=== PATIENT | female | born 1945 | race Caucasian/White ===

== ENCOUNTER → 2017-09-04 15:05 | Outpatient (CLI) | payer OTHER, SELFPAY ==
--- NOTE | 2017-09-04 | DI.RAD.S_ITS ---
PROCEDURE: XR HAND RT MIN 3V INDICATIONS: POLYARTHROPATHY, ERYTHEMA BILATERAL HANDS. TECHNIQUE: 3 views of the hand(s) acquired. COMPARISON: [facility], , HAND 3V RIGHT, 01/29/2017, 14:14. FINDINGS: Bones: No fractures or dislocations. Carpal bones are normally aligned. No suspicious bony lesions. Joint degeneration redemonstrated at the first MCP, PIP and DIP joints of the index finger and PIP joint of the middle finger which is similar to prior examination. Subluxation and ulnar deviation again present at the PIP joints of the index and middle fingers similar to prior examination. Small possible marginal erosions are present involving the second PIP and DIP joints also similar prior examination. There is central erosive appearance at the PIP joint of the right index finger. Generalized osteopenia redemonstrated. Soft tissues: No suspicious soft tissue calcifications. There are faint ill-defined reticular calcifications about the PIP joint of the middle finger as before IMPRESSION: Advanced diffuse joint degeneration, redemonstrated with several small possible marginal erosions which may indicate inflammatory arthritis. Central appearance of some of these erosions raise the possibility of erosive osteoarthritis. Overall, no interval change since 01/29/17. Recommend clinical correlation and if needed further assessment with contrast-enhanced hand MRI could be performed. Dictated by: Yosi GUNTER Interpreted: Chava Man MD on 09/04/2017 at 16:04 Approved by: Gurjit Campbell M.D. on 09/07/2017 at 10:27
--- NOTE | 2017-09-04 | DI.RAD.S_ITS ---
PROCEDURE: XR HAND LT MIN 3V INDICATIONS: POLYARTHROPATHY ERYTHEMA BILATERAL HANDS. TECHNIQUE: 3 views of the hand(s) acquired. COMPARISON: [facility], CR, HAND 3V RIGHT, 01/29/2017, 14:14. [facility], CR, XR HAND RT MIN 3V, 09/04/2017, 15:43. [facility], CR, HAND 3V LEFT, 01/29/2017, 14:14. FINDINGS: Bones: No fractures or dislocations. Carpal bones are normally aligned. No suspicious bony lesions. Prior resection of the trapezium. Joint degeneration at the first CMC Mild joint narrowing with periarticular osteophyte formation. Appearing similar to prior examination with mild subluxation. Fixed flexion deformity involves the index finger PIP joint. There is moderate diffuse joint narrowing of the interphalangeal joints also similar to prior exam. Subtle 2 mm marginal lucencies at the base of the middle finger at the MCP joint, unchanged. Soft tissues: Chondrocalcinosis present. IMPRESSION: 1. Joint degeneration similar to prior examination diffuse osteopenia. 2. Chondrocalcinosis. Differential diagnosis includes but is not limited to hemochromatosis, hyperparathyroidism and CPPD. Dictated by: Yosi GUNTER Interpreted: Chava Man MD on 09/04/2017 at 16:07 Approved by: Gurjit Campbell M.D. on 09/07/2017 at 10:32
[2017-09-04 16:08] LABS: Hematocrit 32.6 % (36-46); Hemoglobin 10.9 g/dL (12.0-16.0)
[2017-09-04 16:33] LABS: Creatinine Urine Random 72.8 mg/dL; Protein (Total) Urine Random 77 mg/dL (0-12); Protein Creatinine Ratio Urine 1.05 GRAM/24H
[2017-09-04 18:22] LABS: Erythrocyte Sedimentation Rate 31 MM/HR (0-20)
[2017-09-04 20:27] LABS: HEMOLYSIS < 15 (0-50)
[2017-09-04 20:28] LABS: BUN Creatinine Ratio 19.4 (6-22); Blood Urea Nitrogen 31 mg/dL (7-17); C-Reactive Protein Quant 0.5 mg/dL (<1.0); Calcium 9.8 mg/dL (8.4-10.2); Carbon Dioxide 28 mmol/L (22-32); Chloride 92 mmol/L (98-107); Estimated Glomerular Filt Rate 31.7 mL/min (>60); Glucose 114 mg/dL (80-110); Potassium 5.1 mmol/L (3.4-5.1); Rheumatoid Factor < 8.6 IU/mL (<12.0); Sodium 133 mmol/L (137-145)
[2017-09-08 12:38] LABS: ANA Screen, IFA Positive (Negative)
[2017-09-08 15:59] LABS: Parathyroid Hormone Int 38 pg/mL (14-64)
== END ==
PROVIDERS: Family Provider Anesthesiology Pain Medicine; PCP Physician Assistant; Visit Provider Student in an Organized Health Care Education/Training Program
DX: M54.5 Low back pain (principal); N05.9 Unspecified nephritic syndrome with unspecified morphologic changes; D64.9 Anemia, unspecified; N25.81 Secondary hyperparathyroidism of renal origin; R80.9 Proteinuria, unspecified; M13.0 Polyarthritis, unspecified; L53.9 Erythematous condition, unspecified
CPT/HCPCS: 36415; 73130; 80048; 82570; 83970; 84156; 85014; 85018; 85651; 86038; 86140; 86305; 86430

== ENCOUNTER 2017-10-06 13:22 | Emergency (ER) | payer OTHER, SELFPAY ==
[2017-10-06] VITALS (7 sets, daily range): BP systolic 173–192; BP diastolic 62–90; PULSE 65–74; RESP 14–25; TEMP 35.9; O2SAT 97–100
[2017-10-06 13:57] LABS: Add Manual Diff / Slide Review NO; Basophils Percent Auto 0.6 % (0-2); Eosinophils Percent Auto 0.5 % (2-4); Hematocrit 32.9 % (36-46); Hemoglobin 11.1 g/dL (12.0-16.0); Lymphocytes Percent Auto 12.9 % (25-40); Mean Corpuscular HGB Conc 33.9 % (30-36); Mean Corpuscular Hemoglobin 31.3 PG (26-34); Mean Corpuscular Volume 92.2 fL (80-100); Monocytes Percent Auto 6.6 % (3-14); Neutrophils Absolute Auto 6200 /uL (3000-5900); Neutrophils Percent Auto 79.4 % (50-75); Platelet Count 331 X10^3/uL (150-400); Red Blood Cell Count 3.56 X10^6/uL (4.0-5.2); Red Cell Distribution Width 13.9 % (11.6-14.8); White Blood Cell Count 7.8 X10^3/uL (4.5-11.0)
[2017-10-06 14:08] LABS: Alanine Aminotransferase 24 IU/L (9-52); Albumin 4.2 g/dL (3.5-5.0); Albumin Globulin Ratio 1.4 (1.0-2.8); Alkaline Phosphatase 112 U/L (38-126); Aspartate Aminotransferase 26 IU/L (14-36); BUN Creatinine Ratio 12.1 (6-22); Bilirubin Total 0.6 mg/dL (0.2-1.3); Blood Urea Nitrogen 17 mg/dL (7-17); Calcium 8.8 mg/dL (8.4-10.2); Carbon Dioxide 26 mmol/L (22-32); Chloride 85 mmol/L (98-107); Globulin 3.1 g/dL (1.7-4.1); Glucose 111 mg/dL (80-110); HEMOLYSIS < 15 (0-50); Lactate Dehydrogenase 400 U/L (313-618); Lipase 12 U/L (23-300); Potassium 4.4 mmol/L (3.4-5.1); Sodium 121 mmol/L (137-145); Total Protein 7.3 g/dL (6.3-8.2)
--- NOTE | 2017-10-06 14:08 | PC.NURSE ---
pt reports nausea with vomiting and diarrhea for one week, sipping wine with relief with spasm, denies fever, denies foreign travel, denies recent antibiotic treatment. denies blood.
--- NOTE | 2017-10-06 14:36 | ED.ABDPAIN ---
HPI - Abdominal Pain General Chief Complaint: Abdominal Pain Stated Complaint: SICK TO STOMACH FOR SEVERAL DAYS Time Seen by Provider: 10/06/17 14:26 Source: patient Mode of arrival: ambulatory Limitations: no limitations History of Present Illness HPI narrative: Patient is a 72-year-old female presents with abdominal pain. She has been nauseous all dry heaving for about a week. No real abdominal pain but does have epigastric pain which she calls as spasm. the pain comes and goes. She is passing gas noted. No constipation. She denies any chest pain or shortness of breath. She has not had any fevers. MD complaint: abdominal pain Onset (ago): week(s) (1) Related Data Home Medications Medication Instructions Recorded Confirmed FLAXSEED (FLAXSEED OIL) 1 cap PO DAILY #0 11/16/11 10/06/17 Fish Oil (Fish Oil 500 MG Softgel) 500 mg PO QDAY #0 11/16/11 10/06/17 aspirin 81 mg PO QDAY #0 11/16/11 10/06/17 gabapentin [Neurontin] 900 mg PO HS #0 11/16/11 10/06/17 nadolol 160 mg PO HS #0 11/16/11 10/06/17 cyclobenzaprine 10 mg PO TIDP PRN #0 tab 12/28/12 10/06/17 cyclosporine [Restasis] 0.05 % OPHTH BID #0 12/28/12 10/06/17 paroxetine HCl [Paxil] 40 mg PO HS #0 tab 12/28/12 10/06/17 fluticasone [Flonase Allergy 1 spray INTRANASAL BIDP PRN #0 10/10/16 10/06/17 Relief] triamcinolone acetonide 1 kiya TOPICAL TID PRN #0 10/10/16 10/06/17 ascorbic acid (vitamin C) 500 mg PO QDAY #0 10/11/16 10/06/17 thiamine HCl (vitamin B1) [Vitamin 100 mcg PO DAILY #0 10/20/16 10/06/17 B-1] hydrocodone-acetaminophen 1 tab PO Q4HP PRN #0 01/21/17 10/06/17 calcitriol 2 cap PO EVERY OTHER DAY 10/06/17 10/06/17 isosorbide mononitrate 1 tab PO DAILY 10/06/17 10/06/17 lisinopril 5 mg PO DAILY 10/06/17 10/06/17 nifedipine 1 tab PO BID 10/06/17 10/06/17 pantoprazole 40 mg PO DAILY 10/06/17 10/06/17 Previous Rx's Medication Instructions Recorded ondansetron 4 mg PO Q6HR PRN #10 tab 10/06/17 promethazine 25 mg PO Q6H PRN #10 tab 10/06/17 Allergies Allergy/AdvReac Type Severity Reaction Status Date / Time hydromorphone [HYDROMORPHONE] Allergy Intermediate HIVES Unverified 07/15/17 12:14 Penicillins [PENICILLINS] Allergy Mild RASH Unverified 07/15/17 12:14 metoprolol [METOPROLOL] Allergy Unknown Unverified 07/15/17 12:14 phenytoin [PHENYTOIN] Allergy Unknown Unverified 07/15/17 12:14 morphine [MORPHINE] AdvReac Severe Confusion, Unverified 07/15/17 12:14 mental status changes, somnolence seasonal allergies Allergy Unknown Uncoded 07/15/17 12:14 Review of Systems Constitutional Denies chills, Denies fever(s), Denies lethargy and Denies weakness Cardiovascular Denies chest pain, Denies irregular heart rhythm, Denies lightheadedness, Denies palpitations, Denies dyspnea, Denies dyspnea on exertion and Denies orthopnea Respiratory Denies cough, Denies dyspnea, Denies dyspnea on exertion and Denies wheezing Gastrointestinal Gastrointestinal: Reports as per HPI and Reports system reviewed and no additional complaints, except as docu Musculoskeletal Denies back pain, Denies muscle weakness, Denies numbness and Denies tingling Neurologic Denies numbness, Denies tingling and Denies weakness Endocrine Denies palpitations Allergic/Immunologic Denies wheezing PFSH Social History Smoking Status: Never smoker Exam Initial Vital Signs Initial Vital Signs: Vital Signs Temperature 96.6 F L 10/06/17 13:25 Pulse Rate 65 10/06/17 13:25 Respiratory Rate 16 10/06/17 13:25 Blood Pressure 177/73 H 10/06/17 13:25 Pulse Oximetry 100 10/06/17 13:25 GENERAL: Well-appearing, well-nourished and in no acute distress. HEENT: Head atraumatic,EOMI, pupils reactive, CARDIOVASCULAR: Regular rate and rhythm without murmurs, rubs or gallops. RESPIRATORY: Breath sounds equal bilaterally, no wheezes rales or rhonchi. ABDOMEN: Soft, tender in epigastric area no guarding or rebound EXTREMITIES: Normal range of motion, no clubbing or edema. Neurovascularly intact NEUROLOGICAL: Alert and oriented x4.Normal gait and speech. SKIN: Warm, dry, no laceration, no petechiae, no rashes or lesions. Course Orders Ordered: ED Orders 10/06/17 13:45 Complete Blood Count AUTO DIFF Stat Comprehensive Metabolic Panel Stat Lactate Dehydrogenase Stat Lipase Stat 10/06/17 15:29 XR acute abdomen series Stat 10/06/17 15:53 Lactate (Lactic Acid) Stat Discontinued Medications Sodium Chloride (Normal Saline 0.9%) 1,000 mls @ 1,000 mls/hr IV BOLUS ONE Stop: 10/06/17 15:38 Last Infusion: 10/06/17 17:23 Dose: 0 mls/hr Admin: 10/06/17 15:04 Dose: 1,000 mls/hr Ketorolac Tromethamine (Toradol) 15 mg IV NOW ONE Stop: 10/06/17 14:40 Last Admin: 10/06/17 15:04 Dose: 15 mg Ondansetron HCl (Zofran) 4 mg IV NOW ONE Stop: 10/06/17 15:12 Last Admin: 10/06/17 15:12 Dose: 4 mg Pantoprazole Sodium (Protonix) 40 mg IV NOW ONE Stop: 10/06/17 15:30 Last Admin: 10/06/17 15:52 Dose: 40 mg Vital Signs - 8 hr 10/06/17 13:25 10/06/17 14:15 10/06/17 14:36 Temperature 96.6 F L Pulse Rate 65 68 68 Respiratory Rate 16 15 14 Blood Pressure 177/73 H Blood Pressure [Right Arm] 183/90 H 192/62 H Pulse Oximetry 100 97 100 10/06/17 15:11 10/06/17 16:07 10/06/17 17:00 Temperature Pulse Rate 67 68 74 Respiratory Rate 18 19 25 H Blood Pressure Blood Pressure [Right Arm] 183/75 H 173/68 H 181/67 H Pulse Oximetry 98 97 100 10/06/17 17:24 Temperature Pulse Rate 72 Respiratory Rate 20 Blood Pressure 181/67 H Blood Pressure [Right Arm] Pulse Oximetry 97 MDM - Abdominal Pain Lab Data Attestation: I reviewed the patient's lab results. Result diagrams: 10/06/17 13:45 10/06/17 13:45 Lab Results 10/06/17 10/06/17 10/06/17 Range/Units 13:45 13:45 15:53 WBC 7.8 (4.5-11.0) X10^3/uL RBC 3.56 L (4.0-5.2) X10^6/uL Hgb 11.1 L (12.0-16.0) g/dL Hct 32.9 L (36-46) % MCV 92.2 (80-100) fL MCH 31.3 (26-34) PG MCHC 33.9 (30-36) % RDW 13.9 (11.6-14.8) % Plt Count 331 (150-400) X10^3/uL Neut % (Auto) 79.4 H (50-75) % Lymph % (Auto) 12.9 L (25-40) % [place] % (Auto) 6.6 (3-14) % Eos % (Auto) 0.5 L (2-4) % Baso % (Auto) 0.6 (0-2) % Neut # (Auto) 6200 H (5298-2147) /uL Sodium 121 L (137-145) mmol/L Potassium 4.4 (3.4-5.1) mmol/L Chloride 85 L (98-107) mmol/L Carbon Dioxide 26 (22-32) mmol/L BUN 17 (7-17) mg/dL Creatinine 1.40 H (0.52-1.04) mg/dL Estimated GFR 37.0 L (>60) mL/min BUN/Creatinine Ratio 12.1 (6-22) Glucose 111 H (80-110) mg/dL Lactate 0.6 L (0.7-2.1) mmol/L Calcium 8.8 (8.4-10.2) mg/dL Total Bilirubin 0.6 (0.2-1.3) mg/dL AST 26 (14-36) IU/L ALT 24 (9-52) IU/L Alkaline Phosphatase 112 (38-126) U/L Lactate Dehydrogenase 400 (313-618) U/L Total Protein 7.3 (6.3-8.2) g/dL Albumin 4.2 (3.5-5.0) g/dL Globulin 3.1 (1.7-4.1) g/dL Albumin/Globulin Ratio 1.4 (1.0-2.8) Lipase 12 L (23-300) U/L Point of care testing: Urine Dip Bedside Urine Glucose Negative Bedside Urine Bilirubin - Negative Bedside Urine Ketone - Negative Urine Specific [place] 1.015 Bedside Urine Occult Blood - Negative Bedside Urine pH 8.0 Bedside Urine Protein + 30 Bedside Urine Urobilinogen - Negative Bedside Urine Nitrite - Negative Bedside Urine Leukocytes - Negative Esterase Imaging Data Abdominal x-ray: Radiologist's impression: PROCEDURE: XR ACUTE ABDOMEN SERIES INDICATIONS: pain with history of bowel obstruction TECHNIQUE: One view chest and two views of the abdomen were acquired. COMPARISON: [facility], CR, ABDOMEN ACUTE SERIES, 01/20/2017, 19:43. [facility], CT, ABDOMEN/PELVIS WITH CONTRAST, 10/11/2016, 19:22. FINDINGS: Surgical changes and devices: Postoperative changes within the region of the epigastrium are noted. Chest: There is questionable airspace disease at the left lung base. The pulmonary vasculature appears to be increased. No large effusion or definite pneumothorax is appreciated. However, there do appear to be trace bilateral pleural effusions. There is aortic atherosclerosis. Heart size is normal. No pleural effusions. No pneumoperitoneum. Abdomen: No air-filled distended small bowel loops are identified. No obvious air-fluid levels are evident. No definite free air is identified. No suspicious calcifications. Visualized solid organ contours appear normal. Bones: No suspicious bony lesions. Prominent S-shaped curvature of the thoracolumbar spine is noted. IMPRESSION: 1. No convincing findings of bowel obstruction. There is continued clinical concern, please consider either followup conventional radiographic imaging or CT. 2. Probable basilar atelectasis and trace effusions. 3. Mild pulmonary vascular congestion. Dictated by: Kurtis Drew M.D. on 10/06/2017 at 15:48 MDM Narrative Medical decision making narrative: Abdomen is reexamined and remains cough. She is feeling much better and tolerating oral fluids. At this time no further imaging indicated. She had no chest pain or shortness of breath is been ongoing for a week or more. I do not believe it to be acute coronary syndrome or cardiac related. I discussed all findings with the patient. Education has been performed regarding treatment plan, diagnosis, warning signs and symptoms and all concerns have been addressed. Verbally agree with and understood all of the above. Discharge Plan Departure Patient Disposition: Home, Self-Care Clinical Impression: Epigastric abdominal pain Discharge Date/Time: 10/06/17 17:27 Interventions: ED Discharge Assessment Last Done: 10/06/17 17:24 Activity Restrictions/Additional Instructions: 1) You have been diagnosed with abdominal pain with vomiting 2) What to do: Drink frequent but small amounts of fluids. I recommend Gatorade or a Gatorade-like product, as it has small amounts of sugar and salts that improve fluid retention. 3) Take medications as directed-Zofran has been electronically transmitted to [facility] in [place] 4) Follow up with your primary care provider in 2-3 days 5) Return to ER if you should have any new or worsening symptoms such as, unable to hold down fluids despite use of anti-nausea medications and the small volume oral rehydration strategy. Prescriptions: New ondansetron 4 mg tablet,disintegrating 4 mg PO Q6HR PRN (Reason: nausea and vomiting) Qty: 10 RF: 0 promethazine 25 mg tablet 25 mg PO Q6H PRN (Reason: nausea and vomiting) Qty: 10 RF: 0 No Action aspirin 81 MG tablet,delayed release (DR/EC) 81 mg PO QDAY Qty: 0 RF: 0 gabapentin [Neurontin] 300 MG capsule 900 mg PO HS Qty: 0 RF: 0 nadolol 40 MG tablet 160 mg PO HS Qty: 0 RF: 0 FLAXSEED (FLAXSEED OIL) 1 cap PO DAILY Qty: 0 RF: 0 Fish Oil (Fish Oil 500 MG Softgel) 500 mg PO QDAY Qty: 0 RF: 0 cyclobenzaprine 10 MG tablet 10 mg PO TIDP PRN (Reason: Spasms) Qty: 0 RF: 0 paroxetine HCl [Paxil] 40 MG tablet 40 mg PO HS Qty: 0 RF: 0 cyclosporine [Restasis] 1 EACH dropperette 0.05 % OPHTH BID Qty: 0 RF: 0 fluticasone [Flonase Allergy Relief] 9.9 ML spray,suspension 1 spray Intranasal BIDP PRN (Reason: Allergy Symptoms) Qty: 0 RF: 0 triamcinolone acetonide 0.1 % cream 1 kiya Topical TID PRN (Reason: skin condition) Qty: 0 RF: 0 ascorbic acid (vitamin C) 500 MG tablet 500 mg PO QDAY Qty: 0 RF: 0 thiamine HCl (vitamin B1) [Vitamin B-1] 50 MG tablet 100 mcg PO DAILY Qty: 0 RF: 0 hydrocodone-acetaminophen 5 MG/325 MG tablet 1 tab PO Q4HP PRN (Reason: Pain, Moderate) Qty: 0 RF: 0 isosorbide mononitrate 60 mg tablet extended release 24 hr 1 tab PO DAILY RF: 0 pantoprazole 40 mg tablet,delayed release (DR/EC) 40 mg PO DAILY RF: 0 calcitriol 0.5 mcg capsule 2 cap PO EVERY OTHER DAY RF: 0 lisinopril 5 mg tablet 5 mg PO DAILY RF: 0 nifedipine 60 mg tablet extended release 1 tab PO BID RF: 0 Referrals: Lachelle Ruggiero PA-C [Primary Care Provider] -
[2017-10-06] MEDS: SODIUM CHLORIDE 0.9% 1,000 ML 1000 ML IV (15:04)
[2017-10-06] MEDS: KETOROLAC 60 MG/2 ML VIAL 15 MG IV (15:04)
[2017-10-06] MEDS: ONDANSETRON 4 MG/2 ML INJ IV (15:12)
--- NOTE | 2017-10-06 15:29 | DI.RAD.S_ITS ---
PROCEDURE: XR ACUTE ABDOMEN SERIES INDICATIONS: pain with history of bowel obstruction TECHNIQUE: One view chest and two views of the abdomen were acquired. COMPARISON: [facility], CR, ABDOMEN ACUTE SERIES, 01/20/2017, 19:43. [facility], CT, ABDOMEN/PELVIS WITH CONTRAST, 10/11/2016, 19:22. FINDINGS: Surgical changes and devices: Postoperative changes within the region of the epigastrium are noted. Chest: There is questionable airspace disease at the left lung base. The pulmonary vasculature appears to be increased. No large effusion or definite pneumothorax is appreciated. However, there do appear to be trace bilateral pleural effusions. There is aortic atherosclerosis. Heart size is normal. No pleural effusions. No pneumoperitoneum. Abdomen: No air-filled distended small bowel loops are identified. No obvious air-fluid levels are evident. No definite free air is identified. No suspicious calcifications. Visualized solid organ contours appear normal. Bones: No suspicious bony lesions. Prominent S-shaped curvature of the thoracolumbar spine is noted. IMPRESSION: 1. No convincing findings of bowel obstruction. There is continued clinical concern, please consider either followup conventional radiographic imaging or CT. 2. Probable basilar atelectasis and trace effusions. 3. Mild pulmonary vascular congestion. Dictated by: Kurtis Drew M.D. on 10/06/2017 at 15:48 Approved by: Kurtis Drew M.D. on 10/06/2017 at 15:50
[2017-10-06] MEDS: PANTOPRAZOLE 40 MG VIAL IV (15:52)
[2017-10-06 16:19] LABS: Lactate (Lactic Acid) 0.6 mmol/L (0.7-2.1)
== END 2017-10-06 17:27 | disposition home or self-care (01) ==
PROVIDERS: Emergency Provider Emergency Medicine; Family Provider Anesthesiology Pain Medicine; PCP Physician Assistant
DX: R10.13 Epigastric pain (principal)
CPT/HCPCS: 36591; 74022; 80053; 81003; 83605; 83615; 83690; 85025; 96361; 96374; 96375; 99283; 99284; C9113; J1885; J2405

== ENCOUNTER 2017-10-14 23:01 | Inpatient (IN) | payer OTHER, SELFPAY ==
[2017-10-14] MEDS: SODIUM CHLORIDE 0.9% 1,000 ML 1000 ML IV (23:00)
--- NOTE | 2017-10-14 23:02 | ED.SOB ---
HPI - SOB/Dyspnea General Chief Complaint: Shortness of Breath/Dyspnea Stated Complaint: respiratory failure Time Seen by Provider: 10/14/17 23:02 Source: family and EMS Mode of arrival: EMS Limitations: physical limitation History of Present Illness 72-year-old female presents to the emergency department by EMS for evaluation of acute respiratory failure. Patient had been intubated prior to arrival. Patient has been having chronic abdominal pain was seen in the ER about a week ago with essentially normal evaluation. Over the course of the day she has been doing well actually had been he without difficulty and then started complaining of some pain and rapidly progressed to a state significant breathing difficulty. On arrival EMS found her with a pulse ox in the 50s and mental status change. She was intubated with first-time success using etomidate and succinylcholine. MD Complaint: shortness of breath Onset (ago): minute(s) Context: recent illness Severity: severe Consistency/Duration: progressively worsening Relieving factors: nothing Exacerbating factors: nothing Treatment prior to arrival: intubation Related Data Home Medications Medication Instructions Recorded Confirmed FLAXSEED (FLAXSEED OIL) 1 cap PO DAILY #0 11/16/11 10/06/17 Fish Oil (Fish Oil 500 MG Softgel) 500 mg PO QDAY #0 11/16/11 10/06/17 aspirin 81 mg PO QDAY #0 11/16/11 10/06/17 gabapentin [Neurontin] 900 mg PO HS #0 11/16/11 10/06/17 nadolol 160 mg PO HS #0 11/16/11 10/06/17 cyclobenzaprine 10 mg PO TIDP PRN #0 tab 12/28/12 10/06/17 cyclosporine [Restasis] 0.05 % OPHTH BID #0 12/28/12 10/06/17 paroxetine HCl [Paxil] 40 mg PO HS #0 tab 12/28/12 10/06/17 fluticasone [Flonase Allergy 1 spray INTRANASAL BIDP PRN #0 10/10/16 10/06/17 Relief] triamcinolone acetonide 1 kiya TOPICAL TID PRN #0 10/10/16 10/06/17 ascorbic acid (vitamin C) 500 mg PO QDAY #0 10/11/16 10/06/17 thiamine HCl (vitamin B1) [Vitamin 100 mcg PO DAILY #0 10/20/16 10/06/17 B-1] hydrocodone-acetaminophen 1 tab PO Q4HP PRN #0 01/21/17 10/06/17 calcitriol 2 cap PO EVERY OTHER DAY 10/06/17 10/06/17 isosorbide mononitrate 1 tab PO DAILY 10/06/17 10/06/17 lisinopril 5 mg PO DAILY 10/06/17 10/06/17 nifedipine 1 tab PO BID 10/06/17 10/06/17 pantoprazole 40 mg PO DAILY 10/06/17 10/06/17 Previous Rx's Medication Instructions Recorded ondansetron 4 mg PO Q6HR PRN #10 tab 10/06/17 promethazine 25 mg PO Q6H PRN #10 tab 10/06/17 Allergies Allergy/AdvReac Type Severity Reaction Status Date / Time hydromorphone [HYDROMORPHONE] Allergy Intermediate HIVES Unverified 10/15/17 00:00 Penicillins [PENICILLINS] Allergy Mild RASH Unverified 10/15/17 00:00 metoprolol [METOPROLOL] Allergy Unknown Unverified 10/15/17 00:00 phenytoin [PHENYTOIN] Allergy Unknown Unverified 10/15/17 00:00 morphine [MORPHINE] AdvReac Severe Confusion, Unverified 10/15/17 00:00 mental status changes, somnolence seasonal allergies Allergy Unknown Uncoded 10/15/17 00:00 Review of Systems Review of Systems due to endotracheal tube [facility] Social History household members: children Smoking Status: Never smoker Exam Narrative Exam Narrative: 72-year-old female sedated and intubated Initial Vital Signs Initial Vital Signs: Vital Signs Pulse Rate 58 L 10/14/17 23:45 Respiratory Rate 14 10/14/17 23:45 Blood Pressure 113/50 L 10/14/17 23:45 Pulse Oximetry 99 10/14/17 23:45 Const General: patient mechanically ventilated HENKS Head: normal to inspection Ears: hearing grossly normal bilaterally Nose: external nose normal Face and sinus: normal facial exam Eyes General: appearance normal, both eyes and all related structures Eyelids: eyelids normal Neck Neck: normal visual inspection Chest Chest: normal inspection of the chest Resp Auscultation: crackles, diminished lung sounds bilaterally and rhonchi Cardio Rate: regular rate Rhythm: regular rhythm Heart Sounds: no click, no gallops, no murmurs and no rubs Pulses: normal peripheral pulses GI Inspection: non-distended Palpation: soft, no hepatosplenomegaly, No guarding, No pulsatile mass and No tender Auscultation: normal bowel sounds Skin General: no rashes or lesions noted Neuro General: unable to assess gait Other: unable to assess secondary to mechanical ventilation and sedation Extrem General: normal to inspection Course Orders Ordered: ED Orders 10/14/17 23:04 XR chest 1V Stat Lactate (Lactic Acid) Stat 10/14/17 23:25 Basic Metabolic Panel Stat Bilirubin Total Stat Complete Blood Count AUTO DIFF Stat Procalcitonin Stat 10/14/17 23:43 CT chest abd pel w con Stat 10/14/17 23:51 Arterial Blood Gas Stat 10/15/17 01:09 Urinalysis and Microscopic Stat Urine Culture Stat Urine Drug Screen, Rapid Stat 10/15/17 01:13 B Type Natriuretic Peptide Stat Troponin & CK Cardiac Panel Stat 10/15/17 02:39 MRSA PCR Stat Sodium Chloride (Normal Saline 0.9%) 1,000 mls @ 100 mls/hr IV CONT STORM Last Infusion: 10/15/17 02:34 Dose: 100 mls/hr Admin: 10/15/17 01:38 Dose: 100 mls/hr Propofol (Propofol) 1,000 mg in 100 mls @ 1.65 mls/hr IV TITRATE STORM; Protocol Discontinued Medications Fentanyl (Sublimaze) 100 mcg IV NOW ONE Stop: 10/15/17 01:25 Last Admin: 10/15/17 01:39 Dose: 100 mcg Fentanyl (Sublimaze) 100 mcg IV NOW ONE Stop: 10/15/17 01:27 Last Admin: 10/15/17 01:39 Dose: 100 mcg Fentanyl (Sublimaze) 100 mcg IV NOW ONE Stop: 10/15/17 01:33 Last Admin: 10/15/17 01:39 Dose: 100 mcg Furosemide (Lasix) 40 mg IV NOW ONE Stop: 10/15/17 01:14 Last Admin: 10/15/17 01:38 Dose: 40 mg Propofol (Propofol) 1,000 mg in 100 mls @ 2 mls/hr IV TITRATE SOTRM; Protocol Last Admin: 10/14/17 23:10 Dose: 2 mls/hr Sodium Chloride (Normal Saline 0.9%) 1,000 mls @ 1,000 mls/hr IV BOLUS ONE Stop: 10/15/17 02:40 Last Infusion: 10/15/17 00:30 Dose: 0 mls/hr Admin: 10/14/17 23:00 Dose: 1,000 mls/hr Sodium Chloride (Normal Saline 0.9%) 1,000 mls @ 1,000 mls/hr IV BOLUS ONE Stop: 10/15/17 02:41 Last Infusion: 10/15/17 01:30 Dose: 0 mls/hr Admin: 10/15/17 00:30 Dose: 1,000 mls/hr Reevaluation(s) Reevaluation #1: patient continues to be stable on vent. Family at bedside. They state she had a pretty good day. They say she was eating more than normal and certainly was not complaining of difficulty breathing. They deny any complaint of chest pain or any neurologic findings right up until the respiratory episode. She was only complaining of her ongoing belly pain. Also they state there is no chance she had too much of her pain medicine. Furthermore she had no facial weakness, slurring of speech, or extremity weakness. Consultations Consultation #1: Dr. Woodruff happy to accept patient into the ICU. She asks for IVF at 100mL/hr and labs for the morning Vital Signs - 8 hr 10/14/17 23:45 10/14/17 23:51 10/15/17 00:00 Temperature Pulse Rate 58 L 55 L 54 L Respiratory Rate 14 16 14 Blood Pressure 154/106 H Blood Pressure [Left Arm] 113/50 L 108/50 L Pulse Oximetry 99 87 L 99 10/15/17 00:10 10/15/17 00:16 10/15/17 00:22 Temperature Pulse Rate 55 L 62 60 Respiratory Rate 14 14 14 Blood Pressure Blood Pressure [Left Arm] 132/60 H 155/73 H 157/88 H Pulse Oximetry 98 98 98 10/15/17 00:30 10/15/17 00:40 10/15/17 00:50 Temperature Pulse Rate 56 L 58 L 55 L Respiratory Rate 14 14 14 Blood Pressure Blood Pressure [Left Arm] 142/57 H 136/55 H 132/53 H Pulse Oximetry 98 99 99 10/15/17 00:55 10/15/17 01:00 10/15/17 01:01 Temperature Pulse Rate 55 L 54 L 65 Respiratory Rate 14 14 14 Blood Pressure Blood Pressure [Left Arm] 138/55 H 142/57 H Pulse Oximetry 99 99 10/15/17 01:08 10/15/17 01:30 10/15/17 02:30 Temperature Pulse Rate 55 L 50 L 50 L Respiratory Rate 14 14 14 Blood Pressure 118/64 Blood Pressure [Left Arm] 150/55 H 126/70 H Pulse Oximetry 99 99 99 10/15/17 02:35 10/15/17 03:32 Temperature 96.7 F L Pulse Rate 51 L 53 L Respiratory Rate 14 18 Blood Pressure 156/62 H 161/52 H Blood Pressure [Left Arm] Pulse Oximetry 97 99 MDM - SOB/Dyspnea Lab Data Result diagrams: 10/14/17 23:25 10/14/17 23:25 Lab Results 10/14/17 10/14/17 10/14/17 Range/Units 23:21 23:21 23:25 WBC 9.6 (4.5-11.0) X10^3/uL RBC 3.25 L (4.0-5.2) X10^6/uL Hgb 10.1 L (12.0-16.0) g/dL Hct 30.3 L (36-46) % MCV 93.4 (80-100) fL MCH 31.2 (26-34) PG MCHC 33.4 (30-36) % RDW 14.5 (11.6-14.8) % Plt Count 398 (150-400) X10^3/uL Neut % (Auto) 87.3 H (50-75) % Lymph % (Auto) 6.7 L (25-40) % [place] % (Auto) 4.8 (3-14) % Eos % (Auto) 0.6 L (2-4) % Baso % (Auto) 0.6 (0-2) % Neut # (Auto) 8400 H (4905-3036) /uL ABG pH (7.35-7.45) ABG pCO2 (35-45) mmHg ABG pO2 (80-105) mmHg ABG HCO3 (23-27) mmol/L ABG Total CO2 (23-27) mmol/L ABG O2 Saturation (95-100) % ABG Base Excess (-2-3) mmol/L FiO2 Sodium (137-145) mmol/L Potassium (3.4-5.1) mmol/L Chloride (98-107) mmol/L Carbon Dioxide (22-32) mmol/L BUN (7-17) mg/dL Creatinine (0.52-1.04) mg/dL Estimated GFR (>60) mL/min BUN/Creatinine Ratio (6-22) Glucose (80-110) mg/dL Lactate (0.7-2.1) mmol/L Calcium (8.4-10.2) mg/dL Total Bilirubin (0.2-1.3) mg/dL Total Creatine Kinase 63 (30-135) U/L Troponin I < 0.012 (0.01-0.034) ng/mL B-Natriuretic Peptide 1080.0 H (<100) Procalcitonin (<0.5) ng/mL Urine Color Urine Appearance Urine pH (4.5-8.0) Ur Specific [place] (1.000-1.035) Urine Protein (Negative) Urine Glucose (UA) (Normal) g/dL Urine Ketones (NEGATIVE) Urine Occult Blood (Negative) Urine Nitrate (Negative) Urine Bilirubin (NEGATIVE) Urine Urobilinogen (0.2) E.U./dL Ur Leukocyte Esterase (NEGATIVE) Urine RBC (0-5/HPF) Urine WBC (0-5/HPF) Ur Squamous Epith Cells Urine Bacteria (None) Ur Culture Indicated? Micro UA Comment Urine Opiates Screen (Negative) Ur Oxycodone Screen (Negative) Urine Methadone Screen (Negative) Ur Barbiturates Screen (Negative) U Tricyclic Antidepress (Negative) Ur Phencyclidine Scrn (Negative) Ur Amphetamines Screen (Negative) U Methamphetamines Scrn (Negative) Ur MDMA Scrn (Ecstasy) (Negative) U Benzodiazepines Scrn (Negative) Urine Cocaine Screen (Negative) U Marijuana (THC) Screen (Negative) 10/14/17 10/14/17 10/14/17 Range/Units 23:25 23:25 23:51 WBC (4.5-11.0) X10^3/uL RBC (4.0-5.2) X10^6/uL Hgb (12.0-16.0) g/dL Hct (36-46) % MCV (80-100) fL MCH (26-34) PG MCHC (30-36) % RDW (11.6-14.8) % Plt Count (150-400) X10^3/uL Neut % (Auto) (50-75) % Lymph % (Auto) (25-40) % [place] % (Auto) (3-14) % Eos % (Auto) (2-4) % Baso % (Auto) (0-2) % Neut # (Auto) (2231-1826) /uL ABG pH 7.43 (7.35-7.45) ABG pCO2 40.8 (35-45) mmHg ABG pO2 293 H* (80-105) mmHg ABG HCO3 27 (23-27) mmol/L ABG Total CO2 29 H (23-27) mmol/L ABG O2 Saturation 100 (95-100) % ABG Base Excess 3.0 (-2-3) mmol/L FiO2 100 Sodium 116 L* (137-145) mmol/L Potassium 5.2 H (3.4-5.1) mmol/L Chloride 85 L (98-107) mmol/L Carbon Dioxide 24 (22-32) mmol/L BUN 17 (7-17) mg/dL Creatinine 1.20 H (0.52-1.04) mg/dL Estimated GFR 44.2 L (>60) mL/min BUN/Creatinine Ratio 14.2 (6-22) Glucose 165 H (80-110) mg/dL Lactate (0.7-2.1) mmol/L Calcium 8.0 L (8.4-10.2) mg/dL Total Bilirubin 0.6 (0.2-1.3) mg/dL Total Creatine Kinase (30-135) U/L Troponin I (0.01-0.034) ng/mL B-Natriuretic Peptide (<100) Procalcitonin 13.99 H (<0.5) ng/mL Urine Color Urine Appearance Urine pH (4.5-8.0) Ur Specific [place] (1.000-1.035) Urine Protein (Negative) Urine Glucose (UA) (Normal) g/dL Urine Ketones (NEGATIVE) Urine Occult Blood (Negative) Urine Nitrate (Negative) Urine Bilirubin (NEGATIVE) Urine Urobilinogen (0.2) E.U./dL Ur Leukocyte Esterase (NEGATIVE) Urine RBC (0-5/HPF) Urine WBC (0-5/HPF) Ur Squamous Epith Cells Urine Bacteria (None) Ur Culture Indicated? Micro UA Comment Urine Opiates Screen (Negative) Ur Oxycodone Screen (Negative) Urine Methadone Screen (Negative) Ur Barbiturates Screen (Negative) U Tricyclic Antidepress (Negative) Ur Phencyclidine Scrn (Negative) Ur Amphetamines Screen (Negative) U Methamphetamines Scrn (Negative) Ur MDMA Scrn (Ecstasy) (Negative) U Benzodiazepines Scrn (Negative) Urine Cocaine Screen (Negative) U Marijuana (THC) Screen (Negative) 10/15/17 10/15/17 10/15/17 Range/Units 01:09 01:09 01:20 WBC (4.5-11.0) X10^3/uL RBC (4.0-5.2) X10^6/uL Hgb (12.0-16.0) g/dL Hct (36-46) % MCV (80-100) fL MCH (26-34) PG MCHC (30-36) % RDW (11.6-14.8) % Plt Count (150-400) X10^3/uL Neut % (Auto) (50-75) % Lymph % (Auto) (25-40) % [place] % (Auto) (3-14) % Eos % (Auto) (2-4) % Baso % (Auto) (0-2) % Neut # (Auto) (6932-8747) /uL ABG pH (7.35-7.45) ABG pCO2 (35-45) mmHg ABG pO2 (80-105) mmHg ABG HCO3 (23-27) mmol/L ABG Total CO2 (23-27) mmol/L ABG O2 Saturation (95-100) % ABG Base Excess (-2-3) mmol/L FiO2 Sodium (137-145) mmol/L Potassium (3.4-5.1) mmol/L Chloride (98-107) mmol/L Carbon Dioxide (22-32) mmol/L BUN (7-17) mg/dL Creatinine (0.52-1.04) mg/dL Estimated GFR (>60) mL/min BUN/Creatinine Ratio (6-22) Glucose (80-110) mg/dL Lactate 0.8 (0.7-2.1) mmol/L Calcium (8.4-10.2) mg/dL Total Bilirubin (0.2-1.3) mg/dL Total Creatine Kinase (30-135) U/L Troponin I (0.01-0.034) ng/mL B-Natriuretic Peptide (<100) Procalcitonin (<0.5) ng/mL Urine Color Yellow Urine Appearance Clear Urine pH 7.0 (4.5-8.0) Ur Specific [place] 1.010 (1.000-1.035) Urine Protein Trace H (Negative) Urine Glucose (UA) Negative (Normal) g/dL Urine Ketones Negative (NEGATIVE) Urine Occult Blood Negative (Negative) Urine Nitrate Negative (Negative) Urine Bilirubin Negative (NEGATIVE) Urine Urobilinogen 0.2 (0.2) E.U./dL Ur Leukocyte Esterase Trace H (NEGATIVE) Urine RBC None seen (0-5/HPF) Urine WBC 0-1/hpf (0-5/HPF) Ur Squamous Epith Cells 0-1 /hpf Urine Bacteria None seen (None) Ur Culture Indicated? Specimen cultured Micro UA Comment Not Reportable Urine Opiates Screen Positive H (Negative) Ur Oxycodone Screen Negative (Negative) Urine Methadone Screen Negative (Negative) Ur Barbiturates Screen Negative (Negative) U Tricyclic Antidepress Negative (Negative) Ur Phencyclidine Scrn Negative (Negative) Ur Amphetamines Screen Negative (Negative) U Methamphetamines Scrn Negative (Negative) Ur MDMA Scrn (Ecstasy) Negative (Negative) U Benzodiazepines Scrn Negative (Negative) Urine Cocaine Screen Negative (Negative) U Marijuana (THC) Screen Positive H (Negative) Critical Care Time Critical Care Time: Yes Total Critical Care Time: 45 Attestation: Critical care time is separate from other billable procedures. This critical care time includes consultation with family and other consulting doctors, review of records, and interpretation of data from labs, EKGs, imaging, etc. Discharge Plan Departure Patient Disposition: Admitted As Inpatient Clinical Impression: Acute respiratory failure with hypoxia, Acute hyponatremia Discharge Date/Time: 10/15/17 02:30 Interventions: ED Discharge Assessment Last Done: 10/15/17 02:30 Admit Date/Time: 10/15/17 01:13 Admit Provider: Amara Woodruff
--- NOTE | 2017-10-14 23:04 | DI.RAD.S_ITS ---
PROCEDURE: XR CHEST 1V INDICATIONS: intubated TECHNIQUE: One view of the chest was acquired. COMPARISON: [facility], , CHEST 1 VIEW, 10/20/2016, 18:20. [facility], , CHEST FOR PICC PLACEMENT, 10/22/2016, 15:11. FINDINGS: Surgical changes and devices: The endotracheal tube tip is 2.5 cm above ramesh.. Lungs and pleura: Bilateral patchy airspace infiltrates and small bilateral pleural effusions. No pleural effusions or pneumothorax. Lungs are clear. Mediastinum: Mediastinal contours appear normal. Heart size is mildly increased. Bones and chest wall: No suspicious bony lesions. Overlying soft tissues appear unremarkable. IMPRESSION: 1. Endotracheal tube 2.5 cm above ramesh. 2. Bilateral patchy airspace infiltrates and small pleural effusions suspicious for pulmonary edema or bilateral pneumonia. 3. Mild cardiomegaly. Dictated by: Rex Crocker M.D. on 10/15/2017 at 8:28 Approved by: Rex Crocker M.D. on 10/15/2017 at 8:29
[2017-10-14 23:05] VITALS: BP 152/72; RESP 16; O2SAT 100
[2017-10-14] MEDS: PROPOFOL 1,000 MG/10 ML VIAL 2 MG IV (23:10)
[2017-10-14 23:32] LABS: Add Manual Diff / Slide Review NO; Basophils Percent Auto 0.6 % (0-2); Eosinophils Percent Auto 0.6 % (2-4); Hematocrit 30.3 % (36-46); Hemoglobin 10.1 g/dL (12.0-16.0); Lymphocytes Percent Auto 6.7 % (25-40); Mean Corpuscular HGB Conc 33.4 % (30-36); Mean Corpuscular Hemoglobin 31.2 PG (26-34); Mean Corpuscular Volume 93.4 fL (80-100); Monocytes Percent Auto 4.8 % (3-14); Neutrophils Absolute Auto 8400 /uL (3000-5900); Neutrophils Percent Auto 87.3 % (50-75); Platelet Count 398 X10^3/uL (150-400); Red Blood Cell Count 3.25 X10^6/uL (4.0-5.2); Red Cell Distribution Width 14.5 % (11.6-14.8); White Blood Cell Count 9.6 X10^3/uL (4.5-11.0)
[2017-10-14 23:40] LABS: BUN Creatinine Ratio 14.2 (6-22); Bilirubin Total 0.6 mg/dL (0.2-1.3); Blood Urea Nitrogen 17 mg/dL (7-17); Carbon Dioxide 24 mmol/L (22-32); Chloride 85 mmol/L (98-107); Estimated Glomerular Filt Rate 44.2 mL/min (>60); Glucose 165 mg/dL (80-110); HEMOLYSIS 41 (0-50); Potassium 5.2 mmol/L (3.4-5.1)
--- NOTE | 2017-10-14 23:43 | DI.CT.S_ITS ---
PROCEDURE: CT CHEST ABD PEL W CON INDICATIONS: 72 year old woman with abdominal pain, shortness of breath, intubated TECHNIQUE: After the administration of intravenous contrast, 5 mm thick sections acquired from the lung apices to the symphysis. 2.5 mm thick coronal and sagittal reformats were acquired. Additional 7 mm thick coronal maximum intensity projection (MIP) reformats acquired through the lungs. Optional 10-minute delayed imaging may be performed from the kidneys to the bladder. For radiation dose reduction, the following was used: automated exposure control, adjustment of mA and/or kV according to patient size. COMPARISON: [facility], US, ABDOMEN COMPLETE, 10/10/2016, 17:20. [facility], CT, ABDOMEN WITH CONTRAST, 09/19/2014, 12:49. [facility], US, ABDOMEN LIMITED, 01/04/2013, 10:56. [facility], CT, ABDOMEN/PELVIS WITH CONTRAST, 10/11/2016, 19:22. [facility], CR, XR CHEST 1V, 10/14/2017, 23:08. FINDINGS: Image quality: Excellent. CHEST: Lungs: [id number] pleural effusions bilaterally. Bilateral patchy infiltrates in upper lobes and bibasilar consolidations/atelectasis. Central and peripheral airways appear patent and normal in caliber. Mediastinum: There is endotracheal intubation. No mediastinal or hilar lymphadenopathy. Heart size is mildly increased. No pericardial effusion. Thoracic aorta and pulmonary arteries demonstrate normal size and enhancement. No mediastinal or hilar adenopathy. Esophagus is normal in caliber. Chest wall: No rib fractures. No subcutaneous emphysema. No axillary or supraclavicular adenopathy. Thyroid gland is normal. ABDOMEN: Solid organs: Liver is normal in size and enhancement. Spleen is small. Gallbladder is distended and may contain a gallstone. Biliary system is non-dilated. Pancreas enhances normally, without transection. Spleen is normal in size and enhancement, without lacerations. No adrenal hematomas. Both kidneys demonstrate lobulated contour. The right kidney is atrophic. No renal stone hydronephrosis. Peritoneum and bowel: Surgical clips at the gastroesophageal junction. Unenhanced bowel loops demonstrate normal and caliber. There is diffuse increased mucosal enhancement and small intestines which is filled fluid. Possible mild diffuse cortical thickening involving the distal transverse colon descending and sigmoid colon. Nodes and vessels: No retroperitoneal or mesenteric adenopathy. Aorta and inferior vena cava are normal in size and enhancement. Miscellaneous: No ventral hernias. PELVIS: Genitourinary: Bladder is contracted. There is a Colon catheter.. Miscellaneous: No inguinal hernias or adenopathy. Bones: No fracture. Moderate scoliosis. Degenerative changes noted in lumbar spine. IMPRESSION: 1. Bilateral pleural effusions. There are patchy air space infiltrates suspicious for pulmonary edema or bilateral pneumonia. Bibasilar opacities may be consolidation or atelectasis. 2. Small bowel loops are fluid-filled and demonstrate increased mucosal enhancement. The findings are nonspecific and may be secondary to enteritis. There is possible mild diffuse colonic wall thickening involving the distal transverse colon, descending and sigmoid colon suggesting mild colitis. In the absence of oral contrast, the finding is less specific. Recommend clinical correlation. 3. Lobulated contour of kidneys. The right kidney is atrophic. 4. Mild cardiomegaly. 5. Distended gallbladder. A possible gallstone is noted. 6. Postsurgical changes at the gastroesophageal junction. The result was discussed with Dr. Carolina on 10/15/2017 at 0845 hours. Dictated by: Rex Crocker M.D. on 10/15/2017 at 7:46 Transcribed by: MATT on 10/15/2017 at 8:02 Approved by: Rex Crocker M.D. on 10/15/2017 at 8:48
[2017-10-14 23:45] VITALS: BP 113/50; PULSE 58; RESP 14; O2SAT 99
[2017-10-14 23:49] LABS: Sodium 116 mmol/L (137-145)
[2017-10-14 23:50] VITALS: O2SAT 100
[2017-10-14 23:51] VITALS: BP 154/106; PULSE 55; RESP 16; O2SAT 87
[2017-10-14 23:56] LABS: Procalcitonin 13.99 ng/mL (<0.5)
[2017-10-15] VITALS (37 sets, daily range): BP systolic 108–187; BP diastolic 44–88; PULSE 50–78; RESP 14–29; TEMP 35.7–37.5; O2SAT 91–100; BMI 23.8
--- NOTE | 2017-10-15 | DI.US.S_ITS ---
PROCEDURE: US ABDOMEN COMPLETE INDICATIONS: PAIN TECHNIQUE: Real-time scanning was performed of the abdominal and retroperitoneal organs, with image documentation. COMPARISON: [facility], CT, ABDOMEN/PELVIS WITH CONTRAST, 10/11/2016, 19:22. [facility], US, ABDOMEN COMPLETE, 10/10/2016, 17:20. FINDINGS: Liver: Liver is normal in size and homogeneous in echotexture. Gallbladder: Gallbladder again shows dependent sludge and small stones. No pericholecystic free fluid. Negative Gleason's sign reported. Biliary ducts: Intrahepatic bile ducts are non-dilated. Extrahepatic bile duct caliber measures 3.6 mm. Normal is 6-7 mm or less in diameter, or 10 mm or less post-cholecystectomy. Pancreas: Pancreas is obscured by bowel gas. Spleen: Spleen is normal in size and homogeneous in echotexture. Kidneys: Kidneys are normal in size and echotexture. Right kidney measures 7.1 cm long; left kidney measures 8.5 cm long. No hydronephrosis or nephrolithiasis. No solid masses. Aorta: Visualized aorta is normal in caliber at less than 3 cm. distal aorta is obscured by gas Iliacs: Iliac vessels are obscured by bowel gas IVC: Intrahepatic inferior vena cava is patent. Miscellaneous: No free abdominal fluid. Bilateral pleural effusions. IMPRESSION: 1. Minimal gallbladder sludge/gravel. Normal wall thickness without evidence of cholecystitis. Normal common bile duct. 2. Pancreas is obscured by bowel gas. Correlate with pancreatic enzymes. Distal aorta and iliac vessels are also obscured. 3. Bilateral pleural effusions. No ascites. Dictated by: Juan Man M.D. on 10/15/2017 at 11:20 Approved by: Juan Man M.D. on 10/15/2017 at 11:24
--- NOTE | 2017-10-15 | DI.ECHO.S_ITS ---
[facility]---------+ [facility] +---------+ : : [address] : : : : [id number] : : : : Phone: [phone] Echocardiogram Report + + :Name: HAO WINN Study Date: 10/15/2017 Height: 62 in : :[facility] Weight: 122 lb : : Gender: Female BSA: 1.5 m2 : :: 1945 Age: 72 yrs BP: 153/53 mmHg: :Reason For Study: Cardiomegaly : : Performed By: Rosario Guardado : :Referring: ALFREDO INFANTE : + + Interpretation Summary The left ventricle is normal in size, wall thickness, and systolic function without any focal wall motion abnormalities with the ejection fraction visually estimated to be 60-65%. Assessment of diastolic parameters indicates a relaxation abnormality of the left ventricle, consistent with normal filling pressures, likely lower compared to the previous study. Otherwise, there is been no significant change since the previous study. The right ventricle is normal in size and function, and is unchanged compared to the previous study. The right ventricular systolic pressure is estimated at 53 mmHg assuming a right atrial pressure of 3 mm Hg, and is likely mildly higher compared to the previous study. The left atrium is severely dilated and the right atrium is borderline dilated. The right atrium has mildly increased in size since the prior echo exam. There is mild to moderate mitral regurgitation, mild tricuspid regurgitation, and moderate aortic regurgitation that are all unchanged compared to the previous study. The ascending aorta is mildly enlarged but is unchanged compared to the previous study. There are moderate-sized bilateral pleural effusions noted that are new compared to the previous study. Procedure: A two-dimensional transthoracic echocardiogram with color flow and Doppler was performed. The study quality was technically adequate. Comparison is made with the echocardiogram of 01-27-14. The patient was in normal sinus rhythm during the exam. Left Ventricle: The left ventricle is normal in size, wall thickness, and systolic function without any focal wall motion abnormalities. The ejection fraction is estimated to be 60-65%. Assessment of diastolic parameters indicates a relaxation abnormality of the left ventricle, consistent with normal filling pressures. This is likely lower compared to the previous study. Right Ventricle: The right ventricle is normal in size and function. This is unchanged compared to the previous study. Atria: The left atrium is severely dilated. The right atrium is borderline dilated. The right atrium has mildly increased in size since the prior echo exam. The interatrial septum is intact with no evidence for an atrial septal defect. Mitral Valve: The mitral valve leaflets appear mildly thickened, but open well. There is mild to moderate mitral regurgitation. This is unchanged compared to the previous study. Aortic Valve: The aortic valve is trileaflet. The aortic valve is slightly calcified. The aortic valve opens well. There is moderate aortic regurgitation. There is no holodiastolic flow reversal in the descending thoracic aorta. This is unchanged compared to the previous study. Tricuspid Valve: The tricuspid valve leaflets are thin and pliable. There is mild tricuspid regurgitation. This is unchanged compared to the previous study. The right ventricular systolic pressure is estimated at 53 mmHg assuming a right atrial pressure of 3 mm Hg. This is likely mildly higher compared to the previous study. Pulmonic Valve: The pulmonic valve is not well seen, but is grossly normal. There is no pulmonic valvular regurgitation. Great Vessels: The aortic root is normal size. The ascending aorta is mildly enlarged. This is unchanged compared to the previous study. The IVC is of normal diameter and collapses greater than 50% with a sniff. This suggests a low right atrial pressure of 3 mm Hg. Pericardium/ Pleura There is no pericardial effusion. There are moderate- sized bilateral pleural effusions noted. This is new compared to the previous study. MMode/2D Measurements & Calculations LVIDd: 4.9 cm Ao root diam: 3.5 cm LVIDs: 3.2 cm Aortic Jxn: 2.9 cm FS: 35.8 % asc Aorta Diam: 3.6 cm EPSS: 0.65 cm Ao Arch Diam (Prox Trans): 2.8 cm IVSd: 0.79 cm LVPWd: 0.76 cm LV taylor. diameter/BSA (cm/m^2): 3.2 LV sys. diameter/BSA (cm/m^2): 2.0 LA dimension: 3.8 cm RA long axis: 4.8 cm LA A2 area: 25.6 cm2 RA area: 16.3 cm2 LA A4 area: 18.8 cm2 RA vol: 47.2 ml LA length (vol): 5.0 cm RA : 30.5 ml/m2 LA vol: 81.7 ml RVDd major: 5.9 cm LA vol index: 52.7 ml/m2 RVD1 (basal): 3.6 cm RVD2 (mid): 3.0 cm Doppler Measurements & Calculations AI P1/2t: 439.9 msec MV E max jared: 61.8 cm/sec AI dec slope: 304.1 cm/sec2 MV A max jared: 81.2 cm/sec MV E/A: 0.76 Med Peak E' Jared: 3.9 cm/sec E/E' med: 15.9 Lat Peak E' Jared: 6.2 cm/sec E/E' lat: 10.0 E/e' average: 12.9 MV dec time: 0.24 sec MV P1/2t: 69.7 msec TR max jared: 354.5 cm/sec MV P1/2t max jared: 62.3 cm/sec TR max P.3 mmHg MVA(P1/2t): 3.2 cm2 PA V2 max: 89.2 cm/sec PA V2 mean: 56.3 cm/sec PA mean P.5 mmHg PA Accel Time: 0.13 sec Reading Physician:PM
--- NOTE | 2017-10-15 | PC.NURSE ---
2301: Pt arrives intubated. Per EMS intubated with 100mg succ, 20mg etomidate, 5mg versed. 7.0 tube 21cm at teeth.Immeadiately on arrival given 100mcg Fentanyl and started on a Propofol drip at 5mcg/kg/min. Placed on ventilator.Pt visibly moving and trying to pull tube. Propofol drip increased to 15mcg/kg/min. BP 156/104 HR 58. Vent-TV 350 PEEP 5 RR 14 on fiO2 100%. XR obtained for placement. Covered with warm blankets, family on their way, 2nd IV placed, barry placed draining yellow urine, IVF infusing, CO2 monitoring, ABG obtained, EKG sinus billie, no ectopy on store stock help. 2330: additional 100 mcg fentanyl given for pain control. Propofol increased to 25mcg/kg/min (9ml/hr) for RASS -3 (moderate sedation, movement/eye opening, no eye contact). 1L NS completed. Per Dr Tafoya, start 2nd liter for low Na+. FiO2 decreased to 50%. Family in room. Reports pt has not been eating the past 3 weeks, getting weak, tonight helped OOB to BR and felt very SOB, had to lay on floor. Daughter reports pt agreed to ambulance and then went unconscious and unresponsive shortly thereafter yet breathing was shallow. 0000: Pt to CT with Isabella FAIRBANKS, this RN, and Scot GUIDO. Pt tolerated well. Vitals maintained throughout transfer 151/76 HR 62 96% on 50%. 0034: Back from CT. Transfer tolerated well. Propofol remains unchanged. BP 157/88 HR 60 98% on 50%.
[2017-10-15 00:03] LABS: HCO3 ABG 27 mmol/L (23-27); PCO2 ABG 40.8 mmHg (35-45); PO2 ABG 293 mmHg (80-105); TCO2 ABG 29 mmol/L (23-27); pH ABG 7.43 (7.35-7.45)
[2017-10-15 00:04] LABS: Fractionated Inspired Oxygen 100; Oxygen Saturation ABG 100 % (95-100)
[2017-10-15] MEDS: SODIUM CHLORIDE 0.9% 1,000 ML 1000 ML IV (00:30)
[2017-10-15 01:28] LABS: Creatine Kinase 63 U/L (30-135)
[2017-10-15] MEDS: FUROSEMIDE 40 MG/4 ML VIAL IV ×3 (01:38→16:25)
[2017-10-15] MEDS: SODIUM CHLORIDE 0.9% 1,000 ML 100 ML IV (01:38)
[2017-10-15] MEDS: fentaNYL 100 MCG/2 ML INJ IV ×3 (01:39)
[2017-10-15 01:42] LABS: Troponin I < 0.012 ng/mL (0.01-0.034)
[2017-10-15 01:53] LABS: Lactate (Lactic Acid) 0.8 mmol/L (0.7-2.1)
--- NOTE | 2017-10-15 02:05 | PC.NURSE ---
Unable to verify Propofol drip order as well as an order for a saline bolus. Both meds were given.
[2017-10-15 02:24] LABS: Bacteria Urine None Seen; RBC Urine None Seen (0-5/HPF)
[2017-10-15 02:26] LABS: Appearance Urine UA CLEAR; Bilirubin Urine UA NEGATIVE (NEGATIVE); Color Urine UA YELLOW; Glucose Urine UA NEGATIVE (Normal); Ketones Urine UA NEGATIVE (NEGATIVE); Leukocyte Esterase Urine UA TRACE (NEGATIVE); Nitrite Urine UA Negative (Negative); Occult Blood Urine UA NEGATIVE (Negative); Protein Urine UA TRACE (Negative); Urobilinogen Urine UA 0.2 E.U./dL (0.2)
[2017-10-15 02:31] LABS: Urine Amphetamines Negative (Negative); Urine Barbiturates Negative (Negative); Urine Benzodiazepines Negative (Negative); Urine Cocaine Negative (Negative); Urine MDMA Negative (Negative); Urine Methadone Negative (Negative); Urine Methamphetamines Negative (Negative); Urine Morphine/Opi cutoff 2000 Positive (Negative); Urine Phencyclidine Negative (Negative); Urine Tetrahydrocannabinol Positive (Negative); Urine Tricyclic Antidepressant Negative (Negative)
[2017-10-15 02:32] LABS: Urine Oxycodone Negative (Negative)
[2017-10-15 02:40] LABS: Culture Indicated Urine Specimen Cultured; Squamous Epithelial Cell Urine 0-1 /HPF; WBC Urine 0-1/HPF (0-5/HPF)
[2017-10-15] MEDS: PROPOFOL 1,000 MG/10 ML VIAL 1.65 MG IV (06:27)
--- NOTE | 2017-10-15 06:46 | PC.NURSE ---
Admit Note: Pt admitted from ED for resp. arrest in field, intubated per EMS. Pt vented, sedated on propofol gtt. Pt opens eyes intermittently not sustained, restless, agitated does not follow verbal commands, currently titrating propofol to affect. SB 50 to 60 on tele, VSS. Stable sats on 50% FIO2, wean per RT. IVF's, barry. No family available on admit to unit, home meds confirmed from pill bottles brought to ED w/patient. Soft restraints placed for safety while vented, current order rec'c per Dr. Tafoya. Admitted ICU status.
[2017-10-15] MEDS: PROPOFOL 1,000 MG/100 ML VIAL 1.65 MG IV (07:25)
--- NOTE | 2017-10-15 08:16 | PM.HP.1 ---
History of Present Illness Date Patient Seen: 10/15/17 Time Patient Seen: 08:00 Chief complaint: respiratory failure Narrative: 72-year-old woman under the primary care of Dr. Lachelle Ruggiero in [place]. The patient arrived intubated by paramedics in the ED overnight, and history is obtained this morning from her daughter Jovita by phone. She reports that her mother has reported several weeks of stomach upset, with nausea and dry heaving and describing her stomach tied up in knots, able only to tolerate liquids for the past 3 weeks, and a couple of days ago reported finding it hard to breathe. She has been drinking Gatorade, water and salty broths. She was seen in the emergency department on 10/06 where she was found to have a benign abdominal exam with a sodium of 121, creatinine of 1.4, with x-ray showing no evidence of bowel obstruction, and was administered normal saline, subsequently able to tolerate oral fluids and discharged home with prescriptions for ondansetron and promethazine. She has continued to feel poorly. Her daughter feels she has been malnourished recently due to her problem. A couple of times in the past two days she stated she had difficulty breathing, and last night had decreased consciousness with very limited respiratory efforts. Her sister was there and called 911 and was told to start CPR as she was turning ashen and her lips were turning blue. No seizure activity was noted. She was intubated by paramedics and brought to the emergency department for further evaluation, where she was found to have a sodium of 116. She has been administered normal saline for the past few hours and remains intubated, sedated on propofol due to intermittent agitation, presently calm, comfortable with normal vital signs. Her daughter knows of no history of heart disease, blood clots, congestive heart failure or cancer. Patient History Medical History Depression (Acute) GERD (gastroesophageal reflux disease) (Acute) History of seizure (Acute) Hypertension (Acute) Rheumatoid arthritis (Acute) Family & Social History Family History: Reviewed 10/15/17 by Fabio Carolina MD Social History: household members children Prior Living Arrangements House Safety & Behavioral: Feels Safe in Current Unwilling to Answer Environment Been Physically Hurt or Unwilling to Answer Threatened By a Person Tobacco & Substance use: Smoking Status Never smoker alcohol intake frequency 0-2 drinks per day Substance Use Type does not use Meds Home Medications Medication Instructions Recorded Confirmed Type FLAXSEED (FLAXSEED OIL) 1 cap PO DAILY #0 11/16/11 10/06/17 History Fish Oil (Fish Oil 500 MG Softgel) 500 mg PO QDAY #0 11/16/11 10/06/17 History aspirin 81 mg PO QDAY #0 11/16/11 10/06/17 History gabapentin [Neurontin] 900 mg PO HS #0 11/16/11 10/06/17 History nadolol 160 mg PO HS #0 11/16/11 10/15/17 History cyclobenzaprine 10 mg PO TIDP PRN #0 tab 12/28/12 10/06/17 History cyclosporine [Restasis] 0.05 % OPHTH BID #0 12/28/12 10/06/17 History paroxetine HCl [Paxil] 40 mg PO HS #0 tab 12/28/12 10/15/17 History fluticasone [Flonase Allergy 1 spray INTRANASAL BIDP PRN #0 10/10/16 10/06/17 History Relief] triamcinolone acetonide 1 kiya TOPICAL TID PRN #0 10/10/16 10/06/17 History ascorbic acid (vitamin C) 500 mg PO QDAY #0 10/11/16 10/06/17 History thiamine HCl (vitamin B1) [Vitamin 100 mcg PO DAILY #0 10/20/16 10/06/17 History B-1] hydrocodone-acetaminophen 1 tab PO Q4HP PRN #0 MDD 6 01/21/17 10/15/17 History calcitriol 2 cap PO EVERY OTHER DAY 10/06/17 10/15/17 History isosorbide mononitrate 1 tab PO DAILY 10/06/17 10/15/17 History lisinopril 5 mg PO DAILY 10/06/17 10/15/17 History nifedipine 1 tab PO DAILY 10/06/17 10/15/17 History ondansetron 4 mg PO Q6HR PRN #10 tab 10/06/17 Rx pantoprazole 40 mg PO DAILY 10/06/17 10/15/17 History promethazine 25 mg PO Q6H PRN #10 tab 10/06/17 Rx Allergies Allergy/AdvReac Type Severity Reaction Status Date / Time hydromorphone [HYDROMORPHONE] Allergy Intermediate HIVES Unverified 10/15/17 00:00 Penicillins [PENICILLINS] Allergy Mild RASH Unverified 10/15/17 00:00 metoprolol [METOPROLOL] Allergy Unknown Unverified 10/15/17 00:00 phenytoin [PHENYTOIN] Allergy Unknown Unverified 10/15/17 00:00 morphine [MORPHINE] AdvReac Severe Confusion, Unverified 10/15/17 00:00 mental status changes, somnolence seasonal allergies Allergy Unknown Uncoded 10/15/17 00:00 Review of Systems Review of Systems unobtainable due to mental status Exam Vital Signs (past 8 hours): - 10/15/17 00:22 10/15/17 00:30 10/15/17 00:40 Temperature Pulse Rate 60 56 L 58 L Respiratory Rate 14 14 14 Blood Pressure Blood Pressure [Left Arm] 157/88 H 142/57 H 136/55 H Pulse Oximetry 98 98 99 10/15/17 00:50 10/15/17 00:55 10/15/17 01:00 Temperature Pulse Rate 55 L 55 L 54 L Respiratory Rate 14 14 14 Blood Pressure Blood Pressure [Left Arm] 132/53 H 138/55 H 142/57 H Pulse Oximetry 99 99 99 10/15/17 01:01 10/15/17 01:08 10/15/17 01:30 Temperature Pulse Rate 65 55 L 50 L Respiratory Rate 14 14 14 Blood Pressure Blood Pressure [Left Arm] 150/55 H 126/70 H Pulse Oximetry 99 99 10/15/17 02:30 10/15/17 02:35 10/15/17 03:32 Temperature 96.7 F L Pulse Rate 50 L 51 L 53 L Respiratory Rate 14 14 18 Blood Pressure 118/64 156/62 H 161/52 H Blood Pressure [Left Arm] Pulse Oximetry 99 97 99 10/15/17 03:47 10/15/17 03:57 10/15/17 04:57 Temperature 96.2 F L Pulse Rate 52 L 53 L Respiratory Rate 17 15 Blood Pressure 160/44 H 156/57 H Blood Pressure [Left Arm] Pulse Oximetry 100 97 98 10/15/17 05:00 10/15/17 05:54 10/15/17 06:00 Temperature 98.5 F Pulse Rate 54 L 73 Respiratory Rate 15 14 Blood Pressure 163/58 H 152/50 H Blood Pressure [Left Arm] Pulse Oximetry 99 97 98 10/15/17 07:30 Temperature 98.3 F Pulse Rate 60 Respiratory Rate 29 H Blood Pressure 187/70 H Blood Pressure [Left Arm] Pulse Oximetry 98 Oxygen Delivery Method Mechanical Ventilation Oxygen Flow Rate 40 Narrative Exam Narrative: General: Unresponsive sedated female, orally intubated, orogastric and oral tracheal tubes in place HEENT: Resists opening eyes, ocular exam not feasible, mucous membranes pink and moist Neck: No masses Lungs: Diminished breath sounds posterior bases, no rhonchi, wheezes or crackles Cardiac: Regular rate and rhythm without appreciable murmur Abdomen: Soft, no apparent distention or tenderness : Colon catheter in place Extremities: Thin, without edema, no calf swelling Dermatologic: She has small Band-Aid on her left lateral foot and a Band-Aid on her right 2nd toe. On the left lateral foot there is a small superficial callus under the Band-Aid and no discernible lesion under the right 2nd toe Band-Aid, and otherwise no rashes or skin lesions Neurologic: Sedated, unresponsive, no focal deficits or posturing noted Objective Imaging Chest x-ray: Radiologist's impression: 1. Endotracheal tube 2.5 cm above ramesh. 2. Bilateral patchy airspace infiltrates and small pleural effusions suspicious for pulmonary edema or bilateral pneumonia. 3. Mild cardiomegaly. ECG: Sinus rhythm at 53 beats per minute, as needed herbal 226 milliseconds consistent with first-degree AV block CT [id number] with contrast: Radiologist's impression: 1. Small bowel loops are fluid-filled and demonstrate increased mucosal enhancement. The findings may be secondary to gastroenteritis. Recommend clinical correlation. 2. Lobulated contour of kidneys. The right kidney is moderately atrophic. 3. Bilateral pleural effusions. 4. Cardiomegaly. 5. Distended gallbladder may contain a gallstone. CT reviewed with Dr. Crocker who states there is no evidence of pulmonary embolism. Labs Result Diagrams: 10/14/17 23:25 10/14/17 23:25 Labs: Laboratory Results - last 24 hr 10/14/17 10/14/17 10/14/17 23:21 23:21 23:25 WBC 9.6 RBC 3.25 L Hgb 10.1 L Hct 30.3 L MCV 93.4 MCH 31.2 MCHC 33.4 RDW 14.5 Plt Count 398 Neut % (Auto) 87.3 H Lymph % (Auto) 6.7 L Burnett % (Auto) 4.8 Eos % (Auto) 0.6 L Baso % (Auto) 0.6 Neut # (Auto) 8400 H ABG pH ABG pCO2 ABG pO2 ABG HCO3 ABG Total CO2 ABG O2 Saturation ABG Base Excess FiO2 Sodium Potassium Chloride Carbon Dioxide BUN Creatinine Estimated GFR BUN/Creatinine Ratio Glucose Lactate Calcium Total Bilirubin Total Creatine Kinase 63 Troponin I < 0.012 B-Natriuretic Peptide 1080.0 H Procalcitonin Urine Color Urine Appearance Urine pH Ur Specific Stanley Urine Protein Urine Glucose (UA) Urine Ketones Urine Occult Blood Urine Nitrate Urine Bilirubin Urine Urobilinogen Ur Leukocyte Esterase Urine RBC Urine WBC Ur Squamous Epith Cells Urine Bacteria Ur Culture Indicated? Micro UA Comment Nasal Screen MRSA (PCR) Urine Opiates Screen Ur Oxycodone Screen Urine Methadone Screen Ur Barbiturates Screen U Tricyclic Antidepress Ur Phencyclidine Scrn Ur Amphetamines Screen U Methamphetamines Scrn Ur MDMA Scrn (Ecstasy) U Benzodiazepines Scrn Urine Cocaine Screen U Marijuana (THC) Screen 10/14/17 10/14/17 10/14/17 23:25 23:25 23:51 WBC RBC Hgb Hct MCV MCH MCHC RDW Plt Count Neut % (Auto) Lymph % (Auto) Burnett % (Auto) Eos % (Auto) Baso % (Auto) Neut # (Auto) ABG pH 7.43 ABG pCO2 40.8 ABG pO2 293 H* ABG HCO3 27 ABG Total CO2 29 H ABG O2 Saturation 100 ABG Base Excess 3.0 FiO2 100 Sodium 116 L* Potassium 5.2 H Chloride 85 L Carbon Dioxide 24 BUN 17 Creatinine 1.20 H Estimated GFR 44.2 L BUN/Creatinine Ratio 14.2 Glucose 165 H Lactate Calcium 8.0 L Total Bilirubin 0.6 Total Creatine Kinase Troponin I B-Natriuretic Peptide Procalcitonin 13.99 H Urine Color Urine Appearance Urine pH Ur Specific Stanley Urine Protein Urine Glucose (UA) Urine Ketones Urine Occult Blood Urine Nitrate Urine Bilirubin Urine Urobilinogen Ur Leukocyte Esterase Urine RBC Urine WBC Ur Squamous Epith Cells Urine Bacteria Ur Culture Indicated? Micro UA Comment Nasal Screen MRSA (PCR) Urine Opiates Screen Ur Oxycodone Screen Urine Methadone Screen Ur Barbiturates Screen U Tricyclic Antidepress Ur Phencyclidine Scrn Ur Amphetamines Screen U Methamphetamines Scrn Ur MDMA Scrn (Ecstasy) U Benzodiazepines Scrn Urine Cocaine Screen U Marijuana (THC) Screen 10/15/17 10/15/17 10/15/17 01:09 01:09 01:20 WBC RBC Hgb Hct MCV MCH MCHC RDW Plt Count Neut % (Auto) Lymph % (Auto) Burnett % (Auto) Eos % (Auto) Baso % (Auto) Neut # (Auto) ABG pH ABG pCO2 ABG pO2 ABG HCO3 ABG Total CO2 ABG O2 Saturation ABG Base Excess FiO2 Sodium Potassium Chloride Carbon Dioxide BUN Creatinine Estimated GFR BUN/Creatinine Ratio Glucose Lactate 0.8 Calcium Total Bilirubin Total Creatine Kinase Troponin I B-Natriuretic Peptide Procalcitonin Urine Color Yellow Urine Appearance Clear Urine pH 7.0 Ur Specific Stanley 1.010 Urine Protein Trace H Urine Glucose (UA) Negative Urine Ketones Negative Urine Occult Blood Negative Urine Nitrate Negative Urine Bilirubin Negative Urine Urobilinogen 0.2 Ur Leukocyte Esterase Trace H Urine RBC None seen Urine WBC 0-1/hpf Ur Squamous Epith Cells 0-1 /hpf Urine Bacteria None seen Ur Culture Indicated? Specimen cultured Micro UA Comment Not Reportable Nasal Screen MRSA (PCR) Urine Opiates Screen Positive H Ur Oxycodone Screen Negative Urine Methadone Screen Negative Ur Barbiturates Screen Negative U Tricyclic Antidepress Negative Ur Phencyclidine Scrn Negative Ur Amphetamines Screen Negative U Methamphetamines Scrn Negative Ur MDMA Scrn (Ecstasy) Negative U Benzodiazepines Scrn Negative Urine Cocaine Screen Negative U Marijuana (THC) Screen Positive H 10/15/17 02:39 WBC RBC Hgb Hct MCV MCH MCHC RDW Plt Count Neut % (Auto) Lymph % (Auto) Burnett % (Auto) Eos % (Auto) Baso % (Auto) Neut # (Auto) ABG pH ABG pCO2 ABG pO2 ABG HCO3 ABG Total CO2 ABG O2 Saturation ABG Base Excess FiO2 Sodium Potassium Chloride Carbon Dioxide BUN Creatinine Estimated GFR BUN/Creatinine Ratio Glucose Lactate Calcium Total Bilirubin Total Creatine Kinase Troponin I B-Natriuretic Peptide Procalcitonin Urine Color Urine Appearance Urine pH Ur Specific Stanley Urine Protein Urine Glucose (UA) Urine Ketones Urine Occult Blood Urine Nitrate Urine Bilirubin Urine Urobilinogen Ur Leukocyte Esterase Urine RBC Urine WBC Ur Squamous Epith Cells Urine Bacteria Ur Culture Indicated? Micro UA Comment Nasal Screen MRSA (PCR) Negative for mrsa Urine Opiates Screen Ur Oxycodone Screen Urine Methadone Screen Ur Barbiturates Screen U Tricyclic Antidepress Ur Phencyclidine Scrn Ur Amphetamines Screen U Methamphetamines Scrn Ur MDMA Scrn (Ecstasy) U Benzodiazepines Scrn Urine Cocaine Screen U Marijuana (THC) Screen Assessment & Plan Plan: Assessment/Plan Narrative: 1. Acute respiratory failure, etiology unclear. Possibly due to profound hyponatremia and associated neurologic depression. Correct hyponatremia and monitor respiratory status. Lighten sedation and consider extubation when hyponatremia improved over 120. 2. Profound hyponatremia, possibly due to recent gastrointestinal distress, congestive heart failure. Obtain serum osmolarity. Follow closely with treatment. If persistently low on repeat testing, consider hypertonic saline. 3. Acute congestive heart failure, with elevated BNP, cardiomegaly and bilateral pleural effusions. Obtain echocardiogram. Check TSH. Advance furosemide 40 mg IV every 8 hr and monitor sodium and electrolytes closely. 4. Bilateral pulmonary infiltrates, elevated procalcitonin, consider possible community-acquired pneumonia versus aspiration. Treat with IV Levaquin 750 mg daily and follow blood cultures and clinical response. 5. Normocytic anemia. Etiology unclear. Check iron studies, B12, folate, reticulocytes, LDH. 6. Nausea, vomiting, abdominal pain. Etiology unclear. Consider possible congestive hepatopathy, symptomatic cholelithiasis versus primary gastrointestinal process. Obtain abdominal ultrasound to rule out symptomatic cholelithiasis or cholecystitis. 7. Metabolic encephalopathy, possibly due to profound hyponatremia, infection. 8. Hypertension. Hold routine medications at this point pending evaluation and review of history. Clarify indication for isosorbide mononitrate given lack of reported heart disease. 9. Arthritis, possibly rheumatoid arthritis. Clarify medical history. 10. Gastroesophageal reflux disease. Continue proton pump inhibitor intravenously until able to take orals. 11. Sedation. Continue on propofol at this point until extubated. 12. DVT prophylaxis: Treat with low-dose Lovenox. 13. Code status: Full code. 14. Disposition: The patient has been living at home with care from her daughters. Further history will be obtained after the daughter's arrive to discuss recent events, and after outside medical records have been received. They had been seeking home health services prior to admission. 60 min of critical care time spent so far today per Quality VTE Deep Vein Thrombosis/Pulmonary Embolism Present on Admission: No
[2017-10-15 08:42] LABS: Add Manual Diff / Slide Review NO; Basophils Percent Auto 0.3 % (0-2); Eosinophils Percent Auto 0.4 % (2-4); Hematocrit 29.4 % (36-46); Lymphocytes Percent Auto 10.2 % (25-40); Mean Corpuscular Hemoglobin 31.5 PG (26-34); Mean Corpuscular Volume 92.5 fL (80-100); Neutrophils Absolute Auto 5800 /uL (3000-5900); Neutrophils Percent Auto 85.1 % (50-75); Platelet Count 382 X10^3/uL (150-400); Red Blood Cell Count 3.18 X10^6/uL (4.0-5.2); White Blood Cell Count 6.8 X10^3/uL (4.5-11.0)
[2017-10-15 08:50] LABS: BUN Creatinine Ratio 13.6 (6-22); Blood Urea Nitrogen 15 mg/dL (7-17); Calcium 7.7 mg/dL (8.4-10.2); Carbon Dioxide 27 mmol/L (22-32); Chloride 89 mmol/L (98-107); Estimated Glomerular Filt Rate 48.8 mL/min (>60); Glucose 89 mg/dL (80-110); HEMOLYSIS < 15 (0-50); Potassium 3.8 mmol/L (3.4-5.1); Sodium 123 mmol/L (137-145)
[2017-10-15] MEDS: ENOXAPARIN 40 MG/0.4 ML SYRINGE SUBCUT (09:22)
[2017-10-15] MEDS: levoFLOXacin 750 MG/150 ML PIGGYBACK 100 MG IV (09:22)
[2017-10-15] MEDS: PANTOPRAZOLE 40 MG VIAL IV (09:22)
[2017-10-15 09:38] LABS: HEMOLYSIS 27 (0-50); Iron 39 ug/dL (37-170); Lactate Dehydrogenase 385 U/L (313-618)
[2017-10-15 09:43] LABS: Reticulocyte Count, Percent 3.2 % (1.06-2.63)
[2017-10-15 09:49] LABS: Percent Iron Saturation 23 % (15-50); Total Iron Binding Capacity 166 ug/dL (265-497); Transferrin 121 mg/dL (206-381)
[2017-10-15 10:44] LABS: Folate 6.2 ng/mL (2.76-20.0); Vitamin B12 478 pg/mL (239-931)
[2017-10-15] MEDS: SODIUM CHLORIDE 0.9% 1,000 ML 50 ML IV (13:11)
--- NOTE | 2017-10-15 13:23 | CM.DANOTE ---
Discharge Planning/Care Management DCP: assessment: case received, EMR reviewed and met with pt's family (Pt was lying in bed, eyes closed, has recently been extubated. Met in conference room in ICU with family. Introduced self and role to pt's daughter Karla/[place] and daughter and son in law Jovita and Saul/[place]. Jovita is identified as primary family contact: cell: [phone]. Pt is a 72 year old female who admitted early this morning to care of hospitalist team. PCP: Fitz Darling. Payer: [facility]. All say that pt will benefit from some rehab/recovery at [facility] and then ideally she will come to live with Jovita and Saul. Pt has been at [facility] in past and they do not think she will resist this (will plan to talk with her as she is more aware and alert). Choice list snf: given Decision: [facility]. Is a [facility] facility; will need authorization and will start this process when more is known re POC (anticipate OT/PT involvement when pt is stable for same.) Referral to [place] who will review for acceptance. P: likely snf but still very much in process CM Discharge Assessment Start: 10/15/17 13:16 Freq: Status: Active Protocol: Document 10/15/17 13:17 ITV (Rec: 10/15/17 13:23 ITV [id number]) Discharge Planning Assessment History Provided By Family Member Medical Record Has Patient been admitted in last 30 No days? Is this patient on Medicare? No Prior Living Arrangements House Comment pt lives alone in [place]. Has family in [place] and [place] Caregiver for Another No Comment Family report pt does not do well living alone but has been very resistant to suggestion of change. They would like her to move in with daughter and son in law Jovita and Saul in [place] Patient Discharge Plan Description Care Home Facility Referrals Initiated Care Home Comment Daughters are hopeful that pt will go to [facility] for rehab/ recovery and then either home with or directly to home of Jovita and Saul. Comment Referral is into [facility] who will review. [facility] snf auth will be needed. If patient plan is SNF: Has PASSR been not yet, will be done when d/c completed? dispo is more defined Review Status In Process Next Review Type Continued Stay Review
[2017-10-15] MEDS: LORazepam 2 MG/ML SYRINGE 0.5 MG IV ×2 (13:37→21:19)
[2017-10-15 13:40] LABS: HEMOLYSIS < 15 (0-50); Potassium 3.4 mmol/L (3.4-5.1)
[2017-10-15 13:41] LABS: BUN Creatinine Ratio 13.6 (6-22); Blood Urea Nitrogen 15 mg/dL (7-17); Calcium 7.6 mg/dL (8.4-10.2); Carbon Dioxide 27 mmol/L (22-32); Chloride 90 mmol/L (98-107); Estimated Glomerular Filt Rate 48.8 mL/min (>60); Glucose 79 mg/dL (80-110); Sodium 124 mmol/L (137-145)
--- NOTE | 2017-10-15 13:57 | PC.NURSE ---
Day Shift Note Patient vented and sedated at start of shift, pulling at lines when repositioning. Coarse crackles bilaterally, oxygen sats 100% on 35% FiO2. Propofol gtt increased to 60 mcg/kg/min. Sedation turned off at 0910 and CPAP trial started at 0915. Extubated at [address] Carolina's assessment. Placed on 1L NC with sats 97%. Opening eyes, answering questions, and following commands. Encouraged to cough and deep breathe, coarse cough noted. Voice hoarse/weak. Oral hygiene done. Daughters at bedside and updated. At about 1330 pt reported increasing shortness of breath, RR in the 18-22 bpm but with increased work of breathing. RT at bedside, attempted to place on HFNC but pt did not tolerate. Dr. Carolina notified and order for Ativan received and given. Pt now resting calmly, breathing appears nonlabored, and oxygen sats 100% on 1L NC. Call light within reach. Bed alarm on.
[2017-10-15] MEDS: ISOSORBIDE MONONITRATE ER 30 MG TABLET 60 MG PO (14:28)
[2017-10-15] MEDS: LISINOPRIL 20 MG TABLET PO (14:28)
[2017-10-15] MEDS: NIFEdipine 30 MG TAB ER 60 MG PO (14:28)
[2017-10-15] MEDS: PANTOPRAZOLE 40 MG TABLET PO (14:28)
[2017-10-15 15:38] LABS: Sodium 125 mmol/L (137-145)
[2017-10-15] MEDS: PARoxetine 20 MG TABLET 40 MG PO (21:14)
[2017-10-15] MEDS: NADOLOL 40 MG TABLET 160 MG PO (21:14)
[2017-10-15] MEDS: SODIUM CHLORIDE 0.9% FLUSH 10 ML IV (21:15)
--- NOTE | 2017-10-15 23:06 | PC.NURSE ---
2300- Patient having frequent pauses up to 3.5 seconds. Tolerating well bp 144/63 patient is sleeping. MD notified order to DC Nadolol. Will monitor.
[2017-10-16] VITALS (12 sets, daily range): BP systolic 125–182; BP diastolic 58–69; PULSE 60–82; RESP 14–23; TEMP 36.3–37.3; O2SAT 0–97; BMI 23.2
[2017-10-16] MEDS: POTASSIUM CHLORIDE IN WATER 10 MEQ/100 ML PIGGYBACK 100 MEQ IV ×4 (02:01→05:18)
[2017-10-16 02:16] LABS: Alanine Aminotransferase 27 IU/L (9-52); Albumin 2.9 g/dL (3.5-5.0); Albumin Globulin Ratio 1.2 (1.0-2.8); Alkaline Phosphatase 125 U/L (38-126); Aspartate Aminotransferase 22 IU/L (14-36); BUN Creatinine Ratio 11.7 (6-22); Bilirubin Total 0.4 mg/dL (0.2-1.3); Blood Urea Nitrogen 14 mg/dL (7-17); Calcium 7.5 mg/dL (8.4-10.2); Carbon Dioxide 30 mmol/L (22-32); Chloride 88 mmol/L (98-107); Estimated Glomerular Filt Rate 44.2 mL/min (>60); Globulin 2.5 g/dL (1.7-4.1); Glucose 81 mg/dL (80-110); HEMOLYSIS < 15 (0-50); Magnesium 1.4 mg/dL (1.6-2.3); Sodium 126 mmol/L (137-145); Total Protein 5.4 g/dL (6.3-8.2)
[2017-10-16 02:19] LABS: Potassium 2.6 mmol/L (3.4-5.1)
[2017-10-16 02:21] LABS: White Blood Cell Count 6.8 X10^3/uL (4.5-11.0)
[2017-10-16 02:22] LABS: Add Manual Diff / Slide Review NO; Basophils Percent Auto 0.4 % (0-2); Eosinophils Percent Auto 0.2 % (2-4); Hemoglobin 9.5 g/dL (12.0-16.0); Lymphocytes Percent Auto 13.5 % (25-40); Mean Corpuscular HGB Conc 33.7 % (30-36); Mean Corpuscular Hemoglobin 31.1 PG (26-34); Mean Corpuscular Volume 92.1 fL (80-100); Monocytes Percent Auto 7.3 % (3-14); Neutrophils Absolute Auto 5300 /uL (3000-5900); Neutrophils Percent Auto 78.6 % (50-75); Platelet Count 354 X10^3/uL (150-400); Red Blood Cell Count 3.05 X10^6/uL (4.0-5.2); Red Cell Distribution Width 14.9 % (11.6-14.8)
--- NOTE | 2017-10-16 02:29 | PC.NURSE ---
Dr. Carolina notified of increasing arrhythmias, the amount diuresed yesterday and lasix that has not been given in addition to current labs. Orders received, am labs drawn now with orders to treat when results came back. First of 4 K-Riders of 10meq running, lab result of K+ 2.6 called by lab, Magnesium 2gms to be infusing for magnesium of 1.4, sodium at this time is 126 so per orders will infuse 500ml of DrW over 1 hour.
[2017-10-16] MEDS: MAGNESIUM SULFATE 2 GM/50 ML PIGGYBACK IV (02:39)
[2017-10-16] MEDS: DEXTROSE 5% WATER 500 ML IV (02:45)
[2017-10-16] MEDS: POTASSIUM CHLORIDE 20 MEQ TAB 40 MEQ PO (03:22)
--- NOTE | 2017-10-16 04:33 | PC.NURSE ---
By 0400 500ml of D5W infused along with 2gms Magnesium and 20meq of IV Potassium along with 40meq of PO Potassium. Rhythm has stabilized to SR with first degree. Awaiting 419 lab draw results.
[2017-10-16 04:51] LABS: Carbon Dioxide 30 mmol/L (22-32); Chloride 85 mmol/L (98-107); HEMOLYSIS 21 (0-50); Potassium 3.1 mmol/L (3.4-5.1); Sodium 122 mmol/L (137-145)
[2017-10-16] MEDS: LEVOTHYROXINE 50 MCG TABLET PO (06:00)
[2017-10-16] MEDS: SODIUM CHLORIDE 0.9% FLUSH 10 ML IV ×3 (06:28→20:35)
--- NOTE | 2017-10-16 08:20 | P.PN_ITS ---
Subjective Date Patient Seen: 10/16/17 Time Patient Seen: 07:40 Interval history: The patient experienced a 4 L diuresis yesterday, and with that her potassium fell to 2.6. Over night she had a rhythm is with sinus bradycardia into the 30s and pauses up to 3.5 sec, all improved with correction of her potassium to 3.1 with 40 mEq of K riders. The she also had a magnesium of 1.4 which was corrected with 2 g of IV magnesium sulfate. Her sodium increased to 126, and given concern of over rapid correction of hyponatremia ( 10 mEq increase from admission), she was given 500 mL of 5% dextrose with water pain, with subsequent sodium 122. She has continued to have significant diuresis overnight of an additional 1250 mL. She states she is feeling much better. Exam Vital Signs (past 8 hours): - 10/16/17 00:16 10/16/17 04:00 10/16/17 04:03 Temperature 98.0 F 97.4 F L Pulse Rate 60 82 Respiratory Rate 14 23 Blood Pressure 155/58 H 182/69 H Pulse Oximetry 95 93 95 10/16/17 04:31 Temperature Pulse Rate 82 Respiratory Rate 15 Blood Pressure 163/66 H Pulse Oximetry Fraction of Inspired Oxygen 0.40 Oxygen Delivery Method Nasal Cannula Oxygen Flow Rate 1 Narrative Exam Narrative: General: Alert, pleasant female, appears comfortable , fatigue HEENT: Pupils equal round reactive, extraocular movements intact, mucous membranes pink and moist Neck: Supple Lungs: Zhen basilar crackles, diminished breath sounds, no rhonchi or wheeze Cardiac: Regular rate and rhythm without appreciable murmur Abdomen: Soft, nontender Extremities: Without edema, no calf tenderness Dermatologic: No rash or skin lesions Neurologic: Alert, oriented, normal speech, no focal motor or sensory deficits evident Objective Labs Result Diagrams: 10/16/17 01:35 10/16/17 04:25 Labs: Laboratory Results - last 24 hr 10/15/17 10/15/17 10/15/17 08:25 08:25 08:25 WBC 6.8 RBC 3.18 L Hgb 10.0 L Hct 29.4 L MCV 92.5 MCH 31.5 MCHC 34.0 RDW 15.0 H Plt Count 382 Neut % (Auto) 85.1 H Lymph % (Auto) 10.2 L [place] % (Auto) 4.0 Eos % (Auto) 0.4 L Baso % (Auto) 0.3 Neut # (Auto) 5800 Percent Retic Sodium 123 L Potassium 3.8 D Chloride 89 L Carbon Dioxide 27 BUN 15 Creatinine 1.10 H Estimated GFR 48.8 L BUN/Creatinine Ratio 13.6 Glucose 89 Calcium 7.7 L Magnesium Iron TIBC % Saturation Transferrin Ferritin Total Bilirubin AST ALT Alkaline Phosphatase Lactate Dehydrogenase Total Protein Albumin Globulin Albumin/Globulin Ratio Vitamin B12 Folate TSH 6.80 H 10/15/17 10/15/17 10/15/17 08:25 08:25 08:25 WBC RBC Hgb Hct MCV MCH MCHC RDW Plt Count Neut % (Auto) Lymph % (Auto) [place] % (Auto) Eos % (Auto) Baso % (Auto) Neut # (Auto) Percent Retic 3.2 H Sodium Potassium Chloride Carbon Dioxide BUN Creatinine Estimated GFR BUN/Creatinine Ratio Glucose Calcium Magnesium Iron 39 TIBC 166 L % Saturation 23 Transferrin 121 L Ferritin 128.0 Total Bilirubin AST ALT Alkaline Phosphatase Lactate Dehydrogenase 385 Total Protein Albumin Globulin Albumin/Globulin Ratio Vitamin B12 478 Folate 6.2 TSH 10/15/17 10/15/17 10/16/17 13:20 15:15 01:35 WBC RBC Hgb Hct MCV MCH MCHC RDW Plt Count Neut % (Auto) Lymph % (Auto) [place] % (Auto) Eos % (Auto) Baso % (Auto) Neut # (Auto) Percent Retic Sodium 124 L 125 L 126 L Potassium 3.4 2.6 L* Chloride 90 L 88 L Carbon Dioxide 27 30 BUN 15 14 Creatinine 1.10 H 1.20 H Estimated GFR 48.8 L 44.2 L BUN/Creatinine Ratio 13.6 11.7 Glucose 79 L 81 Calcium 7.6 L 7.5 L Magnesium 1.4 L Iron TIBC % Saturation Transferrin Ferritin Total Bilirubin 0.4 AST 22 ALT 27 Alkaline Phosphatase 125 Lactate Dehydrogenase Total Protein 5.4 L Albumin 2.9 L Globulin 2.5 Albumin/Globulin Ratio 1.2 Vitamin B12 Folate TSH 10/16/17 10/16/17 01:35 04:25 WBC 6.8 RBC 3.05 L Hgb 9.5 L Hct 28.0 L MCV 92.1 MCH 31.1 MCHC 33.7 RDW 14.9 H Plt Count 354 Neut % (Auto) 78.6 H Lymph % (Auto) 13.5 L [place] % (Auto) 7.3 Eos % (Auto) 0.2 L Baso % (Auto) 0.4 Neut # (Auto) 5300 Percent Retic Sodium 122 L Potassium 3.1 L Chloride 85 L Carbon Dioxide 30 BUN Creatinine Estimated GFR BUN/Creatinine Ratio Glucose Calcium Magnesium Iron TIBC % Saturation Transferrin Ferritin Total Bilirubin AST ALT Alkaline Phosphatase Lactate Dehydrogenase Total Protein Albumin Globulin Albumin/Globulin Ratio Vitamin B12 Folate TSH Assessment & Plan Plan: Assessment/Plan Narrative: 1. Acute respiratory failure, etiology unclear, resolved. The patient was intubated in the field and extubated several hours later on the morning of admission. Possibly due to profound hyponatremia and associated neurologic depression. Correct hyponatremia gradually, avoiding overly rapid correction with frequent monitoring and desmopressin if needed to suppress over diuresis, and continue to monitor respiratory status. 2. Profound hyponatremia, possibly due to recent gastrointestinal distress, congestive heart failure. Follow closely with treatment as above. 3. Acute diastolic congestive heart failure, with elevated BNP, cardiomegaly and bilateral pleural effusions. Echocardiogram shows preserved ejection fraction and normal valves. TSH mildly elevated but not likely thyroid cardiomyopathy. Hold further diuresis at this point given concern of overly rapid correction of hyponatremia, and consider further diuresis later today if needed. 4. Bilateral pulmonary infiltrates, elevated procalcitonin, consider possible community-acquired pneumonia versus aspiration. Continue IV Levaquin 750 mg daily started 10/15/2017 and follow blood cultures and clinical response. 5. Normocytic anemia. Etiology unclear with normal iron studies, B12, folate, reticulocytes, LDH. 6. Nausea, vomiting, abdominal pain. Appears improved. Advance diet. Etiology unclear. Consider possible congestive hepatopathy versus primary gastrointestinal process. Normal abdominal ultrasound noted essentially ruling out symptomatic cholelithiasis or cholecystitis. Continue to monitor. She has a low albumin on presentation likely due to hyponatremia and hemodilution, noting normal recent albumin on 10/06/2017. 7. Metabolic encephalopathy, possibly due to profound hyponatremia, infection, resolving. 8. Hypokalemia and hypomagnesemia. Replete and monitor. 9. Elevated TSH. Check thyroid function test. Possibly sick euthyroid syndrome. 10. Hypertension. Hold routine medications at this point pending evaluation and review of history. Clarify indication for isosorbide mononitrate given lack of reported heart disease. 11. Arthritis, likely osteoarthritis with chronic pain. Clarify medical history. 12. Gastroesophageal reflux disease. Continue proton pump inhibitor intravenously until able to take orals. 13. DVT prophylaxis: Treat with low-dose Lovenox. 14. Code status: Full code. 15. Disposition: The patient has been living at home with care from her daughters. Her daughters Tari and Trista were updated yesterday and will update again today. Quality VTE Deep Vein Thrombosis/Pulmonary Embolism Present on Admission: No
[2017-10-16] MEDS: FUROSEMIDE 40 MG/4 ML VIAL IV (09:00)
[2017-10-16] MEDS: LISINOPRIL 20 MG TABLET PO (09:01)
[2017-10-16] MEDS: ASPIRIN EC 81 MG TABLET PO (09:01)
[2017-10-16] MEDS: PANTOPRAZOLE 40 MG TABLET PO (09:01)
[2017-10-16] MEDS: ENOXAPARIN 40 MG/0.4 ML SYRINGE SUBCUT (09:02)
[2017-10-16] MEDS: CALCITRIOL 0.25 MCG CAPSULE 0.5 MCG PO (09:02)
[2017-10-16] MEDS: FLUTICASONE 120 SPRAY/16 GM SPRAY.SUSP NASAL (09:05)
[2017-10-16] MEDS: NIFEdipine 30 MG TAB ER 60 MG PO (09:06)
[2017-10-16] MEDS: ISOSORBIDE MONONITRATE ER 30 MG TABLET 60 MG PO (09:07)
[2017-10-16] MEDS: levoFLOXacin 750 MG/150 ML PIGGYBACK 100 MG IV (09:19)
[2017-10-16 09:26] LABS: BUN Creatinine Ratio 11.8 (6-22); Blood Urea Nitrogen 13 mg/dL (7-17); Calcium 7.9 mg/dL (8.4-10.2); Carbon Dioxide 30 mmol/L (22-32); Chloride 87 mmol/L (98-107); Estimated Glomerular Filt Rate 48.8 mL/min (>60); Glucose 87 mg/dL (80-110); HEMOLYSIS < 15 (0-50); Magnesium 1.9 mg/dL (1.6-2.3); Potassium 3.7 mmol/L (3.4-5.1); Sodium 124 mmol/L (137-145)
[2017-10-16] MEDS: POLYVINYL ALCOHOL DROPS 1 DROPS EYE-BOTH (11:10)
[2017-10-16] MEDS: LORazepam 2 MG/ML SYRINGE 0.5 MG IV ×2 (11:12→20:40)
[2017-10-16 13:18] LABS: BUN Creatinine Ratio 11.8 (6-22); Blood Urea Nitrogen 13 mg/dL (7-17); Calcium 7.8 mg/dL (8.4-10.2); Carbon Dioxide 31 mmol/L (22-32); Chloride 85 mmol/L (98-107); Estimated Glomerular Filt Rate 48.8 mL/min (>60); Glucose 88 mg/dL (80-110); HEMOLYSIS < 15 (0-50); Potassium 3.6 mmol/L (3.4-5.1); Sodium 122 mmol/L (137-145)
[2017-10-16 13:36] LABS: Free T4, Direct Thyroxine 1.91 ng/dL (0.78-2.19); T4 Total Thyroxine 6.07 ug/dL (5.5-11.0)
--- NOTE | 2017-10-16 15:32 | PT.IPTN ---
Current Diagnoses Acute respiratory failure with hypoxia (10/15/17) Physical Therapy Treatment Note M3 PT-IP Subjective Start: 10/16/17 15:31 Freq: NEEDED Status: Active Protocol: Document 10/16/17 15:31 AB (Rec: 10/16/17 15:31 AB [id number]) Subjective Physical Therapy Visit Type Notes per doctor's order: start PT tomorrow
[2017-10-16 18:54] LABS: Sodium 123 mmol/L (137-145)
[2017-10-16] MEDS: PARoxetine 20 MG TABLET 40 MG PO (20:34)
--- NOTE | 2017-10-16 22:23 | PC.NURSE ---
2200- Patient has had two very large loose stools. Patient states she is cramping and uncomfortable prior to each stool. Will monitor.
[2017-10-17] VITALS (14 sets, daily range): BP systolic 152–164; BP diastolic 60–94; PULSE 65–73; RESP 12–24; TEMP 36.3–37.2; O2SAT 92–97
--- NOTE | 2017-10-17 | DI.RAD.S_ITS ---
PROCEDURE: XR KNEE LT 3V INDICATIONS: left knee pain, injury TECHNIQUE: 3 views of the knee were acquired. COMPARISON: [facility], , KNEE 3V LEFT, 01/29/2017, 14:14. [facility], , KNEE 3V RIGHT, 01/29/2017, 14:14. FINDINGS: Bones: No fractures or dislocations. No suspicious bony lesions. Moderate medial joint space narrowing and subchondral sclerosis with spurring. There is lateral patellar tilt Soft tissues: Large joint effusion. No suspicious soft tissue calcifications. IMPRESSION: Moderate left knee degenerative joint disease. No definite interval change. Large joint effusion, which is new since 01/29/17. No fracture. Dictated by: Gurjit Campbell M.D. on 10/17/2017 at 12:04 Approved by: Gurjit Campbell M.D. on 10/17/2017 at 12:05
[2017-10-17] MEDS: HYDROCODONE/ACET 5/325 TABLET 1 TAB PO ×2 (00:17→07:34)
[2017-10-17] MEDS: MELATONIN 3 MG TABLET PO (00:18)
[2017-10-17] MEDS: CYCLOBENZAPRINE 10 MG TABLET PO (03:38)
[2017-10-17] MEDS: LORazepam 2 MG/ML SYRINGE 0.5 MG IV ×3 (03:38→11:20)
[2017-10-17] MEDS: SODIUM CHLORIDE 0.9% FLUSH 10 ML IV ×4 (03:38→23:44)
--- NOTE | 2017-10-17 04:57 | PC.NURSE ---
States left knee popped while using bedpan on evenings and has pain of 9/10. Was medicated with 1 Vicodin and melatonin for sleep and pain and ice bag on left knee. Slept for about 3 hours then c/o left knee pain and stomach. Med with flexaril and ativan, began to doze then aroused by lab.
[2017-10-17 05:30] LABS: Add Manual Diff / Slide Review NO; Basophils Percent Auto 0.5 % (0-2); Eosinophils Percent Auto 0.8 % (2-4); Hematocrit 27.9 % (36-46); Hemoglobin 9.6 g/dL (12.0-16.0); Lymphocytes Percent Auto 9.7 % (25-40); Mean Corpuscular HGB Conc 34.4 % (30-36); Mean Corpuscular Volume 92.9 fL (80-100); Monocytes Percent Auto 9.6 % (3-14); Neutrophils Absolute Auto 5400 /uL (3000-5900); Neutrophils Percent Auto 79.4 % (50-75); Platelet Count 364 X10^3/uL (150-400); Red Cell Distribution Width 14.9 % (11.6-14.8); White Blood Cell Count 6.8 X10^3/uL (4.5-11.0)
[2017-10-17 05:39] LABS: Blood Urea Nitrogen 10 mg/dL (7-17); Calcium 7.9 mg/dL (8.4-10.2); Carbon Dioxide 32 mmol/L (22-32); Chloride 85 mmol/L (98-107); Estimated Glomerular Filt Rate 54.5 mL/min (>60); Glucose 89 mg/dL (80-110); HEMOLYSIS < 15 (0-50); Potassium 3.1 mmol/L (3.4-5.1); Sodium 123 mmol/L (137-145)
[2017-10-17] MEDS: LEVOTHYROXINE 50 MCG TABLET PO (06:12)
[2017-10-17] MEDS: POTASSIUM CHLORIDE 20 MEQ TAB 40 MEQ PO (08:32)
[2017-10-17] MEDS: FUROSEMIDE 40 MG/4 ML VIAL IV ×3 (08:34→23:44)
[2017-10-17] MEDS: levoFLOXacin 750 MG/150 ML PIGGYBACK 100 MG IV (08:48)
[2017-10-17] MEDS: LISINOPRIL 20 MG TABLET PO (08:49)
[2017-10-17] MEDS: ASPIRIN EC 81 MG TABLET PO (08:49)
[2017-10-17] MEDS: PANTOPRAZOLE 40 MG TABLET PO (08:49)
[2017-10-17] MEDS: ISOSORBIDE MONONITRATE ER 30 MG TABLET 60 MG PO (08:50)
[2017-10-17] MEDS: NIFEdipine 30 MG TAB ER 60 MG PO (08:53)
[2017-10-17] MEDS: SODIUM CHLORIDE 0.9% 250 ML 21 ML IV (09:32)
--- NOTE | 2017-10-17 10:37 | PC.NURSE ---
Addendum entered by Katina Leyva R.N. 10/17/17 13:26: After receiving noon dose of Hydrocodone, Pt was noted with some confusion, attemtpted to get OOB, Where am I? I need the biscuits Pt easily reorients, and reminded to use light for needs. I had forgotten where I was for a moment A/o x3, repositioned in bed for comfort. Family visiting. Original Note: Addendum entered by Katina Leyva R.N. 10/17/17 11:37: Dr hung into see Pt, xrays ordered and obtained to L knee. Medicated, with good effect. Was able to get up with PT toe touch wt bear to LLE, due to pain. Original Note: Am shift note Pt is A/o x3, mentation is appropriate. Able to recall events leading to hospitalization, although unclear on timeframe (How long were you feeling sick? I am not sure, a day or 2? Since earlier in the week Pt is afebrile, sat good on RA. Lungs dim, denies SOB. PO K+ and Lasix given. Education provided. Pt is reporting significant pain to L knee, 10/10 at start of shift. Reports twisting to L knee during transfer on evening shift from BSC/bed. 1+ edema to L knee, reports pain is more lateral. Medicated. I dont know if I can do PT today. Ice applied. Pt has pigeon toe appearance to BLE L>R LLE AFO brace at bedside, Pt reports use to bear Wt, previous traumatic fracture. PT into eval @1040.
--- NOTE | 2017-10-17 11:15 | PT.IIE ---
Current Diagnoses Acute respiratory failure with hypoxia (10/15/17) Surgical History (Last Updated 10/15/17 @ 11:40 by Araseli Lay RN) History of Sarita fundoplication (Acute) History of cataract extraction with lens replacement (Acute) History of surgical removal of lesion (Acute) History of tonsillectomy and adenoidectomy (Acute) Hx of appendectomy (Acute) Medical History (Last Updated 10/15/17 @ 11:40 by Araseli Lay RN) Anemia (Acute) Anxiety (Acute) CHF (congestive heart failure) (Acute) Depression (Acute) GERD (gastroesophageal reflux disease) (Acute) History of hysterectomy (Acute) History of seizure (Acute) Hypertension (Acute) Hypothyroidism (Acute) Migraine (Acute) Renal insufficiency (Acute) Rheumatoid arthritis (Acute) Sjogren's syndrome (Acute) Physical Therapy Inpatient Evaluation/Re-Eval M1 PT/OT-IP Prior Functional Status Start: 10/16/17 15:31 Freq: NEEDED Status: Active Protocol: Document 10/17/17 11:15 [facility] (Rec: 10/17/17 13:08 [facility] [id number]) Medical Review Prior Functional Status Medical History Reviewed Yes Diet/Fluid Consistency Regular Mobility and Gait 4WW for gait, modified indep mainly short distances. Social History Household Members none Living Arrangements House Home Equipment Four Wheel Walker Additional Social History Comment Brace for L ankle worn for longer distance gait. M2 PT-IP Current Condition Start: 10/16/17 15:31 Freq: NEEDED Status: Active Protocol: Document 10/17/17 11:15 RCC (Rec: 10/17/17 13:08 [facility] [email or web address]) Physical Therapy Current Condition Current Condition Evaluation Date 10/17/17 Treatment Diagnosis Respiratory failure, impaired mobility and activity tolerance Onset Date 10/15/17 Precautions Brace L ankle bracing Other Precautions painful L knee, reportedly injuring it getting off of a bed ramos last night. ( radiograph showed large joint effusion but no fractures). M3 PT-IP Subjective Start: 10/16/17 15:31 Freq: NEEDED Status: Active Protocol: Document 10/17/17 11:15 RCC (Rec: 10/17/17 13:08 [facility] [email or web address]) Subjective Physical Therapy Visit Type Type Initial Evaluation Visit Start Time 10:30 Visit Stop Time 11:15 Total Visit Minutes 45 Notes Pt with moderate L knee swelling, difficult to assess given pain pt c/o with any palpation. Unable to achieve L knee extension due to pain. Number of AUTOMOTIVE BUYER Visits 0 Physical Therapy Visit Comments Patient Comments Pt notes that her L knee is painful (does not rate). M4 PT-IP Mobility and Gait Start: 10/16/17 15:31 Freq: NEEDED Status: Active Protocol: Document 10/17/17 11:15 [facility] (Rec: 10/17/17 13:08 [facility] [id number]) PT-Bed Mobility Assessment Supine to Sit Supine to Sit Moderate Assistance Head of Bed Elevated Sit to Supine Sit to Supine Moderate Assistance Scooting Scooting to Edge of Bed Contact Guard Assistance PT-Transfer Assessment Sit to and From Stand Sit to and from Stand Moderate Assistance 1 Person Assistance Equipment Transfer Assistive Device Gait Belt 4 Wheeled Walker Transfers Transfer Destination Bed Chair Transfer Technique Stand Step Pivot Transfer Ability Level of Assist Moderate Assistance 1 Person Assistance Use of Upper Extremities Comments Mobility Comments Pt maintained touch-down WB only to LLE due to L knee pain . Gait Assessment Comments Gait Comments unable to tolerate. PT-Balance Assessment Sitting Balance and Reactions Static Sitting Balance Ability Good Dynamic Sitting Balance Ability Fair Standing Balance and Reactions Static Standing Balance Ability Poor Dynamic Standing Balance Ability Poor Device Used 4WW M5 PT-IP Objective Assessments Start: 10/16/17 15:31 Freq: NEEDED Status: Active Protocol: Document 10/17/17 11:15 RCC (Rec: 10/17/17 13:08 [facility] [email or web address]) Orientation Orientation/Cognition Level of Alertness Alert Gross Range of Motion Lower Extremity ROM Assessment Left Impaired Impairments 10 degrees lacking AROM L knee extension due to pain, swelling. L foot/ankle in PF, inversion positioning-wears brace when up. M6 PT-IP Treatment Start: 10/16/17 15:31 Freq: NEEDED Status: Active Protocol: Document 10/17/17 11:15 RCC (Rec: 10/17/17 13:08 [facility] [email or web address]) Physical Therapy Treatment Education Education Provided Safety M7 PT-IP Assessment and Plan Start: 10/16/17 15:31 Freq: NEEDED Status: Active Protocol: Document 10/17/17 11:15 [facility] (Rec: 10/17/17 13:08 [facility] [email or web address]) PT Summary Assessment and Plan Potential Rehabilitation Potential Good Status of Condition at Evaluation Evolving Summary Impairments Pain ROM Strength Balance Bed Mobility Transfers Gait Activity Tolerance Assessment Summary Pt with increased pain attempting active L knee extension and unable to WB throughout the LLE due to pain. Pt uses a L ankle brace when up, requires assistance with donning this. Pt is well below her prior level of function, as she requires assistance with all mobility, and is not able to ambulate at this time. Pt has family in [place], [place], but lives alone and would not be able to perform even the most simple/basic mobility at this time without manual assistance. Pt has good rehab potential, and would greatly benefit from SNF rehabilitation upon d/c. Goals Bed Mobility Goal Standby Assistance Transfer Goal Contact Guard Assistance Four Wheeled Walker Gait Goal Contact Guard Assistance Four Wheel Walker Gait Distance 50 Days to Meet Goals 3 Frequency of Treatment Frequency Of Treatment Once a Day Treatment Plan Physical Therapy Treatment Plan Bed Mobility Training Transfer Training Gait Training Therapeutic Exercise Balance Retraining Discharge Planning Hot or Cold Pack Neuromuscular Re-ed Recommendations To Nursing Amount of Assist Needed PT/OT Assist Only Discharge Recommendations PT Discharge Recommendations SNF Rehab
--- NOTE | 2017-10-17 11:18 | PM.PN.1 ---
Subjective Date Patient Seen: 10/17/17 Time Patient Seen: 11:00 Interval history: The patient reports feeling better, but developed pain in her left knee yesterday on transferring out of bed, with persisting knee pain limiting her ability to move today. Exam Vital Signs (past 8 hours): - 10/17/17 03:25 10/17/17 03:27 10/17/17 07:00 Temperature 98.6 F Pulse Rate Respiratory Rate 16 Blood Pressure 157/94 H Pulse Oximetry 95 96 96 10/17/17 08:00 10/17/17 08:49 Temperature 99 F Pulse Rate 72 71 Respiratory Rate 18 Blood Pressure 164/70 H 164/70 H Pulse Oximetry 94 Fraction of Inspired Oxygen 0.40 Oxygen Delivery Method Room Air Oxygen Flow Rate 0 Narrative Exam Narrative: General: Alert, pleasant female, appears comfortable, fatigued sitting up in chair HEENT: Pupils equal round reactive, extraocular movements intact, mucous membranes pink and moist Neck: Supple Lungs: Bibasilar crackles, diminished breath sounds, no rhonchi or wheeze Cardiac: Regular rate and rhythm without appreciable murmur Abdomen: Soft, nontender Extremities: Without edema, no calf tenderness Dermatologic: No rash or skin lesions Neurologic: Alert, oriented, normal speech, no focal motor or sensory deficits evident Musculoskeletal: Left knee is tender and swollen anteriorly, with pain with range of motion, without warmth or erythema Objective Labs Result Diagrams: 10/17/17 04:41 10/17/17 04:41 Labs: Laboratory Results - last 24 hr 10/16/17 10/16/17 10/16/17 12:20 12:20 18:40 WBC RBC Hgb Hct MCV MCH MCHC RDW Plt Count Neut % (Auto) Lymph % (Auto) [place] % (Auto) Eos % (Auto) Baso % (Auto) Neut # (Auto) Sodium 122 L 123 L Potassium 3.6 Chloride 85 L Carbon Dioxide 31 BUN 13 Creatinine 1.10 H Estimated GFR 48.8 L BUN/Creatinine Ratio 11.8 Glucose 88 Calcium 7.8 L Free T4 1.91 Thyroxine (T4) 6.07 10/17/17 10/17/17 04:41 04:41 WBC 6.8 RBC 3.00 L Hgb 9.6 L Hct 27.9 L MCV 92.9 MCH 32.0 MCHC 34.4 RDW 14.9 H Plt Count 364 Neut % (Auto) 79.4 H Lymph % (Auto) 9.7 L [place] % (Auto) 9.6 Eos % (Auto) 0.8 L Baso % (Auto) 0.5 Neut # (Auto) 5400 Sodium 123 L Potassium 3.1 L Chloride 85 L Carbon Dioxide 32 BUN 10 Creatinine 1.00 Estimated GFR 54.5 L BUN/Creatinine Ratio 10.0 Glucose 89 Calcium 7.9 L Free T4 Thyroxine (T4) Assessment & Plan Plan: Assessment/Plan Narrative: 1. Acute respiratory failure, etiology unclear, resolved. The patient was intubated in the field and extubated several hours later on the morning of admission. Possibly due to profound hyponatremia and associated neurologic depression. Correct hyponatremia gradually, avoiding overly rapid correction with frequent monitoring and desmopressin if needed to suppress over diuresis, and continue to monitor respiratory status. 2. Profound hyponatremia, possibly due to recent gastrointestinal distress, congestive heart failure. Continue diuresis. Follow closely with treatment as above. 3. Acute diastolic congestive heart failure, with elevated BNP, cardiomegaly and bilateral pleural effusions. Echocardiogram shows preserved ejection fraction and normal valves. TSH mildly elevated but not likely thyroid cardiomyopathy. Hold further diuresis at this point given concern of overly rapid correction of hyponatremia, and consider further diuresis later today if needed. 4. Bilateral pulmonary infiltrates, elevated procalcitonin, consider possible community-acquired pneumonia versus aspiration. Continue Levaquin 750 mg daily started 10/15/2017 and follow blood cultures and clinical response. 5. Normocytic anemia. Etiology unclear with normal iron studies, B12, folate, reticulocytes, LDH. 6. Nausea, vomiting, abdominal pain. Appears improved. Advance diet. Etiology unclear. Consider possible congestive hepatopathy versus primary gastrointestinal process. Normal abdominal ultrasound noted essentially ruling out symptomatic cholelithiasis or cholecystitis. Continue to monitor. She has a low albumin on presentation likely due to hyponatremia and hemodilution, noting normal recent albumin on 10/06/2017. 7. Metabolic encephalopathy, possibly due to profound hyponatremia, infection, resolving. 8. Hypokalemia and hypomagnesemia. Replete and monitor. 9. Elevated TSH. Normal thyroid hormone level tests. Possibly sick euthyroid syndrome. 10. Hypertension. Hold routine medications at this point pending evaluation and review of history. Clarify indication for isosorbide mononitrate given lack of reported heart disease. 11. Arthritis, likely osteoarthritis with chronic pain. Clarify medical history. 12. Gastroesophageal reflux disease. Continue proton pump inhibitor intravenously until able to take orals. 13. Left knee pain, possibly due to trauma, possible gout or pseudogout. Obtain x-rays. Treat with prednisone 40 mg daily for the latter possibilities and monitor. 14. DVT prophylaxis: Treat with low-dose Lovenox. 15. Code status: Full code. 16. Disposition: The patient has been living at home with care from her daughters. Her daughters Tari and Trista were updated yesterday and will update again today. She may benefit from longterm facility placement. Quality VTE Deep Vein Thrombosis/Pulmonary Embolism Present on Admission: No
[2017-10-17] MEDS: predniSONE 20 MG TABLET 40 MG PO (11:28)
[2017-10-17] MEDS: ENOXAPARIN 40 MG/0.4 ML SYRINGE SUBCUT (11:29)
[2017-10-17] MEDS: HYDROCODONE/ACET 5/325 TABLET 2 TAB PO ×2 (11:31→20:06)
[2017-10-17] MEDS: POTASSIUM CHLORIDE 20 MEQ TAB PO ×2 (13:25→17:18)
--- NOTE | 2017-10-17 15:55 | CM.DPC ---
DCP Cont: Went ahead and called [place] for an authorization for group home placement, should patient be discharged tomorrow. Called [place], and faxed notes from chart, letting them know that she could potentially be discharged tomorrow. P: Will follow up tomorrow, and continue to consult with hospitalist team regarding discharge. Will follow up with [facility] as well. Laurence Wing RN/Operating Table Assembler
[2017-10-17 16:31] LABS: Sodium 123 mmol/L (137-145)
[2017-10-17 16:36] LABS: Osmolality, Serum 264 mosm/kg (260-310)
[2017-10-17] MEDS: POLYVINYL ALCOHOL DROPS 1 DROPS EYE-BOTH (20:03)
[2017-10-17] MEDS: PARoxetine 20 MG TABLET 40 MG PO (20:04)
--- NOTE | 2017-10-17 21:21 | PC.NURSE ---
1999 - Pt with intermittent confused statement, however answers orientation questions appropriately. Pt asking for something to settle her stomach, denies nausea, Pt further explains a feeling of anxiety, but also refers to knee pain and a desire to sleep. Educated to medication. Discussed staggering medications to prevent increased confusion, pt verbalized understanding. RX given for knee pain. 2119 - Pt resting quietly. No s/s of distress. 95% on RA. Call light in reach. Monitor.
[2017-10-18] VITALS (11 sets, daily range): BP systolic 144–183; BP diastolic 56–68; PULSE 65–86; RESP 14–24; TEMP 36.6–37.2; O2SAT 94–100
[2017-10-18 05:41] LABS: BUN Creatinine Ratio 14.2 (6-22); Blood Urea Nitrogen 17 mg/dL (7-17); Calcium 8.9 mg/dL (8.4-10.2); Carbon Dioxide 31 mmol/L (22-32); Chloride 87 mmol/L (98-107); Estimated Glomerular Filt Rate 44.2 mL/min (>60); Glucose 103 mg/dL (80-110); HEMOLYSIS < 15 (0-50); Potassium 4.3 mmol/L (3.4-5.1); Sodium 124 mmol/L (137-145)
[2017-10-18] MEDS: LEVOTHYROXINE 50 MCG TABLET PO (06:00)
[2017-10-18] MEDS: levoFLOXacin 750 MG/150 ML PIGGYBACK 100 MG IV (08:10)
--- NOTE | 2017-10-18 08:51 | PM.PN.1 ---
Subjective Date Patient Seen: 10/18/17 Time Patient Seen: 08:10 Interval history: The patient is sleeping, appears comfortable. No new events. Exam Vital Signs (past 8 hours): - 10/18/17 04:59 10/18/17 05:11 Temperature 97.8 F Pulse Rate 86 Respiratory Rate 16 Blood Pressure 156/64 H Pulse Oximetry 98 94 Fraction of Inspired Oxygen 0.40 Oxygen Delivery Method Room Air Oxygen Flow Rate 2 Narrative Exam Narrative: General: Sleepy, pleasant female, appears comfortable, fatigued HEENT: Pupils equal round reactive, extraocular movements intact, mucous membranes pink and moist Neck: Supple Lungs: Bibasilar crackles, diminished breath sounds, no rhonchi or wheeze Cardiac: Regular rate and rhythm without appreciable murmur Abdomen: Soft, nontender Extremities: Without edema, no calf tenderness Dermatologic: No rash or skin lesions Neurologic: Alert, oriented, normal speech, no focal motor or sensory deficits evident Musculoskeletal: Left knee is tender and swollen anteriorly, with pain with range of motion, without warmth or erythema Objective Labs Result Diagrams: 10/17/17 04:41 10/18/17 04:54 Labs: Laboratory Results - last 24 hr 10/15/17 10/17/17 10/18/17 08:25 16:10 04:54 Sodium 123 L 124 L Potassium 4.3 D Chloride 87 L Carbon Dioxide 31 BUN 17 Creatinine 1.20 H Estimated GFR 44.2 L BUN/Creatinine Ratio 14.2 Glucose 103 Serum Osmolality 264 Calcium 8.9 Assessment & Plan Plan: Assessment/Plan Narrative: 1. Acute respiratory failure, etiology unclear, resolved. The patient was intubated in the field and extubated several hours later on the morning of admission. Possibly due to profound hyponatremia and associated neurologic depression. Correct hyponatremia gradually, avoiding overly rapid correction with frequent monitoring and desmopressin if needed to suppress over diuresis, and continue to monitor respiratory status. 2. Profound hyponatremia, possibly due to recent gastrointestinal distress, congestive heart failure. Slowly improving. Continue diuresis. Follow closely with treatment as above. 3. Acute diastolic congestive heart failure, with elevated BNP, cardiomegaly and bilateral pleural effusions. Echocardiogram shows preserved ejection fraction and normal valves. TSH mildly elevated but not likely thyroid cardiomyopathy. Hold further diuresis at this point given concern of overly rapid correction of hyponatremia, and consider further diuresis later today if needed. 4. Bilateral pulmonary infiltrates, elevated procalcitonin, consider possible community-acquired pneumonia versus aspiration. Continue Levaquin 750 mg daily started 10/15/2017 and follow blood cultures, negative to date, and clinical response. 5. Normocytic anemia. Etiology unclear with normal iron studies, B12, folate, reticulocytes, LDH. 6. Nausea, vomiting, abdominal pain. Appears improved. Advance diet. Etiology unclear. Consider possible congestive hepatopathy versus primary gastrointestinal process. Normal abdominal ultrasound noted essentially ruling out symptomatic cholelithiasis or cholecystitis. Continue to monitor. She has a low albumin on presentation likely due to hyponatremia and hemodilution, noting normal recent albumin on 10/06/2017. 7. Metabolic encephalopathy, possibly due to profound hyponatremia, infection, resolving. 8. Hypokalemia and hypomagnesemia. Corrected. 9. Elevated TSH. Normal thyroid hormone level tests. Possibly sick euthyroid syndrome. 10. Hypertension. Hold routine medications at this point pending evaluation and review of history. Clarify indication for isosorbide mononitrate given lack of reported heart disease. 11. Arthritis, likely osteoarthritis with chronic pain. Clarify medical history. 12. Gastroesophageal reflux disease. Continue proton pump inhibitor. 13. Left knee pain, possibly contusion due to trauma, possible gout or pseudogout or arthritis flare. X-ray show arthritis. Treat with prednisone 40 mg daily started 10/17/2017 for the latter possibilities and monitor. 14. DVT prophylaxis: Treat with low-dose Lovenox. 15. Code status: Full code. 16. Disposition: The patient has been living at home independently with care from her daughters who live nearby. Her daughters Tari and Trista are closely involved in her care. She may benefit from longterm facility placement. Quality VTE Deep Vein Thrombosis/Pulmonary Embolism Present on Admission: No
[2017-10-18] MEDS: HYDROCODONE/ACET 5/325 TABLET 2 TAB PO ×3 (09:00→22:11)
[2017-10-18] MEDS: LISINOPRIL 20 MG TABLET PO (09:02)
[2017-10-18] MEDS: FUROSEMIDE 40 MG/4 ML VIAL IV ×3 (09:02→22:15)
[2017-10-18] MEDS: ASPIRIN EC 81 MG TABLET PO (09:02)
[2017-10-18] MEDS: PANTOPRAZOLE 40 MG TABLET PO (09:09)
[2017-10-18] MEDS: ISOSORBIDE MONONITRATE ER 30 MG TABLET 60 MG PO (09:09)
[2017-10-18] MEDS: SODIUM CHLORIDE 0.9% FLUSH 10 ML IV ×2 (09:11→21:59)
[2017-10-18] MEDS: NIFEdipine 30 MG TAB ER 60 MG PO (09:17)
[2017-10-18] MEDS: predniSONE 20 MG TABLET 40 MG PO (09:17)
[2017-10-18] MEDS: POTASSIUM CHLORIDE 20 MEQ TAB PO ×2 (09:24→16:17)
--- NOTE | 2017-10-18 10:21 | PC.NURSE ---
Am shift Pt is A/o x3, reports pain to L knee improved from this RN's assessment 24 hours prior. Swelling reduced, but remains tender to touch. CMS+ intact, pigeon toed appearance, and AFO brace at bedside for weight bearing. Pt reports willingness to work with PT and increase activity today, and will continue to follow pain medication effectiveness. Lungs are dim, occasional weak cough effort. Enc deep breathing and coughing. 96% RA HTN this AM, improved after medication. L heel reported discomfort by Pt, heels floated and allyven applied for protection. No OA's, heels not boggy or warm. Isaiah patent. Report given to Marleni RODRIGUZE for transfer to [facility]. Transferred care @ 8500 without incident.
[2017-10-18] MEDS: ENOXAPARIN 40 MG/0.4 ML SYRINGE SUBCUT (10:47)
--- NOTE | 2017-10-18 11:12 | CM.DPC ---
DCP Cont: Spoke to Maddie at [facility], regarding referral. Let her know that snf would be appropriate for patient, secondary to weakness. Faxed over last physical therapy note, as well as recent MD visit. P: Will continue plan and assess, and await authorization. Laurence Wing RN/Manager Rn Case
[2017-10-18] MEDS: LORazepam 2 MG/ML SYRINGE 0.5 MG IV ×3 (11:13→22:11)
--- NOTE | 2017-10-18 14:16 | PT.IPTN ---
Current Diagnoses Acute respiratory failure with hypoxia (10/15/17) Physical Therapy Treatment Note M2 PT-IP Current Condition Start: 10/16/17 15:31 Freq: NEEDED Status: Active Protocol: Document 10/17/17 11:15 RCC (Rec: 10/17/17 13:08 RCC [id number]) Physical Therapy Current Condition Current Condition Evaluation Date 10/17/17 Treatment Diagnosis Respiratory failure, impaired mobility and activity tolerance Onset Date 10/15/17 Precautions Brace L ankle bracing Other Precautions painful L knee, reportedly injuring it getting off of a bed ramos last night. ( radiograph showed large joint effusion but no fractures). M3 PT-IP Subjective Start: 10/16/17 15:31 Freq: NEEDED Status: Active Protocol: Document 10/18/17 14:00 CLB (Rec: 10/18/17 14:16 CLB [id number]) Subjective Physical Therapy Visit Type Type Patient Refusal Notes Pt refused stating she feels weak and sweaty and woke up feeling that way. Pt also stated she doesn't feel like having company but feels bad because they are from out of town. RN informed. Will check back with pt in AM.
--- NOTE | 2017-10-18 14:33 | PC.NURSE ---
Day Shift Acute Care: Patient received this shift from ICU in bed. Colon to gravity. Patient stated throughout shift she is exhausted and just want to rest. Patient had 10 beat run of VT via child monitor reported by EYE SPECIALIST. Patient did not feel any symptoms during or after run. Patient complains of feeling weak and refused PT this shift. Dr. Carolina notified of patient complaint, run of VT, no new orders received. Will continue with current plan of care, family has agreed to limit visitors so patient can rest this evening. VSS, will continue to monitor, call light in reach.
[2017-10-18] MEDS: CALCITRIOL 0.25 MCG CAPSULE 0.5 MCG PO (18:31)
[2017-10-18] MEDS: PARoxetine 20 MG TABLET 40 MG PO (21:59)
[2017-10-19] VITALS (15 sets, daily range): BP systolic 153–197; BP diastolic 66–80; PULSE 67–78; RESP 14–18; TEMP 36.7–37.3; O2SAT 95–100
[2017-10-19] MEDS: MELATONIN 3 MG TABLET PO (00:57)
[2017-10-19] MEDS: LORazepam 2 MG/ML SYRINGE 0.5 MG IV ×4 (04:38→23:09)
[2017-10-19 05:39] LABS: Add Manual Diff / Slide Review NO; Basophils Percent Auto 0.2 % (0-2); Eosinophils Percent Auto 0.1 % (2-4); Hematocrit 28.6 % (36-46); Hemoglobin 9.7 g/dL (12.0-16.0); Lymphocytes Percent Auto 13.9 % (25-40); Mean Corpuscular HGB Conc 33.9 % (30-36); Mean Corpuscular Hemoglobin 31.3 PG (26-34); Mean Corpuscular Volume 92.4 fL (80-100); Neutrophils Absolute Auto 5000 /uL (3000-5900); Neutrophils Percent Auto 76.8 % (50-75); Platelet Count 461 X10^3/uL (150-400); Red Cell Distribution Width 14.9 % (11.6-14.8); White Blood Cell Count 6.5 X10^3/uL (4.5-11.0)
[2017-10-19 05:52] LABS: BUN Creatinine Ratio 16.9 (6-22); Blood Urea Nitrogen 22 mg/dL (7-17); Calcium 8.4 mg/dL (8.4-10.2); Carbon Dioxide 32 mmol/L (22-32); Chloride 85 mmol/L (98-107); Estimated Glomerular Filt Rate 40.3 mL/min (>60); Glucose 106 mg/dL (80-110); HEMOLYSIS < 15 (0-50); Potassium 3.8 mmol/L (3.4-5.1); Sodium 122 mmol/L (137-145)
[2017-10-19] MEDS: FUROSEMIDE 40 MG/4 ML VIAL IV (06:31)
[2017-10-19] MEDS: LEVOTHYROXINE 50 MCG TABLET PO (06:31)
[2017-10-19] MEDS: SODIUM CHLORIDE 0.9% FLUSH 10 ML IV ×2 (08:39→22:48)
[2017-10-19] MEDS: ACETAMINOPHEN 325 MG TABLET 650 MG PO ×2 (09:39→17:22)
[2017-10-19] MEDS: PANTOPRAZOLE 40 MG TABLET PO (09:39)
[2017-10-19] MEDS: ENOXAPARIN 40 MG/0.4 ML SYRINGE SUBCUT (09:40)
--- NOTE | 2017-10-19 09:45 | PC.NURSE ---
Shift summary: Awake and alert, oriented X3. C/O her stomach feels like it's in knots, kind of crampy discomfort. Medicated with IV Lorazepam for nausea, asked MD for anti-emetic order if appropriate. Medicated with Tylenol for complaints of headache, adjusted light in room, cold washcloth to forehead. Held most PO a.m. meds r/t nausea and patient unsure she can tolerate them. Will give later if she's agreeable. Wants to rest now, denies needs. Light in reach, bed alarm on.
--- NOTE | 2017-10-19 11:00 | CM.DPC ---
DCP: continued. Case again received and last few days reviewed. Spoke with [place] ARIN Garcia this morning. She noted need for further clinical update including PT/OT details and [employer] did fax these. Received call now from [place] ARIN Perkins/training with [employer]. She says notes are reviewed and authorization for [facility] at d/c does remain in place. PASRR/will complete and fax to [facility]. Stopped in to see pt and updated her re the authorization. Dr. Macedo arrive and was updated. P: [facility] when stable for same
--- NOTE | 2017-10-19 11:06 | P.PN_ITS ---
Subjective Date Patient Seen: 10/19/17 Time Patient Seen: 11:00 Interval history: She did not sleep well last night Exam Vital Signs (past 8 hours): - 10/19/17 04:00 10/19/17 06:04 10/19/17 07:44 Temperature 98.9 F 98.7 F Pulse Rate 72 78 Respiratory Rate 17 18 16 Blood Pressure 153/66 H 157/80 H Pulse Oximetry 100 100 100 10/19/17 09:01 Temperature Pulse Rate Respiratory Rate Blood Pressure Pulse Oximetry 100 Fraction of Inspired Oxygen 0.40 Oxygen Delivery Method Room Air Oxygen Flow Rate 0 Narrative Exam Narrative: Resting comfortably Oropharynx clear Neck is supple Lungs Clear to auscultation Heart regular rhythm Abdomen soft nontender Left knee still mildly swollen mildly tender to palpation edema in the lower extremities Neuro exam awake alert no focal deficits Skin warm and dry Objective Labs Result Diagrams: 10/19/17 05:22 10/19/17 05:22 Labs: Laboratory Results - last 24 hr 10/19/17 10/19/17 05:22 05:22 WBC 6.5 RBC 3.10 L Hgb 9.7 L Hct 28.6 L MCV 92.4 MCH 31.3 MCHC 33.9 RDW 14.9 H Plt Count 461 H Neut % (Auto) 76.8 H Lymph % (Auto) 13.9 L [place] % (Auto) 9.0 Eos % (Auto) 0.1 L Baso % (Auto) 0.2 Neut # (Auto) 5000 Sodium 122 L Potassium 3.8 Chloride 85 L Carbon Dioxide 32 BUN 22 H Creatinine 1.30 H Estimated GFR 40.3 L BUN/Creatinine Ratio 16.9 Glucose 106 Calcium 8.4 Assessment & Plan Plan: Assessment/Plan Narrative: 1. Acute respiratory failure, etiology unclear, resolved. The patient was intubated in the field and extubated several hours later on the morning of admission. Possibly due to profound hyponatremia and associated neurologic depression. Correct hyponatremia gradually, avoiding overly rapid correction with frequent monitoring and desmopressin if needed to suppress over diuresis, and continue to monitor respiratory status. 2. Profound hyponatremia, possibly due to recent gastrointestinal distress, congestive heart failure. Slowly improving. She has responded well to diuresis 3. Acute diastolic congestive heart failure, with elevated BNP, cardiomegaly and bilateral pleural effusions. Echocardiogram shows preserved ejection fraction and moderate mitral regurgitation and moderate aortic insufficiency is noted she also has elevated right ventricular pressure 53 mm of mercury higher than previous.. TSH mildly elevated but not likely thyroid cardiomyopathy. Plan to switch her to oral diuretic furosemide. Plan to stop the lisinopril due to the hyponatremia change her to hydralazine for afterload reduction for treating the valvular disease. 4. Bilateral pulmonary infiltrates, elevated procalcitonin, consider possible community-acquired pneumonia versus aspiration. Continue Levaquin 750 mg daily started 10/15/2017 and follow blood cultures, negative to date, and clinical response. 5. Normocytic anemia. Etiology unclear with normal iron studies, B12, folate, reticulocytes, LDH. 6. Nausea, vomiting, abdominal pain. Appears improved. Advance diet. Etiology unclear. Consider possible congestive hepatopathy versus primary gastrointestinal process. Normal abdominal ultrasound noted essentially ruling out symptomatic cholelithiasis or cholecystitis. Continue to monitor. She has a low albumin on presentation likely due to hyponatremia and hemodilution, noting normal recent albumin on 10/06/2017. 7. Metabolic encephalopathy, possibly due to profound hyponatremia, infection, resolving. 8. Hypokalemia and hypomagnesemia. Corrected. 9. Elevated TSH. Normal thyroid hormone level tests. Possibly sick euthyroid syndrome. 10. Hypertension. Plan to switch the lisinopril to hydralazine. She is on Procardia also uncertain if she needs this will watch this carefully 11. Arthritis, likely osteoarthritis with chronic pain. Clarify medical history. 12. Gastroesophageal reflux disease. Continue proton pump inhibitor. 13. Left knee pain, possibly contusion due to trauma, possible gout or pseudogout or arthritis flare. X-ray show arthritis. Plan check ESR and uric acid. She has had a couple of doses of prednisone uncertain if this is had any benefit for her low I think we can probably stop the prednisone at this point 14. DVT prophylaxis: Treat with low-dose Lovenox. 15. Code status: Full code. 16. Disposition: The patient has been living at home independently with care from her daughters who live nearby. Her daughters Tari and Trista are closely involved in her care. She may benefit from care home facility placement. Quality VTE Deep Vein Thrombosis/Pulmonary Embolism Present on Admission: No
[2017-10-19 13:01] LABS: Uric Acid 5.5 mg/dL (2.5-6.2)
[2017-10-19 13:07] LABS: Erythrocyte Sedimentation Rate 35 MM/HR (0-20)
--- NOTE | 2017-10-19 15:54 | PT.IPTN ---
Current Diagnoses Acute respiratory failure with hypoxia (10/15/17) Physical Therapy Treatment Note Subjective Physical Therapy Visit Type Type Patient Refusal Notes Attempted to work with the patient twice today but both times pt politely declined to participate due to needing to sleep and being too weak/ fatigued.
[2017-10-19] MEDS: HYDRALAZINE 10 MG TABLET PO ×2 (17:22→22:47)
[2017-10-19] MEDS: HYDROCODONE/ACET 5/325 TABLET 2 TAB PO (18:05)
[2017-10-19] MEDS: POTASSIUM CHLORIDE 20 MEQ TAB PO (18:05)
[2017-10-19] MEDS: levoFLOXacin 250 MG TABLET 750 MG PO (18:07)
[2017-10-19] MEDS: PARoxetine 20 MG TABLET 40 MG PO (22:48)
--- NOTE | 2017-10-19 23:56 | PC.NURSE ---
Addendum entered by Ale Orozco R.N. 10/20/17 06:33: Still complains of knots in stomach being all tied up; requested/medicated with Ativan Original Note: Addendum entered by Ale Orozco R.N. 10/20/17 05:56: States she was finally able to get some sleep tonight and feeling better. BP remains elevated; medicated with scheduled Hydralazine. Complains of 5/10 headache but declines pain meds at this time; ice pack applied to neck. Complains, also, of stomach feeling like it's tied up in knots; medicated early with 0900 scheduled Protonix . Original Note: Patient is oriented except to day of week. Breath sounds diminished but CTA with RA sat of 97%. HRR; on telemetry monitoring and has had readings of afib and SR 1st degree AVB. Denies nausea. BT present and states she is passing flatus but has not had BM since 10/13. Indwelling catheter is patent. States she is able to turn side to side in bed and was able to sit up for RN to assess lung sounds. Has Allevyn dressing to left heel which is CDI. States she has no pain except for headache and rates that pain as 4-5/10 but states it is getting better; has ice pack to neck. Just received Ativan around 2315 and is reluctant to have staff do anything for her stating I just want to sleep. Fall risk score is high and bed alarm is activated.
[2017-10-20] VITALS (11 sets, daily range): BP systolic 122–197; BP diastolic 55–78; PULSE 67–73; RESP 16–18; TEMP 36.1–36.8; O2SAT 98–100
[2017-10-20] MEDS: LEVOTHYROXINE 50 MCG TABLET PO (05:41)
[2017-10-20] MEDS: HYDRALAZINE 10 MG TABLET PO (05:41)
[2017-10-20] MEDS: PANTOPRAZOLE 40 MG TABLET PO (05:54)
[2017-10-20 05:56] LABS: Add Manual Diff / Slide Review NO; Basophils Percent Auto 0.4 % (0-2); Eosinophils Percent Auto 0.8 % (2-4); Hematocrit 31.5 % (36-46); Hemoglobin 10.6 g/dL (12.0-16.0); Mean Corpuscular HGB Conc 33.7 % (30-36); Mean Corpuscular Hemoglobin 31.1 PG (26-34); Mean Corpuscular Volume 92.3 fL (80-100); Monocytes Percent Auto 12.6 % (3-14); Neutrophils Absolute Auto 4100 /uL (3000-5900); Neutrophils Percent Auto 70.2 % (50-75); Platelet Count 498 X10^3/uL (150-400); Red Blood Cell Count 3.41 X10^6/uL (4.0-5.2); Red Cell Distribution Width 14.6 % (11.6-14.8); White Blood Cell Count 5.9 X10^3/uL (4.5-11.0)
[2017-10-20 06:08] LABS: BUN Creatinine Ratio 18.5 (6-22); Blood Urea Nitrogen 24 mg/dL (7-17); Calcium 8.9 mg/dL (8.4-10.2); Carbon Dioxide 33 mmol/L (22-32); Chloride 84 mmol/L (98-107); Estimated Glomerular Filt Rate 40.3 mL/min (>60); Glucose 92 mg/dL (80-110); HEMOLYSIS < 15 (0-50); Potassium 4.2 mmol/L (3.4-5.1); Sodium 124 mmol/L (137-145)
[2017-10-20] MEDS: SODIUM CHLORIDE 0.9% FLUSH 10 ML IV ×3 (06:29→20:57)
[2017-10-20] MEDS: LORazepam 2 MG/ML SYRINGE 0.5 MG IV ×2 (06:29→21:17)
--- NOTE | 2017-10-20 07:44 | PC.NURSE ---
Addendum entered by Sanjana Singleton R.N. 10/20/17 15:39: Cardiac: At approx 1430 patient called to report new onset of chest heaviness that started, she thought, about 1400. Vitals taken at the time were stable (BP 122/55, HR 73). This policy writer sales spoke to BRAID PATTERN SETTER Tabatha who said that at 1341 patient had a pause but then went back into sinus rhythm. This policy writer sales spoke with Dr Macedo and informed him of events as described. No new orders received other than to continue with ongoing tele monitoring. At 1450 patient stated the sensation was no better, but no worse. I let her know that the MD was informed and that there were no new orders at this time. Instructed her to call if the sensation changes/worsens, or turns into chest pain/SOB. Original Note: Addendum entered by Sanjana Singleton R.N. 10/20/17 12:00: Alert and oriented to everything except exact date. Denied nausea or abdominal pain and was able to take all of her PO meds this morning. C/O headache (8/10 pain)- not relieved by Tylenol alone, so she was medicated with 2 tabs Vicodin and given an ice pack for her head/neck. Lungs CTA, diminished. Denies SOB, sats on RA 99%. HRR, back in NSR per tele report and Dr Macedo is aware. Q2H assist with turning in bed. She was able to have a BM today using the bedpan. She expressed willingness to participate when PT comes this afternoon. Going to try and sleep for a couple hours now. Calls appropriately with needs. Light in reach, bed alarm on. Original Note: Shift summary: Resting quietly in bed with eyes closed. Respirations regular and unlabored. No s/sx distress or discomfort. Will allow to sleep and assess when awake (C/O not getting enough sleep). Call light in reach, bed alarm active.
[2017-10-20] MEDS: POTASSIUM CHLORIDE 20 MEQ TAB PO ×2 (09:47→20:57)
[2017-10-20] MEDS: NIFEdipine 30 MG TAB ER 60 MG PO (09:47)
[2017-10-20] MEDS: FUROSEMIDE 40 MG TABLET PO (09:47)
[2017-10-20] MEDS: ENOXAPARIN 40 MG/0.4 ML SYRINGE SUBCUT (09:47)
[2017-10-20] MEDS: ASPIRIN EC 81 MG TABLET PO (09:47)
[2017-10-20] MEDS: ACETAMINOPHEN 325 MG TABLET 650 MG PO (09:48)
[2017-10-20] MEDS: ISOSORBIDE MONONITRATE ER 30 MG TABLET 60 MG PO (09:48)
--- NOTE | 2017-10-20 11:07 | PM.PN.1 ---
Subjective Date Patient Seen: 10/20/17 Time Patient Seen: 11:07 Interval history: Did not sleep well again last night Exam Vital Signs (past 8 hours): - 10/20/17 05:40 10/20/17 05:41 10/20/17 06:56 Temperature 98.2 F Pulse Rate 68 68 68 Respiratory Rate 17 Blood Pressure 191/71 H 191/71 H 197/78 H Pulse Oximetry 98 10/20/17 07:50 10/20/17 09:25 Temperature 97.3 F L Pulse Rate 70 Respiratory Rate 16 Blood Pressure 151/60 H Pulse Oximetry 99 99 Fraction of Inspired Oxygen 0.40 Oxygen Delivery Method Room Air Oxygen Flow Rate 0 Narrative Exam Narrative: Telemetry showing sinus rhythm AFib has resolved Oropharynx clear Neck no JVD Lungs Clear to auscultation Heart regular rhythm Abdomen soft nontender bowel sounds are present Left knee still with mild effusion mildly tender Lower extremities trace edema Neuro exam awake alert no focal deficits Skin warm and dry Objective Labs Result Diagrams: 10/20/17 05:38 10/20/17 05:38 Labs: Laboratory Results - last 24 hr 10/19/17 10/19/17 10/20/17 Unknown Unknown 05:38 WBC 5.9 RBC 3.41 L Hgb 10.6 L Hct 31.5 L MCV 92.3 MCH 31.1 MCHC 33.7 RDW 14.6 Plt Count 498 H Neut % (Auto) 70.2 Lymph % (Auto) 16.0 L [place] % (Auto) 12.6 Eos % (Auto) 0.8 L Baso % (Auto) 0.4 Neut # (Auto) 4100 ESR 35 H Sodium Potassium Chloride Carbon Dioxide BUN Creatinine Estimated GFR BUN/Creatinine Ratio Glucose Uric Acid 5.5 Calcium 10/20/17 05:38 WBC RBC Hgb Hct MCV MCH MCHC RDW Plt Count Neut % (Auto) Lymph % (Auto) [place] % (Auto) Eos % (Auto) Baso % (Auto) Neut # (Auto) ESR Sodium 124 L Potassium 4.2 Chloride 84 L Carbon Dioxide 33 H BUN 24 H Creatinine 1.30 H Estimated GFR 40.3 L BUN/Creatinine Ratio 18.5 Glucose 92 Uric Acid Calcium 8.9 Assessment & Plan Plan: Assessment/Plan Narrative: 1. Acute respiratory failure, etiology unclear, resolved. The patient was intubated in the field and extubated several hours later on the morning of admission. Possibly due to profound hyponatremia and associated neurologic depression. Correct hyponatremia gradually, avoiding overly rapid correction with frequent monitoring and desmopressin if needed to suppress over diuresis, and continue to monitor respiratory status. 2. Profound hyponatremia, possibly due to recent gastrointestinal distress, congestive heart failure. Slowly improving. She has responded well to diuresis. Also we had changed her lisinopril to hydralazine 3. Acute diastolic congestive heart failure, with elevated BNP, cardiomegaly and bilateral pleural effusions. Echocardiogram shows preserved ejection fraction and moderate mitral regurgitation and moderate aortic insufficiency is noted she also has elevated right ventricular pressure 53 mm of mercury higher than previous.. TSH mildly elevated but not likely thyroid cardiomyopathy. Plan to switch her to oral diuretic furosemide. Plan to stop the lisinopril due to the hyponatremia change her to hydralazine for afterload reduction for treating the valvular disease. 4. Bilateral pulmonary infiltrates, elevated procalcitonin, consider possible community-acquired pneumonia versus aspiration. Continue Levaquin 750 mg daily started 10/15/2017 and follow blood cultures, negative to date, and clinical response. 5. Normocytic anemia. Etiology unclear with normal iron studies, B12, folate, reticulocytes, LDH. 6. Nausea, vomiting, abdominal pain. Appears improved. Advance diet. Etiology unclear. Consider possible congestive hepatopathy versus primary gastrointestinal process. Normal abdominal ultrasound noted essentially ruling out symptomatic cholelithiasis or cholecystitis. Continue to monitor. She has a low albumin on presentation likely due to hyponatremia and hemodilution, noting normal recent albumin on 10/06/2017. 7. Metabolic encephalopathy, possibly due to profound hyponatremia, infection, resolving. Now back to baseline 8. Hypokalemia and hypomagnesemia. Corrected. 9. Elevated TSH. Normal thyroid hormone level tests. Possibly sick euthyroid syndrome. 10. Hypertension. Plan to switch the lisinopril to hydralazine. She is on Procardia also uncertain if she needs this will watch this carefully. Plan to increase the hydralazine to 25 t.i.d. 11. Arthritis, likely osteoarthritis with chronic pain. Clarify medical history. 12. Gastroesophageal reflux disease. Continue proton pump inhibitor. 13. Left knee pain, possibly contusion due to trauma, possible gout or pseudogout or arthritis flare. X-ray show arthritis. ESR was mildly elevated. She had a couple of doses of prednisone but now has been stopped. Most likely pseudogout 14. DVT prophylaxis: Treat with low-dose Lovenox. 15. Code status: Full code. 16. Disposition: The patient has been living at home independently with care from her daughters who live nearby. Her daughters Tari and Trista are closely involved in her care. She may benefit from fdc facility placement. Quality VTE Deep Vein Thrombosis/Pulmonary Embolism Present on Admission: No
[2017-10-20] MEDS: HYDROCODONE/ACET 5/325 TABLET 2 TAB PO ×2 (11:39→20:56)
--- NOTE | 2017-10-20 17:16 | PT.IPTN ---
Current Diagnoses Acute respiratory failure with hypoxia (10/15/17) Physical Therapy Treatment Note M2 PT-IP Current Condition Start: 10/16/17 15:31 Freq: NEEDED Status: Active Protocol: Document 10/17/17 11:15 RCC (Rec: 10/17/17 13:08 [facility] [email or web address]) Physical Therapy Current Condition Current Condition Evaluation Date 10/17/17 Treatment Diagnosis Respiratory failure, impaired mobility and activity tolerance Onset Date 10/15/17 Precautions Brace L ankle bracing Other Precautions painful L knee, reportedly injuring it getting off of a bed ramos last night. ( radiograph showed large joint effusion but no fractures). M3 PT-IP Subjective Start: 10/16/17 15:31 Freq: NEEDED Status: Active Protocol: Document 10/20/17 17:15 GGD (Rec: 10/20/17 17:15 GGD [id number]) Subjective Physical Therapy Visit Type Type Patient Unavailable Notes Pt states that she had a bad day and is to tired and nausous now. M4 PT-IP Mobility and Gait Start: 10/16/17 15:31 Freq: NEEDED Status: Active Protocol: Document 10/17/17 11:15 RCC (Rec: 10/17/17 13:08 RCC [email or web address]) PT-Bed Mobility Assessment Supine to Sit Supine to Sit Moderate Assistance Head of Bed Elevated Sit to Supine Sit to Supine Moderate Assistance Scooting Scooting to Edge of Bed Contact Guard Assistance PT-Transfer Assessment Sit to and From Stand Sit to and from Stand Moderate Assistance 1 Person Assistance Equipment Transfer Assistive Device Gait Belt 4 Wheeled Walker Transfers Transfer Destination Bed Chair Transfer Technique Stand Step Pivot Transfer Ability Level of Assist Moderate Assistance 1 Person Assistance Use of Upper Extremities Comments Mobility Comments Pt maintained touch-down WB only to LLE due to L knee pain . Gait Assessment Comments Gait Comments unable to tolerate. PT-Balance Assessment Sitting Balance and Reactions Static Sitting Balance Ability Good Dynamic Sitting Balance Ability Fair Standing Balance and Reactions Static Standing Balance Ability Poor Dynamic Standing Balance Ability Poor Device Used 4WW M5 PT-IP Objective Assessments Start: 10/16/17 15:31 Freq: NEEDED Status: Active Protocol: Document 10/17/17 11:15 RCC (Rec: 10/17/17 13:08 RCC [email or web address]) Orientation Orientation/Cognition Level of Alertness Alert Gross Range of Motion Lower Extremity ROM Assessment Left Impaired Impairments 10 degrees lacking AROM L knee extension due to pain, swelling. L foot/ankle in PF, inversion positioning-wears brace when up. M6 PT-IP Treatment Start: 10/16/17 15:31 Freq: NEEDED Status: Active Protocol: Document 10/17/17 11:15 RCC (Rec: 10/17/17 13:08 RCC [email or web address]) Physical Therapy Treatment Education Education Provided Safety M7 PT-IP Assessment and Plan Start: 10/16/17 15:31 Freq: NEEDED Status: Active Protocol: Document 10/17/17 11:15 RCC (Rec: 10/17/17 13:08 RCC [email or web address]) PT Summary Assessment and Plan Potential Rehabilitation Potential Good Status of Condition at Evaluation Evolving Summary Impairments Pain ROM Strength Balance Bed Mobility Transfers Gait Activity Tolerance Assessment Summary Pt with increased pain attempting active L knee extension and unable to WB throught the LLE due to pain. Pt uses a L ankle brace when up, requires assistance with donning this. Pt is well below her prior level of function, as she requires assistance with all mobility, and is not able to ambulate at this time. Pt has family in [place], [place], but lives alone and would not be able to perform even the most simple/basice mobility at this time without manual assistance. Pt has good rehab potential, and would greatly benefit from SNF rehabilitation upon d/c. Goals Bed Mobility Goal Standby Assistance Transfer Goal Contact Guard Assistance Four Wheeled Walker Gait Goal Contact Guard Assistance Four Wheel Walker Gait Distance 50 Days to Meet Goals 3 Frequency of Treatment Frequency Of Treatment Once a Day Treatment Plan Physical Therapy Treatment Plan Bed Mobility Training Transfer Training Gait Training Therapeutic Exercise Balance Retraining Discharge Planning Hot or Cold Pack Neuromuscular Re-ed Recommendations To Nursing Amount of Assist Needed PT/OT Assist Only Discharge Recommendations PT Discharge Recommendations SNF Rehab
--- NOTE | 2017-10-20 19:10 | PC.NURSE ---
Alexsander is oriented x 3, forgetful of date and some events. Conversive with staff, said she has only slept 2 hours in 2 days. Requesting no staff interruptions from 1630 until 2100, if sleeping. Requests no visitors tonight. Reported stomach in knots, intermittent nausea, refusing meal. Refused to take potassium or calcium pill until she eats something. Said she would try to eat later. Medicated with Lorazepam 0.5 mg per c/o abdomen discomfort & nausea. Since then has been observed sleeping.
[2017-10-20] MEDS: HYDRALAZINE 25 MG TABLET PO (20:56)
[2017-10-20] MEDS: PARoxetine 20 MG TABLET 40 MG PO (20:57)
[2017-10-20] MEDS: CALCITRIOL 0.25 MCG CAPSULE 0.5 MCG PO (20:57)
[2017-10-21] VITALS (13 sets, daily range): BP systolic 131–158; BP diastolic 50–70; PULSE 69–93; RESP 16–18; TEMP 35.6–37.1; O2SAT 96–100
--- NOTE | 2017-10-21 | DI.CT.S_ITS ---
PROCEDURE: CT ABDOMEN PELVIS WO CON INDICATIONS: abdominal pain, abnormal CT done recently without oral contrast. TECHNIQUE: After the administration of oral contrast, 5 mm thick sections acquired from the diaphragms to the symphysis. 5 mm coronal and sagittal reformats were performed. For radiation dose reduction, the following was used: automated exposure control, adjustment of mA and/or kV according to patient size. COMPARISON: , CT, CT CHEST ABD PEL W CON, 10/15/2017, 0:15. FINDINGS: Image quality: Excellent. ABDOMEN: Lung bases: Pleural effusions are significantly improved. Stable prominent cardiac mediastinal silhouette.. Solid organs: Liver is normal in size. Gallbladder is present and smaller relative to the previous study. Pancreas is normal in size. Spleen is normal in size. No adrenal nodules. The kidneys are lobulated with right renal scarring. Peritoneum and bowel: Postoperative changes at the GE junction. A degree of wall thickening persists in the descending and sigmoid colon improved since the previous study. No obstruction or perforation. The appendix is not identified. There are no secondary signs of acute appendicitis. Nodes and vessels: No retroperitoneal or mesenteric adenopathy by size criteria. Aorta and inferior vena cava are normal in size. Miscellaneous: No ventral hernias. PELVIS: Genitourinary: Colon catheter within the bladder contains air presumably related to catheterization although technically a fistula cannot be excluded.. Miscellaneous: No inguinal hernias or adenopathy. Bones: No suspicious bony lesions. No vertebral body compression fractures. IMPRESSION: 1. Previously noted wall thickening in the descending and sigmoid colon is improved. This finding may represent a degree of colitis either infectious or inflammatory. Consider correlation with colonoscopy when the patient is able. 2. Lobulated renal contours with right renal scarring. Dictated by: Willi Carter M.D. on 10/21/2017 at 15:08 Approved by: Willi Carter M.D. on 10/21/2017 at 15:15
--- NOTE | 2017-10-21 01:15 | PC.NURSE ---
Addendum entered by Ale Orozco R.N. 10/21/17 06:15: Patient asleep again this morning after receiving Ativan at 0522 for complaint of knots in stomach and anxiety. BP 151/52 this morning. Offers no other complaints. 200cc UOP this shift via indwelling catheter Original Note: Patient asleep since start of shift, now awakened for assessment/vitals. Is alert and oriented except for date/day of week. Breath sounds diminished but CTA with RA sat of 100%. HRR; on telemetry and was SR-1st degree AVB at 0000 reading. Denies nausea. BT present and abdomen is soft. Indwelling catheter due to poor mobility; patent but with minimal yellow urine noted in bag. Is able to turn self and declines offer of assistance. Chronic bilateral foot neuropathy unchanged. Denies any pain currently. Fall risk score is high and bed alarm is activated.
[2017-10-21] MEDS: LORazepam 2 MG/ML SYRINGE 0.5 MG IV ×2 (05:22→14:10)
[2017-10-21] MEDS: SODIUM CHLORIDE 0.9% FLUSH 10 ML IV ×2 (05:22→09:29)
[2017-10-21 05:43] LABS: BUN Creatinine Ratio 21.9 (6-22); Blood Urea Nitrogen 35 mg/dL (7-17); Calcium 8.6 mg/dL (8.4-10.2); Carbon Dioxide 30 mmol/L (22-32); Chloride 86 mmol/L (98-107); Estimated Glomerular Filt Rate 31.7 mL/min (>60); Glucose 103 mg/dL (80-110); HEMOLYSIS < 15 (0-50); Sodium 121 mmol/L (137-145)
[2017-10-21] MEDS: HYDRALAZINE 25 MG TABLET PO ×3 (06:00→20:53)
[2017-10-21] MEDS: LEVOTHYROXINE 50 MCG TABLET PO (06:00)
[2017-10-21] MEDS: POTASSIUM CHLORIDE 20 MEQ TAB PO ×2 (09:26→16:59)
[2017-10-21] MEDS: ENOXAPARIN 40 MG/0.4 ML SYRINGE SUBCUT (09:27)
[2017-10-21] MEDS: NIFEdipine 30 MG TAB ER 60 MG PO (09:28)
[2017-10-21] MEDS: ACETAMINOPHEN 325 MG TABLET 650 MG PO (09:28)
[2017-10-21] MEDS: ISOSORBIDE MONONITRATE ER 30 MG TABLET 60 MG PO (09:28)
[2017-10-21] MEDS: PANTOPRAZOLE 40 MG TABLET PO (09:28)
[2017-10-21] MEDS: levoFLOXacin 250 MG TABLET 750 MG PO (09:28)
[2017-10-21] MEDS: FUROSEMIDE 40 MG TABLET PO (09:28)
[2017-10-21] MEDS: ASPIRIN EC 81 MG TABLET PO (09:33)
--- NOTE | 2017-10-21 10:52 | PT.IPTN ---
Current Diagnoses Acute respiratory failure with hypoxia (10/15/17) Physical Therapy Treatment Note M2 PT-IP Current Condition Start: 10/16/17 15:31 Freq: NEEDED Status: Active Protocol: Document 10/21/17 10:44 TMS (Rec: 10/21/17 10:51 [facility] [id number]) Physical Therapy Current Condition Current Condition Evaluation Date 10/17/17 Treatment Diagnosis Respiratory failure, impaired mobility and activity tolerance Onset Date 10/15/17 Precautions Brace L ankle bracing Other Precautions painful L knee, reportedly injuring it getting off of a bed ramos last night. ( radiograph showed large joint effusion but no fractures). M3 PT-IP Subjective Start: 10/16/17 15:31 Freq: NEEDED Status: Active Protocol: Document 10/21/17 10:44 TMS (Rec: 10/21/17 10:51 [facility] [id number]) Subjective Physical Therapy Visit Type Type Treatment Note Visit Start Time 10:15 Visit Stop Time 10:40 Total Visit Minutes 25 Notes Pt. willing to sit in chair. Physical Therapy Visit Comments Patient Comments Pt. states left knee is not as painful today, states all her joints are so though. Therapy Pain Assessment Pain When Pain Assessed At Rest Pain Present Pain Present Pain Reported Location Head Intensity 6 Scale Used Numeric (1 - 10) Pain Management Techniques Apply Cold Re-positioning M4 PT-IP Mobility and Gait Start: 10/16/17 15:31 Freq: NEEDED Status: Active Protocol: Document 10/21/17 10:44 TMS (Rec: 10/21/17 10:51 [facility] [id number]) PT-Bed Mobility Assessment Rolling Type of Rolling Roll to Right Supine to Sit Supine to Sit Minimal Assistance Head of Bed Elevated Scooting Scooting to Edge of Bed Minimal Assistance PT-Transfer Assessment Sit to and From Stand Sit to and from Stand Moderate Assistance 1 Person Assistance Transfers Transfer Destination Chair Transfer Technique Stand Step Pivot Transfer Ability Level of Assist Moderate Assistance 1 Person Assistance Use of Upper Extremities Comments Mobility Comments Pt. able to weight bear through left L.E. better today . States she doesn't need shoes on for transfers, states her ankle brace needs adjusting. Gait Assessment Comments Gait Comments Unable to tolerate more then a transfer to chair. M5 PT-IP Objective Assessments Start: 10/16/17 15:31 Freq: NEEDED Status: Active Protocol: Document 10/17/17 11:15 RCC (Rec: 10/17/17 13:08 RCC [email or web address]) Orientation Orientation/Cognition Level of Alertness Alert Gross Range of Motion Lower Extremity ROM Assessment Left Impaired Impairments 10 degrees lacking AROM L knee extension due to pain, swelling. L foot/ankle in PF, inversion positioning-wears brace when up. M6 PT-IP Treatment Start: 10/16/17 15:31 Freq: NEEDED Status: Active Protocol: Document 10/17/17 11:15 RCC (Rec: 10/17/17 13:08 RCC [email or web address]) Physical Therapy Treatment Education Education Provided Safety M7 PT-IP Assessment and Plan Start: 10/16/17 15:31 Freq: NEEDED Status: Active Protocol: Document 10/21/17 10:44 TMS (Rec: 10/21/17 10:51 TMS [id number]) PT Summary Assessment and Plan Summary Assessment Summary Pt. fatigued and complained of joint pain everywhere but moving better today with transfer. Frequency of Treatment Frequency Of Treatment Once a Day Treatment Plan Physical Therapy Treatment Plan Bed Mobility Training Transfer Training Gait Training Therapeutic Exercise Balance Retraining Discharge Planning Hot or Cold Pack Neuromuscular Re-ed Recommendations To Nursing Amount of Assist Needed 1 Person Assist Discharge Recommendations PT Discharge Recommendations SNF Rehab
--- NOTE | 2017-10-21 12:55 | P.PN_ITS ---
Subjective Date Patient Seen: 10/21/17 Time Patient Seen: 12:51 Interval history: She complains of persistent discomfort in the stomach she says that she feels like the stomach gets tight and knots. Her family also indicates that she has been having these symptoms for several weeks and that is what caused her to stop eating in the 1st place that caused her low-sodium to occur pain is not worse when she eats not worse when she does not eat just comes on randomly. Exam Vital Signs (past 8 hours): - 10/21/17 06:00 10/21/17 07:00 10/21/17 08:00 Temperature 98.7 F Pulse Rate 69 74 Respiratory Rate 16 Blood Pressure 151/52 H 154/55 H Pulse Oximetry 96 98 10/21/17 09:22 Temperature Pulse Rate Respiratory Rate Blood Pressure 155/55 H Pulse Oximetry Fraction of Inspired Oxygen 28 Oxygen Delivery Method Room Air Oxygen Flow Rate 0 Narrative Exam Narrative: She is sitting up in a chair she is trying to eat lunch but not doing very much eating. Oropharynx clear Neck is supple Heart regular rhythm Abdomen soft nontender to palpation no masses Left knee last tender LEs swelling Lower extremities trace edema Neuro exam unremarkable Skin warm and dry Objective Labs Result Diagrams: 10/20/17 05:38 10/21/17 05:21 Labs: Laboratory Results - last 24 hr 10/21/17 05:21 Sodium 121 L Potassium 5.0 Chloride 86 L Carbon Dioxide 30 BUN 35 H Creatinine 1.60 H Estimated GFR 31.7 L BUN/Creatinine Ratio 21.9 Glucose 103 Calcium 8.6 Assessment & Plan Plan: Assessment/Plan Narrative: 1. Acute respiratory failure, etiology unclear, resolved. The patient was intubated in the field and extubated several hours later on the morning of admission. Possibly due to profound hyponatremia and associated neurologic depression. Correct hyponatremia gradually, avoiding overly rapid correction with frequent monitoring and desmopressin if needed to suppress over diuresis, and continue to monitor respiratory status. 2. Profound hyponatremia, possibly due to recent gastrointestinal distress, congestive heart failure. Slowly improving until today when it dropped back down to 121. She appears to be little bit on the dry side now she is not taking very well in plan to give her some cautious IV saline today. 3. Acute diastolic congestive heart failure, with elevated BNP, cardiomegaly and bilateral pleural effusions. Echocardiogram shows preserved ejection fraction and moderate mitral regurgitation and moderate aortic insufficiency is noted she also has elevated right ventricular pressure 53 mm of mercury higher than previous.. TSH mildly elevated but not likely thyroid cardiomyopathy. Her IV diuretics were switched to oral few days ago. At this point I think she is actually on the dry side and will hold her Lasix today and give her low bit of IV fluids. Plan to stop the lisinopril due to the hyponatremia change her to hydralazine for afterload reduction for treating the valvular disease. 4. Bilateral pulmonary infiltrates, elevated procalcitonin, consider possible community-acquired bacterial pneumonia . Continue Levaquin 750 mg daily started 10/15/2017 and follow blood cultures, negative to date, and clinical response. 5. Normocytic anemia. Etiology unclear with normal iron studies, B12, folate, reticulocytes, LDH. 6. Nausea, vomiting, abdominal pain. Id this has not improved overall. Etiology unclear. Consider possible congestive hepatopathy versus primary gastrointestinal process. Normal abdominal ultrasound noted essentially ruling out symptomatic cholelithiasis or cholecystitis. CT scan on admission showed some abnormalities in the colon suggesting possible colitis or enteritis. Plan to further evaluate with Amanod contrasted CT which was suggested by Radiology 7. Metabolic encephalopathy, possibly due to profound hyponatremia, infection, resolving. Now back to baseline 8. Hypokalemia and hypomagnesemia. Corrected. 9. Elevated TSH. Normal thyroid hormone level tests. Possibly sick euthyroid syndrome. 10. Hypertension. Plan to switch the lisinopril to hydralazine. She is on Procardia also uncertain if she needs this will watch this carefully. Plan to increase the hydralazine to 25 t.i.d. 11. Arthritis, likely osteoarthritis with chronic pain. Clarify medical history. 12. Gastroesophageal reflux disease. Continue proton pump inhibitor. 13. Left knee pain, possibly contusion due to trauma, possible gout or pseudogout or arthritis flare. X-ray show arthritis. ESR was mildly elevated. She had a couple of doses of prednisone but now has been stopped. Most likely pseudogout 14. DVT prophylaxis: Treat with low-dose Lovenox. 15. Code status: Full code. 16. Disposition: The patient has been living at home independently with care from her daughters who live nearby. Her daughters Tari and Trista are closely involved in her care. She may benefit from correction facility placement. Quality VTE Deep Vein Thrombosis/Pulmonary Embolism Present on Admission: No
[2017-10-21] MEDS: SODIUM CHLORIDE 0.9% 1,000 ML 84 ML IV (14:54)
--- NOTE | 2017-10-21 16:53 | PC.NURSE ---
Patient is A&O x3, pleasant and cooperative w/ staff and able to make needs known. Patient is very soft spoken w/ a hoarse voice and at times slightly delayed in conversation. Patient states she has a cough intermit dry and productive, phlegm is cream/brown in color. Pain in abd. is minimal to non existent at this time, but patient is finding difficulty in finding comfort in her bed. Patient desires to rest at this time, repos. done for comfort measures for patient. BT are hypo but present, no n/v. Call light w/in reach, bed in low pos. alarm active.
[2017-10-21] MEDS: PARoxetine 20 MG TABLET 40 MG PO (20:54)
[2017-10-22] VITALS (10 sets, daily range): BP systolic 124–166; BP diastolic 62–71; PULSE 83–96; RESP 16–18; TEMP 36.6–37; O2SAT 97–100
[2017-10-22] MEDS: HYDROCODONE/ACET 5/325 TABLET 2 TAB PO ×4 (01:09→19:30)
[2017-10-22] MEDS: SODIUM CHLORIDE 0.9% 1,000 ML 84 ML IV ×2 (01:13→12:35)
--- NOTE | 2017-10-22 01:24 | PC.NURSE ---
Addendum entered by Ale Orozco R.N. 10/22/17 06:25: Complaining earlier of stomach feeling tied up in knots and feeling nauseated so medicated with Zofran. Now states that didn't help so requested/medicated with Vicodin. Original Note: Patient is oriented except to date/day. Breath sounds CTA with RA sat of 100%. HRR. BP remains elevated with SBP in 150's but improved since Hydralazine increased. Complains of heartburn so provided milk with verbalization of improvement. BT hypoactive. Indwelling catheter remains patent and urine is very pale yellow. Is able to turn but reluctant to move. States she is unable to use bed controls because of her arthritis. Does complain of continued headache; requested/medicated with Vicodin and has ice pack to neck. Allevyn dressing to left heel is CDI. Fall risk score continues to be high and bed alarm is activated.
[2017-10-22] MEDS: ONDANSETRON 4 MG/2 ML INJ IV (04:27)
[2017-10-22] MEDS: HYDRALAZINE 25 MG TABLET PO ×3 (06:11→21:27)
[2017-10-22] MEDS: LEVOTHYROXINE 50 MCG TABLET PO (06:11)
[2017-10-22 06:12] LABS: Add Manual Diff / Slide Review NO; Basophils Percent Auto 0.5 % (0-2); Eosinophils Percent Auto 0.3 % (2-4); Hemoglobin 9.6 g/dL (12.0-16.0); Lymphocytes Percent Auto 8.9 % (25-40); Mean Corpuscular HGB Conc 34.3 % (30-36); Mean Corpuscular Hemoglobin 31.4 PG (26-34); Mean Corpuscular Volume 91.5 fL (80-100); Monocytes Percent Auto 17.2 % (3-14); Neutrophils Absolute Auto 3800 /uL (3000-5900); Neutrophils Percent Auto 73.1 % (50-75); Platelet Count 447 X10^3/uL (150-400); Red Blood Cell Count 3.06 X10^6/uL (4.0-5.2); Red Cell Distribution Width 14.5 % (11.6-14.8); White Blood Cell Count 5.2 X10^3/uL (4.5-11.0)
[2017-10-22 06:23] LABS: Alanine Aminotransferase 23 IU/L (9-52); Albumin 2.9 g/dL (3.5-5.0); Alkaline Phosphatase 73 U/L (38-126); Aspartate Aminotransferase 20 IU/L (14-36); BUN Creatinine Ratio 19.2 (6-22); Bilirubin Total 0.4 mg/dL (0.2-1.3); Blood Urea Nitrogen 25 mg/dL (7-17); Calcium 8.4 mg/dL (8.4-10.2); Carbon Dioxide 23 mmol/L (22-32); Chloride 91 mmol/L (98-107); Estimated Glomerular Filt Rate 40.3 mL/min (>60); Globulin 2.8 g/dL (1.7-4.1); Glucose 100 mg/dL (80-110); HEMOLYSIS < 15 (0-50); Potassium 4.3 mmol/L (3.4-5.1); Sodium 121 mmol/L (137-145); Total Protein 5.7 g/dL (6.3-8.2)
[2017-10-22] MEDS: PANTOPRAZOLE 40 MG TABLET PO (08:27)
[2017-10-22] MEDS: ENOXAPARIN 40 MG/0.4 ML SYRINGE SUBCUT (08:27)
[2017-10-22] MEDS: POTASSIUM CHLORIDE 20 MEQ TAB PO ×2 (08:27→17:05)
[2017-10-22] MEDS: ASPIRIN EC 81 MG TABLET PO (08:27)
[2017-10-22] MEDS: NIFEdipine 30 MG TAB ER 60 MG PO (08:27)
[2017-10-22] MEDS: ISOSORBIDE MONONITRATE ER 30 MG TABLET 60 MG PO (08:27)
[2017-10-22] MEDS: SODIUM CHLORIDE 0.9% FLUSH 10 ML IV (08:27)
--- NOTE | 2017-10-22 14:07 | PT.IPTN ---
Current Diagnoses Acute respiratory failure with hypoxia (10/15/17) Physical Therapy Treatment Note M2 PT-IP Current Condition Start: 10/16/17 15:31 Freq: NEEDED Status: Active Protocol: Document 10/21/17 10:44 TMS (Rec: 10/21/17 10:51 TMS [id number]) Physical Therapy Current Condition Current Condition Evaluation Date 10/17/17 Treatment Diagnosis Respiratory failure, impaired mobility and activity tolerance Onset Date 10/15/17 Precautions Brace L ankle bracing Other Precautions painful L knee, reportedly injuring it getting off of a bed ramos last night. ( radiograph showed large joint effusion but no fractures). M3 PT-IP Subjective Start: 10/16/17 15:31 Freq: NEEDED Status: Active Protocol: Document 10/22/17 14:05 [facility] (Rec: 10/22/17 14:06 [facility] [id number]) Subjective Physical Therapy Visit Type Type Patient Refusal Notes Pt refused rx noting she was too tired as she did not sleep last night. Encouraged patient to get to chair as it is good for her lungs, but pt refused stating she hurt too much. Pt encouraged to do some bed exercises to help with her joints, but pt also refused this. Follow up in AM w/patient.
--- NOTE | 2017-10-22 16:04 | CM.DPC ---
Patient continues on inpatient stay, no discharge orders as of yet. Updated Bhat. P: DCP continue to plan and assess. Have auth for [facility] Laurence Wing RN/Child Care Director
[2017-10-22] MEDS: CALCITRIOL 0.25 MCG CAPSULE 0.5 MCG PO (17:05)
--- NOTE | 2017-10-22 18:05 | P.PN_ITS ---
Subjective Date Patient Seen: 10/22/17 Time Patient Seen: 17:45 Interval history: Patient continued to have weakness. She is having occasional abdominal cramping. Exam Vital Signs (past 8 hours): - 10/22/17 11:00 10/22/17 15:33 10/22/17 15:36 Temperature 98.0 F 97.8 F Pulse Rate 83 96 H Respiratory Rate 16 18 16 Blood Pressure 124/67 H 166/71 H Pulse Oximetry 100 98 Fraction of Inspired Oxygen 28 Oxygen Delivery Method Room Air Oxygen Flow Rate 0 Narrative Exam Narrative: General: Elderly woman in no acute distress Lungs: Clear to auscultation bilaterally Heart: Regular rhythm, no murmur appreciated Abdomen: Soft, no localized tenderness on palpation Extremities: No pitting edema Neuro: Alert and oriented x3 Objective Labs Result Diagrams: 10/22/17 05:54 10/22/17 05:54 Labs: Laboratory Results - last 24 hr 10/22/17 10/22/17 05:54 05:54 WBC 5.2 RBC 3.06 L Hgb 9.6 L Hct 28.0 L MCV 91.5 MCH 31.4 MCHC 34.3 RDW 14.5 Plt Count 447 H Neut % (Auto) 73.1 Lymph % (Auto) 8.9 L Vilas % (Auto) 17.2 H Eos % (Auto) 0.3 L Baso % (Auto) 0.5 Neut # (Auto) 3800 Sodium 121 L Potassium 4.3 Chloride 91 L Carbon Dioxide 23 BUN 25 H Creatinine 1.30 H Estimated GFR 40.3 L BUN/Creatinine Ratio 19.2 Glucose 100 Calcium 8.4 Total Bilirubin 0.4 AST 20 ALT 23 Alkaline Phosphatase 73 D Total Protein 5.7 L Albumin 2.9 L Globulin 2.8 Albumin/Globulin Ratio 1.0 Assessment & Plan Plan: Assessment/Plan Narrative: 1. Acute respiratory failure, etiology unclear, resolved. The patient was intubated in the field and extubated several hours later on the morning of admission. Possibly due to profound hyponatremia and associated neurologic depression. Correct hyponatremia gradually, avoiding overly rapid correction. Her respiratory failure has resolved. 2. Profound hyponatremia, possibly due to recent gastrointestinal distress, congestive heart failure. Sodium is still low at 121, despite being on normal saline IV overnight. Discontinue IV fluid. Recheck electrolytes and renal function in the morning 3. Acute diastolic congestive heart failure, with elevated BNP, cardiomegaly and bilateral pleural effusions. Echocardiogram shows preserved ejection fraction and moderate mitral regurgitation and moderate aortic insufficiency is noted she also has elevated right ventricular pressure 53 mm of mercury higher than previous.. TSH mildly elevated but not likely thyroid cardiomyopathy. Diuretics is currently on hold due to persistent hypo natremia. Plan to stop the lisinopril due to the hyponatremia. Hydralazine was started for afterload reduction for treating the valvular disease. 4. Bilateral pulmonary infiltrates, elevated procalcitonin, consider possible community-acquired bacterial pneumonia . Continue Levaquin 750 mg daily started 10/15/2017 and follow blood cultures, negative to date, and clinical response. 5. Normocytic anemia. Etiology unclear with normal iron studies, B12, folate, reticulocytes, LDH. 6. Nausea, vomiting, abdominal pain. Etiology unclear. Normal abdominal ultrasound noted essentially ruling out symptomatic cholelithiasis or cholecystitis. CT scan on admission showed some abnormalities in the colon suggesting possible colitis or enteritis. Repeat abdominal CT scan on October 21, 2017 showed improvement of colitis. 7. Metabolic encephalopathy, possibly due to profound hyponatremia, infection, resolving. Now back to baseline 8. Hypokalemia and hypomagnesemia. Corrected. 9. Elevated TSH. TSH 6.8 on October 15, 2017 Normal thyroid hormone level tests. Possibly sick euthyroid syndrome. Continue monitor. 10. Hypertension. Plan to switch the lisinopril to hydralazine. She is on Procardia also uncertain if she needs this will watch this carefully. Plan to increase the hydralazine to 25 t.i.d. 11. Arthritis, likely osteoarthritis with chronic pain. Clarify medical history. 12. Gastroesophageal reflux disease. Continue proton pump inhibitor. 13. Left knee pain, possibly contusion due to trauma, possible gout or pseudogout or arthritis flare. X-ray show arthritis. ESR was mildly elevated. She had a couple of doses of prednisone but now has been stopped. Most likely pseudogout 14. Bacteriuria: Her urine analysis at the time of admission did not show pyuria, urine culture grew Pseudomonas. Mid ID and sensitivity are still pending. We will continue follow. It is likely asymptomatic bacteriuria. 15. DVT prophylaxis: Treat with low-dose Lovenox. 16. Code status: Full code. 17. Disposition: The patient has been living at home independently with care from her daughters who live nearby. Her daughters Tari and Trista are closely involved in her care. [facility] Quality VTE Deep Vein Thrombosis/Pulmonary Embolism Present on Admission: No
--- NOTE | 2017-10-22 21:57 | PC.NURSE ---
SHIFT NOTE flat affect. Ox3 although somewhat delayed in response and pt with some nonsensical speech at times (ie: asking about a spider on the wall that is not there or asking to go to a meeting regarding drug options although could not elaborate more details about this meeting). generalized weakness, pt reluctant to repositioning every 2 hours. barry intact. bilateral hands with 1-2 edema, encouraged pt to keep elevated on pillows. bowel sounds slightly hypo but present. pt c/o knots in stomach rated 5/10 pain, denies nausea/vomiting. frequent visual checks. call light with in reach.
[2017-10-23 00:44] VITALS: BP 151/62; PULSE 87; RESP 14; TEMP 36.9; O2SAT 99
[2017-10-23] MEDS: MELATONIN 3 MG TABLET PO (00:50)
[2017-10-23 01:05] VITALS: O2SAT 99
--- NOTE | 2017-10-23 01:06 | PC.NURSE ---
Addendum entered by Ale Orozco R.N. 10/23/17 06:26: States headache is worsening and is now 6/10 in severity. Requested/medicated with Vicodin and ice pack applied. Original Note: Addendum entered by Ale Orozco R.N. 10/23/17 05:46: Has been asleep most of shift. Lab her to draw blood this morning and patient states she slept very well. States headache continues at 5/10 severity but is tolerable, and stomach is tight but not uncomfortable. Original Note: Patient is alert and oriented except to day of month/week. Breath sounds diminished but CTA with RA sat of 99%. HRR and telemetry reading at 0000 was SR. BP still running higher at 151/62. Denies nausea. BT present and abdomen is soft. Continues to have indwelling catheter due to poor mobility. Can turn self in bed but doesn't move much unless staff encourage. Generalized weakness. When asked does state she still has headache but says it is better; rates severity as 4-5/10 but tolerable. Also admits to continued stomach discomfort but again states it is better at 2-3/10 and tolerable. Noted bilateral hands are puffy and bruising noted on right UE possibly due to IV attempts. Dressing to left heel is CDI; heels are being floated. States she is hoping to be able to sleep tonight; offered ordered Melatonin which she takes at home and is willing to accept so medicated as requested. Fall risk score is high and bed alarm is activated.
[2017-10-23 05:00] VITALS: BP 156/67; PULSE 89; RESP 16; TEMP 36.6; O2SAT 99
[2017-10-23 05:30] VITALS: BP 156/67; PULSE 89
[2017-10-23] MEDS: LEVOTHYROXINE 50 MCG TABLET PO (05:30)
[2017-10-23] MEDS: HYDRALAZINE 25 MG TABLET PO (05:30)
[2017-10-23 05:49] LABS: BUN Creatinine Ratio 16.4 (6-22); Blood Urea Nitrogen 18 mg/dL (7-17); Calcium 8.7 mg/dL (8.4-10.2); Carbon Dioxide 24 mmol/L (22-32); Chloride 96 mmol/L (98-107); Estimated Glomerular Filt Rate 48.8 mL/min (>60); Glucose 90 mg/dL (80-110); HEMOLYSIS < 15 (0-50); Potassium 4.4 mmol/L (3.4-5.1); Sodium 126 mmol/L (137-145)
[2017-10-23] MEDS: HYDROCODONE/ACET 5/325 TABLET 2 TAB PO (06:25)
[2017-10-23 07:00] VITALS: O2SAT 99
[2017-10-23 08:00] VITALS: BP 163/95; PULSE 82; RESP 18; TEMP 36.7; O2SAT 99
--- NOTE | 2017-10-23 08:23 | PM.DS.1 ---
History of Present Illness Chief complaint: respiratory failure Narrative: 72-year-old woman under the primary care of Dr. Lachelle Ruggiero in [place]. The patient arrived intubated by paramedics in the ED overnight, and history is obtained this morning from her daughter Jovita by phone. She reports that her mother has reported several weeks of stomach upset, with nausea and dry heaving and describing her stomach tied up in knots, able only to tolerate liquids for the past 3 weeks, and a couple of days ago reported finding it hard to breathe. She has been drinking Gatorade, water and salty broths. She was seen in the emergency department on 10/06 where she was found to have a benign abdominal exam with a sodium of 121, creatinine of 1.4, with x-ray showing no evidence of bowel obstruction, and was administered normal saline, subsequently able to tolerate oral fluids and discharged home with prescriptions for ondansetron and promethazine. She has continued to feel poorly. Her daughter feels she has been malnourished recently due to her problem. A couple of times in the past two days she stated she had difficulty breathing, and last night had decreased consciousness with very limited respiratory efforts. Her sister was there and called 911 and was told to start CPR as she was turning ashen and her lips were turning blue. No seizure activity was noted. She was intubated by paramedics and brought to the emergency department for further evaluation, where she was found to have a sodium of 116. She has been administered normal saline for the past few hours and remains intubated, sedated on propofol due to intermittent agitation, presently calm, comfortable with normal vital signs. Her daughter knows of no history of heart disease, blood clots, congestive heart failure or cancer. Discharge Providers Date of admission: 10/15/17 01:13 Primary care physician: Lachelle Ruggiero PA-C Consults: 10/15/17 14:49 Consult to Dietitian, Adult Routine Comment: Reason For Exam: abdominal pain for past 3 weeks 10/16/17 08:23 Consult to Dietitian, Adult Routine Comment: Reason For Exam: malnutrition 10/16/17 10:57 Consult to Physical Therapy Evaluate & Treat Comment: weakness, start tomorrow Physician Instructions: Evaluate and Treat 10/22/17 18:35 Consult to Occupational Therapy Evaluate & Treat Comment: Physician Instructions: d/c needs Discharge provider: Amara Woodruff MD Discharge Date: 10/23/17 Summary Discharge Diagnosis: 1. Acute respiratory failure with unclear etiology 2. Profound hyponatremia possibly due to decreased oral intake and side effects of paroxetine 3. Acute diastolic congestive heart failure 4. Possible community-acquired pneumonia 5. Normal 6 anemia 6. Abdominal pain, nausea, and vomiting, possibly secondary to enteritis and colitis 7. Metabolic encephalopathy, possibly secondary to profound hyponatremia. She may have some degree of anoxic brain injury from cardio pulmonary resuscitation 8. Hypokalemia and hypo magnesemia 9. Hypothyroidism 10. Hypertension 11. Osteoarthritis with chronic pain 12. GERD 13. Pseudomonas bacteriuria 14. Depression/anxiety Hospital Course: 1. Acute respiratory failure with unclear etiology: Patient was intubated in the field and extubated several hours later on the morning of admission. The acute respiratory failure could be due to profound hyponatremia and associated neurologic depression and also hypo thyroidism being off thyroid medication for 2 months prior to hospital admission. 2. Profound hyponatremia possibly due to decreased oral intake and side effects of paroxetine: Patient was treated with IV normal saline. She had gradual improvement of her sodium. Her sodium is currently 126. Paroxetine was discontinued due to concern of possible side effect of hyponatremia. Her electrolytes needs to be monitored after hospital discharge. 3. Acute diastolic congestive heart failure: Echocardiogram showed preserved ejection fraction with moderate mitral regurgitation and aortic insufficiency. She had elevated right ventricular pressure of 53 mm Hg. Patient has stopped taking her thyroid medication about 2 months prior to hospital admission. 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 Patient was treated cautiously with diuretics. Her acute congestive heart failure has resolved. 4. Possible community-acquired pneumonia: She was treated with Levaquin 750 mg Q 24 hr, started October 15, 2017. Blood cultures were negative. Levaquin may be discontinued on October 25, 2017 5. Normocytic anemia: Etiology is unclear. Possibly due to acute illness. Hemoglobin was 11 on October 06, 2017. It slowly trended down to 9.6 on October 22, 2017. Her iron studies, vitamin B12, folic acid were normal 6. Abdominal pain, nausea, and vomiting, possibly secondary to enteritis and colitis: She was treated conservatively. She has gradual improvement of her abdominal discomfort. 7. Metabolic encephalopathy, possibly secondary to profound hyponatremia. She may have some degree of anoxic brain injury from cardio pulmonary resuscitation 8. Hypokalemia and hypo magnesemia: She received potassium and magnesium replacement 9. Hypothyroidism: She took herself off thyroid medication about 2 months prior to hospital admission due to care thin in and hair loss. TSH was around 6 at the time of admission. She was restarted on levothyroxine 50 mcg daily after hospital admission. Her TSH needs to be rechecked in about 2 months. 10. Hypertension: Her lisinopril was discontinued due to concern of hyponatremia. She was started on hydralazine. We have discontinued Imdur or due to possible side effect of headache. Patient has been having headache in the past few days. Lisinopril was restarted at 20 mg daily. Hydralazine may be discontinued if her blood pressure gets low. Currently her blood pressure is around 150 systolic. 11. Osteoarthritis with chronic pain: She was on Vicodin prior to hospital admission. We will use Tylenol for now due to possible nausea vomiting as side effect from Vicodin. 12. GERD: She was continued on Protonix 13. Pseudomonas bacteriuria: Her urine analysis on October 15 had negative WBCs, however urine culture grew Pseudomonas species. The ID and sensitivity are still pending. It is likely a colonization not acute infection. No treatment is needed. 14. Depression/anxiety: Paroxetine was discontinued due to concern of possible side effect of hyponatremia. Lexapro will be started at 10 mg daily. Status at Discharge Cognitive/behavioral status at discharge: Alert and oriented. Apathetic and lethargic Functional status at discharge: uses cane/walker Overall status at discharge: patient is not back to baseline Time Spent with Patient Greater than 30 minutes Exam Vital Signs (past 8 hours): - 10/23/17 00:44 10/23/17 01:05 10/23/17 05:00 Temperature 98.4 F 97.9 F Pulse Rate 87 89 Respiratory Rate 14 16 Blood Pressure 151/62 H 156/67 H Pulse Oximetry 99 99 99 10/23/17 05:30 Temperature Pulse Rate 89 Respiratory Rate Blood Pressure 156/67 H Pulse Oximetry Fraction of Inspired Oxygen 28 Oxygen Delivery Method Room Air Oxygen Flow Rate 0 Narrative Exam Narrative: General: Elderly woman in no acute distress Lungs: Clear to auscultation bilaterally Heart: Regular rhythm, no murmur appreciated Abdomen: Soft, nontender Extremities: No pitting edema Objective Imaging CT scan - abdomen: Radiologist's impression: Abdominal CT scan on October 15, 2017: 1. Bilateral pleural effusions. There are patchy air space infiltrates suspicious for pulmonary edema or bilateral pneumonia. Bibasilar opacities may be consolidation or atelectasis. 2. Small bowel loops are fluid-filled and demonstrate increased mucosal enhancement. The findings are nonspecific and may be secondary to enteritis. There is possible mild diffuse colonic wall thickening involving the distal transverse colon, descending and sigmoid colon suggesting mild colitis. In the absence of oral contrast, the finding is less specific. Recommend clinical correlation. 3. Lobulated contour of kidneys. The right kidney is atrophic. 4. Mild cardiomegaly. 5. Distended gallbladder. A possible gallstone is noted. 6. Postsurgical changes at the gastroesophageal junction. Repeat abdominal CT scan on October 21, 2017: 1. Previously noted wall thickening in the descending and sigmoid colon is improved. This finding may represent a degree of colitis either infectious or inflammatory. Consider correlation with colonoscopy when the patient is able. 2. Lobulated renal contours with right renal scarring. echocardiogram: Radiologist's impression: The left ventricle is normal in size, wall thickness, and systolic function without any focal wall motion abnormalities with the ejection fraction visually estimated to be 60-65%. Assessment of diastolic parameters indicates a relaxation abnormality of the left ventricle, consistent with normal filling pressures, likely lower compared to the previous study. Otherwise, there is been no significant change since the previous study. The right ventricle is normal in size and function, and is unchanged compared to the previous study. The right ventricular systolic pressure is estimated at 53 mmHg assuming a right atrial pressure of 3 mm Hg, and is likely mildly higher compared to the previous study. The left atrium is severely dilated and the right atrium is borderline dilated. The right atrium has mildly increased in size since the prior echo exam. There is mild to moderate mitral regurgitation, mild tricuspid regurgitation, and moderate aortic regurgitation that are all unchanged compared to the previous study. The ascending aorta is mildly enlarged but is unchanged compared to the previous study. There are moderate-sized bilateral pleural effusions noted that are new compared to the previous study. Labs Result Diagrams: 10/22/17 05:54 10/23/17 05:17 Labs: Laboratory Results - last 24 hr 10/23/17 05:17 Sodium 126 L Potassium 4.4 Chloride 96 L Carbon Dioxide 24 BUN 18 H Creatinine 1.10 H Estimated GFR 48.8 L BUN/Creatinine Ratio 16.4 Glucose 90 Calcium 8.7 Discharge Plan Discharge Plan Discharge Problem: Acute respiratory failure with hypoxia, Acute hyponatremia Patient Disposition: SNF Transfer to: [facility] Under care of provider: Dr. Lund Transportation: Wheelchair Labs: chem7 in one week Consult as needed: Dental, Hearing, Mental health, Podiatry and Vision I certify the postop hospital fpc care is medically necessary on a continuing basis for any conditions for which he/ she received care during this hospitalization.: Yes The receiving facility has agreed to accept transfer and provide medical treatment.: Yes Discharge Health Status Brief summary of current health status: see summary section Multidrug resistant organism: No MDRO MDRO Verified by culture: Yes Date verified: 10/23/17 Precautions: [place] Provider Discharge Instructions Diet: Diet as Tolerated Liquid consistency: Normal/Thin Food texture: Regular Activity: up with assistance Other treatments: PT/OT Special Rehabilitation Services Reason for rehabilitation: Recovery r/t decondition Rehab type: Physical therapy and Occupational therapy Restrictions to mobility: none Discharge Data Primary Care Provider: Lachelle Ruggiero Attending Provider: Amara Woodruff Admit Date/Time: 10/15/17 01:13 Quality VTE Deep Vein Thrombosis/Pulmonary Embolism Present on Admission: No
[2017-10-23] MEDS: LORazepam 2 MG/ML SYRINGE 0.5 MG IV (09:37)
[2017-10-23] MEDS: POTASSIUM CHLORIDE 20 MEQ TAB PO (09:39)
[2017-10-23] MEDS: NIFEdipine 30 MG TAB ER 60 MG PO (09:40)
[2017-10-23] MEDS: PANTOPRAZOLE 40 MG TABLET PO (09:41)
[2017-10-23] MEDS: ASPIRIN EC 81 MG TABLET PO (09:41)
[2017-10-23] MEDS: levoFLOXacin 250 MG TABLET 750 MG PO (09:42)
[2017-10-23] MEDS: ENOXAPARIN 40 MG/0.4 ML SYRINGE SUBCUT (09:46)
[2017-10-23] MEDS: LORazepam 0.5 MG TABLET PO (10:15)
[2017-10-23] MEDS: LISINOPRIL 20 MG TABLET PO (10:15)
--- NOTE | 2017-10-23 10:39 | PC.NURSE ---
Alexsander stated upon awakening I'm feeling really anxious today. After Ativan .5mg IV she stated It didn't help me. Ativan .5mg PO was then given after new Rx obtained. She also states :My stomach is in knots. She was able to slowly eat approx. 1/3 of her breakfast and drink juice. She needs assistance with all ADLs. Anticipate disch. to SNF soon this AM.
--- NOTE | 2017-10-23 10:43 | CM.DPC ---
Addendum entered by Melvi Clarke 10/23/17 10:44: per Stacia Original Note: SNF packet faxed to [facility] per Paula. Patient to be picked up at 1130.
--- NOTE | 2017-10-23 10:45 | PT.IPTN ---
Current Diagnoses Acute respiratory failure with hypoxia (10/15/17) Physical Therapy Treatment Note M2 PT-IP Current Condition Start: 10/16/17 15:31 Freq: NEEDED Status: Active Protocol: Document 10/21/17 10:44 TMS (Rec: 10/21/17 10:51 TMS [id number]) Physical Therapy Current Condition Current Condition Evaluation Date 10/17/17 Treatment Diagnosis Respiratory failure, impaired mobility and activity tolerance Onset Date 10/15/17 Precautions Brace L ankle bracing Other Precautions painful L knee, reportedly injuring it getting off of a bed ramos last night. ( radiograph showed large joint effusion but no fractures). 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 Therapy Pain Assessment Pain When Pain Assessed At Rest Pain Present Pain Present Pain Reported M4 PT-IP Mobility and Gait Start: 10/16/17 15:31 Freq: NEEDED Status: Active Protocol: Document 10/23/17 10:45 GGD (Rec: 10/23/17 12:20 GGD [id number]) PT-Bed Mobility Assessment Supine to Sit Supine to Sit Contact Guard Assistance 1 Person Assistance Head of Bed Elevated Scooting Scooting to Edge of Bed Standby Assistance PT-Transfer Assessment Sit to and From Stand Sit to and from Stand Minimal Assistance 1 Person Assistance Use of Upper Extremities Equipment Transfer Assistive Device Gait Belt 4 Wheeled Walker Transfers Transfer Destination Bedside Commode Gait Assessment Gait Gait Assistance Required: Minimum Assistance Distance (Feet) (feet) 10 Assistive Devices Assistive Device Gait Belt 4 Wheeled Walker Gait Deviations General Gait Pattern Decreased Stride Length Decreased Feet Clearance Step-to Gait Factors Limiting Gait Function Factors Limiting Gait Function Decreased Activity Tolerance Decreased Sensation Decreased Strength Pain Poor Balance M5 PT-IP Objective Assessments Start: 10/16/17 15:31 Freq: NEEDED Status: Active Protocol: Document 10/17/17 11:15 RCC (Rec: 10/17/17 13:08 RCC [id number]) Orientation Orientation/Cognition Level of Alertness Alert Gross Range of Motion Lower Extremity ROM Assessment Left Impaired Impairments 10 degrees lacking AROM L knee extension due to pain, swelling. L foot/ankle in PF, inversion positioning-wears brace when up. M6 PT-IP Treatment Start: 10/16/17 15:31 Freq: NEEDED Status: Active Protocol: Document 10/17/17 11:15 RCC (Rec: 10/17/17 13:08 RCC [id number]) Physical Therapy Treatment Education Education Provided Safety M7 PT-IP Assessment and Plan Start: 10/16/17 15:31 Freq: NEEDED Status: Active Protocol: Document 10/23/17 10:45 GGD (Rec: 10/23/17 12:20 GGD [id number]) PT Summary Assessment and Plan Summary Assessment Summary Pt improved with mobility. She was able to ambulate with a slow gait pattern and min A for balance. Frequency of Treatment Frequency Of Treatment Once a Day Treatment Plan Physical Therapy Treatment Plan Bed Mobility Training Transfer Training Gait Training Therapeutic Exercise Balance Retraining Discharge Planning Hot or Cold Pack Neuromuscular Re-ed Recommendations To Nursing Amount of Assist Needed 1 Person Assist Discharge Recommendations PT Discharge Recommendations SNF Rehab
--- NOTE | 2017-10-23 11:23 | OT.IP.TRT ---
Current Diagnoses Acute respiratory failure with hypoxia (10/15/17) Occupational Therapy Treatment Note M3 OT- IP Subjective and Pain Start: 10/23/17 11:20 Freq: Status: Active Protocol: Document 10/23/17 11:20 [facility] (Rec: 10/23/17 11:22 [facility] [id number]) OT- Subjective Occupational Therapy Visit Type Type Treatment Note Visit Start Time 11:00 Visit Stop Time 11:15 Total Visit Minutes 15 Notes Pt discharging today to skilled rehab and needing MAX A for LB dressing and JOY to argenis gown. JOY for sit to stand amd assist for guidance, placement of hands to 4WW and armrests of recliner. Therefore formal OT eval not completed as being discharged.
--- NOTE | 2017-10-23 12:37 | PC.NURSE ---
Alexsander was disch. in stable condition to [facility]. via w.chair and staff member Lindsey at 1145. All paperwork sent with pt. via lg. [place] envelope. All belongings transported. Report given to JENNIFER Weaver. Questions answered.
--- NOTE | 2017-10-23 13:17 | CM.DPC ---
DCP Cont: Patient is to be discharged today to [facility]. Called Bhat to ensure that authorization is still in place. Did confirm authorization. Updated FCC P: Discharge today to [facility] Laurence Wing RN/Mail Room
== END 2017-10-23 11:45 | DRG 208 ==
LOC: ED 10-15 00:17 → ICU 10-15 01:17 → AC 10-18 14:42 → ICU 09-06 14:54
PROVIDERS: Internal Medicine; Admitting Provider Internal Medicine; Emergency Provider Emergency Medicine; Family Provider Anesthesiology Pain Medicine; PCP Physician Assistant; Visit Provider Internal Medicine
DX: J96.01 Acute respiratory failure with hypoxia (principal); G93.41 Metabolic encephalopathy; I50.31 Acute diastolic (congestive) heart failure; J18.9 Pneumonia, unspecified organism; E87.1 Hypo-osmolality and hyponatremia; F32.9 Major depressive disorder, single episode, unspecified; I10 Essential (primary) hypertension; M06.9 Rheumatoid arthritis, unspecified; K21.9 Gastro-esophageal reflux disease without esophagitis; D64.9 Anemia, unspecified; R00.1 Bradycardia, unspecified; M25.562 Pain in left knee; E83.42 Hypomagnesemia
CPT/HCPCS: 36415; 36591; 36592; 36600; 51701; 71045; 71260; 73562; 74176; 74177; 76700; 80048; 80051; 80053; 80305; 81001; 82247; 82550; 82553; 82607; 82728; 82746; 82805; 83540; 83550; 83605; 83615; 83735; 83880; 83930; 84145; 84295; 84436; 84439; 84443; 84484; 84550; 85025; 85045; 85651; 87040; 87077; 87086; 87186; 87797; 93005; 93306; 94003; 94667; 94668; 94760; 94762; 94770; 94799; 96361; 96374; 96375; 97116; 97162; 97530; 97535; 99285; 99291; 99292; C9113; J1650; J1940; J1956; J2060; J2405; J2704; J3010; Q9967

== ENCOUNTER → 2017-10-30 07:40 | Outpatient (REF) | payer SELFPAY ==
[2017-10-15 01:25] VITALS: BMI 23.8
[2017-10-15 09:17] VITALS: PULSE 78; RESP 15; O2SAT 98
[2017-10-30 08:53] LABS: Blood Urea Nitrogen 20 mg/dL (7-17); Calcium 8.8 mg/dL (8.4-10.2); Carbon Dioxide 28 mmol/L (22-32); Chloride 93 mmol/L (98-107); Estimated Glomerular Filt Rate 54.5 mL/min (>60); Glucose 88 mg/dL (80-110); HEMOLYSIS 25 (0-50); Potassium 4.1 mmol/L (3.4-5.1); Sodium 129 mmol/L (137-145)
== END ==
LOC: LAB 07:40
PROVIDERS: Family Provider Anesthesiology Pain Medicine; PCP Physician Assistant; Visit Provider Internal Medicine
DX: I50.9 Heart failure, unspecified (principal); E87.1 Hypo-osmolality and hyponatremia
CPT/HCPCS: 36415; 80048

== ENCOUNTER → 2017-11-02 07:24 | Outpatient (REF) | payer SELFPAY ==
[2017-10-15 01:25] VITALS: BMI 23.8
[2017-10-15 09:17] VITALS: PULSE 78; RESP 15; O2SAT 98
[2017-11-02 08:24] LABS: Add Manual Diff / Slide Review NO; Basophils Percent Auto 1.3 % (0-2); Eosinophils Percent Auto 3.8 % (2-4); Hematocrit 27.2 % (36-46); Hemoglobin 9.3 g/dL (12.0-16.0); Lymphocytes Percent Auto 31.1 % (25-40); Mean Corpuscular Hemoglobin 31.1 PG (26-34); Mean Corpuscular Volume 91.5 fL (80-100); Monocytes Percent Auto 12.9 % (3-14); Neutrophils Absolute Auto 1600 /uL (3000-5900); Neutrophils Percent Auto 50.9 % (50-75); Platelet Count 370 X10^3/uL (150-400); Red Blood Cell Count 2.97 X10^6/uL (4.0-5.2); Red Cell Distribution Width 14.6 % (11.6-14.8); White Blood Cell Count 3.1 X10^3/uL (4.5-11.0)
[2017-11-02 08:47] LABS: Blood Urea Nitrogen 23 mg/dL (7-17); Carbon Dioxide 32 mmol/L (22-32); Chloride 95 mmol/L (98-107); Estimated Glomerular Filt Rate 54.5 mL/min (>60); Glucose 85 mg/dL (80-110); HEMOLYSIS < 15 (0-50); Potassium 4.6 mmol/L (3.4-5.1); Sodium 131 mmol/L (137-145)
== END ==
LOC: LAB 07:24
PROVIDERS: Family Provider Anesthesiology Pain Medicine; PCP Physician Assistant; Visit Provider Internal Medicine
DX: J18.9 Pneumonia, unspecified organism (principal); E87.1 Hypo-osmolality and hyponatremia; N19 Unspecified kidney failure
CPT/HCPCS: 36415; 80048; 85025

== ENCOUNTER → 2017-11-04 08:02 | Outpatient (REF) | payer SELFPAY ==
[2017-10-15 01:25] VITALS: BMI 23.8
[2017-10-15 09:17] VITALS: PULSE 78; RESP 15; O2SAT 98
[2017-11-04 08:50] LABS: Add Manual Diff / Slide Review NO; Basophils Percent Auto 0.9 % (0-2); Eosinophils Percent Auto 3.5 % (2-4); Hematocrit 28.2 % (36-46); Hemoglobin 9.5 g/dL (12.0-16.0); Mean Corpuscular HGB Conc 33.5 % (30-36); Mean Corpuscular Hemoglobin 30.6 PG (26-34); Mean Corpuscular Volume 91.2 fL (80-100); Monocytes Percent Auto 11.9 % (3-14); Neutrophils Absolute Auto 1600 /uL (3000-5900); Neutrophils Percent Auto 53.7 % (50-75); Platelet Count 378 X10^3/uL (150-400); Red Blood Cell Count 3.09 X10^6/uL (4.0-5.2); Red Cell Distribution Width 14.9 % (11.6-14.8)
[2017-11-04 09:18] LABS: BUN Creatinine Ratio 19.2 (6-22); Blood Urea Nitrogen 23 mg/dL (7-17); Carbon Dioxide 31 mmol/L (22-32); Chloride 95 mmol/L (98-107); Estimated Glomerular Filt Rate 44.2 mL/min (>60); Glucose 100 mg/dL (80-110); HEMOLYSIS < 15 (0-50); Potassium 4.6 mmol/L (3.4-5.1); Sodium 133 mmol/L (137-145)
== END ==
LOC: LAB 08:02
PROVIDERS: Family Provider Anesthesiology Pain Medicine; PCP Physician Assistant; Visit Provider Internal Medicine
DX: E87.1 Hypo-osmolality and hyponatremia (principal); J18.9 Pneumonia, unspecified organism
CPT/HCPCS: 36415; 80048; 85025

== ENCOUNTER → 2017-11-21 12:30 | Outpatient (CLI) | payer OTHER, SELFPAY ==
[2017-10-15 01:25] VITALS: BMI 23.8
[2017-10-15 09:17] VITALS: PULSE 78; RESP 15; O2SAT 98
[2017-11-21 13:22] LABS: Add Manual Diff / Slide Review NO; Basophils Percent Auto 0.7 % (0-2); Eosinophils Percent Auto 0.5 % (2-4); Hematocrit 28.4 % (36-46); Hemoglobin 9.4 g/dL (12.0-16.0); Mean Corpuscular HGB Conc 33.2 % (30-36); Mean Corpuscular Hemoglobin 30.6 PG (26-34); Mean Corpuscular Volume 92.3 fL (80-100); Neutrophils Absolute Auto 3300 /uL (3000-5900); Neutrophils Percent Auto 74.8 % (50-75); Platelet Count 388 X10^3/uL (150-400); Red Blood Cell Count 3.08 X10^6/uL (4.0-5.2); Red Cell Distribution Width 14.7 % (11.6-14.8); White Blood Cell Count 4.4 X10^3/uL (4.5-11.0)
[2017-11-21 13:23] LABS: Reticulocyte Count, Percent 1.4 % (1.06-2.63)
[2017-11-21 13:39] LABS: HEMOLYSIS < 15 (0-50)
[2017-11-21 13:44] LABS: HEMOLYSIS < 15 (0-50); Iron 35 ug/dL (37-170)
[2017-11-21 13:45] LABS: Creatinine Urine Random 88.9 mg/dL; Protein (Total) Urine Random 112 mg/dL (0-12); Protein Creatinine Ratio Urine 1.25 GRAM/24H
[2017-11-21 13:45] LABS: Alanine Aminotransferase 10 IU/L (9-52); Albumin Globulin Ratio 1.2 (1.0-2.8); Alkaline Phosphatase 67 U/L (38-126); Aspartate Aminotransferase 17 IU/L (14-36); BUN Creatinine Ratio 16.4 (6-22); Bilirubin Total 0.2 mg/dL (0.2-1.3); Blood Urea Nitrogen 23 mg/dL (7-17); Calcium 9.4 mg/dL (8.4-10.2); Carbon Dioxide 28 mmol/L (22-32); Chloride 95 mmol/L (98-107); Globulin 3.3 g/dL (1.7-4.1); Glucose 126 mg/dL (80-110); Potassium 4.2 mmol/L (3.4-5.1); Sodium 133 mmol/L (137-145); Total Protein 7.3 g/dL (6.3-8.2)
[2017-11-21 13:55] LABS: Percent Iron Saturation 15 % (15-50); Total Iron Binding Capacity 238 ug/dL (265-497); Transferrin 194 mg/dL (206-381)
[2017-11-21 15:38] LABS: Folate 7.1 ng/mL (2.76-20.0); Vitamin B12 241 pg/mL (239-931)
[2017-11-24 13:54] LABS: Parathyroid Hormone Int 38 pg/mL (14-64)
[2017-11-28 15:52] LABS: Erythropoietin 35.5 mIU/mL (2.6-18.5)
== END ==
PROVIDERS: PCP Physician Assistant; Visit Provider Student in an Organized Health Care Education/Training Program
DX: N05.9 Unspecified nephritic syndrome with unspecified morphologic changes (principal); D64.9 Anemia, unspecified; N25.81 Secondary hyperparathyroidism of renal origin; R80.9 Proteinuria, unspecified
CPT/HCPCS: 80053; 82570; 82607; 82668; 82728; 82746; 83540; 83550; 83970; 84156; 85025; 85045

== ENCOUNTER → 2017-11-26 16:27 | Outpatient (CLI) | payer OTHER, SELFPAY ==
[2017-10-15 01:25] VITALS: BMI 23.8
[2017-10-15 09:17] VITALS: PULSE 78; RESP 15; O2SAT 98
== END ==
PROVIDERS: Family Provider Anesthesiology Pain Medicine; PCP Physician Assistant; Visit Provider Physician Assistant
DX: D64.9 Anemia, unspecified (principal); E87.5 Hyperkalemia; E87.1 Hypo-osmolality and hyponatremia
CPT/HCPCS: 82274

== ENCOUNTER 2017-12-23 10:43 | Emergency (ER) | payer OTHER, SELFPAY ==
[2017-10-15 01:25] VITALS: BMI 23.8
[2017-10-15 09:17] VITALS: PULSE 78; RESP 15; O2SAT 98
[2017-12-23 10:53] VITALS: BP 156/68; PULSE 110; RESP 22; TEMP 37.4; O2SAT 100
--- NOTE | 2017-12-23 10:58 | DI.RAD.S_ITS ---
PROCEDURE: XR CHEST 1V INDICATIONS: suspected sepsis TECHNIQUE: One view of the chest was acquired. COMPARISON: [facility], CR, XR CHEST 1V, 10/14/2017, 23:08. FINDINGS: Surgical changes and devices: None. Lungs and pleura: No pleural effusions or pneumothorax. Lungs are clear. Mediastinum: Mediastinal contours appear normal. Heart size is normal. Bones and chest wall: No suspicious bony lesions. Overlying soft tissues appear unremarkable. IMPRESSION: No acute cardiopulmonary findings. Dictated by: Sarah Pineda M.D. on 12/23/2017 at 11:20 Approved by: Sarah Pineda M.D. on 12/23/2017 at 11:20
[2017-12-23 11:17] LABS: Add Manual Diff / Slide Review NO; Basophils Percent Auto 0.5 % (0-2); Eosinophils Percent Auto 0.4 % (2-4); Hematocrit 30.6 % (36-46); Hemoglobin 10.3 g/dL (12.0-16.0); Lymphocytes Percent Auto 10.7 % (25-40); Mean Corpuscular HGB Conc 33.7 % (30-36); Mean Corpuscular Hemoglobin 30.2 PG (26-34); Mean Corpuscular Volume 89.6 fL (80-100); Monocytes Percent Auto 3.9 % (3-14); Neutrophils Absolute Auto 5700 /uL (3000-5900); Neutrophils Percent Auto 84.5 % (50-75); Platelet Count 381 X10^3/uL (150-400); Red Blood Cell Count 3.41 X10^6/uL (4.0-5.2); Red Cell Distribution Width 14.6 % (11.6-14.8); White Blood Cell Count 6.8 X10^3/uL (4.5-11.0)
[2017-12-23] MEDS: SODIUM CHLORIDE 0.9% 1,000 ML 1000 ML IV (11:18)
[2017-12-23 11:23] VITALS: BP 132/85; PULSE 101; O2SAT 100
[2017-12-23 11:24] LABS: Prothrombin Time 10.6 SECONDS (10.1-12.7)
[2017-12-23 11:27] LABS: PTT Partial Thromboplastin Tim 29 SECONDS (26.4-36.2)
[2017-12-23 11:29] LABS: Alanine Aminotransferase 16 IU/L (9-52); Albumin 4.3 g/dL (3.5-5.0); Albumin Globulin Ratio 1.4 (1.0-2.8); Alkaline Phosphatase 72 U/L (38-126); Aspartate Aminotransferase 17 IU/L (14-36); BUN Creatinine Ratio 12.1 (6-22); Bilirubin Total 0.6 mg/dL (0.2-1.3); Blood Urea Nitrogen 17 mg/dL (7-17); Calcium 9.8 mg/dL (8.4-10.2); Carbon Dioxide 22 mmol/L (22-32); Chloride 98 mmol/L (98-107); Globulin 3.1 g/dL (1.7-4.1); Glucose 170 mg/dL (80-110); HEMOLYSIS < 15 (0-50); Lipase 12 U/L (23-300); Potassium 3.9 mmol/L (3.4-5.1); Sodium 135 mmol/L (137-145); Total Protein 7.4 g/dL (6.3-8.2)
[2017-12-23 11:30] LABS: Lactate (Lactic Acid) 1.8 mmol/L (0.7-2.1)
--- NOTE | 2017-12-23 11:38 | ED_ITS ---
HPI - Nausea/Vomiting/Diarrhea General Chief complaint: Fever Stated complaint: SOB, DEHYDRATED, HASN'T EATEN IN TWO DAYS Time Seen by Provider: 12/23/17 11:20 Source: patient Limitations: no limitations History of Present Illness HPI Narrative: This is a 72-year-old female comes to the emergency department with concern for fever which she states was 99 F. She states that she has been nauseated for 2-3 days but has not had any vomiting. She did have diarrhea for about 2 days and finally took Imodium last night, she took 2 tablets and has not had any more bowel movements since. She has continued to pass gas. She states her stool was not black or bloody. Toward the end it was almost clear like water. She has not really had any abdominal pain but does feel discomfort with palpation. She denies any chest pain or pressure but has felt short of breath. She does have chronic kidney disease which is stage III they have not felt that she needs dialysis is it has been stable for several years. She takes medication for hypertension, she has had issues electrolyte abnormalities with her sodium and potassium both. She takes medication for arthritis. As well as medication for anxiety and depression. She has had multiple abdominal surgeries including hysterectomy, appendectomy knee surgery x3 as well as a hiatal hernia repair and a small-bowel obstruction which she did have surgery for in the past. Most recently she had an aspiration pneumonia within the last couple months. Related Data Home Medications Medication Instructions Recorded Confirmed aspirin 81 mg PO QDAY #0 11/16/11 12/23/17 cyclosporine [Restasis] 0.05 % OPHTH BID #0 12/28/12 12/23/17 nifedipine 1 tab PO DAILY 10/06/17 12/23/17 pantoprazole 40 mg PO DAILY 10/06/17 12/23/17 levothyroxine 50 mcg PO DAILY 10/15/17 12/23/17 melatonin 3 mg PO BEDTIME PRN 10/15/17 12/23/17 Culturelle Pro-Well Fish Supp 1 dose PO DIRECTED 12/23/17 12/23/17 calcitriol 0.5 mcg PO DAILY 12/23/17 12/23/17 carvedilol 3.125 mg PO DAILY 12/23/17 12/23/17 gabapentin 900 mg PO BEDTIME 12/23/17 12/23/17 hydralazine 50 mg PO BID 12/23/17 12/23/17 hydrocodone-acetaminophen 1 tab PO Q4-6H PRN MDD 6 12/23/17 12/23/17 hydroxyzine HCl 25 mg PO QID PRN 12/23/17 12/23/17 isosorbide mononitrate 60 mg PO DAILY 12/23/17 12/23/17 lisinopril 5 mg PO DAILY 12/23/17 12/23/17 ondansetron 1 tab PO PRN PRN 12/23/17 12/23/17 sodium polystyrene sulfonate 1 dose PO DIRECTED 12/23/17 12/23/17 [Kionex] Previous Rx's Medication Instructions Recorded acetaminophen 650 mg PO Q4HR PRN #60 tab 10/23/17 escitalopram oxalate 10 mg PO DAILY #30 tab 10/23/17 lorazepam 0.5 mg PO TID #30 tab MDD 3 10/23/17 ciprofloxacin HCl 500 mg PO BID #10 tab 12/23/17 nystatin 2 ml PO QID 10 Days #100 ml 12/23/17 Allergies Allergy/AdvReac Type Severity Reaction Status Date / Time Penicillins [PENICILLINS] Allergy Mild RASH Verified 10/15/17 11:27 NSAIDS (Non-Steroidal AdvReac Intermediate Nausea Verified 12/23/17 10:56 Anti-Inflamma Review of Systems Review of Systems All systems reviewed & are unremarkable except as noted in HPI and below Constitutional Reports anorexia, Reports fever(s) (T-max 99 F) and Denies headache(s) ENT Ears, Nose, Mouth, and Throat: Denies headache(s) Comments: Dry mouth Cardiovascular Denies chest pain, Denies diaphoresis, Denies syncope, Reports rapid heart rate , Denies edema, Reports irregular heart rhythm and Reports dyspnea Respiratory Denies chest congestion, Denies cough and Reports dyspnea Gastrointestinal Gastrointestinal: Denies abdominal pain, Denies melena, Denies hematochezia, Reports change in bowel habits, Denies constipation, Reports diarrhea, Reports nausea and Denies vomiting Genitourinary Denies urinary frequency, Denies urinary hesitancy and Denies urinary urgency Comments: No decrease in urine output Integumentary/Breasts Denies rash Neurologic Denies syncope and Denies headache(s) PFSH Medical History Anemia (Acute) Anxiety (Acute) CHF (congestive heart failure) (Acute) Depression (Acute) GERD (gastroesophageal reflux disease) (Acute) History of hysterectomy (Acute) History of seizure (Acute) Hypertension (Acute) Hypothyroidism (Acute) Migraine (Acute) Renal insufficiency (Acute) Rheumatoid arthritis (Acute) Sjogren's syndrome (Acute) Surgical History History of Sarita fundoplication (Acute) History of cataract extraction with lens replacement (Acute) History of surgical removal of lesion (Acute) History of tonsillectomy and adenoidectomy (Acute) Hx of appendectomy (Acute) Social History household members: none Smoking Status: Never smoker Exam Initial Vital Signs Initial Vital Signs: Vital Signs Temperature 99.4 F 12/23/17 10:53 Pulse Rate 110 H 12/23/17 10:53 Respiratory Rate 22 12/23/17 10:53 Blood Pressure 156/68 H 12/23/17 10:53 Pulse Oximetry 100 12/23/17 10:53 Const General: cooperative, well developed and in distress (Mild) Nutritional Appearance: well nourished Orientation: alert, awake, oriented x3 and not confused [facility] Head: normocephalic and atraumatic Ears: external ears normal Nose: external nose normal and No nasal discharge Face and sinus: face symmetric and dry mucous membranes Mouth: oral mucosae normal Teeth and gingiva: dentition normal Neck Neck: normal visual inspection and No JVD Resp Effort & Inspection: normal respiratory effort, able to speak in complete sentences, respiratory distress (Mild), no use of accessory muscles and prolonged expiratory phase Auscultation: diminished lung sounds bilaterally, no rales, no rhonchi and no wheezes Cardio Rate: regular rate Rhythm: regular rhythm Heart Sounds: no click, no gallops, no murmurs and no rubs Pulses: normal peripheral pulses GI Inspection: non-distended Palpation: soft, no hepatosplenomegaly, No guarding, No pulsatile mass, No rigid and No tender Auscultation: normal bowel sounds Back/Spine/Pelvis Back: normal to inspection Skin General: no rashes or lesions noted, No jaundice and No petechiae Extrem Other: Edema noted bilateral lower extremities. Patient does wear a brace on her left ankle. Course Orders Ordered: ED Orders 12/23/17 10:58 XR chest 1V Stat 12/23/17 11:00 Complete Blood Count AUTO DIFF Stat Comprehensive Metabolic Panel Stat Lactate (Lactic Acid) Stat Lipase Stat Partial Thromboplastin Time Stat Procalcitonin Stat Prothrombin Time INR Stat 12/23/17 11:42 Blood Culture Stat 12/23/17 12:25 Urine Culture Stat Urine Microscopic Stat 12/23/17 13:21 CT chest abd pel wo con Stat Discontinued Medications Sodium Chloride (Normal Saline 0.9%) 1,000 mls @ 1,000 mls/hr IV BOLUS ONE Stop: 12/23/17 11:57 Last Infusion: 12/23/17 12:28 Dose: 0 mls/hr Admin: 12/23/17 11:18 Dose: 1,000 mls/hr Ondansetron HCl (Zofran) 4 mg IV NOW ONE Stop: 12/23/17 13:08 Last Admin: 12/23/17 13:31 Dose: 4 mg Vital Signs - 8 hr 12/23/17 11:23 12/23/17 12:12 12/23/17 12:46 Pulse Rate 101 H 96 H 101 H Respiratory Rate 12 16 Blood Pressure [Right Arm] 132/85 152/77 H 163/91 H Pulse Oximetry 100 100 100 12/23/17 13:15 12/23/17 13:50 Pulse Rate 102 H 99 H Respiratory Rate 15 12 Blood Pressure [Right Arm] 167/72 H 153/73 H Pulse Oximetry 100 100 MDM - Nausea/Vomiting/Diarrhea Lab Data Attestation: I reviewed the patient's lab results. Result diagrams: 12/23/17 11:00 12/23/17 11:00 Lab Results 12/23/17 12/23/17 12/23/17 Range/Units 11:00 11:00 11:00 WBC 6.8 (4.5-11.0) X10^3/uL RBC 3.41 L (4.0-5.2) X10^6/uL Hgb 10.3 L (12.0-16.0) g/dL Hct 30.6 L (36-46) % MCV 89.6 (80-100) fL MCH 30.2 (26-34) PG MCHC 33.7 (30-36) % RDW 14.6 (11.6-14.8) % Plt Count 381 (150-400) X10^3/uL Neut % (Auto) 84.5 H (50-75) % Lymph % (Auto) 10.7 L (25-40) % [place] % (Auto) 3.9 (3-14) % Eos % (Auto) 0.4 L (2-4) % Baso % (Auto) 0.5 (0-2) % Neut # (Auto) 5700 (6393-9636) /uL PT 10.6 (10.1-12.7) SECONDS INR 1.0 (0.9-1.3) APTT 29 (26.4-36.2) SECONDS Sodium (137-145) mmol/L Potassium (3.4-5.1) mmol/L Chloride (98-107) mmol/L Carbon Dioxide (22-32) mmol/L BUN (7-17) mg/dL Creatinine (0.52-1.04) mg/dL Estimated GFR (>60) mL/min BUN/Creatinine Ratio (6-22) Glucose (80-110) mg/dL Lactate (0.7-2.1) mmol/L Calcium (8.4-10.2) mg/dL Total Bilirubin (0.2-1.3) mg/dL AST (14-36) IU/L ALT (9-52) IU/L Alkaline Phosphatase (38-126) U/L Total Creatine Kinase (30-135) U/L Troponin I (0.01-0.034) ng/mL B-Natriuretic Peptide (<100) Total Protein (6.3-8.2) g/dL Albumin (3.5-5.0) g/dL Globulin (1.7-4.1) g/dL Albumin/Globulin Ratio (1.0-2.8) Lipase (23-300) U/L Procalcitonin < 0.05 (<0.5) ng/mL Urine RBC (0-5/HPF) Urine WBC (0-5/HPF) Ur Squamous Epith Cells Urine Bacteria (None) Ur Culture Indicated? Micro UA Comment 12/23/17 12/23/17 12/23/17 Range/Units 11:00 11:00 12:25 WBC (4.5-11.0) X10^3/uL RBC (4.0-5.2) X10^6/uL Hgb (12.0-16.0) g/dL Hct (36-46) % MCV (80-100) fL MCH (26-34) PG MCHC (30-36) % RDW (11.6-14.8) % Plt Count (150-400) X10^3/uL Neut % (Auto) (50-75) % Lymph % (Auto) (25-40) % [place] % (Auto) (3-14) % Eos % (Auto) (2-4) % Baso % (Auto) (0-2) % Neut # (Auto) (4235-7531) /uL PT (10.1-12.7) SECONDS INR (0.9-1.3) APTT (26.4-36.2) SECONDS Sodium 135 L (137-145) mmol/L Potassium 3.9 (3.4-5.1) mmol/L Chloride 98 (98-107) mmol/L Carbon Dioxide 22 (22-32) mmol/L BUN 17 (7-17) mg/dL Creatinine 1.40 H (0.52-1.04) mg/dL Estimated GFR 37.0 L (>60) mL/min BUN/Creatinine Ratio 12.1 (6-22) Glucose 170 H (80-110) mg/dL Lactate 1.8 (0.7-2.1) mmol/L Calcium 9.8 (8.4-10.2) mg/dL Total Bilirubin 0.6 (0.2-1.3) mg/dL AST 17 (14-36) IU/L ALT 16 (9-52) IU/L Alkaline Phosphatase 72 (38-126) U/L Total Creatine Kinase (30-135) U/L Troponin I (0.01-0.034) ng/mL B-Natriuretic Peptide (<100) Total Protein 7.4 (6.3-8.2) g/dL Albumin 4.3 (3.5-5.0) g/dL Globulin 3.1 (1.7-4.1) g/dL Albumin/Globulin Ratio 1.4 (1.0-2.8) Lipase 12 L (23-300) U/L Procalcitonin (<0.5) ng/mL Urine RBC None seen (0-5/HPF) Urine WBC 1-5/hpf (0-5/HPF) Ur Squamous Epith Cells 0-1 /hpf Urine Bacteria Occasional (0-1) (None) Ur Culture Indicated? Specimen cultured Micro UA Comment Not Reportable 12/23/17 12/23/17 Range/Units Unknown Unknown WBC (4.5-11.0) X10^3/uL RBC (4.0-5.2) X10^6/uL Hgb (12.0-16.0) g/dL Hct (36-46) % MCV (80-100) fL MCH (26-34) PG MCHC (30-36) % RDW (11.6-14.8) % Plt Count (150-400) X10^3/uL Neut % (Auto) (50-75) % Lymph % (Auto) (25-40) % [place] % (Auto) (3-14) % Eos % (Auto) (2-4) % Baso % (Auto) (0-2) % Neut # (Auto) (1357-1927) /uL PT (10.1-12.7) SECONDS INR (0.9-1.3) APTT (26.4-36.2) SECONDS Sodium (137-145) mmol/L Potassium (3.4-5.1) mmol/L Chloride (98-107) mmol/L Carbon Dioxide (22-32) mmol/L BUN (7-17) mg/dL Creatinine (0.52-1.04) mg/dL Estimated GFR (>60) mL/min BUN/Creatinine Ratio (6-22) Glucose (80-110) mg/dL Lactate (0.7-2.1) mmol/L Calcium (8.4-10.2) mg/dL Total Bilirubin (0.2-1.3) mg/dL AST (14-36) IU/L ALT (9-52) IU/L Alkaline Phosphatase (38-126) U/L Total Creatine Kinase 21 L (30-135) U/L Troponin I 0.013 (0.01-0.034) ng/mL B-Natriuretic Peptide 179.0 H (<100) Total Protein (6.3-8.2) g/dL Albumin (3.5-5.0) g/dL Globulin (1.7-4.1) g/dL Albumin/Globulin Ratio (1.0-2.8) Lipase (23-300) U/L Procalcitonin (<0.5) ng/mL Urine RBC (0-5/HPF) Urine WBC (0-5/HPF) Ur Squamous Epith Cells Urine Bacteria (None) Ur Culture Indicated? Micro UA Comment Urine Dip Bedside Urine Glucose Negative Bedside Urine Bilirubin - Negative Bedside Urine Ketone - Negative Urine Specific [place] 1.010 Bedside Urine Occult Blood - Negative Bedside Urine pH 8.0 Bedside Urine Protein - Negative Bedside Urine Urobilinogen - Negative Bedside Urine Nitrite - Negative Bedside Urine Leukocytes +/- 15 Esterase Imaging Data Chest x-ray: Radiologist's impression: [address] [id number] XRay Report Signed Patient: Alexsander Dunham MR#: [id number] : 1945 Acct:[id number] Age/Sex: 72 / F Date of Service: 12/23/17 Loc: ED Accession Number: [id number] Procedure: XR chest 1V Ordering Provider: Jackie Michelle D.O. PROCEDURE: XR CHEST 1V INDICATIONS: suspected sepsis TECHNIQUE: One view of the chest was acquired. COMPARISON: [facility], , XR CHEST 1V, 10/14/2017, 23:08. FINDINGS: Surgical changes and devices: None. Lungs and pleura: No pleural effusions or pneumothorax. Lungs are clear. Mediastinum: Mediastinal contours appear normal. Heart size is normal. Bones and chest wall: No suspicious bony lesions. Overlying soft tissues appear unremarkable. IMPRESSION: No acute cardiopulmonary findings. Dictated by: Sarah Pineda M.D. on 12/23/2017 at 11:20 Approved by: Sarah Pineda M.D. on 12/23/2017 at 11:20 CT chest/abd/pelvis: Radiologist's impression: CT Scan Report Signed Patient: Alexsander Dnuham MR#: [id number] : 1945 Acct:[id number] Age/Sex: 72 / F Date of Service: 12/23/17 Loc: ED Accession Number: [id number] Procedure: CT chest abd pel wo con Ordering Provider: Jackie Michelle D.O. PROCEDURE: CT CHEST ABD PEL WO CON INDICATIONS: Diarrhea/short of breath/tachy TECHNIQUE: After the administration of oral contrast, 5 mm thick sections acquired from the lung apices to the symphysis pubis. 5 mm thick coronal and sagittal reformats acquired, with additional 7 mm coronal MIP reformats through the lungs. For radiation dose reduction, the following was used: automated exposure control, adjustment of mA and/or kV according to patient size. COMPARISON: [facility], CR, XR CHEST 1V, 12/23/2017, 11:03. FINDINGS: Image quality: Excellent. CHEST: Lungs and pleura: No acute pulmonary opacities. No pleural effusions or pneumothorax. Central and peripheral airways are patent are normal in caliber. Mediastinum: Heart size is normal. No pericardial effusion. No mediastinal adenopathy by CT size criteria. Thoracic aorta and central pulmonary arteries are normal in size. Esophagus is normal in caliber. No significant hiatal hernia. Chest wall: No axillary or supraclavicular adenopathy by size criteria. Thyroid gland demonstrates no significant noncontrast abnormality. ABDOMEN: Solid organs: Liver is normal in size. Gallbladder wall is not thickened. Pancreas is normal in contours. Spleen is normal in size. No adrenal nodules. The right kidney is moderately atrophic. The left kidney demonstrates normal size. There is no hydronephrosis or nephrolithiasis. Peritoneum and bowel: Postoperative changes are seen at the gastroesophageal junction. Small and large bowel loops are normal in caliber and wall thickness. No free fluid or air. Nodes and vessels: No retroperitoneal or mesenteric adenopathy by size criteria. Aorta and inferior vena cava are normal in size. Atherosclerotic calcification is noted. Miscellaneous: No ventral hernias. PELVIS: Genitourinary: Bladder wall thickness is normal. This patient is status post hysterectomy. No adnexal masses are seen. Miscellaneous: No inguinal hernias or adenopathy. Bones: No suspicious bony lesions. No vertebral body compression fractures. Age-appropriate bony degenerative changes are seen. S-shaped scoliotic curvature is seen. IMPRESSION: No significant acute abnormality is seen to explain the patient's presenting symptoms. Incidental note is made of: Gastroesophageal junction postoperative change Moderately atrophic right kidney. Hysterectomy S-shaped scoliotic curvature Dictated by: David Marie M.D. on 12/23/2017 at 13:33 Approved by: David Marie M.D. on 12/23/2017 at 13:37 MDM Narrative Medical decision making narrative: This is a 72-year-old female comes in with complaint dehydration, diarrhea states she has not been eating for the last 2 days. Also some complaint of shortness of breath. Patient lab work is not particularly changed. She is anemic but that is at her baseline she has renal dysfunction but that also appears to be fairly baseline. She was slightly tachycardic upon arrival she did get a 500 cc bolus we did wish to fluid overload secondary her stage 3 kidney disease. Patient was feeling better after this. She did not have any clear changes on chest x-ray showing infection. CT of abdomen test abdomen and pelvis was ordered as patient had been having a lot of diarrhea we were unable to give contrast is patient has renal dysfunction. Urine did show some changes with possible UTI and was sent for urine culture. We did treat her as a UTI with Cipro. Patient also asked for a prescription for nystatin and she always gets thrush after she takes Cipro. We did discuss the potentially there could be other causes of her symptoms and to return if she is feeling worse. Discharge Plan Departure Patient Disposition: Home Clinical Impression: Acute UTI, Dehydration Discharge Date/Time: 12/23/17 14:52 Interventions: ED Discharge Assessment Last Done: 12/23/17 14:51 Instructions: DI for Urinary Tract Infection (UTI) Activity Restrictions/Additional Instructions: Follow-up with your primary care physician in the next 24-48 hours for re- evaluation. Continue your home medications as prescribed. Take antibiotics until they are completely gone. Your urine has been sent for urine culture if the results show that you need to be on different antibiotics should receive a call from the emergency department. Return to the emergency department if you have fevers greater than 100.4, persistent vomiting, black or bloody stools, altered mental status, new chest pain or shortness of breath or syncope new or concerning symptoms. Prescriptions: New ciprofloxacin HCl 500 mg tablet 500 mg PO BID Qty: 10 RF: 0 nystatin 100,000 unit/mL suspension 2 ml PO QID 10 Days Qty: 100 RF: 0 No Action aspirin 81 MG tablet,delayed release (DR/EC) 81 mg PO QDAY Qty: 0 RF: 0 cyclosporine [Restasis] 1 EACH dropperette 0.05 % OPHTH BID Qty: 0 RF: 0 pantoprazole 40 mg tablet,delayed release (DR/EC) 40 mg PO DAILY RF: 0 nifedipine 60 mg tablet extended release 1 tab PO DAILY RF: 0 melatonin 3 mg Tablet 3 mg PO BEDTIME PRN (Reason: Sleep) RF: 0 levothyroxine 50 mcg Tablet 50 mcg PO DAILY RF: 0 acetaminophen 325 mg Tablet 650 mg PO Q4HR PRN (Reason: As Needed For Fever/Mild Pain) Qty: 60 RF: 0 escitalopram oxalate 10 mg tablet 10 mg PO DAILY Qty: 30 RF: 0 lorazepam 0.5 mg tablet 0.5 mg PO TID MDD 3 Qty: 30 RF: 0 calcitriol 0.5 mcg Capsule 0.5 mcg PO DAILY RF: 0 hydrocodone-acetaminophen 5 MG/325 MG tablet 1 tab PO Q4-6H MDD 6 PRN (Reason: Pain, Moderate) RF: 0 lisinopril 5 mg Tablet 5 mg PO DAILY RF: 0 isosorbide mononitrate 60 mg Tablet Extended Release 24 Hr 60 mg PO DAILY RF: 0 gabapentin 300 mg Capsule 900 mg PO BEDTIME RF: 0 hydroxyzine HCl 25 mg Tablet 25 mg PO QID PRN (Reason: Itching) RF: 0 hydralazine 50 mg Tablet 50 mg PO BID RF: 0 carvedilol 3.125 mg Tablet 3.125 mg PO DAILY RF: 0 sodium polystyrene sulfonate [Kionex] Powder 1 dose PO DIRECTED RF: 0 ondansetron 4 mg tablet,disintegrating 1 tab PO PRN PRN (Reason: Nausea) RF: 0 Culturelle Pro-Well Fish Supp 1 dose PO DIRECTED RF: 0
[2017-12-23 11:47] LABS: Creatine Kinase 21 U/L (30-135)
[2017-12-23 11:47] LABS: Procalcitonin < 0.05 ng/mL (<0.5)
[2017-12-23 11:59] LABS: Troponin I 0.013 ng/mL (0.01-0.034)
[2017-12-23 12:12] VITALS: BP 152/77; PULSE 96; RESP 12; O2SAT 100
[2017-12-23 12:41] LABS: RBC Urine None Seen (0-5/HPF)
[2017-12-23 12:46] VITALS: BP 163/91; PULSE 101; RESP 16; O2SAT 100
[2017-12-23 12:54] LABS: Bacteria Urine Occasional (0-1); Culture Indicated Urine Specimen Cultured; Squamous Epithelial Cell Urine 0-1 /HPF; WBC Urine 1-5/HPF (0-5/HPF)
[2017-12-23 13:15] VITALS: BP 167/72; PULSE 102; RESP 15; O2SAT 100
--- NOTE | 2017-12-23 13:21 | DI.CT.S_ITS ---
PROCEDURE: CT CHEST ABD PEL WO CON INDICATIONS: Diarrhea/short of breath/tachy TECHNIQUE: After the administration of oral contrast, 5 mm thick sections acquired from the lung apices to the symphysis pubis. 5 mm thick coronal and sagittal reformats acquired, with additional 7 mm coronal MIP reformats through the lungs. For radiation dose reduction, the following was used: automated exposure control, adjustment of mA and/or kV according to patient size. COMPARISON: [facility], CR, XR CHEST 1V, 12/23/2017, 11:03. FINDINGS: Image quality: Excellent. CHEST: Lungs and pleura: No acute pulmonary opacities. No pleural effusions or pneumothorax. Central and peripheral airways are patent are normal in caliber. Mediastinum: Heart size is normal. No pericardial effusion. No mediastinal adenopathy by CT size criteria. Thoracic aorta and central pulmonary arteries are normal in size. Esophagus is normal in caliber. No significant hiatal hernia. Chest wall: No axillary or supraclavicular adenopathy by size criteria. Thyroid gland demonstrates no significant noncontrast abnormality. ABDOMEN: Solid organs: Liver is normal in size. Gallbladder wall is not thickened. Pancreas is normal in contours. Spleen is normal in size. No adrenal nodules. The right kidney is moderately atrophic. The left kidney demonstrates normal size. There is no hydronephrosis or nephrolithiasis. Peritoneum and bowel: Postoperative changes are seen at the gastroesophageal junction. Small and large bowel loops are normal in caliber and wall thickness. No free fluid or air. Nodes and vessels: No retroperitoneal or mesenteric adenopathy by size criteria. Aorta and inferior vena cava are normal in size. Atherosclerotic calcification is noted. Miscellaneous: No ventral hernias. PELVIS: Genitourinary: Bladder wall thickness is normal. This patient is status post hysterectomy. No adnexal masses are seen. Miscellaneous: No inguinal hernias or adenopathy. Bones: No suspicious bony lesions. No vertebral body compression fractures. Age-appropriate bony degenerative changes are seen. S-shaped scoliotic curvature is seen. IMPRESSION: No significant acute abnormality is seen to explain the patient's presenting symptoms. Incidental note is made of: Gastroesophageal junction postoperative change Moderately atrophic right kidney. Hysterectomy S-shaped scoliotic curvature Dictated by: David Marie M.D. on 12/23/2017 at 13:33 Approved by: David Marie M.D. on 12/23/2017 at 13:37
[2017-12-23] MEDS: ONDANSETRON 4 MG/2 ML INJ IV (13:31)
[2017-12-23 13:50] VITALS: BP 153/73; PULSE 99; RESP 12; O2SAT 100
== END 2017-12-23 14:52 | disposition home or self-care (01) ==
PROVIDERS: Emergency Provider Emergency Medicine; Family Provider Anesthesiology Pain Medicine; PCP Physician Assistant
DX: N39.0 Urinary tract infection, site not specified (principal); E86.0 Dehydration; R00.0 Tachycardia, unspecified; R06.02 Shortness of breath
CPT/HCPCS: 36591; 71045; 71250; 74176; 80053; 81003; 81015; 82550; 82553; 83605; 83690; 83880; 84145; 84484; 85025; 85610; 85730; 87040; 87086; 93005; 96361; 96374; 99284; 99285; J2405

== ENCOUNTER → 2018-03-05 15:50 | Outpatient (CLI) | payer OTHER, SELFPAY ==
[2017-10-15 01:25] VITALS: BMI 23.8
[2017-10-15 09:17] VITALS: PULSE 78; RESP 15; O2SAT 98
[2018-03-05 16:30] LABS: Hematocrit 32.4 % (36-46); Hemoglobin 10.4 g/dL (12.0-16.0)
[2018-03-05 16:33] LABS: HEMOLYSIS < 15 (0-50); Iron 62 ug/dL (37-170)
[2018-03-05 16:36] LABS: BUN Creatinine Ratio 16.7 (6-22); Blood Urea Nitrogen 25 mg/dL (7-17); Carbon Dioxide 26 mmol/L (22-32); Chloride 94 mmol/L (98-107); Estimated Glomerular Filt Rate 34.1 mL/min (>60); Glucose 138 mg/dL (80-110); HEMOLYSIS < 15 (0-50); Potassium 4.6 mmol/L (3.4-5.1); Sodium 132 mmol/L (137-145)
[2018-03-05 16:44] LABS: Percent Iron Saturation 26 % (15-50); Total Iron Binding Capacity 236 ug/dL (265-497); Transferrin 189 mg/dL (206-381)
[2018-03-05 17:09] LABS: Ferritin 48.5 ng/mL (11.1-264)
[2018-03-05 17:56] LABS: Creatinine Urine Random 67.5 mg/dL; Protein (Total) Urine Random 41 mg/dL (0-12)
== END ==
PROVIDERS: Family Provider Anesthesiology Pain Medicine; PCP Physician Assistant; Visit Provider Student in an Organized Health Care Education/Training Program
DX: N05.9 Unspecified nephritic syndrome with unspecified morphologic changes (principal); D50.0 Iron deficiency anemia secondary to blood loss (chronic); D64.9 Anemia, unspecified; R80.9 Proteinuria, unspecified
CPT/HCPCS: 36415; 80048; 82570; 82728; 83540; 83550; 84156; 85014; 85018

== ENCOUNTER → 2018-04-13 13:14 | Outpatient (CLI) | payer OTHER, SELFPAY ==
[2017-10-15 01:25] VITALS: BMI 23.8
[2017-10-15 09:17] VITALS: PULSE 78; RESP 15; O2SAT 98
--- NOTE | 2018-04-13 | DI.MRI.S_ITS ---
PROCEDURE: MR HAND RT WO CON INDICATIONS: ARTHROPATHY TECHNIQUE: Coronal and axial T1 spin echo and T2 fast spin echo with fat saturation. Post-contrast coronal and axial T1 spin echo with fat saturation images through the right hand and wrist. COMPARISON: [facility], CR, XR HAND 3+ VIEWS BILATERAL, 02/10/2018, 16:24. [facility], CR, XR HAND RT MIN 3V, 09/04/2017, 15:43. FINDINGS: Image quality: Diagnostic Bones: No displaced fractures or dislocations are identified involving the osseous structures of the right hand. There is severe degenerative changes identified throughout the wrist and hand which are most pronounced involving the carpal bones, 1st metacarpophalangeal joint, and the proximal interphalangeal joints of the 2nd and 3rd digits. There is prominent joint space narrowing, intraosseous ganglion cysts, and reactive marrow changes, prominent developing marginal osteophytes, and reactive marrow edema within and about these joints. Prominent dorsal subluxation of the lunate with respect to the distal radius is identified without significant widening of the scapholunate joint. Prominent degenerative changes of the distal radial ulnar joint are noted. No suspicious osseous lesions are evident. A large joint effusions are identified. Soft tissues: No soft tissue masses or drainable fluid collections are evident. There is a moderate amount of fluid contained within it the 3rd and 4th flexor tendon sheaths along the course of the metacarpals. Otherwise, the tendons of the wrist and hand are grossly unremarkable. No significant atrophy involving the intrinsic muscles of the hand are appreciated. Please note that the ligamentous structures of the wrist are not adequately evaluated on this exam. IMPRESSION: 1. 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 Erosive changes do raise the suspicion for an inflammatory arthropathy, such as psoriasis or rheumatoid arthritis and clinical correlation is recommended. 2. Prominent dorsal subluxation of the lunate with respect to the distal radius likely is related to chronic injury of the extrinsic ligaments of the wrist, not adequately evaluated. 3. Fluid within it the 3rd and 4th flexor tendon sheath is suspicious for mild tenosynovitis. Adjacent muscle strains are difficult to exclude. Dictated by: Kurtis Drew M.D. on 04/13/2018 at 16:01 Approved by: Kurtis Drew M.D. on 04/13/2018 at 16:07
[2018-04-13 14:29] LABS: Alanine Aminotransferase 25 IU/L (9-52); Albumin 4.3 g/dL (3.5-5.0); Albumin Globulin Ratio 1.6 (1.0-2.8); Alkaline Phosphatase 67 U/L (38-126); Aspartate Aminotransferase 20 IU/L (14-36); BUN Creatinine Ratio 26.5 (6-22); Bilirubin Total 0.4 mg/dL (0.2-1.3); Blood Urea Nitrogen 45 mg/dL (7-17); Calcium 9.6 mg/dL (8.4-10.2); Carbon Dioxide 27 mmol/L (22-32); Chloride 95 mmol/L (98-107); Estimated Glomerular Filt Rate 29.5 mL/min (>60); Globulin 2.7 g/dL (1.7-4.1); Glucose 98 mg/dL (80-110); HEMOLYSIS < 15 (0-50); Sodium 133 mmol/L (137-145)
[2018-04-13 14:32] LABS: Potassium 5.6 mmol/L (3.4-5.1)
== END ==
PROVIDERS: Family Provider Anesthesiology Pain Medicine; PCP Physician Assistant; Visit Provider Specialist/Technologist Athletic Trainer
DX: M19.041 Primary osteoarthritis, right hand (principal); R76.8 Other specified abnormal immunological findings in serum
CPT/HCPCS: 36415; 73218; 80053

== ENCOUNTER 2018-04-13 15:20 | Emergency (ER) | payer OTHER, SELFPAY ==
[2017-10-15 01:25] VITALS: BMI 23.8
[2017-10-15 09:17] VITALS: PULSE 78; RESP 15; O2SAT 98
[2018-04-13 15:54] VITALS: BP 200/90; PULSE 90; RESP 13; TEMP 36.6; O2SAT 98
--- NOTE | 2018-04-13 18:06 | ED.SKABFB ---
HPI - Skin/Abscess/Foreign Bdy <Miroslava Delgado PA-C - Last Filed: 04/13/18 22:24> General Chief complaint: Skin/Abscess/Foreign Body Stated complaint: cyst on rt side of head, very painful, little rest Time Seen by Provider: 04/13/18 18:01 Source: patient Mode of arrival: ambulatory Limitations: no limitations History of Present Illness HPI narrative: This 72-year-old female comes to ED due to painful, enlarging lesion on the right side of her scalp. She states that she 1st noticed this as a small lump in the shower, not painful initially, but has been gradually enlarging and now exquisitely tender. She states that she falls asleep but it wakes her up at night. She denies any trauma, bites, or wounds. She states that she tried to poke it with a sterile needle a few times at home and just got a little blood, no other drainage. She denies any other new skin lesions or any other acute complaints. She states that she takes [place] for her arthritis routinely, and this helps somewhat temporarily but pain in her scalp worsens again after a few hours. Related Data Home Medications Medication Instructions Recorded Confirmed aspirin 81 mg PO QDAY #0 11/16/11 12/23/17 cyclosporine [Restasis] 0.05 % OPHTH BID #0 12/28/12 12/23/17 nifedipine 1 tab PO BID 10/06/17 04/13/18 pantoprazole 40 mg PO DAILY 10/06/17 04/13/18 levothyroxine 50 mcg PO DAILY 10/15/17 04/13/18 melatonin 3 mg PO BEDTIME PRN 10/15/17 12/23/17 Culturelle Pro-Well Fish Supp 1 dose PO DIRECTED 12/23/17 12/23/17 carvedilol 3.125 mg PO BID 12/23/17 04/13/18 gabapentin 900 mg PO BEDTIME 12/23/17 04/13/18 hydrocodone-acetaminophen 1 tab PO Q4-6H PRN MDD 6 12/23/17 04/13/18 hydroxyzine HCl 25 mg PO QID PRN 12/23/17 12/23/17 isosorbide mononitrate 60 mg PO DAILY 12/23/17 04/13/18 lisinopril 5 mg PO DAILY 12/23/17 04/13/18 ondansetron 1 tab PO PRN PRN 12/23/17 12/23/17 sodium polystyrene sulfonate 1 dose PO DIRECTED 12/23/17 12/23/17 [Kionex] calcitriol 2 cap PO Q OTHER DAY 04/13/18 04/13/18 ferrous sulfate [FeroSul] 1 tab PO DAILY 04/13/18 04/13/18 hydralazine 25 mg PO TID 04/13/18 04/13/18 naloxone [Narcan] 04/13/18 prednisone 20 mg PO DAILY 04/13/18 04/13/18 Previous Rx's Medication Instructions Recorded acetaminophen 650 mg PO Q4HR PRN #60 tab 10/23/17 escitalopram oxalate 10 mg PO DAILY #30 tab 10/23/17 lorazepam 0.5 mg PO TID #30 tab MDD 3 10/23/17 doxycycline monohydrate 100 mg PO BID 5 Days #10 cap 04/13/18 Allergies Allergy/AdvReac Type Severity Reaction Status Date / Time Penicillins [PENICILLINS] Allergy Mild RASH Verified 10/15/17 11:27 NSAIDS (Non-Steroidal AdvReac Intermediate Nausea Verified 12/23/17 10:56 Anti-Inflamma Review of Systems <Miroslava Delgado PA-C - Last Filed: 04/13/18 22:24> Review of Systems All systems reviewed & are unremarkable except as noted in HPI and below Exam <Miroslava Delgado PA-C - Last Filed: 04/13/18 22:24> Narrative Exam Narrative: GENERAL APPEARANCE: Patient sitting comfortably, in no distress. LUNGS: Clear to auscultation bilaterally. HEART: Rate and rhythm regular without murmur, normal S1 and S2, no S3 or S4. DERMATOLOGIC: There is a large parietal firm, cystic structure, 2.5 cm in diameter and up to 4cm in length on the right side (crosses the midline but larger on the right) exquisitely tender. There appears to be a little bit of dried debris or keratin in the center, no open area. Initial Vital Signs Initial Vital Signs: Vital Signs Temperature 97.9 F 04/13/18 15:54 Pulse Rate 90 04/13/18 15:54 Respiratory Rate 13 04/13/18 15:54 Blood Pressure 200/90 H 04/13/18 15:54 Pulse Oximetry 98 04/13/18 15:54 <Víctor Oliver DO - Last Filed: 04/13/18 22:48> Initial Vital Signs Initial Vital Signs: Vital Signs Temperature 97.9 F 04/13/18 15:54 Pulse Rate 90 04/13/18 15:54 Respiratory Rate 13 04/13/18 15:54 Blood Pressure 200/90 H 04/13/18 15:54 Pulse Oximetry 98 04/13/18 15:54 Procedures <Miroslava Delgado PA-C - Last Filed: 04/13/18 22:24> Misc Procedure Additional Comments: Discuss with patient that on exam I suspect she had a sebaceous or keratin cyst. Explained that I suggest she have this excised in its entirety. Not clearly infected though she did try to drain it at home. I gave her the option of trying incision to see if we could remove any of the material and relieve some pressure though I explained this was not definitive treatment. Also advised that she could return home and call her PCP for referral in the morning if it could not be managed in the office. She elected to try I&D here. Lesion was covered with EMLA cream, then injected with 6 cc 1% lidocaine with epinephrine into multiple areas. Incision was made with a 11. Blade, and on the right side a moderate amount of sebaceous material was drained and was nearly flat when complete. She had multiple pockets on the other side as well I would not tolerate accessing the through the initial incision. I did make 2 additional small incision over the other pocket and removed some sebaceous material, but she was unable to tolerate much probing of these. Bandaged. Will start antibiotic, she will use hot packs and contact her PCP in the morning. Advised her this needs more treatment and when the inflammation is improved, cyst capsule should be removed. She is agreeable Course <Miroslava Delgado PA-C - Last Filed: 04/13/18 22:24> Orders Ordered: Discontinued Medications Hydrocodone Bitart/Acetaminophen ([place] 5/325) 2 tab PO NOW ONE Stop: 04/13/18 18:25 Last Admin: 04/13/18 18:41 Dose: 2 tab Doxycycline Hyclate (Vibramycin) 100 mg PO NOW ONE Stop: 04/13/18 19:55 Last Admin: 04/13/18 20:05 Dose: 100 mg Lidocaine/Prilocaine (Lidocaine-Prilocaine Cream) 5 gm TOP NOW ONE Stop: 04/13/18 18:35 Last Admin: 04/13/18 18:41 Dose: 5 gm Vital Signs - 8 hr 04/13/18 15:54 04/13/18 19:41 Temperature 97.9 F Pulse Rate 90 84 Respiratory Rate 13 16 Blood Pressure 200/90 H Blood Pressure [Left Arm] 128/80 Pulse Oximetry 98 <Víctor Oliver, DO - Last Filed: 04/13/18 22:48> Orders Ordered: Discontinued Medications Hydrocodone Bitart/Acetaminophen ([place] 5/325) 2 tab PO NOW ONE Stop: 04/13/18 18:25 Last Admin: 04/13/18 18:41 Dose: 2 tab Doxycycline Hyclate (Vibramycin) 100 mg PO NOW ONE Stop: 04/13/18 19:55 Last Admin: 04/13/18 20:05 Dose: 100 mg Lidocaine/Prilocaine (Lidocaine-Prilocaine Cream) 5 gm TOP NOW ONE Stop: 04/13/18 18:35 Last Admin: 04/13/18 18:41 Dose: 5 gm Vital Signs - 8 hr 04/13/18 15:54 04/13/18 19:41 Temperature 97.9 F Pulse Rate 90 84 Respiratory Rate 13 16 Blood Pressure 200/90 H Blood Pressure [Left Arm] 128/80 Pulse Oximetry 98 Discharge Plan Departure Patient Disposition: Home Clinical Impression: Infected sebaceous cyst of skin Discharge Date/Time: 04/13/18 20:17 Interventions: ED Discharge Assessment Last Done: 04/13/18 20:29 Instructions: DI for Epidermal Cyst Activity Restrictions/Additional Instructions: The cyst on your scalp appears to be what is called a sebaceous cyst, filled with sebum. I was able to drain part of it tonight, but you have several thick pockets that were too tender to drain. This may be infected due to how rapidly it became inflamed, so we have given you a dose of doxycycline tonight, please continue that tomorrow and for the next few days. Call your PCP 1st thing in the morning and let her know that we were only able to partially drained this and it has been quite painful for you. They may be able to finish draining it through the incisions I have already made if it is less inflamed tomorrow. You should discuss a referral to a chin strap cutter or surgeon who can fully remove the capsule when the inflammation is better. It is important that you apply hot packs several times daily to help keep these areas open and help it drained. You may wish to apply some gauze and a dressing to absorb any drainage. This may bleed as the scalp has lots of small blood vessels on it. Please be careful not to brush or bumped the area. Continue usual pain medicine. Prescriptions: New doxycycline monohydrate 100 mg capsule 100 mg PO BID 5 Days Qty: 10 RF: 0 No Action aspirin 81 MG tablet,delayed release (DR/EC) 81 mg PO QDAY Qty: 0 RF: 0 cyclosporine [Restasis] 1 EACH dropperette 0.05 % OPHTH BID Qty: 0 RF: 0 pantoprazole 40 mg tablet,delayed release (DR/EC) 40 mg PO DAILY RF: 0 nifedipine 60 mg tablet extended release 1 tab PO BID RF: 0 melatonin 3 mg Tablet 3 mg PO BEDTIME PRN (Reason: Sleep) RF: 0 levothyroxine 50 mcg Tablet 50 mcg PO DAILY RF: 0 acetaminophen 325 mg Tablet 650 mg PO Q4HR PRN (Reason: As Needed For Fever/Mild Pain) Qty: 60 RF: 0 escitalopram oxalate 10 mg tablet 10 mg PO DAILY Qty: 30 RF: 0 lorazepam 0.5 mg tablet 0.5 mg PO TID MDD 3 Qty: 30 RF: 0 prednisone 20 mg Tablet 20 mg PO DAILY RF: 0 hydralazine 25 mg Tablet 25 mg PO TID RF: 0 ferrous sulfate [FeroSul] 325 mg (65 mg iron) Tablet 1 tab PO DAILY RF: 0 calcitriol 0.5 mcg capsule 2 cap PO Q OTHER DAY RF: 0 naloxone [Narcan] 4 mg/actuation spray,non-aerosol RF: 0 hydrocodone-acetaminophen 5 MG/325 MG tablet 1 tab PO Q4-6H MDD 6 PRN (Reason: Pain, Moderate) RF: 0 lisinopril 5 mg Tablet 5 mg PO DAILY RF: 0 isosorbide mononitrate 60 mg Tablet Extended Release 24 Hr 60 mg PO DAILY RF: 0 gabapentin 300 mg Capsule 900 mg PO BEDTIME RF: 0 hydroxyzine HCl 25 mg Tablet 25 mg PO QID PRN (Reason: Itching) RF: 0 carvedilol 3.125 mg Tablet 3.125 mg PO BID RF: 0 sodium polystyrene sulfonate [Kionex] Powder 1 dose PO DIRECTED RF: 0 ondansetron 4 mg tablet,disintegrating 1 tab PO PRN PRN (Reason: Nausea) RF: 0 Culturelle Pro-Well Fish Supp 1 dose PO DIRECTED RF: 0 Referrals: Lachelle Ruggiero PA-C [Primary Care Provider] - <Víctor Oliver DO - Last Filed: 04/13/18 22:48> Cosign ED Attending Akanksha Attestation: I was available for consultation during this patient's emergency department encounter
[2018-04-13] MEDS: HYDROCODONE/ACET 5/325 TABLET 2 TAB PO (18:41)
[2018-04-13] MEDS: LIDOCAINE/PRILOCAINE 5 GM TOP (18:41)
[2018-04-13 19:41] VITALS: BP 128/80; PULSE 84; RESP 16
[2018-04-13] MEDS: DOXYCYCLINE HYCLATE 100 MG TABLET PO (20:05)
== END 2018-04-13 20:17 | disposition home or self-care (01) ==
PROVIDERS: Emergency Provider Internal Medicine; Family Provider Anesthesiology Pain Medicine; PCP Physician Assistant
DX: L72.3 Sebaceous cyst (principal); L08.9 Local infection of the skin and subcutaneous tissue, unspecified
CPT/HCPCS: 10060; 36415; 73218; 80053; 99283; 99284

== ENCOUNTER 2018-05-01 12:28 | Inpatient (IN) | payer OTHER, SELFPAY ==
[2017-10-15 01:25] VITALS: BMI 23.8
[2017-10-15 09:17] VITALS: PULSE 78; RESP 15; O2SAT 98
[2018-05-01] VITALS (8 sets, daily range): BP systolic 165–213; BP diastolic 73–92; PULSE 78–97; RESP 11–21; TEMP 36.4–36.7; O2SAT 95–100; BMI 19.7
--- NOTE | 2018-05-01 | DI.ECHO.S_ITS ---
[facility] +---------+ : : [address] : : : : [id number] : : : : Phone: [phone] Echocardiogram Report + + :Name: HAO WINN Study Date: 05/03/2018 Height: 62 in : :[facility] Weight: 107 lb : : Gender: Female BSA: 1.5 m2 : :: 1945 Age: 72 yrs BP: 166/80 mmHg: :Reason For Study: Congestive Heart Failure : : Performed By: Rosario Guardado : :Referring: Chilo DELGADO E : + + Interpretation Summary Mild concentric left ventricular hypertrophy with ejection fraction 60-65%. Grade I diastolic dysfunction. Severely dilated left atrium. Mild to moderate mitral regurgitation. Mild to moderate aortic regurgitation. Mild tricuspid regurgitation. The right ventricular systolic pressure is estimated to be at least 34 mmHg based on an estimated right atrial pressure of 3 mm Hg. Comparison is made with the echocardiogram of 10-15-17, pulmonary artery pressure has decreased and pleural effusion has disappeared. Procedure: A two-dimensional transthoracic echocardiogram with color flow and Doppler was performed. The study quality was technically good. Comparison is made with the echocardiogram of 10-15-17. The patient was in normal sinus rhythm during the exam. The patient had frequent PVCs during the exam. Left Ventricle: The left ventricle is normal in size. There is mild concentric left ventricular hypertrophy. The ejection fraction is estimated to be 60-65%. There are no focal wall motion abnormalities. Diastolic parameters suggest a relaxation abnormality of the left ventricle, consistent with probable normal filling pressures. Right Ventricle: The right ventricle grossly appears normal in size with probable normal systolic function. Atria: The left atrium is severely dilated. Right atrial size is normal. The interatrial septum is intact with no evidence for an atrial septal defect. Mitral Valve: The mitral valve is grossly normal. There is mild to moderate mitral regurgitation. Aortic Valve: The aortic valve is trileaflet. The aortic valve opens well. There is mild to moderate aortic regurgitation. Tricuspid Valve: The tricuspid valve leaflets are thin and pliable. There is mild tricuspid regurgitation. The right ventricular systolic pressure is estimated to be at least 34 mmHg based on an estimated right atrial pressure of 3 mm Hg. Pulmonic Valve: The pulmonic valve is normal in structure and function. There is no pulmonic valvular regurgitation. Great Vessels: The aortic root is normal size. The ascending aorta is at the upper limits of normal in size. The IVC is of normal diameter and collapses greater than 50% with a sniff. This suggests a low right atrial pressure of 3 mm Hg. Pericardium/ Pleura There is no pericardial effusion. There is no pleural effusion. MMode/2D Measurements & Calculations LVIDd: 4.5 cm Ao root diam: 3.4 cm LVIDs: 2.6 cm Aortic Jxn: 2.9 cm FS: 41.5 % asc Aorta Diam: 3.5 cm EPSS: 0.90 cm Ao Arch Diam (Prox Trans): 2.9 cm IVSd: 1.1 cm LVPWd: 1.2 cm LV taylor. diameter/BSA (cm/m^2): 3.1 LV sys. diameter/BSA (cm/m^2): 1.8 LA dimension: 3.8 cm RA long axis: 4.4 cm LA A2 area: 26.2 cm2 RA area: 14.1 cm2 LA A4 area: 18.9 cm2 RA vol: 38.0 ml LA length (vol): 5.4 cm RA : 26.0 ml/m2 LA vol: 77.6 ml IVC diam: 1.3 cm LA vol index: 52.9 ml/m2 RVDd major: 6.7 cm RVD1 (basal): 3.4 cm RVD2 (mid): 2.6 cm Doppler Measurements & Calculations Ao V2 max: 157.1 cm/sec AI P1/2t: 755.9 msec Ao V2 mean: 109.0 cm/sec AI dec slope: 173.0 cm/sec2 Ao max P.9 mmHg Ao mean P.3 mmHg Ao V2 VTI: 29.0 cm MV E max jared: 77.3 cm/sec TR max jared: 279.1 cm/sec MV A max jared: 92.1 cm/sec TR max P.2 mmHg MV E/A: 0.84 PA V2 max: 78.6 cm/sec Med Peak E' Jared: 2.9 cm/sec PA V2 mean: 51.9 cm/sec E/E' med: 26.2 PA mean P.3 mmHg Lat Peak E' Jared: 5.6 cm/sec PA Accel Time: 0.15 sec E/E' lat: 13.9 E/e' average: 20.0 MV dec time: 0.27 sec MV P1/2t: 77.1 msec MR ERO: 0.17 cm2 MV P1/2t max jared: 77.9 cm/sec MR flow rate: 95.3 cm3/sec MVA(P1/2t): 2.9 cm2 MR PISA radius: 0.62 cm Electronically signed by: Boy Wilson on Reading Physician:05/03/2018 12:35 PM
--- NOTE | 2018-05-01 12:43 | ED.GENADULT ---
HPI - General Adult General Chief complaint: Weakness Stated complaint: nausea, shorttness of breath, thoughts jumbled Time Seen by Provider: 05/01/18 12:35 Source: patient and family Mode of arrival: ambulatory Limitations: no limitations History of Present Illness HPI narrative: Patient is a 72-year-old female here for evaluation of multiple complaints. Over the past month patient has been started on a new medication for her rheumatoid arthritis. She has since been taken off that medication because she thought she was becoming very nauseous from it. The nausea has only somewhat improved after being off the medicine for the past 2 weeks. She states she has not been able to eat all that much for the past several weeks. Also not drinking all that much. She also thinks she has a urinary tract infection. She also states that for the past several weeks she has had some confusion. She states that she has problems thinking of what to say but then eventually comes up with what to say. This is not new today. She also states that she has been having shortness of breath when she goes from her chair to the bathroom. She is here with her daughters. Related Data Home Medications Medication Instructions Recorded Confirmed aspirin 81 mg PO QDAY #0 11/16/11 05/01/18 cyclosporine [Restasis] 0.05 % OPHTH BID #0 12/28/12 05/01/18 nifedipine 1 tab PO BID 10/06/17 05/01/18 pantoprazole 40 mg PO DAILY 10/06/17 05/01/18 levothyroxine 50 mcg PO DAILY 10/15/17 05/01/18 melatonin 3 mg PO BEDTIME PRN 10/15/17 05/01/18 carvedilol 3.125 mg PO BID 12/23/17 05/01/18 gabapentin 900 mg PO BEDTIME 12/23/17 05/01/18 hydrocodone-acetaminophen 1 tab PO Q4-6H PRN MDD 6 12/23/17 05/01/18 hydroxyzine HCl 25 mg PO QID PRN 12/23/17 05/01/18 isosorbide mononitrate 60 mg PO DAILY 12/23/17 05/01/18 lisinopril 5 mg PO DAILY 12/23/17 05/01/18 ondansetron 1 tab PO PRN PRN 12/23/17 05/01/18 calcitriol 2 cap PO Q OTHER DAY 04/13/18 05/01/18 hydralazine 25 mg PO TID 04/13/18 05/01/18 naloxone [Narcan] See Label Instructions .ROUTE 04/13/18 05/01/18 .COMPLEX Previous Rx's Medication Instructions Recorded acetaminophen 650 mg PO Q4HR PRN #60 tab 10/23/17 escitalopram oxalate 10 mg PO DAILY #30 tab 10/23/17 lorazepam 0.5 mg PO TID #30 tab MDD 3 10/23/17 Allergies Allergy/AdvReac Type Severity Reaction Status Date / Time Penicillins [PENICILLINS] Allergy Mild RASH Verified 05/01/18 12:47 Iodinated Contrast- Oral and Allergy Rash Verified 05/01/18 13:09 IV Dye NSAIDS (Non-Steroidal AdvReac Intermediate Nausea Verified 05/01/18 12:47 Anti-Inflamma Review of Systems Constitutional Denies chills, Reports fatigue, Denies fever(s), Denies frequent falls, Denies headache(s), Reports lethargy and Denies weakness ENT Ears, Nose, Mouth, and Throat: Denies vertigo, Reports dizziness, Denies headache(s), Reports disequilibrium, Denies tinnitus and Denies tongue swelling Cardiovascular Denies chest pain, Denies syncope, Reports palpitations, Reports dyspnea and Reports dyspnea on exertion Respiratory Denies cough, Reports dyspnea and Reports dyspnea on exertion Genitourinary Reports dysuria Musculoskeletal Denies myalgias and Denies tingling Integumentary/Breasts Comments: Dry skin Neurologic Reports confusion, Denies vertigo, Reports dizziness, Denies syncope, Denies frequent falls, Denies headache(s), Denies focal weakness, Denies memory loss, Denies convulsions, Denies tingling, Denies paresthesias, Reports disequilibrium and Denies weakness Psychiatric Reports confusion and Denies memory loss Endocrine Reports fatigue and Reports palpitations Hematologic/Lymphatic Comments: Not on anticoagulation Allergic/Immunologic Denies tongue swelling PFSH Medical History CHF (congestive heart failure) (Acute) Depression (Acute) GERD (gastroesophageal reflux disease) (Acute) History of seizure (Acute) Hypertension (Acute) Rheumatoid arthritis (Acute) Anemia (Acute) Anxiety (Acute) History of hysterectomy (Acute) Hypothyroidism (Acute) Migraine (Acute) Renal insufficiency (Acute) Sjogren's syndrome (Acute) Surgical History History of Sarita fundoplication (Acute) History of cataract extraction with lens replacement (Acute) History of surgical removal of lesion (Acute) History of tonsillectomy and adenoidectomy (Acute) Hx of appendectomy (Acute) Family History: Reviewed 05/01/18 by Chilo Page MD Social History household members: none Smoking Status: Never smoker Exam Initial Vital Signs Initial Vital Signs: Vital Signs Temperature 97.6 F 05/01/18 12:30 Pulse Rate 92 H 05/01/18 12:30 Respiratory Rate 17 05/01/18 12:30 Blood Pressure 200/87 H 05/01/18 12:30 Pulse Oximetry 100 05/01/18 12:30 Const General: cooperative, healthy appearing, comfortable, well developed, well groomed and No acute distress Orientation: alert, awake and oriented x3 HENMT Head: normal to inspection and normocephalic Resp Effort & Inspection: normal respiratory effort Auscultation: clear to auscultation bilaterally Cardio Rate: regular rate Rhythm: regular rhythm Pulses: radial pulses present GI Inspection: non-distended Palpation: soft, No firm and No tender Skin Lesions: no lesions Rashes: no rashes Other: Dry skin on the hands Neuro General: alert, awake and oriented x3 Cognition: normal cognition Speech: speech normal Sensory Exam: no sensory deficits noted Extrem General: normal to inspection, capillary refill normal and No edema Psych Appearance: grossly normal and well kempt Course Orders Ordered: ED Orders 05/01/18 12:58 CT head/brain wo con Stat XR chest 1V Stat 05/01/18 13:03 Acetaminophen Stat B Type Natriuretic Peptide Stat Complete Blood Count AUTO DIFF Stat Comprehensive Metabolic Panel Stat Lipase Stat Salicylate Stat Thyroid Stimulating Hormone Stat Troponin I Stat 05/01/18 15:14 Education, smoking cessation ONGOING 05/01/18 15:16 Consult to Discharge Planning Routine Consult to Occupational Therapy Evaluate & Treat Consult to Physical Therapy Evaluate & Treat 05/02/18 05:00 Basic Metabolic Panel Routine Complete Blood Count AUTO DIFF Routine Acetaminophen (Tylenol) 650 mg PO Q6HR STORM Hydrocodone Bitart/Acetaminophen ([place] 5/325) 1 tab PO Q4H PRN PRN Reason: Pain, Moderate (4-6) Aspirin (Aspirin Ec) 81 mg PO DAILY [facility] Calcitriol (Rocaltrol) 0.25 mcg PO Q48H [facility] Carvedilol (Coreg) 3.125 mg PO BID [facility] Enoxaparin Sodium (Lovenox) 40 mg SUBCUT DAILY [facility] Escitalopram Oxalate (Lexapro) 10 mg PO DAILY [facility] Hydralazine HCl (Apresoline) 25 mg PO TID [facility] Last Admin: 05/01/18 16:49 Dose: 25 mg Hydroxyzine Pamoate (Vistaril) 25 mg PO QID PRN PRN Reason: Itching Dextrose/Sodium Chloride (Dextrose 5%-0.9% Ns) 1,000 mls @ 150 mls/hr IV CONT [facility] Last Admin: 05/01/18 16:52 Dose: 150 mls/hr Isosorbide Mononitrate (Imdur) 60 mg PO 0700 [facility] Levothyroxine Sodium (Synthroid) 50 mcg PO 0700 [facility] Lisinopril (Zestril) 5 mg PO DAILY [facility] Last Admin: 05/01/18 16:48 Dose: 5 mg Melatonin (Melatonin) 3 mg PO BEDTIME PRN PRN Reason: Sleep Nifedipine (Procardia Xl) 60 mg PO BID [facility] (Cyclosporine [ (Restasis] 0.05 %)) 0 % OPHTH BID [facility] Ondansetron HCl (Zofran) 4 mg IV Q8HR PRN PRN Reason: Nausea And Vomiting Ondansetron HCl (Zofran Odt) 4 mg PO PRN PRN PRN Reason: Nausea Last Admin: 05/01/18 16:49 Dose: 4 mg Pantoprazole Sodium (Protonix) 40 mg PO 0700 [facility] Discontinued Medications Sodium Chloride (Normal Saline 0.9%) 1,000 mls @ 1,000 mls/hr IV BOLUS ONE Stop: 05/01/18 13:55 Last Infusion: 05/01/18 14:52 Dose: 0 mls/hr Admin: 05/01/18 13:16 Dose: 1,000 mls/hr Vital Signs - 8 hr 05/01/18 12:30 05/01/18 13:00 05/01/18 13:30 Temperature 97.6 F Pulse Rate 92 H 81 78 Respiratory Rate 17 21 11 L Blood Pressure 200/87 H Blood Pressure [Left Arm] 207/75 H 207/75 H Pulse Oximetry 100 96 97 05/01/18 14:00 05/01/18 15:12 05/01/18 15:20 Temperature 98.1 F Pulse Rate 80 88 97 H Respiratory Rate 14 16 18 Blood Pressure 213/92 H Blood Pressure [Left Arm] 202/73 H 178/86 H Pulse Oximetry 98 95 100 Medical Decision Making Lab Data Lab results reviewed: Yes I reviewed the patient's lab results. Result diagrams: 05/01/18 13:03 05/01/18 13:03 Lab Results 05/01/18 05/01/18 05/01/18 Range/Units 13:03 13:03 13:03 WBC 3.0 L (4.5-11.0) X10^3/uL RBC 3.49 L (4.0-5.2) X10^6/uL Hgb 11.0 L (12.0-16.0) g/dL Hct 33.2 L (36-46) % MCV 95.1 (80-100) fL MCH 31.4 (26-34) PG MCHC 33.0 (30-36) % RDW 17.1 H (11.6-14.8) % Plt Count 258 (150-400) X10^3/uL Neut % (Auto) 70.3 (50-75) % Lymph % (Auto) 20.8 L (25-40) % [place] % (Auto) 7.9 (3-14) % Eos % (Auto) 0.2 L (2-4) % Baso % (Auto) 0.8 (0-2) % Neut # (Auto) 2100 (2534-8126) /uL Lymph # (Auto) 600 L (4724-6109) /uL [place] # (Auto) 200 (0-900) /uL Eos # (Auto) 0 (0-450) /uL Baso # (Auto) 0 (0-100) /uL Sodium 127 L (137-145) mmol/L Potassium 4.9 (3.4-5.1) mmol/L Chloride 89 L (98-107) mmol/L Carbon Dioxide 27 (22-32) mmol/L BUN 16 (7-17) mg/dL Creatinine 1.50 H (0.52-1.04) mg/dL Estimated GFR 34.1 L (>60) mL/min BUN/Creatinine Ratio 10.7 (6-22) Glucose 134 H (80-110) mg/dL Calcium 8.9 (8.4-10.2) mg/dL Total Bilirubin 0.6 (0.2-1.3) mg/dL AST 44 H (14-36) IU/L ALT 33 (9-52) IU/L Alkaline Phosphatase 100 (38-126) U/L Troponin I 0.044 H (0.01-0.034) ng/mL B-Natriuretic Peptide 748 H (<100) Total Protein 6.6 (6.3-8.2) g/dL Albumin 3.9 (3.5-5.0) g/dL Globulin 2.7 (1.7-4.1) g/dL Albumin/Globulin Ratio 1.4 (1.0-2.8) Lipase 13 L (23-300) U/L TSH 2.63 (0.47-4.68) uIU/mL Salicylates 1.1 (<20) mg/dL Acetaminophen < 10 L (10-30) ug/mL Imaging Data CT scan - head: Radiologist's impression: PROCEDURE: CT HEAD/BRAIN WO CON INDICATIONS: Confusion TECHNIQUE: Noncontrast 4.5 mm thick angled axial sections acquired from the foramen magnum to the vertex, with coronal and sagittal reformats. For radiation dose reduction, the following was used: automated exposure control, adjustment of mA and/or kV according to patient size. COMPARISON: None. FINDINGS: Image quality: Excellent. CSF spaces: Basal cisterns are patent. No extra-axial fluid collections. The ventricles are symmetric in size and shape. Brain: No intracranial bleeds or masses. There is cerebral volume loss for age, with resultant ventricular and sulcal prominence. There are periventricular and deep white matter chronic small vessel ischemic changes. There is intracranial internal carotid artery atherosclerosis. Minimal peripheral hyperdensity along the right temporal fossa is favored to be artifact. Skull and face: Calvarium and visualized facial bones appear intact, without suspicious lesions. Sinuses: Visualized sinuses and mastoids are clear. Stable postsurgical changes from prior sinus surgery. IMPRESSION: CT head without acute intracranial abnormalities. Stable age-related senescent changes and sequela of chronic small vessel ischemic disease. Dictated by: Kevin Carrillo M.D. on 05/01/2018 at 13:25 Approved by: Kevin Carrillo M.D. on 05/01/2018 at 13:29 Chest x-ray: Radiologist's impression: PROCEDURE: XR CHEST 1V INDICATIONS: Shortness of breath TECHNIQUE: One view of the chest was acquired. COMPARISON: 12/23/17. FINDINGS: Surgical changes and devices: Multiple surgical coils are noted in the upper abdomen just left of midline.. Lungs and pleura: No pleural effusions or pneumothorax. Lungs are clear. Mediastinum: Cardiomediastinal contours are stable. Mildly tortuous course of the thoracic aorta as before. Bones and chest wall: No suspicious bony lesions. Overlying soft tissues appear unremarkable. IMPRESSION: Chest without acute cardiopulmonary abnormalities. Dictated by: Kevin Carrillo M.D. on 05/01/2018 at 13:30 Approved by: Kevin Carrillo M.D. on 05/01/2018 at 13:31 ECG Data Attestation: I personally reviewed and interpreted this ECG as follows: Prior ECG tracings: not available for review Interpretation: Sinus rhythm Ventricular rate 83 Normal axis LVH Normal QRS Normal QTC No ST T wave changes MDM Narrative Medical decision making narrative: Patient was able to provide us a urine here in the emergency department. Her BNP was slightly elevated above baseline. Her troponin was slightly elevated although she has no ischemic changes on her EKG and no chest pain. She stated that she does have a history of CHF. She is not currently in heart failure. She also states that decrease in fluid intake. No signs of infection. Given her elevated troponin and BMP it did discuss the case with Dr. Page who is the hospitalist today who will admit the patient for further evaluation and treatment. I discussed the admission with the patient. She expressed understanding and agreement this plan. Discharge Plan Departure Patient Disposition: Admitted as Observation Clinical Impression: Weakness, Elevated troponin, Breath shortness, Dysuria, Hypertension, Hyponatremia Discharge Date/Time: 05/01/18 15:11 Interventions: ED Discharge Assessment Last Done: 05/01/18 15:06 Admit Date/Time: 05/01/18 14:23 Admit Provider: Chilo Page
--- NOTE | 2018-05-01 12:58 | DI.RAD.S_ITS ---
PROCEDURE: XR CHEST 1V INDICATIONS: Shortness of breath TECHNIQUE: One view of the chest was acquired. COMPARISON: 12/23/17. FINDINGS: Surgical changes and devices: Multiple surgical coils are noted in the upper abdomen just left of midline.. Lungs and pleura: No pleural effusions or pneumothorax. Lungs are clear. Mediastinum: Cardiomediastinal contours are stable. Mildly tortuous course of the thoracic aorta as before. Bones and chest wall: No suspicious bony lesions. Overlying soft tissues appear unremarkable. IMPRESSION: Chest without acute cardiopulmonary abnormalities. Dictated by: Kevin Carrillo M.D. on 05/01/2018 at 13:30 Approved by: Kevin Carrillo M.D. on 05/01/2018 at 13:31
--- NOTE | 2018-05-01 12:58 | DI.CT.S_ITS ---
PROCEDURE: CT HEAD/BRAIN WO CON INDICATIONS: Confusion TECHNIQUE: Noncontrast 4.5 mm thick angled axial sections acquired from the foramen magnum to the vertex, with coronal and sagittal reformats. For radiation dose reduction, the following was used: automated exposure control, adjustment of mA and/or kV according to patient size. COMPARISON: None. FINDINGS: Image quality: Excellent. CSF spaces: Basal cisterns are patent. No extra-axial fluid collections. The ventricles are symmetric in size and shape. Brain: No intracranial bleeds or masses. There is cerebral volume loss for age, with resultant ventricular and sulcal prominence. There are periventricular and deep white matter chronic small vessel ischemic changes. There is intracranial internal carotid artery atherosclerosis. Minimal peripheral hyperdensity along the right temporal fossa is favored to be artifact. Skull and face: Calvarium and visualized facial bones appear intact, without suspicious lesions. Sinuses: Visualized sinuses and mastoids are clear. Stable postsurgical changes from prior sinus surgery. IMPRESSION: CT head without acute intracranial abnormalities. Stable age-related senescent changes and sequela of chronic small vessel ischemic disease. Dictated by: Kevin Carrillo M.D. on 05/01/2018 at 13:25 Approved by: Kevin Carrillo M.D. on 05/01/2018 at 13:29
[2018-05-01] MEDS: SODIUM CHLORIDE 0.9% 1,000 ML 1000 ML IV (13:16)
[2018-05-01 13:18] LABS: Add Manual Diff / Slide Review NO; Basophils Absolute Auto 0 /uL (0-100); Basophils Percent Auto 0.8 % (0-2); Eosinophils Absolute Auto 0 /uL (0-450); Eosinophils Percent Auto 0.2 % (2-4); Hematocrit 33.2 % (36-46); Lymphocytes Absolute Auto 600 /uL (1100-4500); Lymphocytes Percent Auto 20.8 % (25-40); Mean Corpuscular Hemoglobin 31.4 PG (26-34); Mean Corpuscular Volume 95.1 fL (80-100); Monocytes Absolute Auto 200 /uL (0-900); Monocytes Percent Auto 7.9 % (3-14); Neutrophils Absolute Auto 2100 /uL (1500-7000); Neutrophils Percent Auto 70.3 % (50-75); Platelet Count 258 X10^3/uL (150-400); Red Blood Cell Count 3.49 X10^6/uL (4.0-5.2); Red Cell Distribution Width 17.1 % (11.6-14.8)
[2018-05-01 13:21] LABS: Acetaminophen < 10 ug/mL (10-30); Alanine Aminotransferase 33 IU/L (9-52); Albumin 3.9 g/dL (3.5-5.0); Albumin Globulin Ratio 1.4 (1.0-2.8); Alkaline Phosphatase 100 U/L (38-126); Aspartate Aminotransferase 44 IU/L (14-36); BUN Creatinine Ratio 10.7 (6-22); Bilirubin Total 0.6 mg/dL (0.2-1.3); Blood Urea Nitrogen 16 mg/dL (7-17); Calcium 8.9 mg/dL (8.4-10.2); Carbon Dioxide 27 mmol/L (22-32); Chloride 89 mmol/L (98-107); Estimated Glomerular Filt Rate 34.1 mL/min (>60); Globulin 2.7 g/dL (1.7-4.1); Glucose 134 mg/dL (80-110); HEMOLYSIS < 15 (0-50); Lipase 13 U/L (23-300); Potassium 4.9 mmol/L (3.4-5.1); Salicylate 1.1 mg/dL (<20); Sodium 127 mmol/L (137-145); Total Protein 6.6 g/dL (6.3-8.2)
[2018-05-01 13:33] LABS: Troponin I 0.044 ng/mL (0.01-0.034)
[2018-05-01 13:36] LABS: B Type Natriuretic Peptide 748 (<100)
[2018-05-01 14:05] LABS: Thyroid Stimulating Hormone 2.63 uIU/mL (0.47-4.68)
--- NOTE | 2018-05-01 15:08 | PC.NURSE ---
pt tolerating bottle of water, no vomiting at this time.
--- NOTE | 2018-05-01 15:21 | P.HP_ITS ---
History of Present Illness Date Patient Seen: 05/01/18 Time Patient Seen: 16:15 Chief complaint: nausea, shorttness of breath, thoughts jumbled Narrative: This is a 72-year-old female, patient of Dr. Ruggiero, in [place], who presents with confusion consistent with a metabolic encephalopathy. She probably has a urinary tract infection, the urinalysis is still pending. She has had a head CT and chest x-ray which did not show a cause of the confusion. She has a complicated past medical history and was actually admitted here with respiratory failure and subsequent congestive heart failure diagnosis and prolonged intubation back in October of 2017. She says she had aspiration pneumonia. She subsequently was in rehab at a local intermediate facility and then went home. She lives alone but her twin daughters are visiting today and insisted she come in. She had a brief chest pain episode 2 days ago which she minimizes. The ceja symptom is ongoing weakness, difficulty talking and slow thinking along with a lack of oral intake for the last week or so. Today she was suddenly weaker than she had been. She has recently been placed on leflunomide and sulfasalazine from Dr. Garcia her solar sales assessor after she was recently confirmed to have rheumatoid arthritis. She has had osteoarthritis for a number of years prior. The thinking earlier this week was that 1 of those medicines was responsible and so they were held for several days. When asked why she is dehydrated she says that it is because she has lost her thirst and simply stopped drinking. There seems to be some nausea component although she does not really endorse that fully. She denies abdominal pain, chest pain, dysuria, fevers and coughing. She is quite hard of hearing and so communication is a challenge. Her troponin is mildly elevated but she has no matching symptoms to suggest a primary coronary event. She does not have a business control specialist. Patient History Medical History CHF (congestive heart failure) (Acute) Depression (Acute) GERD (gastroesophageal reflux disease) (Acute) History of seizure (Acute) Hypertension (Acute) Rheumatoid arthritis (Acute) Anemia (Acute) Anxiety (Acute) History of hysterectomy (Acute) Hypothyroidism (Acute) Migraine (Acute) Renal insufficiency (Acute) Sjogren's syndrome (Acute) Surgical History History of Sarita fundoplication (Acute) History of cataract extraction with lens replacement (Acute) History of surgical removal of lesion (Acute) History of tonsillectomy and adenoidectomy (Acute) Hx of appendectomy (Acute) Comment: Hysterectomy Sinus surgery x2 Hiatal hernia surgery x2 Family & Social History Family History: Reviewed 05/01/18 by Chilo Page MD Social History: household members none Tobacco & Substance use: Smoking Status Never smoker alcohol intake frequency 0-2 drinks per day Substance Use Type does not use Meds Home Medications Medication Instructions Recorded Confirmed Type aspirin 81 mg PO QDAY #0 11/16/11 05/01/18 History cyclosporine [Restasis] 0.05 % OPHTH BID #0 12/28/12 05/01/18 History nifedipine 1 tab PO BID 10/06/17 05/01/18 History pantoprazole 40 mg PO DAILY 10/06/17 05/01/18 History levothyroxine 50 mcg PO DAILY 10/15/17 05/01/18 History melatonin 3 mg PO BEDTIME PRN 10/15/17 05/01/18 History acetaminophen 650 mg PO Q4HR PRN #60 tab 10/23/17 05/01/18 Rx escitalopram oxalate 10 mg PO DAILY #30 tab 10/23/17 05/01/18 Rx lorazepam 0.5 mg PO TID #30 tab MDD 3 10/23/17 05/01/18 Rx carvedilol 3.125 mg PO BID 12/23/17 05/01/18 History gabapentin 900 mg PO BEDTIME 12/23/17 05/01/18 History hydrocodone-acetaminophen 1 tab PO Q4-6H PRN MDD 6 12/23/17 05/01/18 History hydroxyzine HCl 25 mg PO QID PRN 12/23/17 05/01/18 History isosorbide mononitrate 60 mg PO DAILY 12/23/17 05/01/18 History lisinopril 5 mg PO DAILY 12/23/17 05/01/18 History ondansetron 1 tab PO PRN PRN 12/23/17 05/01/18 History calcitriol 2 cap PO Q OTHER DAY 04/13/18 05/01/18 History hydralazine 25 mg PO TID 04/13/18 05/01/18 History naloxone [Narcan] See Label Instructions .ROUTE 04/13/18 05/01/18 History .COMPLEX Allergies Allergy/AdvReac Type Severity Reaction Status Date / Time Penicillins [PENICILLINS] Allergy Mild RASH Verified 05/01/18 12:47 Iodinated Contrast- Oral and Allergy Rash Verified 05/01/18 13:09 IV Dye NSAIDS (Non-Steroidal AdvReac Intermediate Nausea Verified 05/01/18 12:47 Anti-Inflamma Review of Systems Review of Systems Positive for confusion, weakness, dehydration, lack of thirst, mild nausea, trouble talking. Negative for chest pain (since 3 days ago), shortness of breath, coughing, fevers, chills, sweats, abdominal pain, vomiting, bleeding, diarrhea, dysuria, hematuria, worsening joint pain, seizures, headaches, new allergies. All systems reviewed & are unremarkable except as noted in HPI and below Exam Vital Signs (past 8 hours): - 05/01/18 12:30 05/01/18 13:00 05/01/18 13:30 Temperature 97.6 F Pulse Rate 92 H 81 78 Respiratory Rate 17 21 11 L Blood Pressure 200/87 H Blood Pressure [Left Arm] 207/75 H 207/75 H Pulse Oximetry 100 96 97 05/01/18 14:00 05/01/18 15:12 Temperature Pulse Rate 80 88 Respiratory Rate 14 16 Blood Pressure Blood Pressure [Left Arm] 202/73 H 178/86 H Pulse Oximetry 98 95 Oxygen Delivery Method Room Air Narrative Exam Narrative: Alert and oriented x3. Responses are slowed and take a lot of effort. She is quite hard of hearing and is processing slowly. No apparent distress. Pupils are equally round and reactive to light and accommodation. Extraocular muscles are intact. Sclerae are pink and nonicteric. Throat looks normal except for dry mucosa No lymph nodes are felt head, neck, supraclavicular area. There is no thyromegaly. JVD is less than 6 cm. No carotid bruits are heard. Heart is regular rate and rhythm without murmur. Lungs are clear to auscultation bilaterally. Abdomen is soft, nontender, no organomegaly, bowel sounds are active. Extremities have no ankle edema. Neuro exam the patient's responses are slow, her processing is slow. She is very hard of hearing. Cranial nerves 2-12 tested intact. There is no lateralizing deficit. Motor function is 4/ throughout. There is no tremor. Skin has no rash or jaundice. Objective Labs Result Diagrams: 05/01/18 13:03 05/01/18 13:03 Labs: Laboratory Results - last 24 hr 05/01/18 05/01/18 05/01/18 13:03 13:03 13:03 WBC 3.0 L RBC 3.49 L Hgb 11.0 L Hct 33.2 L MCV 95.1 MCH 31.4 MCHC 33.0 RDW 17.1 H Plt Count 258 Neut % (Auto) 70.3 Lymph % (Auto) 20.8 L [place] % (Auto) 7.9 Eos % (Auto) 0.2 L Baso % (Auto) 0.8 Neut # (Auto) 2100 Lymph # (Auto) 600 L [place] # (Auto) 200 Eos # (Auto) 0 Baso # (Auto) 0 Sodium 127 L Potassium 4.9 Chloride 89 L Carbon Dioxide 27 BUN 16 Creatinine 1.50 H Estimated GFR 34.1 L BUN/Creatinine Ratio 10.7 Glucose 134 H Calcium 8.9 Total Bilirubin 0.6 AST 44 H ALT 33 Alkaline Phosphatase 100 Troponin I 0.044 H B-Natriuretic Peptide 748 H Total Protein 6.6 Albumin 3.9 Globulin 2.7 Albumin/Globulin Ratio 1.4 Lipase 13 L TSH 2.63 Salicylates 1.1 Acetaminophen < 10 L Assessment & Plan (1) CHF (congestive heart failure): Problem details: The mild elevation in troponin is likely an unrelated phenomena to this acute illness. An echocardiogram will be done. She will need IV fluid to correct the obvious dehydration but the duration will need to be watched carefully. Current visit: Yes Status: Acute (2) History of seizure: Problem details: over 10 years ago Current visit: Yes Status: Acute (3) GERD (gastroesophageal reflux disease): Current visit: Yes Status: Acute (4) Depression: Current visit: Yes Status: Acute (5) Rheumatoid arthritis: Problem details: Holding sulfasalazine and leflunomide at this time. Current visit: Yes Status: Acute (6) Hypertension: Problem details: Resuming nifedipine, hydralazine, metoprolol carvedilol and isosorbide along with lisinopril tonight to treat the excessive blood pressure noted. Current visit: Yes Status: Acute (7) Elevated troponin: Problem details: Repeat troponin in the morning along with echocardiogram. Current visit: Yes Status: Acute (8) Acute metabolic encephalopathy: Problem details: She has had a thorough evaluation, except for no urinalysis successfully obtained as yet. If there is a urinary tract infection that would likely explain her symptoms. She certainly has some physical symptoms of dehydration which should be corrected with IV fluids. Antibiotics may be needed, pending urinalysis results. Hold the gabapentin and opiates. Current visit: Yes Status: Acute (9) Acquired hypothyroidism: Problem details: Continue levothyroxine. Current visit: Yes Status: Acute
--- NOTE | 2018-05-01 15:51 | PT.IPTN ---
Physical Therapy Treatment Note M3 PT-IP Subjective Start: 05/01/18 15:45 Freq: NEEDED Status: Active Protocol: Document 05/01/18 15:49 [facility] (Rec: 05/01/18 15:51 [facility] [id number]) Subjective Physical Therapy Visit Type Type Patient Unavailable Notes spoke with RN, pt's BP elevated at this time, recommended holding PT evaluation until BP is normalized. Will attempt tomorrow.
[2018-05-01] MEDS: LISINOPRIL 5 MG TABLET PO (16:48)
[2018-05-01] MEDS: ONDANSETRON 4 MG ODT PO (16:49)
[2018-05-01] MEDS: HYDRALAZINE 25 MG TABLET PO ×2 (16:49→20:19)
[2018-05-01] MEDS: DEXTROSE 5%-0.9% NS 1,000 ML 150 ML IV ×2 (16:52→23:05)
--- NOTE | 2018-05-01 17:28 | PC.NURSE ---
1530- Patient admited via stretcher from Emergency. Patient is alert and oriented. Daughters are at bedside. Patient BP noted to be very elevated will adress with admitting MD. Patient otherwise stable.
[2018-05-01] MEDS: HYDROCODONE/ACET 5/325 TABLET 1 TAB PO (20:09)
[2018-05-01] MEDS: ACETAMINOPHEN 325 MG TABLET 650 MG PO (20:09)
[2018-05-01] MEDS: CARVEDILOL 3.125 MG TABLET PO (20:11)
[2018-05-01] MEDS: NIFEdipine 30 MG TAB ER 60 MG PO (20:12)
[2018-05-01 22:32] LABS: Bacteria Urine None Seen; RBC Urine None Seen (0-5/HPF); WBC Urine None Seen (0-5/HPF)
[2018-05-01 22:44] LABS: Appearance Urine UA CLEAR; Bilirubin Urine UA NEGATIVE (NEGATIVE); Color Urine UA YELLOW; Culture Indicated Urine Cult Not Indicated; Glucose Urine UA NEGATIVE (Negative); Ketones Urine UA NEGATIVE (NEGATIVE); Leukocyte Esterase Urine UA NEGATIVE (NEGATIVE); Nitrite Urine UA NEGATIVE (Negative); Occult Blood Urine UA NEGATIVE (Negative); Protein Urine UA NEGATIVE (Negative); Urine Comments Microscopic Normal; Urobilinogen Urine UA 0.2 E.U./dL (0.2)
[2018-05-02] VITALS (11 sets, daily range): BP systolic 152–183; BP diastolic 73–84; PULSE 80–104; RESP 15–18; TEMP 36.4–36.7; O2SAT 94–99
[2018-05-02] MEDS: ACETAMINOPHEN 325 MG TABLET 650 MG PO ×3 (01:32→18:17)
[2018-05-02 05:25] LABS: Hematocrit 30.3 % (36-46); Hemoglobin 9.8 g/dL (12.0-16.0); Mean Corpuscular HGB Conc 32.5 % (30-36); Mean Corpuscular Hemoglobin 31.1 PG (26-34); Mean Corpuscular Volume 95.8 fL (80-100); Platelet Count 203 X10^3/uL (150-400); Red Blood Cell Count 3.16 X10^6/uL (4.0-5.2); Red Cell Distribution Width 17.6 % (11.6-14.8)
[2018-05-02 05:27] LABS: Add Manual Diff / Slide Review YES
[2018-05-02 05:30] LABS: BUN Creatinine Ratio 8.3 (6-22); Blood Urea Nitrogen 10 mg/dL (7-17); Calcium 7.6 mg/dL (8.4-10.2); Carbon Dioxide 25 mmol/L (22-32); Chloride 99 mmol/L (98-107); Estimated Glomerular Filt Rate 44.2 mL/min (>60); Glucose 128 mg/dL (80-110); HEMOLYSIS < 15 (0-50); Potassium 3.4 mmol/L (3.4-5.1); Sodium 130 mmol/L (137-145)
[2018-05-02 05:45] LABS: Neutrophils Absolute Manual 760 /uL (3000-5900); Total Cells Counted 100
[2018-05-02] MEDS: DEXTROSE 5%-0.9% NS 1,000 ML 150 ML IV (05:45)
[2018-05-02 05:46] LABS: RBC Morphology Normal Morphology
[2018-05-02] MEDS: PANTOPRAZOLE 40 MG TABLET PO (06:18)
[2018-05-02] MEDS: ISOSORBIDE MONONITRATE ER 60 MG PO (06:18)
[2018-05-02] MEDS: LEVOTHYROXINE 50 MCG TABLET PO (06:18)
[2018-05-02 08:05] LABS: B Type Natriuretic Peptide 672 (<100)
[2018-05-02 08:07] LABS: Troponin I 0.032 ng/mL (0.01-0.034)
[2018-05-02] MEDS: POTASSIUM CHLORIDE 40 MEQ in SODIUM CHLORIDE 0.9% 500 ML 130 ML IV (08:25)
[2018-05-02] MEDS: LISINOPRIL 5 MG TABLET PO (08:26)
[2018-05-02] MEDS: CARVEDILOL 3.125 MG TABLET PO ×2 (08:26→21:08)
[2018-05-02] MEDS: HYDRALAZINE 25 MG TABLET PO ×3 (08:26→21:08)
[2018-05-02] MEDS: CALCITRIOL 0.25 MCG CAPSULE PO (08:26)
[2018-05-02] MEDS: ASPIRIN EC 81 MG TABLET PO (08:26)
[2018-05-02] MEDS: ENOXAPARIN 40 MG/0.4 ML SYRINGE SUBCUT (08:27)
[2018-05-02] MEDS: NIFEdipine 30 MG TAB ER 60 MG PO ×2 (08:31→21:08)
[2018-05-02] MEDS: HYDROCODONE/ACET 5/325 TABLET 1 TAB PO (08:33)
--- NOTE | 2018-05-02 08:55 | PT.IIE ---
Current Diagnoses Hypothyroidism, unspecified (05/01/18) Major depressive disorder, single episode, unspecified (05/01/18) Metabolic encephalopathy (05/01/18) Essential (primary) hypertension (05/01/18) Heart failure, unspecified (05/01/18) Gastro-esophageal reflux disease without esophagitis (05/01/18) Rheumatoid arthritis, unspecified (05/01/18) Abnormal levels of other serum enzymes (05/01/18) Personal history of other specified conditions (05/01/18) Surgical History (Last Reviewed 05/01/18 @ 16:24 by Chilo Page MD) History of Sarita fundoplication (Acute) History of cataract extraction with lens replacement (Acute) History of surgical removal of lesion (Acute) History of tonsillectomy and adenoidectomy (Acute) Hx of appendectomy (Acute) Medical History (Last Updated 05/01/18 @ 16:24 by Chilo Page MD) CHF (congestive heart failure) (Acute) Depression (Acute) GERD (gastroesophageal reflux disease) (Acute) History of seizure (Acute) Hypertension (Acute) Rheumatoid arthritis (Acute) Anemia (Acute) Anxiety (Acute) History of hysterectomy (Acute) Hypothyroidism (Acute) Migraine (Acute) Renal insufficiency (Acute) Sjogren's syndrome (Acute) Physical Therapy Inpatient Evaluation/Re-Eval M1 PT/OT-IP Prior Functional Status Start: 05/01/18 15:45 Freq: NEEDED Status: Active Protocol: Document 05/02/18 08:55 [facility] (Rec: 05/02/18 11:07 [facility] [id number]) Medical Review Prior Functional Status Medical History Reviewed Yes Mobility and Gait modified indep household ambulation with occasional use of furniture or her 4WW. Activities of Daily Living and IADL's pt was driving prior to admission, neighbor takes her trash from her door to curbside and another neighbor gets her mail for her. Daughter who lives in [place], grocery shops for her. She gets Meals [employer] Wheels and was in the process of setting up [facility] [employer]. Social History Household Members none Living Arrangements Apartment/Condo Number of Floors (Floors) One Floor Number of Stairs To Enter/Railing? ramped entry Home Environment Standard Height Toilet Walk in Shower Home Equipment Four Wheel Walker Shower Seat with Backrest Additional Social History Comment Pt admitted with confusion, nausea, weakness and SOB. Head CT and chest radiograph negative. Possible CHF and UTI . Pt has a h/o L ankle fx that did not heal right wears an ankle brace or AFO for long gait distances but not indoors . She sleeps in her recliner at home, as she has B hip and back pain when attempting to sleep in her bed. M2 PT-IP Current Condition Start: 05/01/18 15:45 Freq: NEEDED Status: Active Protocol: Document 05/02/18 08:55 [facility] (Rec: 05/02/18 11:07 [facility] [id number]) Physical Therapy Current Condition Current Condition Evaluation Date 05/02/18 Treatment Diagnosis Nausea, SOB, impaired activity tolerance and weakness M3 PT-IP Subjective Start: 05/01/18 15:45 Freq: NEEDED Status: Active Protocol: Document 05/02/18 08:55 [facility] (Rec: 05/02/18 11:07 [facility] [id number]) Subjective Physical Therapy Visit Type Type Initial Evaluation Visit Start Time 08:55 Visit Stop Time 09:25 Total Visit Minutes 30 Number of DRIVABILITY TECHNICIAN Visits 0 Physical Therapy Visit Comments Patient Comments pt states she has been feeling so tired and weak. M4 PT-IP Mobility and Gait Start: 05/01/18 15:45 Freq: NEEDED Status: Active Protocol: Document 05/02/18 08:55 [facility] (Rec: 05/02/18 11:07 [facility] [id number]) PT-Bed Mobility Assessment Supine to Sit Supine to Sit Independent Sit to Supine Sit to Supine Independent Scooting Scooting to Edge of Bed Independent PT-Transfer Assessment Sit to and From Stand Sit to and from Stand Standby Assistance Equipment Transfer Assistive Device Gait Belt Front Wheeled Walker Transfers Transfer Destination Bed Transfer Technique Stand Step Pivot Transfer Ability Level of Assist Standby Assistance Gait Assessment Gait Gait Assistance Required: Standby Assistance Distance (Feet) 20 Assistive Devices Assistive Device Gait Belt Front Wheeled Walker Gait Deviations General Gait Pattern Decreased Stride Length Decreased Feet Clearance Narrow Based Gait Factors Limiting Gait Function Factors Limiting Gait Function Decreased Activity Tolerance Decreased Strength Limited Range of Motion Poor Balance Comments Gait Comments NM up to 125 bpm with gait, O2 saturation 97-99% on RA during session. Pt without SOB but did c/o fatigue. Refused chair. Refused to wear L brace on ankle for short gait. PT-Balance Assessment Sitting Balance and Reactions Static Sitting Balance Ability Good Dynamic Sitting Balance Ability Good Standing Balance and Reactions Static Standing Balance Ability Good Dynamic Standing Balance Ability Fair Device Used FWW M5 PT-IP Objective Assessments Start: 05/01/18 15:45 Freq: NEEDED Status: Active Protocol: Document 05/02/18 08:55 [facility] (Rec: 05/02/18 11:07 [facility] [id number]) Orientation Orientation/Cognition Level of Alertness Alert Gross Range of Motion Lower Extremity ROM Assessment Left Impaired Impairments L ankle ROM impaired but able to DF past 0 degrees Strength Lower Extremity Strength Assessment Bilaterally Impaired Hip flexion 4/5 B Knee flexion and extension 4/5 B Ankle DF R 5/5, L 3+/5 Coordination Assessment Gross Coordination Gross Coordination WNL Sensation Assessment Sensation Gross Sensation Right LE Impaired Left LE Impaired Light Touch Impaired Comments Sensation Comments neuropathy B feet Muscle Tone Muscle Tone WNL Yes M6 PT-IP Treatment Start: 05/01/18 15:45 Freq: NEEDED Status: Active Protocol: Document 05/02/18 08:55 [facility] (Rec: 05/02/18 11:07 [facility] [id number]) Physical Therapy Treatment Education Education Provided Safety M7 PT-IP Assessment and Plan Start: 05/01/18 15:45 Freq: NEEDED Status: Active Protocol: Document 05/02/18 08:55 [facility] (Rec: 05/02/18 11:07 [facility] [id number]) PT Summary Assessment and Plan Potential Rehabilitation Potential Good Status of Condition at Evaluation Evolving Summary Impairments ROM Strength Balance Cognition Transfers Gait Activity Tolerance Assessment Summary Pt able to ambulate short distance in room today, admits to fatigue but no c/o SOB on RA and O2 saturation WNL. NM elevated to 125 bpm with ambulation (20 ft). Pt is below her prior level of activity tolerance, and would greatly benefit from continued physical therapy q.d. to progress her gait distance, balance, and safety with functional independence. She may benefit from PT upon d/ c to continue to improve with mobility and activity tolerance. Expect pt to be able to d/c home with increased assistance when medically stable unless she worsens during this episode of care. Goals Transfer Goal Independent Gait Goal Standby Assistance Front Wheel Walker Four Wheel Walker Gait Distance 50 Days to Meet Goals 5 Frequency of Treatment Frequency Of Treatment Once a Day Treatment Plan Physical Therapy Treatment Plan Transfer Training Gait Training Therapeutic Exercise Balance Retraining Discharge Planning Neuromuscular Re-ed Other Recommendations and Next Treatment progress gait as tolerated Focus toward household distances, transfers, standing balance Recommendations To Nursing Amount of Assist Needed 1 Person Assist Discharge Recommendations PT Discharge Recommendations Home with Assistance Home Health
--- NOTE | 2018-05-02 10:02 | P.PN_ITS ---
Subjective Date Patient Seen: 05/02/18 Time Patient Seen: 10:03 Interval history: She is seen today to follow up her low white blood count, dehydration, weakness, rheumatoid arthritis, elevated troponin, anemia, hyponatremia, hypokalemia. With a potassium of 3.4 she has received additional potassium this morning. Her sodium level is up to 130. The BNP has dropped from 748 down to 672. Her troponin has dropped to 0.032. She tells me that her domínguez face appearance occurred after 1-2 months of prednisone therapy a few months ago. Her AST is slightly elevated at 44 but her ALT is normal at 33. She wants to get back on her regimen of Vicodin ES which Dr. Parsons at the [facility] has her on at 2 tablets twice a day. The white blood count is 2.0 with a hemoglobin of 9.8, down from 11.0. The urinalysis was normal. An echocardiogram is pending. The only complaint that she is able to specify is a ?hardness? in the stomach along with mild nausea. She is proving to be a diagnostic challenge. Exam Vital Signs (past 8 hours): - 05/02/18 04:20 05/02/18 07:16 Temperature 97.5 F L 98.1 F Pulse Rate 84 104 H Respiratory Rate 15 18 Blood Pressure 152/73 H 183/84 H Pulse Oximetry 99 94 Oxygen Delivery Method Room Air Oxygen Flow Rate 0 Narrative Exam Narrative: Alert and oriented x3 but remains very hard of hearing and subsequently moderately confused. No apparent distress. Her mucous membranes looked less dry. Her hands are puffy and the fingers are deviated. Her facial appearance has a rounded domínguez appearance. Heart is regular rate and rhythm without murmur. Lungs are clear to auscultation bilaterally. Extremities have no ankle edema. The abdomen is mildly tender in the epigastric area but otherwise is normal. Objective Labs Result Diagrams: 05/02/18 04:58 05/02/18 04:58 Labs: Laboratory Results - last 24 hr 05/01/18 05/01/18 05/01/18 13:03 13:03 13:03 WBC 3.0 L RBC 3.49 L Hgb 11.0 L Hct 33.2 L MCV 95.1 MCH 31.4 MCHC 33.0 RDW 17.1 H Plt Count 258 Neut % (Auto) 70.3 Lymph % (Auto) 20.8 L [place] % (Auto) 7.9 Eos % (Auto) 0.2 L Baso % (Auto) 0.8 Neut # (Auto) 2100 Lymph # (Auto) 600 L [place] # (Auto) 200 Eos # (Auto) 0 Baso # (Auto) 0 Total Counted Seg Neutrophils % Lymphocytes % (Manual) Monocytes % (Manual) Eosinophils % (Manual) Neutrophils # (Manual) RBC Morphology Sodium 127 L Potassium 4.9 Chloride 89 L Carbon Dioxide 27 BUN 16 Creatinine 1.50 H Estimated GFR 34.1 L BUN/Creatinine Ratio 10.7 Glucose 134 H Calcium 8.9 Total Bilirubin 0.6 AST 44 H ALT 33 Alkaline Phosphatase 100 Troponin I 0.044 H B-Natriuretic Peptide 748 H Total Protein 6.6 Albumin 3.9 Globulin 2.7 Albumin/Globulin Ratio 1.4 Lipase 13 L TSH 2.63 Urine Color Urine Appearance Urine pH Ur Specific Nora Urine Protein Urine Glucose (UA) Urine Ketones Urine Occult Blood Urine Nitrate Urine Bilirubin Urine Urobilinogen Ur Leukocyte Esterase Urine RBC Urine WBC Urine Bacteria Ur Culture Indicated? Micro UA Comment Salicylates 1.1 Acetaminophen < 10 L 05/01/18 05/02/18 05/02/18 19:45 04:58 04:58 WBC 2.0 L RBC 3.16 L Hgb 9.8 L Hct 30.3 L MCV 95.8 MCH 31.1 MCHC 32.5 RDW 17.6 H Plt Count 203 Neut % (Auto) Not Reportable Lymph % (Auto) Not Reportable [place] % (Auto) Not Reportable Eos % (Auto) Not Reportable Baso % (Auto) Not Reportable Neut # (Auto) Lymph # (Auto) Not Reportable [place] # (Auto) Not Reportable Eos # (Auto) Baso # (Auto) Not Reportable Total Counted 100 Seg Neutrophils % 38.0 Lymphocytes % (Manual) 52.0 H Monocytes % (Manual) 7.0 Eosinophils % (Manual) 3.0 Neutrophils # (Manual) 760 L RBC Morphology Normal morphology Sodium 130 L Potassium 3.4 D Chloride 99 Carbon Dioxide 25 BUN 10 Creatinine 1.20 H Estimated GFR 44.2 L BUN/Creatinine Ratio 8.3 Glucose 128 H Calcium 7.6 L Total Bilirubin AST ALT Alkaline Phosphatase Troponin I B-Natriuretic Peptide Total Protein Albumin Globulin Albumin/Globulin Ratio Lipase TSH Urine Color Yellow Urine Appearance Clear Urine pH 7.0 Ur Specific Nora 1.010 Urine Protein Negative Urine Glucose (UA) Negative Urine Ketones Negative Urine Occult Blood Negative Urine Nitrate Negative Urine Bilirubin Negative Urine Urobilinogen 0.2 Ur Leukocyte Esterase Negative Urine RBC None seen Urine WBC None seen Urine Bacteria None seen Ur Culture Indicated? Cult not indicated Micro UA Comment Microscopic normal Salicylates Acetaminophen 05/02/18 05/02/18 04:58 04:58 WBC RBC Hgb Hct MCV MCH MCHC RDW Plt Count Neut % (Auto) Lymph % (Auto) [place] % (Auto) Eos % (Auto) Baso % (Auto) Neut # (Auto) Lymph # (Auto) [place] # (Auto) Eos # (Auto) Baso # (Auto) Total Counted Seg Neutrophils % Lymphocytes % (Manual) Monocytes % (Manual) Eosinophils % (Manual) Neutrophils # (Manual) RBC Morphology Sodium Potassium Chloride Carbon Dioxide BUN Creatinine Estimated GFR BUN/Creatinine Ratio Glucose Calcium Total Bilirubin AST ALT Alkaline Phosphatase Troponin I 0.032 B-Natriuretic Peptide 672 H Total Protein Albumin Globulin Albumin/Globulin Ratio Lipase TSH Urine Color Urine Appearance Urine pH Ur Specific Nora Urine Protein Urine Glucose (UA) Urine Ketones Urine Occult Blood Urine Nitrate Urine Bilirubin Urine Urobilinogen Ur Leukocyte Esterase Urine RBC Urine WBC Urine Bacteria Ur Culture Indicated? Micro UA Comment Salicylates Acetaminophen Assessment & Plan (1) Acute metabolic encephalopathy: Problem details: This appears to have been related to her dehydration. Continue to hold the gabapentin and resume the hydrocodone today. Her symptoms still continue somewhat vague even know her mentation and speed of speech has returned closer to her baseline. We will continue IV hydration at a slower rate at this time. Current visit: Yes Status: Acute (2) Dehydration: Problem details: Decrease IV fluid from 150 mL/hr to 83 mL/hr. This can probably be stopped tomorrow. Recheck the sodium then. Current visit: Yes Status: Acute (3) Acquired hypothyroidism: Problem details: Continue levothyroxine. Current visit: Yes Status: Acute (4) Weakness: Problem details: This appears to be multifactorial, probably initiated by the rheumatoid arthritis. Current visit: Yes Status: Acute (5) Abdominal pain: Problem details: Consider endoscopic and CT scan imaging. The drop in the hemoglobin appears to be a hemodilution phenomenon but the possibility of gastric ulcer/gastritis GI bleeding is also still present. Current visit: No Status: Acute (6) Elevated troponin: Problem details: Repeat troponin this morning is back down to normal, still pending the echocardiogram. Current visit: Yes Status: Acute (7) Hypertension: Problem details: Blood pressure much improved at 152/73 on her current hydralazine, carvedilol, lisinopril, isosorbide. Qualifiers: Hypertension type: unspecified Qualified Code(s): I10 - Essential ( primary) hypertension Current visit: Yes Status: Acute (8) Hyponatremia: Problem details: This is correcting with IV saline infusion. Repeat tomorrow. Current visit: Yes Status: Acute (9) Neutropenia: Problem details: The inexplicable drop in the white blood count is concerning. She had been on leflunomide and sulfasalazine until about a week ago. Recheck CBC tomorrow. Current visit: Yes Status: Acute (10) Rheumatoid arthritis: Problem details: Holding steroids, sulfasalazine, leflunomide for now. Resuming hydrocodone today. Current visit: Yes Status: Acute (11) Normocytic anemia: Problem details: Consider this related to hemodilution but the possibility of her vague abdominal complaints today signaling a gastritis/GI bleed condition is also noted. Current visit: Yes Status: Acute Plan: Assessment/Plan Narrative:
[2018-05-02] MEDS: ESCITALOPRAM 10 MG TABLET PO (10:40)
[2018-05-02] MEDS: HYDROCODONE/ACET 10/325 TABLET 1 TAB PO (10:40)
--- NOTE | 2018-05-02 12:05 | CM.DANOTE ---
DCP: assessment: case received, EMR reviewed and met with pt. Introduced self and role. Pt is a 72 year old female who admitted to care of hospitalist team yesterday afternoon. Admission status: INPT but UR RN notes this is still under review. Payer: [employer] [facility] PCP: Lachelle Ruggiero [facility]: Yosef Parsons Pt confirms that she was here in October 2017 for several days and that she did go to [facility] for some rehab/recovery. At that point the plan was for her then to transitions to daughter Jovita and Son in law Berts home in [place] but pt instead elected to go home. She has Meals on Wheels set up. She does drive. She says [facility] were set to have their first visit to help her tomorrow. Spoke with Dr. Page and PT David in Team Rounds. Dr. Page stated etiology of pt's s/s is not known at this time. PT is seeing pt. May benefit from an OT eval as POC unfolds. P: to be determined. phone number for [place]: [phone].
[2018-05-02] MEDS: DEXTROSE 5%-0.9% NS 1,000 ML 84 ML IV ×2 (12:10→18:32)
[2018-05-02] MEDS: hydrOXYzine pamoate 25 MG CAPSULE PO (12:10)
[2018-05-02] MEDS: ONDANSETRON 4 MG ODT PO (12:10)
[2018-05-02] MEDS: ONDANSETRON 4 MG/2 ML INJ IV (18:36)
[2018-05-02] MEDS: HYDROCODONE/ACET 10/325 TABLET 2 TAB PO (21:09)
[2018-05-03] VITALS (16 sets, daily range): BP systolic 156–206; BP diastolic 76–94; PULSE 74–96; RESP 16–20; TEMP 36.6–36.9; O2SAT 85–99
[2018-05-03] MEDS: ONDANSETRON 4 MG ODT PO ×2 (00:38→08:39)
[2018-05-03 05:14] LABS: Add Manual Diff / Slide Review NO; Basophils Absolute Auto 0 /uL (0-100); Basophils Percent Auto 0.9 % (0-2); Eosinophils Absolute Auto 100 /uL (0-450); Eosinophils Percent Auto 2.6 % (2-4); Hematocrit 32.7 % (36-46); Hemoglobin 10.8 g/dL (12.0-16.0); Lymphocytes Absolute Auto 900 /uL (1100-4500); Lymphocytes Percent Auto 32.7 % (25-40); Mean Corpuscular Hemoglobin 31.3 PG (26-34); Mean Corpuscular Volume 94.9 fL (80-100); Monocytes Absolute Auto 300 /uL (0-900); Monocytes Percent Auto 9.9 % (3-14); Neutrophils Absolute Auto 1500 /uL (1500-7000); Neutrophils Percent Auto 53.9 % (50-75); Platelet Count 226 X10^3/uL (150-400); Red Blood Cell Count 3.45 X10^6/uL (4.0-5.2); Red Cell Distribution Width 17.5 % (11.6-14.8); White Blood Cell Count 2.8 X10^3/uL (4.5-11.0)
[2018-05-03 05:22] LABS: Blood Urea Nitrogen 5 mg/dL (7-17); Calcium 8.1 mg/dL (8.4-10.2); Carbon Dioxide 25 mmol/L (22-32); Chloride 100 mmol/L (98-107); Estimated Glomerular Filt Rate 54.5 mL/min (>60); Glucose 110 mg/dL (80-110); HEMOLYSIS < 15 (0-50); Potassium 3.3 mmol/L (3.4-5.1); Sodium 133 mmol/L (137-145)
[2018-05-03 05:31] LABS: B Type Natriuretic Peptide 703 (<100)
[2018-05-03 05:33] LABS: Troponin I 0.034 ng/mL (0.01-0.034)
--- NOTE | 2018-05-03 05:42 | PC.NURSE ---
Declined to take her scheduled Tylenol 0000 & 0600 doses. States I been taking extra strength Vicodin & it has Tylenol in it. I'll just wait for my next dose of Vicodin. Denies any pain @ rest, will cont. POC & monitor.
[2018-05-03] MEDS: LEVOTHYROXINE 50 MCG TABLET PO (06:20)
[2018-05-03] MEDS: PANTOPRAZOLE 40 MG TABLET PO (06:20)
[2018-05-03] MEDS: ISOSORBIDE MONONITRATE ER 60 MG PO (06:20)
[2018-05-03] MEDS: POTASSIUM CHLORIDE 60 MEQ in SODIUM CHLORIDE 0.9% 500 ML 88.333 ML IV (06:23)
--- NOTE | 2018-05-03 06:29 | PC.NURSE ---
60 meq. IVPB of Potassium infusing, scanned but E-MAR did not required for a cosigner. Hung K-rider & infusion rate was verified with co-ordinator Brenda Morales RN. that the infusion rate is 88.3. Will report to day RN & after the K-riders is finish to stop IVF & saline locked.
[2018-05-03] MEDS: ASPIRIN EC 81 MG TABLET PO (08:36)
[2018-05-03] MEDS: CARVEDILOL 3.125 MG TABLET PO (08:36)
[2018-05-03] MEDS: NIFEdipine 30 MG TAB ER 60 MG PO ×2 (08:36→22:05)
[2018-05-03] MEDS: LISINOPRIL 5 MG TABLET PO (08:37)
[2018-05-03] MEDS: HYDRALAZINE 25 MG TABLET PO ×2 (08:37→14:27)
[2018-05-03] MEDS: ESCITALOPRAM 10 MG TABLET PO (08:38)
[2018-05-03] MEDS: ENOXAPARIN 40 MG/0.4 ML SYRINGE SUBCUT (08:39)
[2018-05-03] MEDS: HYDROCODONE/ACET 10/325 TABLET 2 TAB PO ×2 (08:41→22:05)
--- NOTE | 2018-05-03 09:44 | PT.IPTN ---
Current Diagnoses Anemia, unspecified (05/01/18) Neutropenia, unspecified (05/01/18) Hypothyroidism, unspecified (05/01/18) Dehydration (05/01/18) Hypo-osmolality and hyponatremia (05/01/18) Major depressive disorder, single episode, unspecified (05/01/18) Metabolic encephalopathy (05/01/18) Essential (primary) hypertension (05/01/18) Heart failure, unspecified (05/01/18) Gastro-esophageal reflux disease without esophagitis (05/01/18) Rheumatoid arthritis, unspecified (05/01/18) Unspecified abdominal pain (05/01/18) Weakness (05/01/18) Abnormal levels of other serum enzymes (05/01/18) Personal history of other specified conditions (05/01/18) Physical Therapy Treatment Note M2 PT-IP Current Condition Start: 05/01/18 15:45 Freq: NEEDED Status: Active Protocol: Document 05/02/18 08:55 RCC (Rec: 05/02/18 11:07 RCC [id number]) Physical Therapy Current Condition Current Condition Evaluation Date 05/02/18 Treatment Diagnosis Nausea, SOB, impaired activity tolerance and weakness M3 PT-IP Subjective Start: 05/01/18 15:45 Freq: NEEDED Status: Active Protocol: Document 05/03/18 09:15 CLB (Rec: 05/03/18 09:44 CLB [id number]) Subjective Physical Therapy Visit Type Type Treatment Note Visit Start Time 09:15 Visit Stop Time 09:30 Total Visit Minutes 15 Number of POWER CUTTING MACHINE OPERATOR Visits 1 Physical Therapy Visit Comments Patient Comments Pt agreeable to ambulate and sit in chair. M4 PT-IP Mobility and Gait Start: 05/01/18 15:45 Freq: NEEDED Status: Active Protocol: Document 05/03/18 09:15 CLB (Rec: 05/03/18 09:44 CLB [id number]) PT-Bed Mobility Assessment Supine to Sit Supine to Sit Independent Scooting Scooting to Edge of Bed Independent PT-Transfer Assessment Sit to and From Stand Sit to and from Stand Standby Assistance Equipment Transfer Assistive Device Gait Belt Front Wheeled Walker Transfers Transfer Destination Chair Transfer Technique Stand Step Pivot Transfer Ability Level of Assist Standby Assistance Gait Assessment Gait Gait Assistance Required: Standby Assistance Distance (Feet) 30 Assistive Devices Assistive Device Gait Belt Front Wheeled Walker Gait Deviations General Gait Pattern Decreased Stride Length Decreased Feet Clearance Narrow Based Gait Factors Limiting Gait Function Factors Limiting Gait Function Decreased Activity Tolerance Decreased Strength Limited Range of Motion Poor Balance M5 PT-IP Objective Assessments Start: 05/01/18 15:45 Freq: NEEDED Status: Active Protocol: Document 05/02/18 08:55 RCC (Rec: 05/02/18 11:07 [facility] [id number]) Orientation Orientation/Cognition Level of Alertness Alert Gross Range of Motion Lower Extremity ROM Assessment Left Impaired Impairments L ankle ROM impaired but able to DF past 0 degrees Strength Lower Extremity Strength Assessment Bilaterally Impaired Hip flexion 4/5 B Knee flexion and extension 4/5 B Ankle DF R 5/5, L 3+/5 Coordination Assessment Gross Coordination Gross Coordination WNL Sensation Assessment Sensation Gross Sensation Right LE Impaired Left LE Impaired Light Touch Impaired Comments Sensation Comments neuropathy B feet Muscle Tone Muscle Tone WNL Yes M6 PT-IP Treatment Start: 05/01/18 15:45 Freq: NEEDED Status: Active Protocol: Document 05/02/18 08:55 RCC (Rec: 05/02/18 11:07 [facility] [id number]) Physical Therapy Treatment Education Education Provided Safety M7 PT-IP Assessment and Plan Start: 05/01/18 15:45 Freq: NEEDED Status: Active Protocol: Document 05/03/18 09:15 CLB (Rec: 05/03/18 09:44 CLB [id number]) PT Summary Assessment and Plan Summary Impairments ROM Strength Balance Cognition Transfers Gait Activity Tolerance Assessment Summary Pt able to increase in activity tolerance ambulating ~30ft w/o complaint of SOB or nausea. Pt refused donning brace stating she doesn't wear it indoors. Goals Transfer Goal Independent Gait Goal Standby Assistance Front Wheel Walker Four Wheel Walker Gait Distance 50 Days to Meet Goals 5 Frequency of Treatment Frequency Of Treatment Once a Day Treatment Plan Physical Therapy Treatment Plan Transfer Training Gait Training Therapeutic Exercise Balance Retraining Discharge Planning Neuromuscular Re-ed Recommendations To Nursing Amount of Assist Needed 1 Person Assist Discharge Recommendations PT Discharge Recommendations Home with Assistance Home Health
--- NOTE | 2018-05-03 09:45 | PC.NURSE ---
AM NOTE - pt easily awakens, mynor gen diet now states I'm fine but then states does have underlying nausea, I want to keep my breakfast down, reported earlier emesis overnight, states abd discomfort 7 on scale 0/10, req pain medication, discussed options, dosages and timing, given 4mg iv zofran and also 15mg iv toradol, after meal and nausea improved, given 10mg oxycodone, trial ra 85% ra, bs dim, enc freq use IS and the flutter valve an pt demonstrated correct use, IS to 1000, replaced nasal cannual 1l 96%, hr reg, abd is firm, distended, bt are present rlq and llq, bonded incision w/o redness or drainage, dsg over prev nayely site cdi, enc pt to mobilize this am and will do so when spouse arrives this am.
--- NOTE | 2018-05-03 10:24 | CM.DPC ---
Addendum entered by Laurence Wing R.N. 05/03/18 14:02: Stem Roller Or Crusher Operator for patient is Lindsey Knight from [employer], not [facility]. Micaela was working for Lindsey today, and spoke to her. She stated that she would review clinicals and P.T. notes to see if she qualifies for skilled, and would call back. Original Note: Addendum entered by Laurence Wing R.N. 05/03/18 11:31: Faxed clinicals, face to face, and orders to [facility]. Original Note: DCP Cont: Discussed patient at rounds. Looking at latest physical therapy note, was advised that patient may benefit from home health. Patient is in the process of getting [facility] at home. Called Glenys, mary lou today. She also gave her work phone number: [phone]. She was inquiring if patient may be able to go to [facility] for short term stay. Let her know, that [employer] would need to be notified, and notes sent. Let her know, unsure if she would be authorized. Daughter is wanting her to go there because she is concerned that her mother is not eating enough. Asked her if she could pay privately if [facility] does not cover, and she stated that they could not. Discussed home health with patient. She stated that this would be a good idea, and worked with [facility] before. Let daughter know that this could be other option. Asked daughter about local doctor, and she stated that her mother does not want any other doctor other than her doctor in [place]. She is concerned that her mother does not eat solid food, only drinks nutritional supplements because they bother her stomach. Will have to see how she does here in hospital. Called Maddie at [employer], who is her supportive employment case manager, and left her a message. Faxed clinical notes and therapy notes. Also called Lin at [facility] to see if there are openings, which there are, but depends on [place]. Will send notes to [facility] as well. P:DCP to follow closely, as plan unfolds. Skilled may be an option if [facility] authorizes, otherwise, home with home health. Will continue to keep Glenys barreto, updated. Laurence Wing RN/Stem Roller Or Crusher Operator
--- NOTE | 2018-05-03 14:04 | P.PN_ITS ---
Subjective Date Patient Seen: 05/03/18 Interval history: Alexsander Dunham is a 72-year-old female with a past medical history significant for diastolic CHF, CKD stage 2, recent diagnosis of rheumatoid arthritis who presented with complaints of weakness, nausea, shortness of breath, and thoughts jumbled who was found to have metabolic encephalopathy secondary to dehydration, EDMUND, hyponatremia, and nausea with non-specific mid epigastric abdominal pain. The patient is resting in bed comfortably and in no acute distress. Her confusion is mild and resolving with IV fluid hydration. She continues to endorse mid epigastric abdominal pain that ?feels like a knot? with associated nausea. She also reports diarrhea for the last several days. She denies headache, chest pain, shortness of breath, vomiting, dysuria or constipation. She has been on leflunomide for her rheumatoid arthritis which has a very long half life and significant side effect of nausea up to 13% and diarrhea approaching 30%. She is voiding without difficulty. She is of ambulating ( minimally due to generalized weakness and RA) with assistance using FWW and physical therapy. Exam Vital Signs (past 8 hours): - 05/03/18 08:00 05/03/18 08:30 05/03/18 09:00 Temperature 98.4 F Pulse Rate 96 H Respiratory Rate 18 Blood Pressure 166/80 H Pulse Oximetry 98 85 L 96 05/03/18 12:00 Temperature 98.1 F Pulse Rate 86 Respiratory Rate 18 Blood Pressure 159/88 H Pulse Oximetry 98 Oxygen Delivery Method Nasal Cannula Oxygen Flow Rate 1 Narrative Exam Narrative: General: Elderly female lying in bed and in no acute distress, appears mildly uncomfortable, anxious, well-developed, well-nourished, appropriately interactive but forgetful and mildy confused. HEENT: Normocephalic, atraumatic. External ears without defect. Pupils equal, round, and reactive to light. Anicteric sclerae, moist conjunctivae, and no lid lag. Significantly hard of hearing. Neck: Supple with full range of motion. No jugular venous distension. No lymphadenopathy or thyromegaly. Cardiovascular: Regular rate and rhythm without murmurs, rubs, or gallops appreciated. Pulmonary: Clear to auscultation bilaterally without crackles, wheezes, or rhonchi. Normal respiratory effort with no use of accessory muscles. Abdomen: Soft, bowel sounds present, mild tenderness to palpation in epigastrium, nondistended. No hepatosplenomegaly or masses appreciated. Extremities: No clubbing, cyanosis, or edema. RA changes of hands bilaterally. Skin: Normal temperature, turgor, and texture; no rash, ulcers, or subcutaneous nodules appreciated. Neurological: Cranial nerves grossly intact. Psychiatric: Normal mood and affect. Alert. Confusion is mild and resolving. Objective Labs Result Diagrams: 05/03/18 05:02 05/03/18 05:02 Labs: Laboratory Results - last 24 hr 05/03/18 05/03/18 05:02 05:02 WBC 2.8 L RBC 3.45 L Hgb 10.8 L Hct 32.7 L MCV 94.9 MCH 31.3 MCHC 33.0 RDW 17.5 H Plt Count 226 Neut % (Auto) 53.9 Lymph % (Auto) 32.7 Sandoval % (Auto) 9.9 Eos % (Auto) 2.6 Baso % (Auto) 0.9 Neut # (Auto) 1500 Lymph # (Auto) 900 L Sandoval # (Auto) 300 Eos # (Auto) 100 Baso # (Auto) 0 Sodium 133 L Potassium 3.3 L Chloride 100 Carbon Dioxide 25 BUN 5 L Creatinine 1.00 Estimated GFR 54.5 L BUN/Creatinine Ratio 5.0 L Glucose 110 Calcium 8.1 L Troponin I 0.034 B-Natriuretic Peptide 703 H Assessment & Plan Plan: Assessment/Plan Narrative: Alexsander Dunham is a 72-year-old female with a past medical history significant for diastolic CHF, CKD stage 2, recent diagnosis of rheumatoid arthritis who presented with complaints of weakness, nausea, shortness of breath, and thoughts jumbled who was found to have metabolic encephalopathy secondary to dehydration, EDMUND, hyponatremia, and nausea with non-specific mid epigastric abdominal pain. 1. Acute metabolic encephalopathy, present on admission. Resolving. -Likely secondary to dehydration which may be side effect of leflunomide (nausea , anorexia and diarrhea) and less likely due to medications such as gabapentin and hydrocodone. -Hydrocodone has been restarted for RA pain without significant change in mentation. -Her mentation seems to be approaching baseline although at times she is mildly confused. 2. Acute dehydration, present on admission. Resolving. -Patient reports decreased appetite, vague midepigastric abdominal pain and nausea all of which are significant side effects of leflunomide (last dose taken 1-2 weeks ago with significant half life of 18 days). consider GI panel if diarrhea persists. -Discontinued IV fluids today and encouraged oral intake. -Ordered speech evaluation, pending. 3. Acute nausea and abdominal pain, present on admission. Active. -Patient has been on leflunomide which has a very long half-life (approx 18 days ) and has significant side effects of anorexia, nausea up to 13% and diarrhea approaching 30% for which I am highly suspicious is the source of her nausea, abdominal pain, poor appetite and lack of p.o. intake. -Will consider abdominal ultrasound or CT abdomen and pelvis if pain is persistent and/or acutely worsens. -Continue Zofran as needed for nausea. Ordered lorazepam 1 mg x1 due to persistent abdominal discomfort with nausea. 4. Acute kidney injury, on chronic kidney disease stage 2, present on admission. Resolved. -Likely secondary to prerenal azotemia from decreased p.o. intake. -Initial creatinine 1.5. Baseline creatinine 1.0 and now normal. -Avoid nephrotoxic agents. 5. Acute hyponatremia, present on admission. Resolving. -Initial sodium 127. Current sodium 133. -Continue to monitor sodium daily. 6. Generalized weakness, likley slow progressive process, present on admission. Stable. -This appears to be multifactorial, probably initiated by the rheumatoid arthritis. -Continue PT and OT. Patient will likely require SNF due severe weakness. 7. Elevated troponin of unclear significance, present on admission. Resolved. -Likely secondary to demand ischemia from significant dehydration. -Initial troponin mildly elevated at 0.044. Trended down and no need to repeat. -The patient denies chest pain. EKG did not demonstrate any acute ischemic changes. -Echocardiogram did not demonstrate any acute wall motion abnormalities. Preserved systolic function with EF of 60-65%, mild LVH, grade 1 diastolic dysfunction, severely dilated left atrium with mild valvular disease AR, MR, TR and improved RVSP of 34 mmHg. 8. Hypertension, chronic, present on admission. Stable. -Continues to be intermittently significant hypertensive with SBP 180's. -The patient is on 5 antihypertensives at low doses and not optimized. Discontinued hydralazine. Increased carvedilol from 3.125 mg to 6.25 mg twice daily and lisinopril from 5 mg to 10 mg daily. Continue nifedipine 60 mg twice daily and isosorbide mononitrate ER 60 mg daily. Could consider adding thiazide diuretic if continues to be hypertensive once other medications have been optimized. 9. Neutropenia, acuity unclear, present on admission. Stable. -The inexplicable drop in the white blood count is concerning. She had been on leflunomide and sulfasalazine until about a week ago. Recheck CBC tomorrow. 10. Rheumatoid arthritis, chronic, present on admission. Stable. -Holding steroids, sulfasalazine, leflunomide. -Continue home hydrocodone. 11. Normocytic anemia, chronic, present on admission. Stable. -After reviewing trend patient's hemoglobin and hematocrit have been stable and chronically low likely secondary to anemia of chronic disease. -No overt signs of bleeding. Vital signs stable -Continue to monitor hemoglobin hematocrit daily. 12. Hypothyroidism, chronic, present on admission. Stable. -Continue home levothyroxine. Disposition: Patient likely discharged in 1-2 days depending upon improvement in mentation and nausea, abdominal pain, and diarrhea.
--- NOTE | 2018-05-03 14:50 | CM.DPC ---
DCP Cont: Received a phone call back from Radha from [facility]. Stated that patient would not be authorized for intermediate due to her therapy notes, being back to baseline. Encouraged her to call daughter, Jovita. She had called patient as well, which worried her. Updated daughter, Jovita. Let her know that [facility] was ordered. Daughter is ok with home health, but worries about her nutritional intake. Asked her if she would like for her mother to have a speech evaluation to see if she can assess for any problems with intake, or reason that she is not wanting to eat solid foods. Daughter thought that this would be a good idea. Spoke to hospitalist, Dr. Henry, about patient nutritional intake, and her not qualifying for intermediate. Stated that she would be ok to have speech evaluate her. Went ahead and put in a order for a speech consult. Will await findings of speech therapist. P: DCP to continue to assess. Patient will have home health through [facility] at discharge. They have already been faxed information. Laurence Wing RN/Clinic Lpn
--- NOTE | 2018-05-03 15:42 | OT.IP.TRT ---
Current Diagnoses Anemia, unspecified (05/01/18) Neutropenia, unspecified (05/01/18) Hypothyroidism, unspecified (05/01/18) Dehydration (05/01/18) Hypo-osmolality and hyponatremia (05/01/18) Major depressive disorder, single episode, unspecified (05/01/18) Metabolic encephalopathy (05/01/18) Essential (primary) hypertension (05/01/18) Heart failure, unspecified (05/01/18) Gastro-esophageal reflux disease without esophagitis (05/01/18) Rheumatoid arthritis, unspecified (05/01/18) Unspecified abdominal pain (05/01/18) Weakness (05/01/18) Abnormal levels of other serum enzymes (05/01/18) Personal history of other specified conditions (05/01/18) Occupational Therapy Treatment Note M2 OT-IP Current Condition Start: 05/03/18 15:04 Freq: Status: Active Protocol: Document 05/03/18 15:20 [facility] (Rec: 05/03/18 15:42 [facility] [id number]) Occupational Therapy Current Condition Current Condition Evaluation Date 05/03/18 Treatment Diagnosis Dehydration/weakness Diagnosis Onset Date 05/01/18 M3 OT- IP Subjective and Pain Start: 05/03/18 15:04 Freq: Status: Active Protocol: Document 05/03/18 15:20 [facility] (Rec: 05/03/18 15:42 [facility] [id number]) OT- Subjective Occupational Therapy Visit Type Type Initial Evaluation Visit Start Time 13:25 Visit Stop Time 14:15 Total Visit Minutes 50 Occupational Therapy Visit Comments Patient Comments Pt agreeable to get up. OT Pain Assessment Pain When Pain Assessed At Rest Pain Present Pain Present Denied Pain M4 OT- IP ADL's Start: 05/03/18 15:04 Freq: Status: Active Protocol: Document 05/03/18 15:20 [facility] (Rec: 05/03/18 15:42 [facility] [id number]) OT ADL-Grooming General Evaluation Grooming Ability Standby Assistance Areas Needing Assistance Retrieving/Set-up of Grooming Items Comments OT Grooming Comments Pt needing assist for set-up due to decreased coordination from arthritis and needing to take a rest break in between and also sit while trying to brush her teeth. At home, pt has an electric toothbrush. OT ADL-Oral Care General Eval Oral Care Ability Independent OT ADL-Dressing General Eval Lower Body Dressing Ability Minimal Assistance Areas Needing Assistance Shoes Comments OT Dressing Comments Pt only needing JOY to help get AFO into left shoe, at home pt able to use shoe horn to get into her shoe. Pt able to independently argenis/doff left AFO on her own. Pt usually sits on the bench in front of her bed which in a more appropriate height for her then the recliner here in the hospital. OT ADL-Toileting Comments OT Toileting Comments No opportunity, pt states has used the bathroom with nursing already. OT ADL-Bathing Comments OT Bathing Comments Pt states willing to try to shower tomorrow. M5 OT- IP IADL's Start: 05/03/18 15:04 Freq: Status: Active Protocol: Document 05/03/18 15:20 [facility] (Rec: 05/03/18 15:42 [facility] [id number]) OT-Instrumental Activities of Daily Living Medication Management Medication Management Comments Pt states does her own. Money Management Money Management Comments Pt states does her own. Meal Preparation Meal Preparation Comments Pt uses Meals on Wheels, fixes dinner, use of try to eat and that everything is close by, or that she will use 4WW to help transport items. Accountant Auditor Accountant Auditor Caregiver Provides Assist M6 OT- IP Functional Cognition Start: 05/03/18 15:04 Freq: Status: Active Protocol: Document 05/03/18 15:20 [facility] (Rec: 05/03/18 15:42 [facility] [id number]) Cognitive Factors Limiting Selfcare Function Cognitive Ability Level of Alertness Alert Patient Orientation Name Place Situation Attention Span Ability Capable of Focused Attention Capable of Sustained Attention Ability to Follow Commands Able to Follow Multi-Step Commands Memory Description Immediate Intact Short Term Intact Working Intact Cognitive Comments Cognitive Assessment Comments Pt able to follow multiple commands and able to realize when needing to sit and take rest breaks. OT- Vision and Hearing OT- Hearing Assessment OT- Hearing Assessment Use of Hearing Aids M7 OT- IP Mobility and Balance Start: 05/03/18 15:04 Freq: Status: Active Protocol: Document 05/03/18 15:20 [facility] (Rec: 05/03/18 15:42 [facility] [id number]) OT- Bed Mobility Assessment Rolling Type of Rolling Roll to Right Level of Assistance Standby Assistance Supine to Sit Supine to Sit Assist Standby Assistance 1 Person Assistance OT-Transfer Assessment Sit to and From Stand Sit to and from Stand Standby Assistance 1 Person Assistance Transfers Transfer Ability Standby Assistance 1 Person Assistance Technique Transfer Destination Bed Bedside Commode Chair Comments Mobility Comments Pt able to safely walk in the room with FWW , however gets SOB and needing rest breaks, O2 level on RA 99% hr 120's. OT- Balance Assessment Sitting Balance and Reactions Static Sitting Balance Ability Normal Dynamic Sitting Balance Ability Normal Standing Balance and Reactions Static Standing Balance Ability Good Dynamic Standing Balance Ability Fair M8 OT- IP Objective Assessments Start: 05/03/18 15:04 Freq: Status: Active Protocol: Document 05/03/18 15:20 [facility] (Rec: 05/03/18 15:42 [facility] [id number]) OT Gross Range of Motion Upper Extremity Range of Motion Assessment Within Functional Limits ROM Impairments Arthritic changes in wrist and fingers due to arthritis. OT Strength Comments Strength Comments 3+/5 OT- Coordination Assessment Comments Coordination Comments Decreased to open wrapper on toothbrush and to open film on toothpaste due to arthritis. M9 OT- IP Assessment and Plan Start: 05/03/18 15:04 Freq: Status: Active Protocol: Document 05/03/18 15:20 [facility] (Rec: 05/03/18 15:42 [facility] [id number]) OT Summary Assessment and Plan Potential Rehabilitation Potential Good Analytic Complexity at Evaluation Low Summary OT Impairments Strength Coordination Functional Mobility Bathing Progress Towards Goals Slow Progress due to Activity Tolerance Assessment Summary Pt low complexity and main barrier is weakness and decreased activity tolerance and would benefit from skilled rehab however insurance has denied her, therefore would benefit from home health at this time. Pt will continue to need assist for IADL needs and helpful to have someone there for showering as well. Goals Shower Transfer Goal Standby Assistance Patient/Caregiver Education Goal Demonstrate Energy Conservation and Pacing Caregiver Independent Assisting Patient OT-Other Goals Pt to be able to incorporate energy conservation and work simplification strategies on a daily basis with good understanding and safety. Days to Meet Goals 5 Frequency of Treatment Frequency Of Treatment Once a Day Treatment Plan OT Treatment Plan ADL Training Functional Cognition Training Functional Mobility Patient/Family Education Discharge Planning Other Treatment Recommendations and Next Assess higher level cognitive Treatment Focus function and do shower. Discharge Recommendations OT Discharge Recommendations Home with Assistance Home Health
--- NOTE | 2018-05-03 15:43 | CM.DPC ---
DCP Cont: Called [facility] to make sure that they received face to face, orders, notes. Stated that they did. Stated that they need latest note dated 05/03 that matches face to face. Let her know that as soon as that was received, would fax it over, along with discharge summary. Patient likely will be here overnight and can follow up with note tomorrow. [facility] stated that they can see the patient as soon as Thu. P: DCP to continue to follow. Will fax [facility] lastest prog note when received. Laurence Wing RN/Mercantile Reporter
--- NOTE | 2018-05-03 18:16 | ST.IPCSEOM ---
Care Team Visit Care Team Role Provider Type Lachelle Ruggiero PA-C Primary Care Provider Non-Staff Specialty: Medical Address: [address] [place] [address] [address], [place], [address] Email: Yosef Parsons MD Family Provider Non-Staff Specialty: Anesthesia/Pain Management Address: [address] [place] [address], [id number] Email: Víctor Oliver DO Emergency Provider Physician Specialty: Emergency Medicine Address: [address] [place] [address], [address] Email: Chilo Page MD Admit Provider Physician Attending Provider Specialty: Medical Address: [address] [place] [address] [address], [place], [address] Email: Current Diagnoses Anemia, unspecified (05/01/18) Neutropenia, unspecified (05/01/18) Hypothyroidism, unspecified (05/01/18) Dehydration (05/01/18) Hypo-osmolality and hyponatremia (05/01/18) Major depressive disorder, single episode, unspecified (05/01/18) Metabolic encephalopathy (05/01/18) Essential (primary) hypertension (05/01/18) Heart failure, unspecified (05/01/18) Gastro-esophageal reflux disease without esophagitis (05/01/18) Rheumatoid arthritis, unspecified (05/01/18) Unspecified abdominal pain (05/01/18) Weakness (05/01/18) Abnormal levels of other serum enzymes (05/01/18) Personal history of other specified conditions (05/01/18) Past Medical History (Last Updated 05/01/18 @ 16:24 by Chilo Page MD) CHF (congestive heart failure) (Acute Medical) The mild elevation in troponin is likely an unrelated phenomena to this acute illness. An echocardiogram will be done. She will need IV fluid to correct the obvious dehydration but the duration will need to be watched carefully. Depression (Acute Medical) GERD (gastroesophageal reflux disease) (Acute Medical) History of seizure (Acute Medical) over 10 years ago Hypertension (Acute Medical) Resuming nifedipine, hydralazine, metoprolol carvedilol and isosorbide along with lisinopril tonight to treat the excessive blood pressure noted. Rheumatoid arthritis (Acute Medical) Holding sulfasalazine and leflunomide at this time. 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 Henry Reason for Referral dysphagia Setting Assessment Location Acute Care Visit Type Note Type Initial Evaluation Patient Information Identification Type Name ID Wristband History PER ED NOTE: 72-year-old female presented on 05/01/18 to the ED for evaluation of multiple complaints. Over the past month patient has been started on a new medication for her rheumatoid arthritis. She has since been taken off that medication because she thought she was becoming very nauseous from it. The nausea has only somewhat improved after being off the medicine for the past 2 weeks. She states she has not been able to eat all that much for the past several weeks. Also not drinking all that much. Swallowing evaluation ordered to r/o dysphagia. Medical History CHF (congestive heart failure) (Acute) Depression (Acute) GERD (gastroesophageal reflux disease) (Acute) History of seizure (Acute) Hypertension (Acute) Rheumatoid arthritis (Acute) Anemia (Acute) Anxiety (Acute) History of hysterectomy (Acute ) Hypothyroidism (Acute) Migraine (Acute) Renal insufficiency (Acute) Sjogren's syndrome (Acute) CT head without acute intracranial abnormalities. Chest x-ray indicated that pt 's lungs are clear. Subjective Observations pt up in bedside chair, agreeable to evaluation Evaluation Liquids Trialed Ice Chips Thin Solids Trialed Puree Dysphagia Advanced Regular Administration Type Tea Spoon Cup Single Sip Controlled Cup Sip Straw Self-Feeding Oral Impairment WFL Oral Strategies Upright at 90 degrees Oral Phase Comments oral phase WFL. Pt has natural teeth with some posterior teeth missing. Teeth in good hygiene Pharyngeal Impairment Mildly Impaired Pharyngeal Strategies Sitting Upright (90 deg) Small Bites and Sips Pharyngeal Phase Comments Pt presented with no obvious swallow delay. Hyolaryngeal elevation and excursion were WFL. Clear voicing post- swallow. pt did have a persistent throat clear following swallows. When asked about it, the pt noted that she has a lot of PND and she needs to clear her throat often. I appears that the pt's pharyngeal dysphagia is WFL to mildly impaired. More exact diagnosis of pharyngeal dysphagia would require mechanical assessment to be more accurate. Findings Dysphagia Type Pt's swallowing appears to be WFL Diet Recommendations Liquids Order Thin Diet Order Regular Comments No changes in pt's diet texture or liquids Treatment Plan Appropriate for Therapy No
[2018-05-03] MEDS: LORazepam 1 MG TABLET PO (19:22)
[2018-05-03] MEDS: CARVEDILOL 6.25 MG TABLET PO (22:04)
[2018-05-04] VITALS (8 sets, daily range): BP systolic 136–176; BP diastolic 64–89; PULSE 73–88; RESP 18–20; TEMP 36.5–37.1; O2SAT 95–99
[2018-05-04] MEDS: ONDANSETRON 4 MG ODT PO ×2 (00:24→08:31)
[2018-05-04] MEDS: ISOSORBIDE MONONITRATE ER 60 MG PO (07:00)
[2018-05-04] MEDS: LEVOTHYROXINE 50 MCG TABLET PO (07:00)
[2018-05-04] MEDS: PANTOPRAZOLE 40 MG TABLET PO (07:00)
--- NOTE | 2018-05-04 07:50 | P.PN_ITS ---
Subjective Date Patient Seen: 05/04/18 Interval history: Alexsander Dunham is a 72-year-old female with a past medical history significant for diastolic CHF, CKD stage 2, recent diagnosis of rheumatoid arthritis who presented with complaints of weakness, nausea, shortness of breath, and thoughts jumbled who was found to have metabolic encephalopathy secondary to dehydration, EDMUND, hyponatremia, and nausea with non-specific mid epigastric abdominal pain. The patient is resting in bed comfortably and in no acute distress. She is persistently requesting her home medication lorazepam 0.5 mg t.i.d. as needed for her ?stress and a knot sensation in her stomach.? She is reports that she does not always take this medication but is adamant this will help her stress and knot in her stomach so that she can eat. She previously has had gastritis and duodenal ulcer most recently in 10/2016. Started the patient on Carafate in addition to her Protonix. Encouraged the patient to slowly advance diet as tolerated and work with physical therapy on generalized weakness and physical deconditioning. Exam Vital Signs (past 8 hours): - 05/04/18 04:26 Temperature 97.8 F Pulse Rate 88 Respiratory Rate 18 Blood Pressure 163/89 H Pulse Oximetry 97 Oxygen Delivery Method Room Air Oxygen Flow Rate 0 Narrative Exam Narrative: General: Elderly female lying in bed and in no acute distress, appears mildly uncomfortable, anxious, well-developed, well-nourished, appropriately interactive. HEENT: Normocephalic, atraumatic. External ears without defect. Pupils equal, round, and reactive to light. Anicteric sclerae, moist conjunctivae, and no lid lag. Significantly hard of hearing. Neck: Supple with full range of motion. No jugular venous distension. No lymphadenopathy or thyromegaly. Cardiovascular: Regular rate and rhythm without murmurs, rubs, or gallops appreciated. Pulmonary: Clear to auscultation bilaterally without crackles, wheezes, or rhonchi. Normal respiratory effort with no use of accessory muscles. Abdomen: Soft, bowel sounds present, mild tenderness to palpation in epigastrium, nondistended. No rebound or guarding. No hepatosplenomegaly or masses appreciated. Extremities: No clubbing, cyanosis, or edema. RA changes of hands bilaterally. Skin: Normal temperature, turgor, and texture; no rash, ulcers, or subcutaneous nodules appreciated. Neurological: Cranial nerves grossly intact. Psychiatric: Normal mood and affect. Alert and oriented x3. Mild confusion and slow thinking. Objective Labs Result Diagrams: 05/04/18 08:07 05/04/18 08:07 Assessment & Plan Plan: Assessment/Plan Narrative: Alexsander Dunham is a 72-year-old female with a past medical history significant for diastolic CHF, CKD stage 2, recent diagnosis of rheumatoid arthritis who presented with complaints of weakness, nausea, shortness of breath, and thoughts jumbled who was found to have metabolic encephalopathy secondary to dehydration, EDMUND, hyponatremia, and nausea with non-specific mid epigastric abdominal pain. 1. Acute metabolic encephalopathy, present on admission. Resolving. -Likely secondary to dehydration which may be side effect of leflunomide (nausea , anorexia and diarrhea) vs GI related issue (previous history of gastritis and duodenal ulcer). Less likely due to medications such as gabapentin and hydrocodone. -Hydrocodone has been restarted for RA pain without significant change in mentation. Restart gabapentin today. -Her mentation seems to be approaching baseline but continues to intermittently exhibit mild confusion and delayed thinking restarted. 2. Acute dehydration, present on admission. Resolving. -Patient reports decreased appetite, vague midepigastric abdominal pain and nausea all of which are significant side effects of leflunomide (last dose taken 1-2 weeks ago with significant half life of 18 days). consider GI panel if diarrhea persists. -Restarted IV fluids with normal saline at 100 mL/hr as patient was not adequately taking in fluids. Continue to encourage oral intake of fluids -Patient was cleared by speech therapy. No dysphagia or trouble swallowing food. 3. Acute nausea and abdominal pain, present on admission. Active. -Patient has a history of gastritis and duodenal ulcer which may be an ongoing issue despite being on Protonix. She is on aspirin 81 mg daily. She has also been on leflunomide which has a very long half-life (approx 18 days) and has significant side effects of anorexia, nausea up to 13% and diarrhea approaching 30% for which I am highly suspicious is the source of her nausea, abdominal pain , poor appetite and lack of p.o. intake. -Will consider abdominal ultrasound or CT abdomen and pelvis if pain is persistent and/or acutely worsens. -Continue Zofran as needed for nausea. Restarted home lorazepam 0.5 mg t.i.d. as needed for anxiety and persistent abdominal discomfort with nausea. 4. Acute kidney injury, on chronic kidney disease stage 2, present on admission. Resolved. -Likely secondary to prerenal azotemia from decreased p.o. intake. -Initial creatinine 1.5. Baseline creatinine 1.0 and now normal. -Avoid nephrotoxic agents. 5. Acute hyponatremia, present on admission. Active. -Initial sodium 127. Patient not keeping up with adequate fluid intake and restarted IV fluids with NS at 100 mL/hr. -Continue to monitor sodium daily. 6. Generalized weakness, likley slow progressive process, present on admission. Stable. -This appears to be multifactorial, probably initiated by the rheumatoid arthritis and overtime physical decondition. -Continue PT and OT. Patient will likely require SNF due severe weakness. 7. Elevated troponin of unclear significance, present on admission. Resolved. -Likely secondary to demand ischemia from significant dehydration. -Initial troponin mildly elevated at 0.044. Trended down and no need to repeat. -The patient denies chest pain. EKG did not demonstrate any acute ischemic changes. -Echocardiogram did not demonstrate any acute wall motion abnormalities. Preserved systolic function with EF of 60-65%, mild LVH, grade 1 diastolic dysfunction, severely dilated left atrium with mild valvular disease AR, MR, TR and improved RVSP of 34 mmHg. 8. Hypertension, chronic, present on admission. Stable. -Continues to be intermittently significant hypertensive with SBP 180's. -The patient is on 5 antihypertensives at low doses and not optimized. Discontinued hydralazine. Increased carvedilol from 3.125 mg to 6.25 mg twice daily and lisinopril from 5 mg to 10 mg daily. Continue nifedipine 60 mg twice daily and isosorbide mononitrate ER 60 mg daily. Could consider adding thiazide diuretic if continues to be hypertensive once other medications have been optimized. 9. Neutropenia, acuity unclear, present on admission. Stable. -The inexplicable drop in the white blood count is concerning. She had been on leflunomide and sulfasalazine until about a week ago. Recheck CBC tomorrow. 10. Rheumatoid arthritis, chronic, present on admission. Stable. -Holding steroids, sulfasalazine, leflunomide. -Continue home hydrocodone. 11. Normocytic anemia, chronic, present on admission. Stable. -After reviewing trend patient's hemoglobin and hematocrit have been stable and chronically low likely secondary to anemia of chronic disease. -No overt signs of bleeding. Vital signs stable -Continue to monitor hemoglobin hematocrit daily. 12. Hypothyroidism, chronic, present on admission. Stable. -Continue home levothyroxine. Disposition: Patient likely discharged in 1-2 days depending upon improvement in mentation and nausea, abdominal pain, and diarrhea.
[2018-05-04 09:08] LABS: Add Manual Diff / Slide Review NO; Basophils Absolute Auto 0 /uL (0-100); Eosinophils Absolute Auto 100 /uL (0-450); Eosinophils Percent Auto 4.3 % (2-4); Hematocrit 33.9 % (36-46); Lymphocytes Absolute Auto 1100 /uL (1100-4500); Lymphocytes Percent Auto 40.4 % (25-40); Mean Corpuscular HGB Conc 32.6 % (30-36); Mean Corpuscular Hemoglobin 31.3 PG (26-34); Mean Corpuscular Volume 96.2 fL (80-100); Monocytes Absolute Auto 300 /uL (0-900); Monocytes Percent Auto 12.3 % (3-14); Neutrophils Absolute Auto 1200 /uL (1500-7000); Platelet Count 218 X10^3/uL (150-400); Red Blood Cell Count 3.52 X10^6/uL (4.0-5.2); Red Cell Distribution Width 17.5 % (11.6-14.8); White Blood Cell Count 2.8 X10^3/uL (4.5-11.0)
[2018-05-04 09:24] LABS: Blood Urea Nitrogen 7 mg/dL (7-17); Calcium 8.2 mg/dL (8.4-10.2); Carbon Dioxide 28 mmol/L (22-32); Chloride 96 mmol/L (98-107); Estimated Glomerular Filt Rate 54.5 mL/min (>60); Glucose 96 mg/dL (80-110); HEMOLYSIS < 15 (0-50); Magnesium 1.3 mg/dL (1.6-2.3); Potassium 3.7 mmol/L (3.4-5.1); Sodium 130 mmol/L (137-145)
[2018-05-04] MEDS: ASPIRIN EC 81 MG TABLET PO (09:38)
[2018-05-04] MEDS: CARVEDILOL 6.25 MG TABLET PO ×2 (09:39→20:18)
[2018-05-04] MEDS: CALCITRIOL 0.25 MCG CAPSULE PO (09:40)
[2018-05-04] MEDS: NIFEdipine 30 MG TAB ER 60 MG PO ×2 (09:40→20:17)
[2018-05-04] MEDS: ESCITALOPRAM 10 MG TABLET PO (09:41)
[2018-05-04] MEDS: ENOXAPARIN 40 MG/0.4 ML SYRINGE SUBCUT (09:41)
[2018-05-04] MEDS: LISINOPRIL 10 MG TABLET PO (09:42)
[2018-05-04] MEDS: HYDROCODONE/ACET 10/325 TABLET 2 TAB PO ×2 (09:45→20:17)
[2018-05-04] MEDS: SODIUM CHLORIDE 0.9% 1,000 ML 100 ML IV ×2 (09:47→22:22)
[2018-05-04] MEDS: MAGNESIUM SULFATE 4 GM/100 ML PIGGYBACK IV (09:48)
--- NOTE | 2018-05-04 10:27 | CM.DPC ---
DCP Cont: Received denial letter today from [facility], for skilled placement, which states that patient does not need complex care that is to be provided for nursing facility. Patient will be here for another day or so, according to Dr. Henry. Did fax [facility], the notes from 05/03. Patient still notes some intermittent confusion, and decreased appetite. Will pursue home health with [facility], at discharge. Will continue to update them on status. Plan is also to pursue [facility], which was originally to occur yesterday. P: DCP to continue to follow closely. Will also keep daughter, Jovita, updated. Laurence Wing RN/Facilities Painter
[2018-05-04] MEDS: SUCRALFATE 1 GM TABLET PO ×3 (11:26→20:16)
[2018-05-04] MEDS: LORazepam 0.5 MG TABLET PO ×2 (11:26→21:56)
--- NOTE | 2018-05-04 14:15 | OT.IP.TRT ---
Current Diagnoses Anemia, unspecified (05/01/18) Neutropenia, unspecified (05/01/18) Hypothyroidism, unspecified (05/01/18) Dehydration (05/01/18) Hypo-osmolality and hyponatremia (05/01/18) Major depressive disorder, single episode, unspecified (05/01/18) Metabolic encephalopathy (05/01/18) Essential (primary) hypertension (05/01/18) Gastro-esophageal reflux disease without esophagitis (05/01/18) Rheumatoid arthritis, unspecified (05/01/18) Unspecified abdominal pain (05/01/18) Weakness (05/01/18) Abnormal levels of other serum enzymes (05/01/18) Personal history of other specified conditions (05/01/18) Occupational Therapy Treatment Note M2 OT-IP Current Condition Start: 05/03/18 15:04 Freq: Status: Active Protocol: Document 05/03/18 15:20 CCC (Rec: 05/03/18 15:42 CCC [id number]) Occupational Therapy Current Condition Current Condition Evaluation Date 05/03/18 Treatment Diagnosis Dehydration/weakness Diagnosis Onset Date 05/01/18 M3 OT- IP Subjective and Pain Start: 05/03/18 15:04 Freq: Status: Active Protocol: Document 05/04/18 14:15 PJM (Rec: 05/04/18 14:35 PJM [id number]) OT- Subjective Occupational Therapy Visit Type Type Treatment Note Visit Start Time 01:31 Visit Stop Time 14:15 Total Visit Minutes 44 Notes Pt agreeable to tx with encouragement. I had a very stressful morning. Occupational Therapy Visit Comments Patient Comments I think they might send me home tomorrow. I will have [facility] 3 hrs/week. Patient/Caregiver Goals to return to independent living in her own home OT Pain Assessment Pain When Pain Assessed After Treatment Pain Present Pain Present Denied Pain M4 OT- IP ADL's Start: 05/03/18 15:04 Freq: Status: Active Protocol: Document 05/04/18 14:15 PJM (Rec: 05/04/18 14:35 PJM [id number]) OT LKH-Fcul-Acusmkl General Evaluation Self-Feeding Ability Independent OT ADL-Grooming General Evaluation Grooming Ability Independent Comments OT Grooming Comments Pt independent with seated and standing grooming at sink. Pt stood total of 3 min (1 min + 2 min)at sink and normally sits on toilet for grooming tasks. OT ADL-Oral Care General Eval Oral Care Ability Independent OT ADL-Dressing General Eval Lower Body Dressing Ability Independent Areas Needing Assistance Underpants/Brief Socks Comments OT Dressing Comments No adaptive equipment needed to don and doff brief , pants, and B socks. Pt declines ankle brace this session. OT ADL-Toileting General Evaluation Toileting Ability Independent Areas Needing Assistance Manage Clothing Perform Perineal Hygiene Devices Toileting Assistive Devices Raised Toilet Seat OT ADL-Bathing Comments OT Bathing Comments Pt agreed to shower tomorrow AM. M6 OT- IP Functional Cognition Start: 05/03/18 15:04 Freq: Status: Active Protocol: Document 05/04/18 14:15 PJM (Rec: 05/04/18 14:35 PJM [id number]) Cognitive Factors Limiting Selfcare Function Cognitive Ability Level of Alertness Alert Patient Orientation Name Day of Week Place Situation Attention Span Ability Capable of Focused Attention Capable of Sustained Attention Ability to Follow Commands Able to Follow One Step Commands Able to Follow Multi-Step Commands Safety Awareness No Deficits Noted Cognitive Comments Cognitive Assessment Comments Pt alert and oriented this session; recalls recent events . M7 OT- IP Mobility and Balance Start: 05/03/18 15:04 Freq: Status: Active Protocol: Document 05/04/18 14:15 PJM (Rec: 05/04/18 14:35 PJ [id number]) OT- Bed Mobility Assessment Rolling Type of Rolling Roll to Left Level of Assistance Independent Supine to Sit Supine to Sit Assist Independent Head of Bed Elevated Sit to Supine Sit to Supine Assist Independent Head of Bed Elevated Scooting Scooting to Edge of Bed Independent OT-Transfer Assessment Sit to and From Stand Sit to and from Stand Standby Assistance Total Assistance Transfers Transfer Ability Standby Assistance 1 Person Assistance Technique Transfer Destination Bed Chair Toilet Transfer Technique Stand Step Pivot Devices Transfer Assistive Devices Gait Belt Front Wheeled Walker Comments Mobility Comments Note pt normally sleeps in recliner at home. OT- Gait Assessment Gait Gait Assistance Required: Standby Assistance Distance (Feet) 25 Assistive Devices Assistive Device Gait Belt Front Wheeled Walker Comments Gait Ability Comments Pt ambulated to sink and toilet then back to bed with FWW with SBA and no LOB noted. Pt states she normally uses 4WW at home. OT- Balance Assessment Sitting Balance and Reactions Static Sitting Balance Ability Good Dynamic Sitting Balance Ability Good Standing Balance and Reactions Static Standing Balance Ability Good Dynamic Standing Balance Ability Good Comments Other Balance Tests/Deviations/Treatment during lower body clothing : management in standing M M9 OT- IP Assessment and Plan Start: 05/03/18 15:04 Freq: Status: Active Protocol: Document 05/04/18 14:15 PJM (Rec: 05/04/18 14:35 PJM [id number]) OT Summary Assessment and Plan Potential Rehabilitation Potential Good Summary OT Impairments Functional Mobility Bathing Shower Transfers Progress Towards Goals Progressing Toward Goals Assessment Summary Pt making good progress with functional mobility, transfers , and self care with increased activity tolerance today. Pt agreeable to shower tomorrow. 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 Daughter assists with grocery shopping, laundry and some cleaning. Goals Bathing Goal Standby Assistance Shower Transfer Goal Standby Assistance Patient/Caregiver Education Goal Demonstrate Energy Conservation and Pacing Caregiver Independent Assisting Patient OT-Other Goals Pt to be able to incorporate energy conservation and work simplification strategies on a daily basis with good understanding and safety. Days to Meet Goals 2 Frequency of Treatment Frequency Of Treatment Once a Day Treatment Plan OT Treatment Plan ADL Training Functional Cognition Training Functional Mobility Patient/Family Education Discharge Planning Discharge Recommendations Home Home Health OT/PT
--- NOTE | 2018-05-04 14:34 | PC.NURSE ---
AM NOTE - pt awakens easily, req zofran prior to breakfast before she tried any food for underlying nausea, given 4mg SL, did eat 1/2 yogurt this am, in and pt had long conversation with MD regarding her req for ativan to help the knot in her stomach that will help her eat, restarted ivf, Mg 4g admin, added carafate and admin 0.5mg po ativan.
--- NOTE | 2018-05-04 15:17 | PT.IPTN ---
Current Diagnoses Anemia, unspecified (05/01/18) Neutropenia, unspecified (05/01/18) Hypothyroidism, unspecified (05/01/18) Dehydration (05/01/18) Hypo-osmolality and hyponatremia (05/01/18) Major depressive disorder, single episode, unspecified (05/01/18) Metabolic encephalopathy (05/01/18) Essential (primary) hypertension (05/01/18) Gastro-esophageal reflux disease without esophagitis (05/01/18) Rheumatoid arthritis, unspecified (05/01/18) Unspecified abdominal pain (05/01/18) Weakness (05/01/18) Abnormal levels of other serum enzymes (05/01/18) Personal history of other specified conditions (05/01/18) Physical Therapy Treatment Note M2 PT-IP Current Condition Start: 05/01/18 15:45 Freq: NEEDED Status: Active Protocol: Document 05/02/18 08:55 RCC (Rec: 05/02/18 11:07 RCC [id number]) Physical Therapy Current Condition Current Condition Evaluation Date 05/02/18 Treatment Diagnosis Nausea, SOB, impaired activity tolerance and weakness M3 PT-IP Subjective Start: 05/01/18 15:45 Freq: NEEDED Status: Active Protocol: Document 05/04/18 14:45 CLB (Rec: 05/04/18 15:17 CLB [id number]) Subjective Physical Therapy Visit Type Type Treatment Note Visit Start Time 14:45 Visit Stop Time 15:00 Total Visit Minutes 30 Notes Pt refused PT twice today before agreeing to get OOB with PT. Number of SCIENCES DEAN Visits 2 Physical Therapy Visit Comments Patient Comments Pt agreed to get up for a walk in the room. Pt refused wearing brace or cowart ambulation. M4 PT-IP Mobility and Gait Start: 05/01/18 15:45 Freq: NEEDED Status: Active Protocol: Document 05/04/18 14:45 CLB (Rec: 05/04/18 15:17 CLB [id number]) PT-Bed Mobility Assessment Supine to Sit Supine to Sit Independent Sit to Supine Sit to Supine Independent Scooting Scooting to Edge of Bed Independent PT-Transfer Assessment Sit to and From Stand Sit to and from Stand Standby Assistance Equipment Transfer Assistive Device Gait Belt Front Wheeled Walker Transfers Transfer Destination Bed Transfer Technique Stand Step Pivot Transfer Ability Level of Assist Standby Assistance Gait Assessment Gait Gait Assistance Required: Standby Assistance Distance (Feet) 30 Assistive Devices Assistive Device Gait Belt Front Wheeled Walker Gait Deviations General Gait Pattern Decreased Stride Length Decreased Feet Clearance Narrow Based Gait Factors Limiting Gait Function Factors Limiting Gait Function Decreased Activity Tolerance Decreased Strength Limited Range of Motion Comments Gait Comments Pt improved with standing balance and endurance. Pt ambulated in room SBA while talking w/o SOB. M5 PT-IP Objective Assessments Start: 05/01/18 15:45 Freq: NEEDED Status: Active Protocol: Document 05/02/18 08:55 RCC (Rec: 05/02/18 11:07 RCC [id number]) Orientation Orientation/Cognition Level of Alertness Alert Gross Range of Motion Lower Extremity ROM Assessment Left Impaired Impairments L ankle ROM impaired but able to DF past 0 degrees Strength Lower Extremity Strength Assessment Bilaterally Impaired Hip flexion 4/5 B Knee flexion and extension 4/5 B Ankle DF R 5/5, L 3+/5 Coordination Assessment Gross Coordination Gross Coordination WNL Sensation Assessment Sensation Gross Sensation Right LE Impaired Left LE Impaired Light Touch Impaired Comments Sensation Comments neuropathy B feet Muscle Tone Muscle Tone WNL Yes M6 PT-IP Treatment Start: 05/01/18 15:45 Freq: NEEDED Status: Active Protocol: Document 05/02/18 08:55 RCC (Rec: 05/02/18 11:07 RCC [id number]) Physical Therapy Treatment Education Education Provided Safety M7 PT-IP Assessment and Plan Start: 05/01/18 15:45 Freq: NEEDED Status: Active Protocol: Document 05/04/18 14:45 CLB (Rec: 05/04/18 15:17 CLB [id number]) PT Summary Assessment and Plan Summary Impairments ROM Strength Balance Cognition Transfers Gait Activity Tolerance Assessment Summary Pt continues to increase activity tolerance but pt refuses to ambulate out of room. Pt had no c/o SOB. Pt is not motivated to ambulate or work with therapy. Goals Transfer Goal Independent Gait Goal Standby Assistance Front Wheel Walker Four Wheel Walker Gait Distance 50 Days to Meet Goals 5 Frequency of Treatment Frequency Of Treatment Once a Day Treatment Plan Physical Therapy Treatment Plan Transfer Training Gait Training Therapeutic Exercise Balance Retraining Discharge Planning Neuromuscular Re-ed Recommendations To Nursing Amount of Assist Needed 1 Person Assist Discharge Recommendations PT Discharge Recommendations Home with Assistance Home Health
[2018-05-04] MEDS: GABAPENTIN 300 MG CAPSULE 900 MG PO (20:19)
[2018-05-05] VITALS (7 sets, daily range): BP systolic 141–150; BP diastolic 66–77; PULSE 70–77; RESP 16–19; TEMP 36.5–36.6; O2SAT 94–99
--- NOTE | 2018-05-05 00:44 | PC.NURSE ---
Stapling Machine Operator Note: 0030: Awake, resting in bed. Vital signs stable. IV in place in rt AC with NS infusing at 100cc/hr. Pt remains on telemetry. She declines scheduled Tylenol at this time. She denies pain, discomfort, and nausea.
[2018-05-05] MEDS: LEVOTHYROXINE 50 MCG TABLET PO (05:52)
[2018-05-05] MEDS: PANTOPRAZOLE 40 MG TABLET PO (05:52)
[2018-05-05] MEDS: ISOSORBIDE MONONITRATE ER 60 MG PO (05:52)
[2018-05-05] MEDS: SODIUM CHLORIDE 0.9% 1,000 ML 100 ML IV (05:53)
[2018-05-05 06:16] LABS: BUN Creatinine Ratio 9.2 (6-22); Blood Urea Nitrogen 11 mg/dL (7-17); Calcium 7.8 mg/dL (8.4-10.2); Carbon Dioxide 24 mmol/L (22-32); Chloride 100 mmol/L (98-107); Estimated Glomerular Filt Rate 44.2 mL/min (>60); Glucose 93 mg/dL (80-110); HEMOLYSIS < 15 (0-50); Potassium 3.6 mmol/L (3.4-5.1); Sodium 130 mmol/L (137-145)
[2018-05-05] MEDS: HYDROCODONE/ACET 10/325 TABLET 2 TAB PO (09:04)
[2018-05-05] MEDS: LORazepam 0.5 MG TABLET PO (09:04)
[2018-05-05] MEDS: LISINOPRIL 10 MG TABLET PO (09:05)
[2018-05-05] MEDS: ESCITALOPRAM 10 MG TABLET PO (09:08)
[2018-05-05] MEDS: CARVEDILOL 6.25 MG TABLET PO (09:09)
[2018-05-05] MEDS: NIFEdipine 30 MG TAB ER 60 MG PO (09:09)
[2018-05-05] MEDS: SUCRALFATE 1 GM TABLET PO ×2 (09:09→11:07)
[2018-05-05] MEDS: ENOXAPARIN 40 MG/0.4 ML SYRINGE SUBCUT (09:09)
[2018-05-05] MEDS: ASPIRIN EC 81 MG TABLET PO (09:09)
--- NOTE | 2018-05-05 10:22 | PC.NURSE ---
Day shift note Assumed pt care at 0700. Pt is A/O x3, up SBA with FWW to chair for breakfast. Complains of pain in hands, which is pts baseline at home. Medicated with Ativan and [place] per JUN. Working with PT/OT this morning, with assistance for shower. Plan to discharge later today when daughter can pick her up. Care continues.
--- NOTE | 2018-05-05 10:41 | OT.IP.TRT ---
Current Diagnoses Anemia, unspecified (05/01/18) Neutropenia, unspecified (05/01/18) Hypothyroidism, unspecified (05/01/18) Dehydration (05/01/18) Hypo-osmolality and hyponatremia (05/01/18) Major depressive disorder, single episode, unspecified (05/01/18) Metabolic encephalopathy (05/01/18) Essential (primary) hypertension (05/01/18) Gastro-esophageal reflux disease without esophagitis (05/01/18) Rheumatoid arthritis, unspecified (05/01/18) Unspecified abdominal pain (05/01/18) Weakness (05/01/18) Abnormal levels of other serum enzymes (05/01/18) Personal history of other specified conditions (05/01/18) Occupational Therapy Treatment Note M3 OT- IP Subjective and Pain Start: 05/03/18 15:04 Freq: Status: Active Protocol: Document 05/05/18 10:41 PJM (Rec: 05/05/18 16:39 PJM [id number]) OT- Subjective Occupational Therapy Visit Type Type Treatment Note Visit Start Time 09:40 Visit Stop Time 10:41 Total Visit Minutes 61 Notes Pt agreeable to shower today. Occupational Therapy Visit Comments Patient Comments I feel much better today. Patient/Caregiver Goals to get stronger and go home OT Pain Assessment Pain When Pain Assessed After Treatment Pain Present Pain Present Denied Pain M4 OT- IP ADL's Start: 05/03/18 15:04 Freq: Status: Active Protocol: Document 05/05/18 10:41 PJM (Rec: 05/05/18 16:39 PJM [id number]) OT ADL-Dressing General Eval Upper Body Dressing Ability Minimal Assistance Lower Body Dressing Ability Independent Areas Needing Assistance Managing Buttons Comments OT Dressing Comments Note pt has button hook at home to assist. OT ADL-Toileting General Evaluation Toileting Ability Independent OT ADL-Bathing Bathing Type Bathing Type Shower General Evaluation Bathing Ability Minimal Assistance Devices Bathing Equipment Hand Held Shower Sprayer Shower Chair without Arms Grab Bars Comments OT Bathing Comments Pt requesting assist with hair washing. Pt plans to have [facility] [place] assist with shower PRN at home. Provided education re: energy conservation/pacing, equipt options to increase safety. M7 OT- IP Mobility and Balance Start: 05/03/18 15:04 Freq: Status: Active Protocol: Document 05/05/18 10:41 PJM (Rec: 05/05/18 16:39 PJ [id number]) OT- Bed Mobility Assessment Rolling Type of Rolling Roll to Left Level of Assistance Independent Supine to Sit Supine to Sit Assist Independent Sit to Supine Sit to Supine Assist Independent Scooting Scooting to Edge of Bed Independent OT-Transfer Assessment Sit to and From Stand Sit to and from Stand Independent Transfers Transfer Ability Standby Assistance Technique Transfer Destination Shower Stall Transfer Technique Stand Step Pivot Devices Transfer Assistive Devices Front Wheeled Walker OT- Gait Assessment Gait Gait Assistance Required: Independent Distance (Feet) 20 Assistive Devices Assistive Device Front Wheeled Walker OT- Balance Assessment Sitting Balance and Reactions Static Sitting Balance Ability Good Dynamic Sitting Balance Ability Good Standing Balance and Reactions Static Standing Balance Ability Good Dynamic Standing Balance Ability Good Comments Other Balance Tests/Deviations/Treatment during lower body dressing and : standing for portions of shower M9 OT- IP Assessment and Plan Start: 05/03/18 15:04 Freq: Status: Active Protocol: Document 05/05/18 10:41 PJM (Rec: 05/05/18 16:39 [facility] [id number]) OT Summary Assessment and Plan Summary Progress Towards Goals Safe For Discharge Goals Met Assessment Summary Pt completed showering today with SBA except for washing hair. She performs slowly and meticulously. Pt appears less anxious today. Pt verbalizing and demonstrating understanding of energy conservation/pacing techniques during self care tasks. See details above. All OT goals achieved for this admission and pt is safe to return home from OT standpoint. Recommend Home Health OT services to further increase endurance/ independence with light IADL tasks as pt lives alone. She does have supportive daughter who lives next door. Frequency of Treatment Frequency Of Treatment Discharge Discharge Recommendations OT Discharge Recommendations Home with Assistance Home Health
[2018-05-05] MEDS: ACETAMINOPHEN 325 MG TABLET 650 MG PO (11:07)
--- NOTE | 2018-05-05 11:12 | PM.DS.1 ---
History of Present Illness Date Patient Seen: 05/05/18 Chief complaint: nausea, shorttness of breath, thoughts jumbled Narrative: Written by Dr. Page: This is a 72-year-old female, patient of Dr. Ruggiero, in [place], who presents with confusion consistent with a metabolic encephalopathy. She probably has a urinary tract infection, the urinalysis is still pending. She has had a head CT and chest x-ray which did not show a cause of the confusion. She has a complicated past medical history and was actually admitted here with respiratory failure and subsequent congestive heart failure diagnosis and prolonged intubation back in October of 2017. She says she had aspiration pneumonia. She subsequently was in rehab at a local long-term facility and then went home. She lives alone but her twin daughters are visiting today and insisted she come in. She had a brief chest pain episode 2 days ago which she minimizes. The ceja symptom is ongoing weakness, difficulty talking and slow thinking along with a lack of oral intake for the last week or so. Today she was suddenly weaker than she had been. She has recently been placed on leflunomide and sulfasalazine from Dr. Garcia her fisher line after she was recently confirmed to have rheumatoid arthritis. She has had osteoarthritis for a number of years prior. The thinking earlier this week was that 1 of those medicines was responsible and so they were held for several days. When asked why she is dehydrated she says that it is because she has lost her thirst and simply stopped drinking. There seems to be some nausea component although she does not really endorse that fully. She denies abdominal pain, chest pain, dysuria, fevers and coughing. She is quite hard of hearing and so communication is a challenge. Her troponin is mildly elevated but she has no matching symptoms to suggest a primary coronary event. She does not have a sea kayaking guide. Discharge Providers Date of admission: 05/01/18 14:23 Primary care physician: Lachelle Ruggiero PA-C Consults: 05/01/18 15:16 Consult to Discharge Planning Routine Comment: Consult to Occupational Therapy Evaluate & Treat Comment: Physician Instructions: Evaluate and treat Consult to Physical Therapy Evaluate & Treat Comment: Physician Instructions: Evaluate and Treat 05/03/18 11:22 Consult to Home Health Routine Comment: Reason For Exam: Nursing, BONE WORKER, P.T/O.T. 05/03/18 14:49 Consult to Speech Therapy Evaluate & Treat Comment: Decreased nutritional intake Physician Instructions: Evaluate and treat Discharge provider: Callie Henry DO Discharge Date: 05/05/18 Summary Discharge Diagnosis: 1. Acute metabolic encephalopathy, present on admission. Resolved. 2. Acute dehydration, present on admission. Resolved. 3. Acute nausea and abdominal pain, present on admission. Resolved. 4. Acute kidney injury, on chronic kidney disease stage 2, present on admission. Resolved. 5. Acute hyponatremia, present on admission. Resolving and stable. 6. Generalized weakness, likley slow progressive process, present on admission. Stable. 7. Elevated troponin of unclear significance, present on admission. Resolved. 8. Hypertension, chronic, present on admission. Stable. 9. Neutropenia, chronic, present on admission. Stable. 10. Rheumatoid arthritis, chronic, present on admission. Stable. 11. Normocytic anemia, chronic, present on admission. Stable. 12. Hypothyroidism, chronic, present on admission. Stable. Hospital Course: 1. Acute metabolic encephalopathy, present on admission. Resolved. -Likely secondary to dehydration which may be side effect of leflunomide (nausea, anorexia and diarrhea) vs GI related issue (previous history of gastritis and duodenal ulcer). Less likely due to medications such as gabapentin and hydrocodone. -Hydrocodone has been restarted for RA pain without significant change in mentation. Restart gabapentin today. -Mentation at baseline but continues to intermittently exhibit mild confusion and delayed thinking restarted. 2. Acute dehydration, present on admission. Resolved. -Patient reports decreased appetite, vague midepigastric abdominal pain and nausea all of which are significant side effects of leflunomide (last dose taken 1-2 weeks ago with significant half life of 18 days). -Patient receieved IV fluids with normal saline at 100 mL/hr as she was not adequately taking in fluids. Continued to encourage oral intake of fluids. -Patient was cleared by speech therapy. No dysphagia or trouble swallowing food. 3. Acute nausea and abdominal pain, present on admission. Resolved. -Patient has a history of gastritis and duodenal ulcer which may be an ongoing issue despite being on Protonix. She is on aspirin 81 mg daily. She has also been on leflunomide which has a very long half-life (approx 18 days) and has significant side effects of anorexia, nausea up to 13% and diarrhea approaching 30% for which I am highly suspicious is the source of her nausea, abdominal pain, poor appetite and lack of p.o. intake. -Will consider abdominal ultrasound or CT abdomen and pelvis if pain is persistent and/or acutely worsens. -Continued Zofran as needed for nausea. Restarted home lorazepam 0.5 mg t.i.d. as needed for anxiety and persistent abdominal discomfort with nausea. -Placed patient on Carafate 1 g 4 times daily with meals and before bedtime and discharged with 2 week prescription. Recommend follow up GI for possible repeat EGD. 4. Acute kidney injury, on chronic kidney disease stage 2, present on admission. Resolved. -Likely secondary to prerenal azotemia from decreased p.o. intake. -Initial creatinine 1.5. Baseline creatinine 1.0 and now normal. -Avoided nephrotoxic agents. 5. Acute hyponatremia, present on admission. Resolving and stable. -Initial sodium 127. Patient not keeping up with adequate fluid intake and restarted IV fluids with NS at 100 mL/hr which were discontinued. Sodium stable at 130. Repeat BMP in 1 week with PCP. -Continued to monitor sodium daily. 6. Generalized weakness, likley slow progressive process, present on admission. Stable. -This appears to be multifactorial, probably initiated by the rheumatoid arthritis and overtime physical decondition. -Continued PT and OT. Patient discharged home with home health PT/OT/nursing/BONE WORKER. 7. Elevated troponin of unclear significance, present on admission. Resolved. -Likely secondary to demand ischemia from significant dehydration. -Initial troponin mildly elevated at 0.044. Trended down and no need to repeat. -The patient denies chest pain. EKG did not demonstrate any acute ischemic changes. -Echocardiogram did not demonstrate any acute wall motion abnormalities. Preserved systolic function with EF of 60-65%, mild LVH, grade 1 diastolic dysfunction, severely dilated left atrium with mild valvular disease AR, MR, TR and improved RVSP of 34 mmHg. 8. Hypertension, chronic, present on admission. Stable. -Continues to be intermittently significantly hypertensive with SBP 180's. -The patient is on 5 antihypertensives at low doses and not optimized. Discontinued hydralazine. Increased carvedilol from 3.125 mg to 6.25 mg twice daily and lisinopril from 5 mg to 10 mg daily. Continue nifedipine 60 mg twice daily and isosorbide mononitrate ER 60 mg daily. Could consider adding thiazide diuretic if continues to be hypertensive once other medications have been optimized. 9. Neutropenia, chronic, present on admission. Stable. -Patient has been mildly leukopenic since October 2017. Continue to monitor WBC. Stable. 10. Rheumatoid arthritis, chronic, present on admission. Stable. -Holding steroids, sulfasalazine, leflunomide. -Continued home hydrocodone. 11. Normocytic anemia, chronic, present on admission. Stable. -After reviewing trend patient's hemoglobin and hematocrit have been stable and chronically low likely secondary to anemia of chronic disease. -No overt signs of bleeding. Vital signs stable -Continuedto monitor hemoglobin hematocrit daily. 12. Hypothyroidism, chronic, present on admission. Stable. -Continued home levothyroxine. Status at Discharge Cognitive/behavioral status at discharge: Functional status at discharge: uses cane/walker Overall status at discharge: patient is back to baseline Exam Vital Signs (past 8 hours): - 05/05/18 05:05 05/05/18 07:00 05/05/18 09:00 Temperature 97.7 F Pulse Rate 70 77 Respiratory Rate 19 16 Blood Pressure 141/66 H 150/77 H Pulse Oximetry 99 99 05/05/18 09:05 05/05/18 09:09 Temperature Pulse Rate 77 Respiratory Rate Blood Pressure 150/77 H 150/77 H Pulse Oximetry Oxygen Delivery Method Room Air Oxygen Flow Rate 0 Narrative Exam Narrative: General: Elderly frail female sitting at bedside and in no acute distress, well-developed, well-nourished, appropriately interactive. HEENT: Normocephalic, atraumatic. External ears without defect. Pupils equal, round, and reactive to light. Anicteric sclerae, moist conjunctivae, and no lid lag. Significantly hard of hearing. Neck: Supple with full range of motion. No jugular venous distension. No lymphadenopathy or thyromegaly. Cardiovascular: Regular rate and rhythm without murmurs, rubs, or gallops appreciated. Pulmonary: Clear to auscultation bilaterally without crackles, wheezes, or rhonchi. Normal respiratory effort with no use of accessory muscles. Abdomen: Soft, bowel sounds present, no tenderness to palpation, nondistended. No rebound or guarding. No hepatosplenomegaly or masses appreciated. Extremities: No clubbing, cyanosis, or edema. RA changes of hands bilaterally. Skin: Normal temperature, turgor, and texture; no rash, ulcers, or subcutaneous nodules appreciated. Neurological: Cranial nerves grossly intact. Psychiatric: Normal mood and affect. Alert and oriented x3. Mentation at baseline. Objective Labs Result Diagrams: 05/04/18 08:07 05/05/18 05:29 Labs: Laboratory Results - last 24 hr 05/05/18 05:29 Sodium 130 L Potassium 3.6 Chloride 100 Carbon Dioxide 24 BUN 11 Creatinine 1.20 H Estimated GFR 44.2 L BUN/Creatinine Ratio 9.2 Glucose 93 Calcium 7.8 L Discharge Plan Discharge Plan Patient Disposition: Home Health Service Transfer to: [facility] Discharge comment: Your being discharged home with PT/OT/Nursing/BONE WORKER. Please follow-up with her primary care physician Dr. Ruggiero in the next 1-2 weeks to discuss your hospitalization, BMP to check sodium, and possible referral for GI scope. Continue taking pantoprazole 40 mg daily and I have added Carafate 1 g 4 times a day (with meals and before bedtime) for 2 weeks. Your blood pressure medications have been changed slightly and prescriptions provided. You have been given a temporary refill for your prescription for lorazepam. Follow-up with your fisher line, Dr. Garcia, as instructed. Discharge Med Rec/Prescriptions Prescriptions: New sucralfate 1 gram Tablet 1 gm PO ACHS Qty: 14 RF: 0 Continue aspirin 81 MG tablet,delayed release (DR/EC) 81 mg PO QDAY Qty: 0 RF: 0 cyclosporine [Restasis] 1 EACH dropperette 0.05 % OPHTH BID Qty: 0 RF: 0 pantoprazole 40 mg tablet,delayed release (DR/EC) 40 mg PO DAILY RF: 0 nifedipine 60 mg tablet extended release 1 tab PO BID RF: 0 melatonin 3 mg Tablet 3 mg PO BEDTIME PRN (Reason: Sleep) RF: 0 levothyroxine 50 mcg Tablet 50 mcg PO DAILY RF: 0 acetaminophen 325 mg Tablet 650 mg PO Q4HR PRN (Reason: As Needed For Fever/Mild Pain) Qty: 60 RF: 0 escitalopram oxalate 10 mg tablet 10 mg PO DAILY Qty: 30 RF: 0 calcitriol 0.5 mcg capsule 2 cap PO Q OTHER DAY RF: 0 naloxone [Narcan] 4 mg/actuation spray,non-aerosol See Label Instructions .ROUTE .COMPLEX RF: 0 lorazepam 0.5 mg tablet 0.5 mg PO TID MDD 3 Qty: 30 RF: 0 hydrocodone-acetaminophen 5 MG/325 MG tablet 1 tab PO Q4-6H MDD 6 PRN (Reason: Pain, Moderate) RF: 0 isosorbide mononitrate 60 mg Tablet Extended Release 24 Hr 60 mg PO DAILY RF: 0 gabapentin 300 mg Capsule 900 mg PO BEDTIME RF: 0 hydroxyzine HCl 25 mg Tablet 25 mg PO QID PRN (Reason: Itching) RF: 0 ondansetron 4 mg tablet,disintegrating 1 tab PO PRN PRN (Reason: Nausea) RF: 0 Changed carvedilol 3.125 mg Tablet 6.25 mg PO BID Qty: 120 RF: 0 lisinopril 5 mg Tablet 10 mg PO DAILY Qty: 60 RF: 0 Discontinued hydralazine 25 mg Tablet 25 mg PO TID RF: 0 Follow up/Referrals: Lachelle Ruggiero PA-C [Primary Care Provider] - 1 Week Provider Discharge Instructions Diet: Diet as Tolerated, Low-fat, Low-sodium and Low-cholesterol Activity: Activity as tolerated with a 4 wheeled walker and physical therapy Visit Report/Discharge Packet Instructions: Duodenal Ulcer, DI for Gastritis Visit Report Forms: Congestive Heart Failure, Stroke Signs & Symptoms Discharge Data Primary Care Provider: Lachelle Ruggiero Attending Provider: Chilo Page Admit Date/Time: 05/01/18 14:23 Discharges patient from system. Discharge Date/Time: 05/05/18 13:39
--- NOTE | 2018-05-05 12:00 | PT.IPTN ---
Current Diagnoses Anemia, unspecified (05/01/18) Neutropenia, unspecified (05/01/18) Hypothyroidism, unspecified (05/01/18) Dehydration (05/01/18) Hypo-osmolality and hyponatremia (05/01/18) Major depressive disorder, single episode, unspecified (05/01/18) Metabolic encephalopathy (05/01/18) Essential (primary) hypertension (05/01/18) Gastro-esophageal reflux disease without esophagitis (05/01/18) Rheumatoid arthritis, unspecified (05/01/18) Unspecified abdominal pain (05/01/18) Weakness (05/01/18) Abnormal levels of other serum enzymes (05/01/18) Personal history of other specified conditions (05/01/18) Physical Therapy Treatment Note M2 PT-IP Current Condition Start: 05/01/18 15:45 Freq: NEEDED Status: Active Protocol: Document 05/02/18 08:55 RCC (Rec: 05/02/18 11:07 RCC [id number]) Physical Therapy Current Condition Current Condition Evaluation Date 05/02/18 Treatment Diagnosis Nausea, SOB, impaired activity tolerance and weakness M3 PT-IP Subjective Start: 05/01/18 15:45 Freq: NEEDED Status: Active Protocol: Document 05/05/18 11:43 SA (Rec: 05/05/18 12:00 SA [email or web address]) Subjective Physical Therapy Visit Type Type Treatment Note Visit Start Time 11:14 Visit Stop Time 11:40 Total Visit Minutes 26 Notes Pt sitting up in chair and agreeable to get up. Number of WAREHOUSE STOCK CLERK Visits 3 Physical Therapy Visit Comments Patient Comments Pt going home with daughter this afternoon and she just had shower. Reports feeling tired but willing to participate in PT. Patient Goals To get home to her cat. Therapy Pain Assessment Pain When Pain Assessed At Rest Pain Present Pain Present Denied Pain M4 PT-IP Mobility and Gait Start: 05/01/18 15:45 Freq: NEEDED Status: Active Protocol: Document 05/05/18 11:43 SA (Rec: 05/05/18 12:00 SA [id number]) PT-Bed Mobility Assessment Supine to Sit Supine to Sit Independent Sit to Supine Sit to Supine Independent Scooting Scooting to Edge of Bed Independent PT-Transfer Assessment Sit to and From Stand Sit to and from Stand Standby Assistance Equipment Transfer Assistive Device Gait Belt Front Wheeled Walker Transfers Transfer Destination Chair Transfer Technique Stand Step Pivot Transfer Ability Level of Assist Standby Assistance Comments Mobility Comments Pt mobilizes well with FWW and SBA-SUP, declines use of brace and states she does not usually use it inside her home . Pt does not have stairs in home. Gait Assessment Gait Gait Assistance Required: Standby Assistance Distance (Feet) 80 Assistive Devices Assistive Device Gait Belt Front Wheeled Walker Gait Deviations General Gait Pattern Decreased Stride Length Decreased Feet Clearance Narrow Based Gait Factors Limiting Gait Function Factors Limiting Gait Function Decreased Activity Tolerance Decreased Strength Limited Range of Motion Comments Gait Comments Pt ambulated in room/hallway with FWW and SBA and no LE brace, no LOB noted and pt demonstrates good safety awareness and safe use of FWW. PT-Balance Assessment Comments Other Balance Tests/Deviations/Treatment Pt stood at sink to do hair : and wash hands x 4 min with SBA and no LOB, good weight shifting. M5 PT-IP Objective Assessments Start: 05/01/18 15:45 Freq: NEEDED Status: Active Protocol: Document 05/02/18 08:55 RCC (Rec: 05/02/18 11:07 RCC [id number]) Orientation Orientation/Cognition Level of Alertness Alert Gross Range of Motion Lower Extremity ROM Assessment Left Impaired Impairments L ankle ROM impaired but able to DF past 0 degrees Strength Lower Extremity Strength Assessment Bilaterally Impaired Hip flexion 4/5 B Knee flexion and extension 4/5 B Ankle DF R 5/5, L 3+/5 Coordination Assessment Gross Coordination Gross Coordination WNL Sensation Assessment Sensation Gross Sensation Right LE Impaired Left LE Impaired Light Touch Impaired Comments Sensation Comments neuropathy B feet Muscle Tone Muscle Tone WNL Yes M6 PT-IP Treatment Start: 05/01/18 15:45 Freq: NEEDED Status: Active Protocol: Document 05/05/18 11:43 SA (Rec: 05/05/18 12:00 SA [id number]) Physical Therapy Treatment Exercises Exercises Ankle Pumps Quad Sets Education Education Provided Safety Equipment Issued Equipment Type and Company Pt has 4WW at home that she uses and tends to furniture walk inside of home. M7 PT-IP Assessment and Plan Start: 05/01/18 15:45 Freq: NEEDED Status: Active Protocol: Document 05/05/18 11:43 SA (Rec: 05/05/18 12:00 SA [email or web address]) PT Summary Assessment and Plan Summary Assessment Summary Pt with increased ambulation tolerance and distance with SBA and good standing tolerance at sink, no c/o pain or nausea and ready for DC. Pt has daughter and neighbor that check on her daily and do shopping, house cleaning for her. Has meals on wheels service. Goals Days to Meet Goals 5 Frequency of Treatment Frequency Of Treatment Once a Day Treatment Plan Other Recommendations and Next Treatment Pt to d/c home this afternoon. Focus Recommendations To Nursing Amount of Assist Needed 1 Person Assist Discharge Recommendations PT Discharge Recommendations Home with Assistance Home Health
--- NOTE | 2018-05-05 16:34 | P.DS_ITS ---
History of Present Illness Date Patient Seen: 05/05/18 Chief complaint: nausea, shorttness of breath, thoughts jumbled Narrative: Written by Dr. Page: This is a 72-year-old female, patient of Dr. Ruggiero, in [place], who presents with confusion consistent with a metabolic encephalopathy. She probably has a urinary tract infection, the urinalysis is still pending. She has had a head CT and chest x-ray which did not show a cause of the confusion. She has a complicated past medical history and was actually admitted here with respiratory failure and subsequent congestive heart failure diagnosis and prolonged intubation back in October of 2017. She says she had aspiration pneumonia. She subsequently was in rehab at a local snf facility and then went home. She lives alone but her twin daughters are visiting today and insisted she come in. She had a brief chest pain episode 2 days ago which she minimizes. The ceja symptom is ongoing weakness, difficulty talking and slow thinking along with a lack of oral intake for the last week or so. Today she was suddenly weaker than she had been. She has recently been placed on leflunomide and sulfasalazine from Dr. Garcia her studio designer after she was recently confirmed to have rheumatoid arthritis. She has had osteoarthritis for a number of years prior. The thinking earlier this week was that 1 of those medicines was responsible and so they were held for several days. When asked why she is dehydrated she says that it is because she has lost her thirst and simply stopped drinking. There seems to be some nausea component although she does not really endorse that fully. She denies abdominal pain, chest pain, dysuria, fevers and coughing. She is quite hard of hearing and so communication is a challenge. Her troponin is mildly elevated but she has no matching symptoms to suggest a primary coronary event. She does not have a rehab consultant. Discharge Providers Date of admission: 05/01/18 14:23 Primary care physician: Lachelle Ruggiero PA-C Consults: 05/01/18 15:16 Consult to Discharge Planning Routine Comment: Consult to Occupational Therapy Evaluate & Treat Comment: Physician Instructions: Evaluate and treat Consult to Physical Therapy Evaluate & Treat Comment: Physician Instructions: Evaluate and Treat 05/03/18 11:22 Consult to Home Health Routine Comment: Reason For Exam: Nursing, OCULARIST, P.T/O.T. 05/03/18 14:49 Consult to Speech Therapy Evaluate & Treat Comment: Decreased nutritional intake Physician Instructions: Evaluate and treat Discharge provider: Callie Henry DO Discharge Date: 05/05/18 Summary Discharge Diagnosis: 1. Acute metabolic encephalopathy, present on admission. Resolved. 2. Acute dehydration, present on admission. Resolved. 3. Acute nausea and abdominal pain, present on admission. Resolved. 4. Acute kidney injury, on chronic kidney disease stage 2, present on admission. Resolved. 5. Acute hyponatremia, present on admission. Resolving and stable. 6. Generalized weakness, likley slow progressive process, present on admission. Stable. 7. Elevated troponin of unclear significance, present on admission. Resolved. 8. Hypertension, chronic, present on admission. Stable. 9. Neutropenia, chronic, present on admission. Stable. 10. Rheumatoid arthritis, chronic, present on admission. Stable. 11. Normocytic anemia, chronic, present on admission. Stable. 12. Hypothyroidism, chronic, present on admission. Stable. Hospital Course: 1. Acute metabolic encephalopathy, present on admission. Resolved. -Likely secondary to dehydration which may be side effect of leflunomide (nausea , anorexia and diarrhea) vs GI related issue (previous history of gastritis and duodenal ulcer). Less likely due to medications such as gabapentin and hydrocodone. -Hydrocodone has been restarted for RA pain without significant change in mentation. Restart gabapentin today. -Mentation at baseline but continues to intermittently exhibit mild confusion and delayed thinking restarted. 2. Acute dehydration, present on admission. Resolved. -Patient reports decreased appetite, vague midepigastric abdominal pain and nausea all of which are significant side effects of leflunomide (last dose taken 1-2 weeks ago with significant half life of 18 days). -Patient receieved IV fluids with normal saline at 100 mL/hr as she was not adequately taking in fluids. Continued to encourage oral intake of fluids. -Patient was cleared by speech therapy. No dysphagia or trouble swallowing food. 3. Acute nausea and abdominal pain, present on admission. Resolved. -Patient has a history of gastritis and duodenal ulcer which may be an ongoing issue despite being on Protonix. She is on aspirin 81 mg daily. She has also been on leflunomide which has a very long half-life (approx 18 days) and has significant side effects of anorexia, nausea up to 13% and diarrhea approaching 30% for which I am highly suspicious is the source of her nausea, abdominal pain , poor appetite and lack of p.o. intake. -Will consider abdominal ultrasound or CT abdomen and pelvis if pain is persistent and/or acutely worsens. -Continued Zofran as needed for nausea. Restarted home lorazepam 0.5 mg t.i.d. as needed for anxiety and persistent abdominal discomfort with nausea. -Placed patient on Carafate 1 g 4 times daily with meals and before bedtime and discharged with 2 week prescription. Recommend follow up GI for possible repeat EGD. 4. Acute kidney injury, on chronic kidney disease stage 2, present on admission. Resolved. -Likely secondary to prerenal azotemia from decreased p.o. intake. -Initial creatinine 1.5. Baseline creatinine 1.0 and now normal. -Avoided nephrotoxic agents. 5. Acute hyponatremia, present on admission. Resolving and stable. -Initial sodium 127. Patient not keeping up with adequate fluid intake and restarted IV fluids with NS at 100 mL/hr which were discontinued. Sodium stable at 130. Repeat BMP in 1 week with PCP. -Continued to monitor sodium daily. 6. Generalized weakness, likley slow progressive process, present on admission. Stable. -This appears to be multifactorial, probably initiated by the rheumatoid arthritis and overtime physical decondition. -Continued PT and OT. Patient discharged home with home health PT/OT/nursing/ OCULARIST. 7. Elevated troponin of unclear significance, present on admission. Resolved. -Likely secondary to demand ischemia from significant dehydration. -Initial troponin mildly elevated at 0.044. Trended down and no need to repeat. -The patient denies chest pain. EKG did not demonstrate any acute ischemic changes. -Echocardiogram did not demonstrate any acute wall motion abnormalities. Preserved systolic function with EF of 60-65%, mild LVH, grade 1 diastolic dysfunction, severely dilated left atrium with mild valvular disease AR, MR, TR and improved RVSP of 34 mmHg. 8. Hypertension, chronic, present on admission. Stable. -Continues to be intermittently significantly hypertensive with SBP 180's. -The patient is on 5 antihypertensives at low doses and not optimized. Discontinued hydralazine. Increased carvedilol from 3.125 mg to 6.25 mg twice daily and lisinopril from 5 mg to 10 mg daily. Continue nifedipine 60 mg twice daily and isosorbide mononitrate ER 60 mg daily. Could consider adding thiazide diuretic if continues to be hypertensive once other medications have been optimized. 9. Neutropenia, chronic, present on admission. Stable. -Patient has been mildly leukopenic since October 2017. Continue to monitor WBC. Stable. 10. Rheumatoid arthritis, chronic, present on admission. Stable. -Holding steroids, sulfasalazine, leflunomide. -Continued home hydrocodone. 11. Normocytic anemia, chronic, present on admission. Stable. -After reviewing trend patient's hemoglobin and hematocrit have been stable and chronically low likely secondary to anemia of chronic disease. -No overt signs of bleeding. Vital signs stable -Continuedto monitor hemoglobin hematocrit daily. 12. Hypothyroidism, chronic, present on admission. Stable. -Continued home levothyroxine. Status at Discharge Cognitive/behavioral status at discharge: Functional status at discharge: uses cane/walker Overall status at discharge: patient is back to baseline Exam Vital Signs (past 8 hours): - 05/05/18 05:05 05/05/18 07:00 05/05/18 09:00 Temperature 97.7 F Pulse Rate 70 77 Respiratory Rate 19 16 Blood Pressure 141/66 H 150/77 H Pulse Oximetry 99 99 05/05/18 09:05 05/05/18 09:09 Temperature Pulse Rate 77 Respiratory Rate Blood Pressure 150/77 H 150/77 H Pulse Oximetry Oxygen Delivery Method Room Air Oxygen Flow Rate 0 Narrative Exam Narrative: General: Elderly frail female sitting at bedside and in no acute distress, well- developed, well-nourished, appropriately interactive. HEENT: Normocephalic, atraumatic. External ears without defect. Pupils equal, round, and reactive to light. Anicteric sclerae, moist conjunctivae, and no lid lag. Significantly hard of hearing. Neck: Supple with full range of motion. No jugular venous distension. No lymphadenopathy or thyromegaly. Cardiovascular: Regular rate and rhythm without murmurs, rubs, or gallops appreciated. Pulmonary: Clear to auscultation bilaterally without crackles, wheezes, or rhonchi. Normal respiratory effort with no use of accessory muscles. Abdomen: Soft, bowel sounds present, no tenderness to palpation, nondistended. No rebound or guarding. No hepatosplenomegaly or masses appreciated. Extremities: No clubbing, cyanosis, or edema. RA changes of hands bilaterally. Skin: Normal temperature, turgor, and texture; no rash, ulcers, or subcutaneous nodules appreciated. Neurological: Cranial nerves grossly intact. Psychiatric: Normal mood and affect. Alert and oriented x3. Mentation at baseline. Objective Labs Result Diagrams: 05/04/18 08:07 05/05/18 05:29 Labs: Laboratory Results - last 24 hr 05/05/18 05:29 Sodium 130 L Potassium 3.6 Chloride 100 Carbon Dioxide 24 BUN 11 Creatinine 1.20 H Estimated GFR 44.2 L BUN/Creatinine Ratio 9.2 Glucose 93 Calcium 7.8 L Discharge Plan Discharge Plan Patient Disposition: Home Health Service Transfer to: [facility] Discharge comment: Your being discharged home with PT/OT/Nursing/OCULARIST. Please follow-up with her primary care physician Dr. Ruggiero in the next 1-2 weeks to discuss your hospitalization, BMP to check sodium, and possible referral for GI scope. Continue taking pantoprazole 40 mg daily and I have added Carafate 1 g 4 times a day (with meals and before bedtime) for 2 weeks. Your blood pressure medications have been changed slightly and prescriptions provided. You have been given a temporary refill for your prescription for lorazepam. Follow-up with your studio designer, Dr. Garcia, as instructed. Discharge Med Rec/Prescriptions Prescriptions: New sucralfate 1 gram Tablet 1 gm PO ACHS Qty: 14 RF: 0 Continue aspirin 81 MG tablet,delayed release (DR/EC) 81 mg PO QDAY Qty: 0 RF: 0 cyclosporine [Restasis] 1 EACH dropperette 0.05 % OPHTH BID Qty: 0 RF: 0 pantoprazole 40 mg tablet,delayed release (DR/EC) 40 mg PO DAILY RF: 0 nifedipine 60 mg tablet extended release 1 tab PO BID RF: 0 melatonin 3 mg Tablet 3 mg PO BEDTIME PRN (Reason: Sleep) RF: 0 levothyroxine 50 mcg Tablet 50 mcg PO DAILY RF: 0 acetaminophen 325 mg Tablet 650 mg PO Q4HR PRN (Reason: As Needed For Fever/Mild Pain) Qty: 60 RF: 0 escitalopram oxalate 10 mg tablet 10 mg PO DAILY Qty: 30 RF: 0 calcitriol 0.5 mcg capsule 2 cap PO Q OTHER DAY RF: 0 naloxone [Narcan] 4 mg/actuation spray,non-aerosol See Label Instructions .ROUTE .COMPLEX RF: 0 lorazepam 0.5 mg tablet 0.5 mg PO TID MDD 3 Qty: 30 RF: 0 hydrocodone-acetaminophen 5 MG/325 MG tablet 1 tab PO Q4-6H MDD 6 PRN (Reason: Pain, Moderate) RF: 0 isosorbide mononitrate 60 mg Tablet Extended Release 24 Hr 60 mg PO DAILY RF: 0 gabapentin 300 mg Capsule 900 mg PO BEDTIME RF: 0 hydroxyzine HCl 25 mg Tablet 25 mg PO QID PRN (Reason: Itching) RF: 0 ondansetron 4 mg tablet,disintegrating 1 tab PO PRN PRN (Reason: Nausea) RF: 0 Changed carvedilol 3.125 mg Tablet 6.25 mg PO BID Qty: 120 RF: 0 lisinopril 5 mg Tablet 10 mg PO DAILY Qty: 60 RF: 0 Discontinued hydralazine 25 mg Tablet 25 mg PO TID RF: 0 Follow up/Referrals: Lachelle Ruggiero PA-C [Primary Care Provider] - 1 Week Provider Discharge Instructions Diet: Diet as Tolerated, Low-fat, Low-sodium and Low-cholesterol Activity: Activity as tolerated with a 4 wheeled walker and physical therapy Visit Report/Discharge Packet Instructions: Duodenal Ulcer, DI for Gastritis Visit Report Forms: Congestive Heart Failure, Stroke Signs & Symptoms Discharge Data Primary Care Provider: Lachelle Ruggiero Attending Provider: Chilo Page Admit Date/Time: 05/01/18 14:23 Discharges patient from system. Discharge Date/Time: 05/05/18 13:39
--- NOTE | 2018-05-06 08:06 | CM.DPC ---
DCP Discharge home with [facility] Per , pt was stable for d/c home with family and Caregivers to be set up and HH yesterday after DCP shift. DCP called [facility] this morning and confirmed that they received the referral a couple days ago and have the faxed [facility] orders, and d/c summary and have pt scheduled to open tomorrow 05/07/18. Plan: Patient discharged home with family and new [facility] yesterday and [facility] to open pt to service tomorrow. FARHAN Epps
== END 2018-05-05 13:39 | disposition home health service (06) | DRG 71 ==
LOC: ED 14:21 → AC 05-02 10:42
PROVIDERS: Internal Medicine; Nurse Practitioner Adult Health; Admitting Provider Family Medicine; Emergency Provider Emergency Medicine; Family Provider Anesthesiology Pain Medicine; PCP Physician Assistant; Visit Provider Family Medicine
DX: G93.41 Metabolic encephalopathy (principal); E87.1 Hypo-osmolality and hyponatremia; N17.9 Acute kidney failure, unspecified; I13.0 Hypertensive heart and chronic kidney disease with heart failure and stage 1 through stage 4 chronic kidney disease, or unspecified chronic kidney disease; I50.32 Chronic diastolic (congestive) heart failure; I24.8 Other forms of acute ischemic heart disease; E86.0 Dehydration; D70.9 Neutropenia, unspecified; N18.2 Chronic kidney disease, stage 2 (mild); R10.13 Epigastric pain; T39.4X5A Adverse effect of antirheumatics, not elsewhere classified, initial encounter; F41.9 Anxiety disorder, unspecified; F32.9 Major depressive disorder, single episode, unspecified; K21.9 Gastro-esophageal reflux disease without esophagitis; M06.9 Rheumatoid arthritis, unspecified; E03.9 Hypothyroidism, unspecified; E87.6 Hypokalemia
CPT/HCPCS: 36415; 36591; 70450; 71045; 80048; 80053; 80329; 81001; 83690; 83735; 83880; 84443; 84484; 85025; 92610; 93005; 93010; 93306; 96360; 96361; 97116; 97162; 97165; 97530; 97535; 99283; 99285; G0480; J1650; J2405; J3475; J3480

== ENCOUNTER → 2018-09-06 17:01 | Outpatient (CLI) | payer OTHER, SELFPAY ==
[2017-10-15 09:17] VITALS: PULSE 78; RESP 15; O2SAT 98
[2018-05-01 16:16] VITALS: BMI 19.7
[2018-09-06 18:40] LABS: Hematocrit 29.5 % (36-46); Hemoglobin 9.9 g/dL (12.0-16.0); Mean Corpuscular HGB Conc 33.6 % (30-36); Mean Corpuscular Hemoglobin 30.7 PG (26-34); Mean Corpuscular Volume 91.3 fL (80-100); Platelet Count 333 X10^3/uL (150-400); Red Blood Cell Count 3.24 X10^6/uL (4.0-5.2); Red Cell Distribution Width 14.3 % (11.6-14.8); White Blood Cell Count 3.3 X10^3/uL (4.5-11.0)
[2018-09-06 18:46] LABS: HEMOLYSIS < 15 (0-50); Iron 57 ug/dL (37-170)
[2018-09-06 18:54] LABS: BUN Creatinine Ratio 19.2 (6-22); Blood Urea Nitrogen 25 mg/dL (7-17); Calcium 9.8 mg/dL (8.4-10.2); Carbon Dioxide 29 mmol/L (22-32); Chloride 93 mmol/L (98-107); Estimated Glomerular Filt Rate 40.2 mL/min (>60); Glucose 122 mg/dL (80-110); HEMOLYSIS < 15 (0-50); Potassium 5.8 mmol/L (3.4-5.1); Sodium 131 mmol/L (137-145)
[2018-09-06 18:58] LABS: Percent Iron Saturation 22 % (15-50); Total Iron Binding Capacity 258 ug/dL (265-497); Transferrin 193 mg/dL (206-381)
[2018-09-06 19:25] LABS: Ferritin 78.3 ng/mL (11.1-264)
[2018-09-07 15:47] LABS: Creatinine Urine Random 39.6 mg/dL; Protein (Total) Urine Random 42 mg/dL (0-12); Protein Creatinine Ratio Urine 1.06 GRAM/24H
[2018-09-09 14:45] LABS: Parathyroid Hormone Int 9 pg/mL (14-64)
== END ==
PROVIDERS: Family Provider Anesthesiology Pain Medicine; PCP Physician Assistant; Visit Provider Student in an Organized Health Care Education/Training Program
DX: N18.9 Chronic kidney disease, unspecified (principal); D63.1 Anemia in chronic kidney disease; E21.1 Secondary hyperparathyroidism, not elsewhere classified
CPT/HCPCS: 36415; 80048; 82570; 82728; 83540; 83550; 83970; 84156; 85027

== ENCOUNTER → 2018-09-11 12:32 | Outpatient (CLI) | payer OTHER, SELFPAY ==
[2017-10-15 09:17] VITALS: PULSE 78; RESP 15; O2SAT 98
[2018-05-01 16:16] VITALS: BMI 19.7
[2018-09-11 13:59] LABS: Creatinine Urine Random 80.5 mg/dL; Protein (Total) Urine Random 68 mg/dL (0-12); Protein Creatinine Ratio Urine 0.84 GRAM/24H
== END ==
PROVIDERS: Family Provider Anesthesiology Pain Medicine; PCP Physician Assistant; Visit Provider Student in an Organized Health Care Education/Training Program
DX: R80.9 Proteinuria, unspecified (principal)
CPT/HCPCS: 82570; 84156